=== PATIENT | male | born 1930 | race Caucasian/White ===

== ENCOUNTER 2017-05-02 13:45 | Inpatient (IN) | payer MEDICARE, OTHER, MEDICAID ==
[2017-05-02] MEDS ORDERED: Famotidine 20 MG/2 ML SDV IVPUSH ONE (13:57)
--- NOTE | 2017-05-02 13:57 | EDM.PDOC ---
ED HPI GENERAL MEDICAL PROBLEM - General Chief Complaint: Respiratory Problem Stated Complaint: SOB, hypoxia Time Seen by Provider: 05/02/17 13:55 Source of Information: Reports: Patient, Family, Old Records - History of Present Illness Onset: Today, Sudden - Related Data Allergies Allergy/AdvReac Type Severity Reaction Status Date / Time morphine Allergy Hives Verified 05/02/17 13:52 contrast dye Allergy Hives Uncoded 05/02/17 13:52 Home Meds: Home Meds Aspirin [Lo-Dose Aspirin EC] 81 mg PO DAILY 05/02/17 [History] Calcitriol [Calcitriol] 1 cap PO Q48H 05/02/17 [History] Calcium Acetate [PhosLo] 1 cap PO TIDMEALS 05/02/17 [History] Clopidogrel Bisulfate [Clopidogrel] 75 mg PO DAILY 05/02/17 [History] Furosemide [Furosemide] 40 mg PO DAILY 05/02/17 [History] Insulin Aspart [NovoLOG] 18 units SUBCUT TIDMEALS 05/02/17 [History] Insulin Glargine,Hum.Rec.Anlog [Lantus Solostar] 40 units SUBCUT BEDTIME [History] Ipratropium [Atrovent] 1 vial INH Q4H 05/02/17 [History] Ipratropium [Atrovent] 1 vial INH QID PRN 05/02/17 [History] Levothyroxine 150 mcg PO DAILY 05/02/17 [History] Lisinopril 10 mg PO DAILY 05/02/17 [History] Metoprolol Succinate 50 mg PO DAILY 05/02/17 [History] atorvaSTATin [Lipitor] 40 mg PO DAILY 05/02/17 [History] Past Medical History HEENT History: Reports: Cataract, Hard of Hearing, Impaired Vision, Macular Degeneration, Other (See Below). 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 Denies: Asthma, Intubation, Difficult, PE, Pneumothorax, TB Gastrointestinal History: Reports: Cholelithiasis, Colon Polyp, Diverticulosis, Fecal Incontinence, Hemorrhoids, Other (See Below). Denies: Bowel Obstruction, Celiac Disease, Chronic Constipation, Chronic Diarrhea, Gastritis, GERD, GI Bleed, Hepatitis, Hiatal Hernia, Inflammatory Bowel Disease, Irritable Bowel Syndrome, Jaundice, Pancreatitis, PUD Other Gastrointestinal History: History of colon cancer on 08/21/07 as below with additional multiple tubular adenomas and an additional villous adenoma at 30 cm. Additional recurrent tubular adenomas 2 in the transverse colon and an additional 2 in the cecal region at time of subsequent colonoscopy on 11/19/08 with last colonoscopy in about 2010, moderate nonsymptomatic cholelithiasis by CT scan with no surgery required Genitourinary History: Reports: BPH, Chronic Renal Insuffiency, Diabetic Nephropathy, Renal Calculus, Retention, Urinary, Urinary Incontinence, UTI, Recurrent, Other (See Below). Denies: Acute Renal Failure, Dialysis Other Genitourinary History: Severe bilateral nephrolithiasis in the renal pelvis with multiple recurrent episodes of urolithiasis with last episode of right-sided urolithiasis and mild hydronephrosis on 01/22/13 with spontaneous passage, bilateral renal cysts Musculoskeletal History: Reports: Arthritis, Back Pain, Chronic, Fracture, Neck Pain, Chronic, Osteoarthritis, Osteoporosis, Other (See Below). Denies: Amputation, Gout, RA, SLE Other Musculoskeletal History: Right ankle fracture in the Neurological History: Reports: CVA, Headaches, Chronic, Neuropathy, Diabetic, Neuropathy, Peripheral, TIA, Other (See Below) (Recurrent CVAs initially postoperatively). 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 Denies: Abuse, Victim of, ADD, ADHD, Addiction, Alzheimers Disease, Dementia, Psych Hospitalization(s), PTSD, Suicide Attempt, Suicidal Ideation Endocrine/Metabolic History: Reports: Diabetes, Type II, Hypothyroidism, IDDM, Osteoporosis. Denies: Diabetes, Type I Hematologic History: Reports: Anemia, Blood Transfusion(s), Other (See Below) Other Hematologic History: History of postoperative anemia from CABG with transfusions required Immunologic History: Reports: None. Denies: AIDS, HIV, SLE Oncologic (Cancer) History: Reports: Basal Cell Carcinoma, Colon, Other (See Below). Denies: Hodgkin's Lymphoma, Leukemia, Malignant Melanoma, Non-Hodgkin' s Lymphoma, Prostate, Squamous Cell Carcinoma Other Oncologic History: History of superficially invasive adenocarcinoma of the colon at 32 cm with colon resection as below, probable basal cell carcinoma of the right cheek Dermatologic History: Reports: None. Denies: Eczema, Psoriasis - Infectious Disease History Infectious Disease History: Reports: Chicken Pox, Measles, Mumps. Denies: C- Difficile, Meningitis, Mononucleosis, MRSA, Pertussis (Whooping Cough), Rheumatic Fever, Rubella, Scarlet Fever, Shingles, TB, VRE - Past Surgical History Head Surgeries/Procedures: Reports: None HEENT Surgical History: Reports: Cataract Surgery, Eye Surgery, Laser Surgery, Oral Surgery, Other (See Below). Denies: Adenoidectomy, Myringotomy w Tube(s), Naso-Sinus Surgery, Tonsillectomy Other HEENT Surgeries/Procedures: Left Cataract surgery on 03/27/03 with previous right cataract surgery, history of YAG treatment for posterior capsule clouding , complete teeth extraction Cardiovascular Surgical History: Reports: AICD, Coronary Artery Bypass, Coronary Artery Stent, Pacer, Percutaneous Transluminal Angioplasty, Vascular Surgery, Other (See Below). Denies: AAA Repair, Aneurysm, Cardiac Ablation, Carotid Endarterectomy, Carotid Stents, Valve Replacement, Varicose Other Cardiovascular Surgeries/Procedures: Initial pacemaker/ICD placement in about 1991 with subsequent repeat pacemaker/AICD placement in about 2009, three- vessel CABG in 1991 with history of PTCA/stent 2 in July 2012, additional right inguinal stent placement secondary to peripheral vascular disease Respiratory Surgical History: Reports: None. Denies: Lung Biopsies, Thoracentesis GI Surgical History: Reports: Colon, Colonoscopy, Polypectomy, Other (See Below) . Denies: Appendectomy, Cholecystectomy, Colostomy, EGD, Hernia, Abdominal, Hernia, Inguinal, Hernia Repair/Other Other GI Surgeries/Procedures: Sigmoid colon resection secondary to colon cancer in November 2008, multiple colonic polyp excisions in 2007, 2008, and 2010 Male Surgical History: Reports: Lithotripsy (ESWL), Renal Calculus, Ureteral Stent, Other (See Below). Denies: Circumcision, TURP-Transurethral Resection of Prostate, Vasectomy Other Male Surgeries/Procedures: History of multiple bilateral nephrolithiasis including previous spontaneous passage, stone removal, and lithotripsy Endocrine Surgical History: Reports: None. Denies: Thyroid Biopsy Neurological Surgical History: Reports: None. Denies: C-Spine, Discectomy, Laminectomy, Lumbar Spine, Spinal Fusion, Vertebroplasty Musculoskeletal Surgical History: Reports: ORIF, Other (See Below). Denies: Amputation, Arthroscopic Procedure, Carpal Tunnel, Ganglion Cyst, Joint Replacement, Shoulder Surgery Other Musculoskeletal Surgeries/Procedures:: ORIF of right ankle fracture in about the Oncologic Surgical History: Reports: None Dermatological Surgical History: Reports: Skin Biopsy, Other (See Below) Other Dermatological Surgeries/Procedures: Excision of probable basal cell carcinoma from the right cheek - Past Imaging History Past Imaging History: Reports: JEFFERSON Screen (Positive JEFFERSON screens on 05/30/11, 07/29, and 03/13/07), Bone Scan (Bone scan on 11/14/06), Cardiac Echo ( Echocardiogram on 02/21/13 with ejection fraction of 46%), Carotid US (12/09/06), CAT Scan (CT of the abdomen and pelvis on 01/22/13 and 07/20/11), PFT (PFTs on 15/03), Stress Testing (Low level cardiac stress test on 09/29/12 with previous Cardiolite stress test on 08/07/07 with ejection fraction of 40% and Persantine Cardiolite stress test on 07/26/06 with ejection fraction of 39%), Ultrasound ( Renal ultrasound on 08/20/07), Venous Doppler (Venous Doppler studies of the lower extremities on 05/29/11 with right-sided evaluation on 01/07/07) Social & Family History - Family History HEENT: Reports: None. Denies: Glaucoma, Macular Degeneration, Retinal Detachment Cardiac: Reports: CAD, Hypertension, NE, Other (See Below). Denies: Afib, Aneurysm, Arrhythmia, Blood Clots/VTE/DVT, Bypass, Heart Failure, High Cholesterol, Pacemaker, PVD/COD, Stent, Syncope Other Cardiac Family History: Father with NE in his 60s, father with hypertension Respiratory: Reports: COPD, Sleep Apnea, Other (See Below). Denies: Asthma, PE , Pneumothorax Other Respiratory Family Hisory: Brother with COPD with history of tobacco use, another brother with COPD and sleep apnea GI: Reports: Colon Polyps, Other (See Below). Denies: Celiac Disease, Cholelithiasis, GERD, GI bleed, Inflammatory Bowel Disease, Irritable Bowel Syndrome, PUD Other GI Family History: Brother with probable colonic polyps with history of colon cancer as below : Reports: Renal Calculus. Denies: Dialysis, Renal Disease/Insufficiency Other Family History: Multiple family members with urolithiasis OBGYN: Reports: None. Denies: Endometriosis, Recurrent Spontaneous Musculoskeletal: Reports: Arthritis, Osteoarthritis, Other (See Below). Denies : Gout, RA, SLE Other Musculoskeletal Family History: Multiple Family members with osteoarthritis Neurological: Reports: CVA, Other (See Below). Denies: Alzheimers Disease, Cerebral Aneurysms, Dementia, Migraines, MS, Parkinson's, Seizure, TIA Other Neurological Family History: Mother with history of CVA in his 60s Psychiatric: Denies: Abuse, Victim of, ADD, ADHD, Anxiety, Depression, Psych Hospitalization(s), PTSD, Suicide Attempt Endocrine/Metabolic: Reports: Diabetes, type II, IDDM, Other (See Below). Denies: Hypothyroidism Other Endocrine/Metabolic Family History: Brother IDDM Hematologic: Reports: None. Denies: Anemia Immunologic: Reports: None. Denies: AIDS, HIV, SLE Dermatologic: Reports: None. Denies: Eczema, Psoriasis Oncologic: Reports: Colon, Other (See Below) Other Oncologic Family History: Mother with unknown type of fatal cancer in her early 60s, brother with colon cancer in his 60s - Tobacco Use Smoking Status *Q: Former Smoker Tobacco Use Within Last Twelve Months: No Years of Tobacco use: 53 Packs/Tins Daily: 1 (Note between ages 12 and 65) Used Tobacco, but Quit: Yes Smoking Cessation Information Provided To Patient: No Second Hand Smoke Exposure: No Second Hand Smoke Education Provided: No - Caffeine Use Caffeine Use: Reports: Coffee (7 cups per week), Soda (Very occasional). 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 Denies: Fever, Chills, Malaise, Night Sweats, Diaphoresis, Decreased Appetite, Weight Loss, Weight Gain HEENT: Reports: Glasses (Noncompliant), Hearing Loss (Stable chronic). Denies: Dental Pain, Ear Discharge, Ear Pain, Eye Discharge, Eye Pain, Rhinitis, Sinus Problem, Throat Pain, Throat Swelling, Vertigo, Vision Change Respiratory: Reports: Shortness of Breath. Denies: Wheezing, Pleuritic Chest Pain, Cough Cardiovascular: Reports: Claudication (Stable), Dyspnea on Exertion, Edema ( Stable dependent), Orthopnea. Denies: Chest Pain, Blood Pressure Problem, Lightheadedness, Palpitations, PND, Syncope Endocrine: Reports: Fatigue (As above) GI/Abdominal: Reports: No Symptoms, Stool Incontinence (Stable). Denies: Abdominal Pain, Anorexia, Black Stool, Bloody Stool, Constipation, Diarrhea, Decreased Appetite, Difficulty Swallowing, Distension, Flatus, Hematochezia, Melena, Nausea, Vomiting : Reports: Incontinence. Denies: Discharge, Dysuria, Flank Pain, Frequency, Hematuria, Pain, Urgency, Urinary Retention Musculoskeletal: Reports: Back Pain (Chronic low back), Joint Pain (Generalized) , Muscle Stiffness (Generalized). Denies: Neck Pain, Shoulder Pain, Leg Pain, Joint Swelling Skin: Reports: No Symptoms. Denies: Diaphoresis, Bruising, Wound Neurological: Reports: Numbness (Stable chronic), Paresthesia, Pre-Existing Deficit (Stable borderline left hemiparesis), Tingling, Difficulty Walking ( Secondary to arthritis and chronic low back pain with cane use). Denies: Confusion, Dizziness, Headache, Seizure, Weakness, Change in Speech, Gait Disturbance Psychiatric: Reports: Anxiety (Stable), Depression (Stable). Denies: Agitation , Hallucinations Hematologic/Lymphatic: Reports: No Symptoms Immunologic: Reports: No Symptoms ED EXAM, GENERAL - Physical Exam Exam: See Below Exam Limited By: No Limitations General Appearance: Alert, WD/WN, No Apparent Distress, Anxious (Mild) Eye Exam: Bilateral Eye: EOMI (Moderate bilateral miosis), Normal Inspection ( No nystagmus), PERRL Ears: Normal External Exam, Normal Canal, Normal TMs, Hearing Loss (Moderate bilateral presbycusis with no hearing aids) Nose: Normal Inspection, Normal Mucosa, No Blood Throat/Mouth: Normal Inspection, Normal Lips, Normal Gums, Normal Oropharynx, Normal Voice, No Airway Compromise. No: Normal Teeth (Complete dentures uppers and lowers), Dysphagia, Perioral Cyanosis Head: Atraumatic, Normocephalic. No: Facial Swelling, Facial Tenderness, Sinus Tenderness Neck: Supple, Non-Tender, Full Range of Motion, Carotid Bruit (Mild bilateral carotid bruits). No: Lymphadenopathy (L), Lymphadenopathy (R), Thyromegaly Respiratory/Chest: No Respiratory Distress, No Accessory Muscle Use, Chest Non- Tender, Rales (Mild bilateral basilar rales). No: Pleural Rub, Retractions Cardiovascular: Normal Peripheral Pulses, Regular Rate, Rhythm, No Edema, No Gallop, No JVD, No Murmur, No Rub. No: Gallop/S3, Gallop/S4, Extra Beats, Friction Rub Peripheral Pulses: 2+: Radial (L), Radial (R), Dorsalis Pedis (L), Dorsalis Pedis (R) GI/Abdominal: Normal Bowel Sounds, Soft, Non-Tender, No Organomegaly, No Distention, No Abnormal Bruit, No Mass, Other (Obese). No: Guarding (Male) Exam: Deferred Rectal (Males) Exam: Deferred Back Exam: Decreased Range of Motion (Secondary to chronic low back pain), Paraspinal Tenderness (Mild bilateral lower lumbar). No: CVA Tenderness (L), CVA Tenderness (R), Muscle Spasm, Vertebral Tenderness Extremities: Normal Range of Motion, Non-Tender, Normal Capillary Refill, Pedal Edema (Stable by history mild lymphedema of the lower extremities). No: Kristian' s Sign Neurological: Alert, Oriented, CN II-XII Intact, Normal Cognition, Normal Gait ( With walker use), Normal Reflexes (Negative Babinski's), Sensory/Motor Deficit ( Borderline mild left-sided hemiparesis stable by history) Psychiatric: Anxious (Mild), Depressed Mood (Mild with adequate eye contact) Skin Exam: Warm, Dry, Intact, Normal Color, No Rash. No: Diaphoretic, Wound/ Incision Lymphatic: No Adenopathy EKG INTERPRETATION EKG Date: 05/02/17 Time: 14:06 Rhythm: Other (100% paced) Rate (Beats/Min): 70 Comparison: No Change (Last EKG at time of the level cardiac stress test on 09/29) Course - Vital Signs Last Recorded V/S: Last Vital Signs Temp 37.0 C 05/02/17 13:46 Pulse 74 05/02/17 15:11 Resp 19 05/02/17 15:11 BP 151/80 H 05/02/17 15:11 Pulse Ox 100 05/02/17 15:11 Vital Signs - 24 hr 05/02/17 05/02/17 05/02/17 13:46 13:57 14:11 Temperature [ 37.0 C Temporal] Pulse, 70 70 70 Peripheral [ Right Pulse Oximetry] Respiratory 17 20 20 Rate Blood Pressure 152/59 H 152/59 H 148/71 H [Left Upper Arm ] O2 Sat by Pulse 98 98 96 Oximetry 05/02/17 05/02/17 05/02/17 14:26 14:41 14:56 Temperature [ Temporal] Pulse, 70 70 70 Peripheral [ Right Pulse Oximetry] Respiratory 20 18 19 Rate Blood Pressure 141/65 H 153/63 H 150/72 H [Left Upper Arm ] O2 Sat by Pulse 96 98 97 Oximetry 05/02/17 05/02/17 05/02/17 15:11 15:30 15:45 Temperature [ Temporal] Pulse, 74 68 Peripheral [ Right Pulse Oximetry] Respiratory 19 Rate Blood Pressure 151/80 H 143/85 H 134/61 [Left Upper Arm ] O2 Sat by Pulse 100 100 Oximetry - Orders/Labs/Meds Orders: Active Orders 24 hr Category Date Time Status Cardiac Monitoring [RC] . DIRECTED Care 05/02/17 13:57 Active EKG Documentation Completion [RC] ASDIRECTED Care 05/02/17 13:57 Active Peripheral IV Care [RC] . DIRECTED Care 05/02/17 13:57 Active Pulse Oximetry [RC] CONTINUOUS Care 05/02/17 13:57 Active Up With Assistance [RC] PFP Care 05/02/17 13:57 Active Vital Signs [RC] PFP Care 05/02/17 13:57 Active Nothing per Oral Now Diet [DIET] Diet 05/02/17 Breakfast Active Chest 1V Frontal [CR] Stat Exams 05/02/17 13:57 Taken INR,PT,PROTHROMBIN TIME [COAG] Stat Lab 05/02/17 13:57 Ordered PTT,PARTIAL THROMBOPLSTIN TIME [COAG] Stat Lab 05/02/17 13:57 Ordered Sodium Chloride 0.9% [Saline Flush] Med 05/02/17 13:57 Active 10 ml FLUSH ASDIRECTED PRN Obtain Past Medical Record [OM.PC] Urgent Oth 05/02/17 13:57 Active Peripheral IV Insertion Adult [OM.PC] Stat Oth 05/02/17 13:57 Ordered Resuscitation Status Stat Resus Stat 05/02/17 13:57 Ordered Medication Orders Sodium Chloride (Saline Flush) 10 ml FLUSH ASDIRECTED PRN PRN Reason: Keep Vein Open Labs: Laboratory Tests 05/02/17 05/02/17 05/02/17 Range/Units 14:30 14:30 14:30 WBC 9.3 (4.0-10.2) K/uL RBC 4.56 (4.33-5.41) M/uL Hgb 14.9 (13.1-16.8) g/dL Hct 44.4 (39.0-49.0) % MCV 97.4 (84.0-98.0) fL MCH 32.7 (28.2-33.3) pg MCHC 33.6 (31.7-36.0) g/dL RDW 13.3 (11.2-14.1) % Plt Count 141 L (150-350) K/uL Neut % (Auto) 78.5 (45.0-80.0) % Lymph % (Auto) 12.4 (10.0-50.0) % [place] % (Auto) 6.5 (2.0-14.0) % Eos % (Auto) 2.3 (0.0-5.0) % Baso % (Auto) 0.3 (0.0-2.0) % Neut # (Auto) 7.31 H (1.40-7.00) K/uL Lymph # (Auto) 1.16 (0.50-3.50) K/uL [place] # (Auto) 0.61 (0.00-1.00) K/uL Eos # (Auto) 0.21 (0.00-0.50) K/uL Baso # (Auto) 0.03 (0.00-0.20) K/uL D-Dimer, Quantitative 933 H (0-400) ng/mL Sodium 144 (136-145) mmol/L Potassium 4.2 (3.5-5.1) mmol/L Chloride 105 (98-107) mmol/L Carbon Dioxide 30.1 (21.0-32.0) mmol/L BUN 27 H (7-18) mg/dL Creatinine 1.52 H (0.51-1.17) mg/dL Est Cr Clr Drug Dosing 33.05 mL/min Estimated GFR (MDRD) 43 mL/min Glucose 162 H (74-106) mg/dL Lactic Acid (0.4-2.0) mmol/L Uric Acid 6.3 (2.6-7.2) mg/dL Calcium 9.0 (8.5-10.1) mg/dL Magnesium 2.2 (1.8-2.4) mg/dL Total Bilirubin 0.6 (0.2-1.0) mg/dL AST 19 (15-37) U/L ALT 23 (12-78) U/L Alkaline Phosphatase 110 (46-116) IU/L Creatine Kinase 133 (26-308) U/L Creatine Kinase Index 1.4 (0.0-2.5) % CK-MB (CK-2) 1.90 (0.00-3.60) ng/mL Troponin I 0.024 (0.000-0.056) ng/mL NT-Pro-B Natriuret Pep 1254 H (0-125) pg/mL Total Protein 7.4 (6.4-8.2) g/dL Albumin 3.5 (3.4-5.0) g/dL TSH, Ultra Sensitive 14.885 H (0.358-3.740) mIU/mL 05/02/17 Range/Units 14:30 WBC (4.0-10.2) K/uL RBC (4.33-5.41) M/uL Hgb (13.1-16.8) g/dL Hct (39.0-49.0) % MCV (84.0-98.0) fL MCH (28.2-33.3) pg MCHC (31.7-36.0) g/dL RDW (11.2-14.1) % Plt Count (150-350) K/uL Neut % (Auto) (45.0-80.0) % Lymph % (Auto) (10.0-50.0) % [place] % (Auto) (2.0-14.0) % Eos % (Auto) (0.0-5.0) % Baso % (Auto) (0.0-2.0) % Neut # (Auto) (1.40-7.00) K/uL Lymph # (Auto) (0.50-3.50) K/uL [place] # (Auto) (0.00-1.00) K/uL Eos # (Auto) (0.00-0.50) K/uL Baso # (Auto) (0.00-0.20) K/uL D-Dimer, Quantitative (0-400) ng/mL Sodium (136-145) mmol/L Potassium (3.5-5.1) mmol/L Chloride (98-107) mmol/L Carbon Dioxide (21.0-32.0) mmol/L BUN (7-18) mg/dL Creatinine (0.51-1.17) mg/dL Est Cr Clr Drug Dosing mL/min Estimated GFR (MDRD) mL/min Glucose (74-106) mg/dL Lactic Acid 1.5 (0.4-2.0) mmol/L Uric Acid (2.6-7.2) mg/dL Calcium (8.5-10.1) mg/dL Magnesium (1.8-2.4) mg/dL Total Bilirubin (0.2-1.0) mg/dL AST (15-37) U/L ALT (12-78) U/L Alkaline Phosphatase (46-116) IU/L Creatine Kinase (26-308) U/L Creatine Kinase Index (0.0-2.5) % CK-MB (CK-2) (0.00-3.60) ng/mL Troponin I (0.000-0.056) ng/mL NT-Pro-B Natriuret Pep (0-125) pg/mL Total Protein (6.4-8.2) g/dL Albumin (3.4-5.0) g/dL TSH, Ultra Sensitive (0.358-3.740) mIU/mL Meds: Medications Generic Name Dose Route Start Last Admin Trade Name Freq PRN Reason Stop Dose Admin Sodium Chloride 10 ml 05/02/17 13:57 Saline Flush FLUSH ASDIRECTED PRN Keep Vein Open Discontinued Medications Generic Name Dose Route Start Last Admin Trade Name Freq PRN Reason Stop Dose Admin Famotidine 40 mg 05/02/17 13:57 05/02/17 14:27 Pepcid IVPUSH 05/02/17 13:58 40 mg ONETIME ONE Administration - Radiology Interpretation Free Text/Narrative:: Heart monitor shows a nearly 100% paced rhythm with very occasional independent PVC Chest x-ray, portable, showed severe cardiomegaly with mild centralized CHF and pulmonary hypertension. Note pacemaker/ICD with leads in appropriate position. Moderate to severe COPD and pulmonary fibrotic changes with no pneumothorax, pulmonary infiltrates, etc. Departure - Departure Time of Disposition: 15:50 Disposition: Admitted As Inpatient 64 Condition: Fair Clinical Impression: Congestive heart failure, Coronary artery disease, Need for comfort care, IDDM (insulin dependent diabetes mellitus), Dyslipidemia, D-dimer, elevated, Thrombocytopenia, Osteoarthritis, Hypothyroidism (acquired), Hypertension, Renal insufficiency - Discharge Information - Problem List & Annotations (1) Congestive heart failure SNOMED Code(s): 16951081 Code(s): I50.9 - HEART FAILURE, UNSPECIFIED Status: Acute Priority: High Current Visit: Yes Annotation/Comment:: Note significant hypoxemia with any activity with mild to moderate CHF by clinical exam and blood work as above. No true chest pain or anginal type symptoms. Initiate aggressive IV Lasix therapy on admission. Patient will be admitted to inpatient/acute care with additional initiation of standard rule out NE orders. Note that patient is comfort care with no further workup including echocardiogram, etc., although the patient does agree to possible transfer to [place] if warranted. Qualifiers: Congestive heart failure type: systolic Congestive heart failure chronicity : acute on chronic Qualified Code(s): I50.23 - Acute on chronic systolic ( congestive) heart failure (2) Coronary artery disease SNOMED Code(s): 52114167 Code(s): I25.10 - ATHSCL HEART DISEASE OF [place] CORONARY ARTERY W/O ANG PCTRS Status: Chronic Priority: Medium Current Visit: Yes Annotation/ Comment:: No chest pain or anginal type symptoms, however note significant cardiac history as above including PVCs, previous atrial fibrillation, etc. Comfort care as above Qualifiers: Coronary Disease-Associated Artery/Lesion type: bypass graft, autologous artery Associated angina: without angina Qualified Code(s): I25.810 - Atherosclerosis of coronary artery bypass graft(s) without angina pectoris (3) Need for comfort care SNOMED Code(s): 897035778 Code(s): PTY5129 - Status: Chronic Priority: High Current Visit: Yes Annotation/Comment:: Comfort Care verified both with the patient and his son today (4) D-dimer, elevated SNOMED Code(s): 342158032 Code(s): R79.89 - OTHER SPECIFIED ABNORMAL FINDINGS OF BLOOD CHEMISTRY Status: Acute Priority: High Current Visit: Yes Onset Date: 05/02/17 Annotation/Comment:: D-dimer elevation with no clinical evidence of PE or DVT. Patient is allergic to iodine and and also has some renal insufficiency and is not a candidate for a CTA of the chest. Venous Doppler studies of the lower extremities to be conducted in the a.m., although these have been negative in the past (5) Dyslipidemia SNOMED Code(s): 965621996 Code(s): E78.5 - HYPERLIPIDEMIA, UNSPECIFIED Status: Chronic Priority: Medium Current Visit: Yes Annotation/Comment:: Lipid panel in the a.m. (6) Hypertension SNOMED Code(s): 82311747 Code(s): I10 - ESSENTIAL (PRIMARY) HYPERTENSION Status: Chronic Priority : Medium Current Visit: Yes Annotation/Comment:: Blood pressure is under good control in the emergency room Qualifiers: Hypertension type: essential hypertension Qualified Code(s): I10 - Essential (primary) hypertension (7) Hypothyroidism (acquired) SNOMED Code(s): 697840491 Code(s): E03.9 - HYPOTHYROIDISM, UNSPECIFIED Status: Chronic Priority: Medium Current Visit: Yes Annotation/Comment:: Significantly elevated TSH today with the patient not taking this medication on an empty stomach in the past. Increase thyroid supplement for now with close follow-up in 4 weeks with his regular provider (8) IDDM (insulin dependent diabetes mellitus) SNOMED Code(s): 55420528 Code(s): E11.9 - TYPE 2 DIABETES MELLITUS WITHOUT COMPLICATIONS; Z79.4 - SENIOR CARE (CURRENT) USE OF INSULIN Status: Chronic Priority: Medium Current Visit: Yes Annotation/Comment:: Note history of diabetic nephropathy and neuropathy. Initiate sliding scale. Glycosylated hemoglobin in the a.m. (9) Osteoarthritis SNOMED Code(s): 622297090 Code(s): M19.90 - UNSPECIFIED OSTEOARTHRITIS, UNSPECIFIED SITE Status: Chronic Priority: Medium Current Visit: Yes Annotation/Comment:: Osteoarthritis someone under poor control including with current physical therapy. Note significant persistent low back pain Qualifiers: Osteoarthritis location: multiple joints Osteoarthritis type: primary Qualified Code(s): M15.0 - Primary generalized (osteo)arthritis (10) Renal insufficiency SNOMED Code(s): 343620918 Code(s): N28.9 - DISORDER OF KIDNEY AND URETER, UNSPECIFIED Status: Chronic Priority: Medium Current Visit: Yes Annotation/Comment:: Continue to observe closely especially in light of IV Lasix therapy (11) Thrombocytopenia SNOMED Code(s): 000721939 Code(s): D69.6 - THROMBOCYTOPENIA, UNSPECIFIED Status: Acute Priority: Medium Current Visit: Yes Onset Date: 05/02/17 Annotation/Comment:: Mild thrombocytopenia likely not relevant at this time. Repeat blood work in the a.m. - Problem List Review Problem List Initiated/Reviewed/Updated: Yes - My Orders Last 24 Hours: My Active Orders 05/02/17 13:57 Cardiac Monitoring [RC] . DIRECTED EKG Documentation Completion [RC] ASDIRECTED Peripheral IV Care [RC] . DIRECTED Pulse Oximetry [RC] CONTINUOUS Up With Assistance [RC] PFP Vital Signs [RC] PFP Chest 1V Frontal [CR] Stat INR,PT,PROTHROMBIN TIME [COAG] Stat PTT,PARTIAL THROMBOPLSTIN TIME [COAG] Stat Sodium Chloride 0.9% [Saline Flush] 10 ml FLUSH ASDIRECTED PRN Obtain Past Medical Record [OM.PC] Urgent Peripheral IV Insertion Adult [OM.PC] Stat Resuscitation Status Stat 05/02/17 Breakfast Nothing per Oral Now Diet [DIET] - Assessment/Plan Admission H&P: Please use this note as an admission H&P Last 24 Hours: My Active Orders 05/02/17 13:57 Cardiac Monitoring [RC] . DIRECTED EKG Documentation Completion [RC] ASDIRECTED Peripheral IV Care [RC] . DIRECTED Pulse Oximetry [RC] CONTINUOUS Up With Assistance [RC] PFP Vital Signs [RC] PFP Chest 1V Frontal [CR] Stat INR,PT,PROTHROMBIN TIME [COAG] Stat PTT,PARTIAL THROMBOPLSTIN TIME [COAG] Stat Sodium Chloride 0.9% [Saline Flush] 10 ml FLUSH ASDIRECTED PRN Obtain Past Medical Record [OM.PC] Urgent Peripheral IV Insertion Adult [OM.PC] Stat Resuscitation Status Stat 05/02/17 Breakfast Nothing per Oral Now Diet [DIET] Assessment:: As above Plan: As above. Extensive precautions were given to the patient and his son, who are in agreement with the treatment plan. The patient will require about 3-4 days of inpatient/acute care secondary to multiple health problems as above. Marc Aguirre M.D., at the [facility], assumes care in the a.m. with subsequent follow-up after discharge with his regular provider, VICKIE Iverson, from [facility] in [place].
[2017-05-02] MEDS ORDERED: Temazepam 15 MG Cap PO PRN (16:04)
[2017-05-02] MEDS ORDERED: Sodium Chloride 0.9% 10 ML Syringe FLUSH PRN (16:04)
[2017-05-02] MEDS ORDERED: Albuterol/Ipratropium 3.0-0.5 MG/3 ML Neb Soln NEB PRN (16:10)
[2017-05-02] MEDS ORDERED: Albuterol 0.083% 2.5 MG/3 ML Neb Soln INH PRN (16:10)
[2017-05-02] MEDS: Insulin Aspart 100 Units/ML 3 ML Pen SUBCUT SCH ×2 (17:04→20:34)
[2017-05-02] MEDS: Enoxaparin 100 MG/1 ML Syringe SUBCUT SCH (17:04)
[2017-05-02] MEDS: Furosemide 40 MG/4 ML VIAL IVPUSH SCH ×2 (17:04→23:53)
[2017-05-02] MEDS: Sodium Chloride 0.9% 10 ML Syringe FLUSH PRN (17:05)
[2017-05-02] MEDS: Potassium Chloride 20 MEQ Tab.ER PO SCH (17:40)
[2017-05-02] MEDS: Calcium Acetate 667 MG Cap PO SCH (17:40)
[2017-05-02] MEDS: Acetaminophen 325 MG Tab PO PRN (20:31)
[2017-05-02] MEDS: Albuterol/Ipratropium 3.0-0.5 MG/3 ML Neb Soln NEB SCH (20:31)
[2017-05-02] MEDS: Levothyroxine 100 MCG Tab PO SCH (20:32)
[2017-05-02] MEDS: Insulin Detemir 100 Units/ML 3 ML Pen SUBCUT SCH (20:35)
[2017-05-03] MEDS: Albuterol/Ipratropium 3.0-0.5 MG/3 ML Neb Soln NEB SCH ×4 (01:54→19:39)
[2017-05-03] MEDS: Potassium Chloride 20 MEQ Tab.ER PO SCH ×3 (07:28→17:40)
[2017-05-03] MEDS: Insulin Aspart 100 Units/ML 3 ML Pen SUBCUT SCH ×4 (07:28→17:41)
[2017-05-03] MEDS: Aspirin 81 MG Tab.EC PO SCH (07:28)
[2017-05-03] MEDS: atorvaSTATin 40 MG Tab PO SCH (07:29)
[2017-05-03] MEDS: Clopidogrel 75 MG Tab PO SCH (07:29)
[2017-05-03] MEDS: Calcium Acetate 667 MG Cap PO SCH ×3 (07:29→17:41)
[2017-05-03] MEDS: Lisinopril 10 MG Tab PO SCH (07:29)
[2017-05-03] MEDS: Furosemide 40 MG/4 ML VIAL IVPUSH SCH ×2 (07:29→16:35)
[2017-05-03] MEDS: Metoprolol Succinate 50 MG Tab.ER PO SCH (07:30)
[2017-05-03] MEDS: Acetaminophen 325 MG Tab PO PRN ×2 (07:30→13:27)
[2017-05-03] MEDS: Sodium Chloride 0.9% 10 ML Syringe FLUSH PRN (07:34)
[2017-05-03 08:12] LABS: CHLORIDE,CL 101 mmol/L (98-107); SODIUM,NA 141 mmol/L (136-145)
--- NOTE | 2017-05-03 12:21 | PCM.PN ---
- General Info Date of Service: 05/03/17 Admission Dx/Problem (Free Text): Congestive heart failure - Review of Systems General: Reports: Weakness, Fatigue HEENT: Reports: No Symptoms Pulmonary: Reports: No Symptoms Cardiovascular: Reports: No Symptoms Gastrointestinal: Reports: No Symptoms Musculoskeletal: Reports: No Symptoms Skin: Reports: No Symptoms Neurological: Reports: No Symptoms Psychiatric: Reports: No Symptoms Systems Review Comment:: Patient is seen states feeling weaker and not as active as before concerned about his blood sugar going up to 252 has lost 11 pounds since yesterday at this time I explained that we diuresed him and that was 11 pounds of water weight also we would put his NovoLog back to 18 units with meals his blood glucose has been well controlled with 18 of NovoLog as seen by his hemoglobin A1c of 6.6 his pitting edema is down we'll continue decreasing and monitoring - Patient Data Vitals - Most Recent: Last Vital Signs Temp 98.3 F 05/03/17 10:00 Pulse 70 05/03/17 10:00 Resp 16 05/03/17 10:00 BP 122/49 L 05/03/17 10:00 Pulse Ox 97 05/03/17 10:00 Weight - Most Recent: 238 lb 6.385 oz I&O - Last 24 Hours: Intake & Output 05/02/17 05/03/17 05/03/17 22:59 06:59 14:59 Intake Total 360 540 Output Total 1750 1450 700 Balance -1390 -1450 -160 Lab Results Last 24 Hours: Laboratory Results - last 24 hr 05/02/17 05/02/17 05/02/17 Range/Units 17:03 20:31 21:50 WBC (4.0-10.2) K/uL RBC (4.33-5.41) M/uL Hgb (13.1-16.8) g/dL Hct (39.0-49.0) % MCV (84.0-98.0) fL MCH (28.2-33.3) pg MCHC (31.7-36.0) g/dL RDW (11.2-14.1) % Plt Count (150-350) K/uL Neut % (Auto) (45.0-80.0) % Lymph % (Auto) (10.0-50.0) % [place] % (Auto) (2.0-14.0) % Eos % (Auto) (0.0-5.0) % Baso % (Auto) (0.0-2.0) % Neut # (Auto) (1.40-7.00) K/uL Lymph # (Auto) (0.50-3.50) K/uL [place] # (Auto) (0.00-1.00) K/uL Eos # (Auto) (0.00-0.50) K/uL Baso # (Auto) (0.00-0.20) K/uL D-Dimer, Quantitative (0-400) ng/mL Sodium (136-145) mmol/L Potassium (3.5-5.1) mmol/L Chloride (98-107) mmol/L Carbon Dioxide (21.0-32.0) mmol/L BUN (7-18) mg/dL Creatinine (0.51-1.17) mg/dL Est Cr Clr Drug Dosing mL/min Estimated GFR (MDRD) mL/min Glucose (74-106) mg/dL POC Glucose 100 141 H (65-110) mg/dl Hemoglobin A1c (4.3-5.7) % Calcium (8.5-10.1) mg/dL Phosphorus (2.6-4.7) mg/dL Total Bilirubin (0.2-1.0) mg/dL AST (15-37) U/L ALT (12-78) U/L Alkaline Phosphatase (46-116) IU/L Creatine Kinase 131 (26-308) U/L Creatine Kinase Index 1.2 (0.0-2.5) % CK-MB (CK-2) 1.60 (0.00-3.60) ng/mL Troponin I 0.030 (0.000-0.056) ng/mL NT-Pro-B Natriuret Pep (0-125) pg/mL Total Protein (6.4-8.2) g/dL Albumin (3.4-5.0) g/dL Triglycerides (30-150) mg/dL Cholesterol (100-200) mg/dL LDL Cholesterol, Calc HDL Cholesterol (40-60) mg/dL 05/03/17 05/03/17 05/03/17 Range/Units 02:51 07:00 07:00 WBC 8.5 (4.0-10.2) K/uL RBC 4.40 (4.33-5.41) M/uL Hgb 14.3 (13.1-16.8) g/dL Hct 43.1 (39.0-49.0) % MCV 98.0 (84.0-98.0) fL MCH 32.5 (28.2-33.3) pg MCHC 33.2 (31.7-36.0) g/dL RDW 13.2 (11.2-14.1) % Plt Count 118 L (150-350) K/uL Neut % (Auto) 75.7 (45.0-80.0) % Lymph % (Auto) 13.6 (10.0-50.0) % [place] % (Auto) 7.7 (2.0-14.0) % Eos % (Auto) 2.5 (0.0-5.0) % Baso % (Auto) 0.5 (0.0-2.0) % Neut # (Auto) 6.47 (1.40-7.00) K/uL Lymph # (Auto) 1.16 (0.50-3.50) K/uL [place] # (Auto) 0.66 (0.00-1.00) K/uL Eos # (Auto) 0.21 (0.00-0.50) K/uL Baso # (Auto) 0.04 (0.00-0.20) K/uL D-Dimer, Quantitative 824 H (0-400) ng/mL Sodium (136-145) mmol/L Potassium (3.5-5.1) mmol/L Chloride (98-107) mmol/L Carbon Dioxide (21.0-32.0) mmol/L BUN (7-18) mg/dL Creatinine (0.51-1.17) mg/dL Est Cr Clr Drug Dosing mL/min Estimated GFR (MDRD) mL/min Glucose (74-106) mg/dL POC Glucose 148 H (65-110) mg/dl Hemoglobin A1c (4.3-5.7) % Calcium (8.5-10.1) mg/dL Phosphorus (2.6-4.7) mg/dL Total Bilirubin (0.2-1.0) mg/dL AST (15-37) U/L ALT (12-78) U/L Alkaline Phosphatase (46-116) IU/L Creatine Kinase (26-308) U/L Creatine Kinase Index (0.0-2.5) % CK-MB (CK-2) (0.00-3.60) ng/mL Troponin I (0.000-0.056) ng/mL NT-Pro-B Natriuret Pep (0-125) pg/mL Total Protein (6.4-8.2) g/dL Albumin (3.4-5.0) g/dL Triglycerides (30-150) mg/dL Cholesterol (100-200) mg/dL LDL Cholesterol, Calc HDL Cholesterol (40-60) mg/dL 05/03/17 05/03/17 05/03/17 Range/Units 07:00 07:00 07:17 WBC (4.0-10.2) K/uL RBC (4.33-5.41) M/uL Hgb (13.1-16.8) g/dL Hct (39.0-49.0) % MCV (84.0-98.0) fL MCH (28.2-33.3) pg MCHC (31.7-36.0) g/dL RDW (11.2-14.1) % Plt Count (150-350) K/uL Neut % (Auto) (45.0-80.0) % Lymph % (Auto) (10.0-50.0) % [place] % (Auto) (2.0-14.0) % Eos % (Auto) (0.0-5.0) % Baso % (Auto) (0.0-2.0) % Neut # (Auto) (1.40-7.00) K/uL Lymph # (Auto) (0.50-3.50) K/uL [place] # (Auto) (0.00-1.00) K/uL Eos # (Auto) (0.00-0.50) K/uL Baso # (Auto) (0.00-0.20) K/uL D-Dimer, Quantitative (0-400) ng/mL Sodium 141 (136-145) mmol/L Potassium 3.9 (3.5-5.1) mmol/L Chloride 101 (98-107) mmol/L Carbon Dioxide 30.8 (21.0-32.0) mmol/L BUN 28 H (7-18) mg/dL Creatinine 1.78 H (0.51-1.17) mg/dL Est Cr Clr Drug Dosing 28.22 mL/min Estimated GFR (MDRD) 36 mL/min Glucose 141 H (74-106) mg/dL POC Glucose 125 H (65-110) mg/dl Hemoglobin A1c 6.6 H (4.3-5.7) % Calcium 9.1 (8.5-10.1) mg/dL Phosphorus 4.0 (2.6-4.7) mg/dL Total Bilirubin 0.7 (0.2-1.0) mg/dL AST 18 (15-37) U/L ALT 20 (12-78) U/L Alkaline Phosphatase 97 (46-116) IU/L Creatine Kinase 121 (26-308) U/L Creatine Kinase Index 1.6 (0.0-2.5) % CK-MB (CK-2) 1.90 (0.00-3.60) ng/mL Troponin I 0.035 (0.000-0.056) ng/mL NT-Pro-B Natriuret Pep 1910 H (0-125) pg/mL Total Protein 7.3 (6.4-8.2) g/dL Albumin 3.5 (3.4-5.0) g/dL Triglycerides 520 H (30-150) mg/dL Cholesterol 122 (100-200) mg/dL LDL Cholesterol, Calc [employer]yers HDL Cholesterol 30 L (40-60) mg/dL 05/03/17 Range/Units 11:05 WBC (4.0-10.2) K/uL RBC (4.33-5.41) M/uL Hgb (13.1-16.8) g/dL Hct (39.0-49.0) % MCV (84.0-98.0) fL MCH (28.2-33.3) pg MCHC (31.7-36.0) g/dL RDW (11.2-14.1) % Plt Count (150-350) K/uL Neut % (Auto) (45.0-80.0) % Lymph % (Auto) (10.0-50.0) % [place] % (Auto) (2.0-14.0) % Eos % (Auto) (0.0-5.0) % Baso % (Auto) (0.0-2.0) % Neut # (Auto) (1.40-7.00) K/uL Lymph # (Auto) (0.50-3.50) K/uL [place] # (Auto) (0.00-1.00) K/uL Eos # (Auto) (0.00-0.50) K/uL Baso # (Auto) (0.00-0.20) K/uL D-Dimer, Quantitative (0-400) ng/mL Sodium (136-145) mmol/L Potassium (3.5-5.1) mmol/L Chloride (98-107) mmol/L Carbon Dioxide (21.0-32.0) mmol/L BUN (7-18) mg/dL Creatinine (0.51-1.17) mg/dL Est Cr Clr Drug Dosing mL/min Estimated GFR (MDRD) mL/min Glucose (74-106) mg/dL POC Glucose 252 H* (65-110) mg/dl Hemoglobin A1c (4.3-5.7) % Calcium (8.5-10.1) mg/dL Phosphorus (2.6-4.7) mg/dL Total Bilirubin (0.2-1.0) mg/dL AST (15-37) U/L ALT (12-78) U/L Alkaline Phosphatase (46-116) IU/L Creatine Kinase (26-308) U/L Creatine Kinase Index (0.0-2.5) % CK-MB (CK-2) (0.00-3.60) ng/mL Troponin I (0.000-0.056) ng/mL NT-Pro-B Natriuret Pep (0-125) pg/mL Total Protein (6.4-8.2) g/dL Albumin (3.4-5.0) g/dL Triglycerides (30-150) mg/dL Cholesterol (100-200) mg/dL LDL Cholesterol, Calc HDL Cholesterol (40-60) mg/dL Chaz Results Last 24 Hours: Microbiology 05/02/17 21:15 Stool Occult Blood ([facility]) - Final Stool / Feces NEGATIVE OCCULT BLOOD Med Orders - Current: Current Medications Acetaminophen (Tylenol) 650 mg PO Q4H PRN PRN Reason: Pain Last Admin: 05/03/17 07:30 Dose: 650 mg Albuterol (Proventil Neb Soln) 2.5 mg INH Q2H PRN PRN Reason: SHORTNESS OF BREATH Albuterol/Ipratropium (Duoneb 3.0-0.5 Mg/3 Ml) 3 ml NEB Q4HRRT PRN PRN Reason: Dyspnea Albuterol/Ipratropium (Duoneb 3.0-0.5 Mg/3 Ml) 3 ml NEB Q6HRRT [facility] Last Admin: 05/03/17 07:28 Dose: 3 ml Aspirin (Halfprin) 81 mg PO DAILY [facility] Last Admin: 05/03/17 07:28 Dose: 81 mg Atorvastatin Calcium (Lipitor) 40 mg PO DAILY [facility] Last Admin: 05/03/17 07:29 Dose: 40 mg Calcitriol (Rocaltrol) 0.5 mcg PO Q2D@0800 [facility] Calcium Acetate (Phoslo) 667 mg PO TIDMEALS [facility] Last Admin: 05/03/17 11:42 Dose: 667 mg Clopidogrel Bisulfate (Plavix) 75 mg PO DAILY [facility] Last Admin: 05/03/17 07:29 Dose: 75 mg Enoxaparin Sodium (Lovenox) 100 mg SUBCUT Q24H [facility] Last Admin: 05/02/17 17:04 Dose: 100 mg Famotidine (Pepcid) 20 mg IVPUSH QPM [facility] Furosemide (Lasix) 40 mg IVPUSH Q8H [facility] Last Admin: 05/03/17 07:29 Dose: 40 mg Insulin Aspart (Novolog) 18 unit SUBCUT TIDMEALS [facility] Insulin Detemir (Levemir) 40 unit SUBCUT BEDTIME [facility] Last Admin: 05/02/17 20:35 Dose: 40 unit Levothyroxine Sodium (Synthroid) 200 mcg PO BEDTIME [facility] Last Admin: 05/02/17 20:32 Dose: 200 mcg Lisinopril (Prinivil) 10 mg PO DAILY [facility] Last Admin: 05/03/17 07:29 Dose: 10 mg Metoprolol Succinate (Toprol Xl) 50 mg PO DAILY [facility] Last Admin: 05/03/17 07:30 Dose: 50 mg Potassium Chloride (Klor-Con M20) 20 meq PO TID [facility] Last Admin: 05/03/17 11:42 Dose: 20 meq Sodium Chloride (Saline Flush) 10 ml FLUSH ASDIRECTED PRN PRN Reason: Keep Vein Open Last Admin: 05/03/17 07:34 Dose: 10 ml Sodium Chloride (Saline Flush) 10 ml FLUSH Q12HR PRN PRN Reason: Keep Vein Open Temazepam (Restoril) 15 mg PO BEDTIME PRN PRN Reason: Insomnia Discontinued Medications Famotidine (Pepcid) 40 mg IVPUSH ONETIME ONE Stop: 05/02/17 13:58 Last Admin: 05/02/17 14:27 Dose: 40 mg Insulin Aspart (Novolog) 0 unit SUBCUT ACBED RADHA PRN Reason: Protocol Last Admin: 05/03/17 11:41 Dose: 8 units - Exam Quality Assessment: Supplemental Oxygen, DVT Prophylaxis General: Alert, Oriented, Cooperative, No Acute Distress HEENT: Pupils Equal, Pupils Reactive, EOMI, Mucous Membr. Moist/[place] Neck: Supple Lungs: Clear to Auscultation, Normal Respiratory Effort Cardiovascular: Regular Rate, Regular Rhythm GI/Abdominal Exam: Normal Bowel Sounds, Soft, Non-Tender, No Organomegaly, No Distention, No Abnormal Bruit, No Mass, Pelvis Stable Back Exam: Normal Inspection, Full Range of Motion Extremities: Normal Inspection, Normal Range of Motion, Non-Tender, No Pedal Edema, Normal Capillary Refill, Pedal Edema Skin: Warm, Dry, Intact Neurological: No New Focal Deficit Physical Findings Comments:: Edema is down from yesterday feeling better we'll continue duration - Problem List & Annotations (1) Congestive heart failure SNOMED Code(s): 78512347 Code(s): I50.9 - HEART FAILURE, UNSPECIFIED Status: Acute Priority: High Current Visit: Yes Qualifiers: Congestive heart failure type: systolic Congestive heart failure chronicity : acute on chronic Qualified Code(s): I50.23 - Acute on chronic systolic ( congestive) heart failure Annotation/Comment:: Note significant hypoxemia with any activity with mild to moderate CHF by clinical exam and blood work as above. No true chest pain or anginal type symptoms. Initiate aggressive IV Lasix therapy on admission. Patient will be admitted to inpatient/acute care with additional initiation of standard rule out MD orders. Note that patient is comfort care with no further workup including echocardiogram, etc., although the patient does agree to possible transfer to [place] if warranted. (2) D-dimer, elevated SNOMED Code(s): 543883897 Code(s): R79.89 - OTHER SPECIFIED ABNORMAL FINDINGS OF BLOOD CHEMISTRY Status: Acute Priority: High Current Visit: Yes Onset Date: 05/02/17 Annotation/Comment:: D-dimer elevation with no clinical evidence of PE or DVT. Patient is allergic to iodine and and also has some renal insufficiency and is not a candidate for a CTA of the chest. Venous Doppler studies of the lower extremities to be conducted in the a.m., although these have been negative in the past (3) IDDM (insulin dependent diabetes mellitus) SNOMED Code(s): 98293239 Code(s): E11.9 - TYPE 2 DIABETES MELLITUS WITHOUT COMPLICATIONS; Z79.4 - CUSTOMER ENGAGEMENT SPECIALIST (CURRENT) USE OF INSULIN Status: Chronic Priority: Medium Current Visit: Yes Annotation/Comment:: Note history of diabetic nephropathy and neuropathy. Initiate sliding scale. Glycosylated hemoglobin in the a.m. - Problem List Review Problem List Initiated/Reviewed/Updated: Yes - My Orders Last 24 Hours: My Active Orders 05/03/17 11:34 Vital Signs [RC] Q4HWA 05/03/17 12:15 Chest 2V [CR] AM CBC WITH AUTO DIFF [HEME] AM Insulin Aspart [NovoLOG] 18 unit SUBCUT TIDMEALS 05/04/17 05:15 BASIC METABOLIC PANEL,BMP [CHEM] AM
[2017-05-03] MEDS ORDERED: Insulin Aspart 100 Units/ML 3 ML Pen SUBCUT ONE (12:23)
[2017-05-03] MEDS: Enoxaparin 100 MG/1 ML Syringe SUBCUT SCH (16:36)
[2017-05-03] MEDS: Famotidine 20 MG/2 ML SDV IVPUSH SCH (17:41)
[2017-05-03] MEDS ORDERED: Lidocaine 5% 700 MG Patch TOP SCH (19:00)
[2017-05-03] MEDS: Insulin Detemir 100 Units/ML 3 ML Pen SUBCUT SCH (19:37)
[2017-05-03] MEDS: Levothyroxine 100 MCG Tab PO SCH (19:38)
[2017-05-03] MEDS: Lidocaine 5% 700 MG Patch TOP SCH (19:39)
[2017-05-04] MEDS: Furosemide 40 MG/4 ML VIAL IVPUSH SCH ×3 (00:45→16:11)
[2017-05-04] MEDS: Sodium Chloride 0.9% 10 ML Syringe FLUSH PRN ×2 (00:45→07:51)
[2017-05-04] MEDS: REMOVE LIDOCAINE TRDERM SCH (07:49)
[2017-05-04] MEDS: Potassium Chloride 20 MEQ Tab.ER PO SCH ×3 (07:50→17:15)
[2017-05-04] MEDS: Albuterol/Ipratropium 3.0-0.5 MG/3 ML Neb Soln NEB SCH ×3 (07:50→19:23)
[2017-05-04] MEDS: atorvaSTATin 40 MG Tab PO SCH (07:50)
[2017-05-04] MEDS: Aspirin 81 MG Tab.EC PO SCH (07:50)
[2017-05-04] MEDS: Clopidogrel 75 MG Tab PO SCH (07:51)
[2017-05-04] MEDS: Lisinopril 10 MG Tab PO SCH (07:51)
[2017-05-04] MEDS: Calcium Acetate 667 MG Cap PO SCH ×3 (07:51→17:15)
[2017-05-04] MEDS: Metoprolol Succinate 50 MG Tab.ER PO SCH (07:51)
[2017-05-04] MEDS: Calcitriol 0.25 MCG Cap PO SCH (07:51)
[2017-05-04] MEDS: Insulin Aspart 100 Units/ML 3 ML Pen SUBCUT SCH ×3 (07:58→17:14)
--- NOTE | 2017-05-04 13:28 | PCM.PN ---
- General Info Date of Service: 05/04/17 Admission Dx/Problem (Free Text): Congestive heart failure - Review of Systems General: Reports: Weakness HEENT: Reports: No Symptoms Pulmonary: Reports: Shortness of Breath Cardiovascular: Reports: No Symptoms Gastrointestinal: Reports: No Symptoms Genitourinary: Reports: No Symptoms Musculoskeletal: Reports: Back Pain Skin: Reports: No Symptoms Neurological: Reports: No Symptoms Psychiatric: Reports: No Symptoms - Patient Data Vitals - Most Recent: Last Vital Signs Temp 97.8 F 05/04/17 12:00 Pulse 66 05/04/17 12:00 Resp 18 05/04/17 12:00 BP 91/56 L 05/04/17 12:00 Pulse Ox 97 05/04/17 12:00 Weight - Most Recent: 237 lb 14.4 oz I&O - Last 24 Hours: Intake & Output 05/03/17 05/04/17 05/04/17 22:59 06:59 14:59 Intake Total 360 660 Output Total 450 Balance 360 210 Lab Results Last 24 Hours: Laboratory Results - last 24 hr 05/03/17 05/03/17 05/03/17 Range/Units 14:56 17:26 19:31 WBC (4.0-10.2) K/uL RBC (4.33-5.41) M/uL Hgb (13.1-16.8) g/dL Hct (39.0-49.0) % MCV (84.0-98.0) fL MCH (28.2-33.3) pg MCHC (31.7-36.0) g/dL RDW (11.2-14.1) % Plt Count (150-350) K/uL Neut % (Auto) (45.0-80.0) % Lymph % (Auto) (10.0-50.0) % [place] % (Auto) (2.0-14.0) % Eos % (Auto) (0.0-5.0) % Baso % (Auto) (0.0-2.0) % Neut # (Auto) (1.40-7.00) K/uL Lymph # (Auto) (0.50-3.50) K/uL [place] # (Auto) (0.00-1.00) K/uL Eos # (Auto) (0.00-0.50) K/uL Baso # (Auto) (0.00-0.20) K/uL Sodium (136-145) mmol/L Potassium (3.5-5.1) mmol/L Chloride (98-107) mmol/L Carbon Dioxide (21.0-32.0) mmol/L BUN (7-18) mg/dL Creatinine (0.51-1.17) mg/dL Est Cr Clr Drug Dosing mL/min Estimated GFR (MDRD) mL/min Glucose (74-106) mg/dL POC Glucose 170 H 177 H 180 H (65-110) mg/dl Calcium (8.5-10.1) mg/dL 05/04/17 05/04/17 05/04/17 Range/Units 07:27 07:30 07:30 WBC 9.8 (4.0-10.2) K/uL RBC 4.67 (4.33-5.41) M/uL Hgb 15.1 (13.1-16.8) g/dL Hct 45.1 (39.0-49.0) % MCV 96.6 (84.0-98.0) fL MCH 32.3 (28.2-33.3) pg MCHC 33.5 (31.7-36.0) g/dL RDW 13.5 (11.2-14.1) % Plt Count 151 (150-350) K/uL Neut % (Auto) 78.7 (45.0-80.0) % Lymph % (Auto) 11.3 (10.0-50.0) % [place] % (Auto) 7.2 (2.0-14.0) % Eos % (Auto) 2.4 (0.0-5.0) % Baso % (Auto) 0.4 (0.0-2.0) % Neut # (Auto) 7.70 H (1.40-7.00) K/uL Lymph # (Auto) 1.11 (0.50-3.50) K/uL [place] # (Auto) 0.70 (0.00-1.00) K/uL Eos # (Auto) 0.23 (0.00-0.50) K/uL Baso # (Auto) 0.04 (0.00-0.20) K/uL Sodium 139 (136-145) mmol/L Potassium 4.7 (3.5-5.1) mmol/L Chloride 100 (98-107) mmol/L Carbon Dioxide 32.9 H (21.0-32.0) mmol/L BUN 32 H (7-18) mg/dL Creatinine 1.96 H (0.51-1.17) mg/dL Est Cr Clr Drug Dosing 25.63 mL/min Estimated GFR (MDRD) 32 mL/min Glucose 104 (74-106) mg/dL POC Glucose 103 (65-110) mg/dl Calcium 9.3 (8.5-10.1) mg/dL Med Orders - Current: Current Medications Acetaminophen (Tylenol) 650 mg PO Q4H PRN PRN Reason: Pain Last Admin: 05/03/17 13:27 Dose: 650 mg Albuterol (Proventil Neb Soln) 2.5 mg INH Q2H PRN PRN Reason: SHORTNESS OF BREATH Albuterol/Ipratropium (Duoneb 3.0-0.5 Mg/3 Ml) 3 ml NEB Q4HRRT PRN PRN Reason: Dyspnea Albuterol/Ipratropium (Duoneb 3.0-0.5 Mg/3 Ml) 3 ml NEB TIDRT@08,14,20 [facility] Last Admin: 05/04/17 07:50 Dose: 3 ml Aspirin (Halfprin) 81 mg PO DAILY [facility] Last Admin: 05/04/17 07:50 Dose: 81 mg Atorvastatin Calcium (Lipitor) 40 mg PO DAILY [facility] Last Admin: 05/04/17 07:50 Dose: 40 mg Calcitriol (Rocaltrol) 0.5 mcg PO Q2D@0800 [facility] Last Admin: 05/04/17 07:51 Dose: 0.5 mcg Calcium Acetate (Phoslo) 667 mg PO TIDMEALS [facility] Last Admin: 05/04/17 11:37 Dose: 667 mg Clopidogrel Bisulfate (Plavix) 75 mg PO DAILY [facility] Last Admin: 05/04/17 07:51 Dose: 75 mg Enoxaparin Sodium (Lovenox) 100 mg SUBCUT Q24H [facility] Last Admin: 05/03/17 16:36 Dose: 100 mg Famotidine (Pepcid) 20 mg IVPUSH QPM [facility] Last Admin: 05/03/17 17:41 Dose: 20 mg Furosemide (Lasix) 40 mg IVPUSH Q8H [facility] Last Admin: 05/04/17 07:50 Dose: 40 mg Insulin Aspart (Novolog) 18 unit SUBCUT TIDMEALS [facility] Last Admin: 05/04/17 11:38 Dose: 18 units Insulin Detemir (Levemir) 40 unit SUBCUT BEDTIME [facility] Last Admin: 05/03/17 19:37 Dose: 40 unit Levothyroxine Sodium (Synthroid) 200 mcg PO BEDTIME [facility] Last Admin: 05/03/17 19:38 Dose: 200 mcg Lidocaine (Lidoderm 5%) 700 mg TOP DAILY@1900 [facility] Last Admin: 05/03/17 19:39 Dose: 700 mg Lisinopril (Prinivil) 10 mg PO DAILY [facility] Last Admin: 05/04/17 07:51 Dose: 10 mg Metoprolol Succinate (Toprol Xl) 50 mg PO DAILY [facility] Last Admin: 05/04/17 07:51 Dose: 50 mg Miscellaneous Information (Remove Patch) 1 ea TRDERM DAILY@0700 [facility] Last Admin: 05/04/17 07:49 Dose: 1 ea Potassium Chloride (Klor-Con M20) 20 meq PO TID [facility] Last Admin: 05/04/17 11:37 Dose: 20 meq Sodium Chloride (Saline Flush) 10 ml FLUSH ASDIRECTED PRN PRN Reason: Keep Vein Open Last Admin: 05/04/17 07:51 Dose: 10 ml Sodium Chloride (Saline Flush) 10 ml FLUSH Q12HR PRN PRN Reason: Keep Vein Open Temazepam (Restoril) 15 mg PO BEDTIME PRN PRN Reason: Insomnia Discontinued Medications Albuterol/Ipratropium (Duoneb 3.0-0.5 Mg/3 Ml) 3 ml NEB Q6HRRT [facility] Last Admin: 05/03/17 13:27 Dose: 3 ml Famotidine (Pepcid) 40 mg IVPUSH ONETIME ONE Stop: 05/02/17 13:58 Last Admin: 05/02/17 14:27 Dose: 40 mg Insulin Aspart (Novolog) 0 unit SUBCUT ACBED [facility] PRN Reason: Protocol Last Admin: 05/03/17 11:41 Dose: 8 units Insulin Aspart (Novolog) 10 unit SUBCUT ONETIME ONE Stop: 05/03/17 12:24 Last Admin: 05/03/17 12:38 Dose: 10 units Lidocaine (Lidoderm 5%) 700 mg TOP DAILY@1900 [facility] Miscellaneous Information (Remove Patch) 1 ea TRDERM DAILY@0700 [facility] Miscellaneous Information (Remove Patch) 1 ea TRDERM DAILY [facility] - Exam General: Alert, Oriented, Cooperative HEENT: Pupils Equal, Pupils Reactive, EOMI, Mucous Membr. Moist/[place] Neck: Supple Lungs: Decreased Breath Sounds Cardiovascular: Regular Rate, Regular Rhythm GI/Abdominal Exam: Normal Bowel Sounds, Soft, Non-Tender, No Organomegaly, No Distention, No Abnormal Bruit, No Mass, Pelvis Stable Back Exam: Other (Lower back pain) Skin: Warm, Dry, Intact Neurological: No New Focal Deficit Psy/Mental Status: Alert, Normal Affect, Normal Mood - Problem List & Annotations (1) Congestive heart failure SNOMED Code(s): 60465193 Code(s): I50.9 - HEART FAILURE, UNSPECIFIED Status: Acute Priority: High Current Visit: Yes Qualifiers: Congestive heart failure type: systolic Congestive heart failure chronicity : acute on chronic Qualified Code(s): I50.23 - Acute on chronic systolic ( congestive) heart failure Annotation/Comment:: Note significant hypoxemia with any activity with mild to moderate CHF by clinical exam and blood work as above. No true chest pain or anginal type symptoms. Initiate aggressive IV Lasix therapy on admission. Patient will be admitted to inpatient/acute care with additional initiation of standard rule out [place] orders. Note that patient is comfort care with no further workup including echocardiogram, etc., although the patient does agree to possible transfer to [place] if warranted. (2) D-dimer, elevated SNOMED Code(s): 190595490 Code(s): R79.89 - OTHER SPECIFIED ABNORMAL FINDINGS OF BLOOD CHEMISTRY Status: Acute Priority: High Current Visit: Yes Onset Date: 05/02/17 Annotation/Comment:: D-dimer elevation with no clinical evidence of PE or DVT. Patient is allergic to iodine and and also has some renal insufficiency and is not a candidate for a CTA of the chest. 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 Initiate sliding scale. Glycosylated hemoglobin in the a.m. (4) Back pain SNOMED Code(s): 419958814 Code(s): M54.9 - DORSALGIA, UNSPECIFIED Status: Acute Current Visit: Yes - Problem List Review Problem List Initiated/Reviewed/Updated: Yes - My Orders Last 24 Hours: My Active Orders 05/03/17 18:28 RT Aerosol Therapy [RC] ,,05/03/17 19:00 Lidocaine 5% [Lidoderm 5%] 700 mg TOP DAILY@189905/03/17 20:00 Albuterol/Ipratropium [DuoNeb 3.0-0.5 MG/3 ML] 3 ml NEB TIDRT@,05/04/17 05:15 Chest 2V [CR] Routine 05/04/17 07:00 Remove Patch 1 ea TRDERM DAILY@69905/05/17 05:11 PRO B-TYPE NATRIUR PEPT,BNPPRO [CHEM] Stat - Plan Plan:: Patient started on lidocaine patches and he was has helped
[2017-05-04] MEDS: Enoxaparin 100 MG/1 ML Syringe SUBCUT SCH (17:14)
[2017-05-04] MEDS: Famotidine 20 MG/2 ML SDV IVPUSH SCH (17:15)
[2017-05-04] MEDS: Insulin Detemir 100 Units/ML 3 ML Pen SUBCUT SCH (19:23)
[2017-05-04] MEDS: Levothyroxine 100 MCG Tab PO SCH (19:23)
[2017-05-04] MEDS: Lidocaine 5% 700 MG Patch TOP SCH (19:23)
[2017-05-05] MEDS: REMOVE LIDOCAINE TRDERM SCH (07:36)
[2017-05-05] MEDS: Potassium Chloride 20 MEQ Tab.ER PO SCH ×3 (07:37→17:55)
[2017-05-05] MEDS: Albuterol/Ipratropium 3.0-0.5 MG/3 ML Neb Soln NEB SCH ×3 (07:37→20:03)
[2017-05-05] MEDS: atorvaSTATin 40 MG Tab PO SCH (07:37)
[2017-05-05] MEDS: Clopidogrel 75 MG Tab PO SCH (07:37)
[2017-05-05] MEDS: Metoprolol Succinate 50 MG Tab.ER PO SCH (07:37)
[2017-05-05] MEDS: Lisinopril 10 MG Tab PO SCH (07:37)
[2017-05-05] MEDS: Insulin Aspart 100 Units/ML 3 ML Pen SUBCUT SCH ×3 (07:38→18:00)
[2017-05-05] MEDS: Calcium Acetate 667 MG Cap PO SCH ×3 (07:38→17:55)
[2017-05-05] MEDS: Aspirin 81 MG Tab.EC PO SCH (07:38)
[2017-05-05] MEDS: Enoxaparin 100 MG/1 ML Syringe SUBCUT SCH (15:44)
[2017-05-05] MEDS: Acetaminophen 325 MG Tab PO PRN (15:47)
[2017-05-05] MEDS: Famotidine 20 MG/2 ML SDV IVPUSH SCH (17:55)
[2017-05-05] MEDS: Sodium Chloride 0.9% 10 ML Syringe FLUSH PRN (17:55)
[2017-05-05] MEDS: Lidocaine 5% 700 MG Patch TOP SCH (20:03)
[2017-05-05] MEDS: Levothyroxine 100 MCG Tab PO SCH (20:06)
[2017-05-05] MEDS: Insulin Detemir 100 Units/ML 3 ML Pen SUBCUT SCH (20:06)
--- NOTE | 2017-05-05 23:11 | PCM.PN ---
- General Info Date of Service: 05/05/17 Subjective Update: Patient doing better sleeping easier breathing his Functional Status: Reports: Tolerating Diet - Review of Systems General: Reports: Fatigue HEENT: Reports: No Symptoms Pulmonary: Reports: Shortness of Breath Cardiovascular: Reports: Dyspnea on Exertion Gastrointestinal: Reports: No Symptoms Genitourinary: Reports: No Symptoms Musculoskeletal: Reports: No Symptoms Skin: Reports: No Symptoms Neurological: Reports: No Symptoms Psychiatric: Reports: No Symptoms - Patient Data Vitals - Most Recent: Last Vital Signs Temp 97.2 F 05/05/17 20:00 Pulse 70 05/05/17 20:00 Resp 16 05/05/17 20:00 BP 115/52 L 05/05/17 20:00 Pulse Ox 96 05/05/17 20:00 Weight - Most Recent: 238 lb 6.4 oz I&O - Last 24 Hours: Intake & Output 05/05/17 05/05/17 05/06/17 14:59 22:59 06:59 Intake Total 1020 480 Output Total 200 225 Balance 820 255 Lab Results Last 24 Hours: Laboratory Results - last 24 hr 05/05/17 05/05/17 05/05/17 Range/Units 07:22 07:45 11:26 POC Glucose 123 H 152 H (65-110) mg/dl NT-Pro-B Natriuret Pep 588 H (0-125) pg/mL 05/05/17 05/05/17 05/05/17 Range/Units 17:09 17:58 20:04 POC Glucose 106 148 H 173 H (65-110) mg/dl NT-Pro-B Natriuret Pep (0-125) pg/mL Med Orders - Current: Current Medications Acetaminophen (Tylenol) 650 mg PO Q4H PRN PRN Reason: Pain Last Admin: 05/05/17 15:47 Dose: 650 mg Albuterol (Proventil Neb Soln) 2.5 mg INH Q2H PRN PRN Reason: SHORTNESS OF BREATH Albuterol/Ipratropium (Duoneb 3.0-0.5 Mg/3 Ml) 3 ml NEB Q4HRRT PRN PRN Reason: Dyspnea Albuterol/Ipratropium (Duoneb 3.0-0.5 Mg/3 Ml) 3 ml NEB TIDRT@08,14,20 [facility] Last Admin: 05/05/17 20:03 Dose: 3 ml Aspirin (Halfprin) 81 mg PO DAILY [facility] Last Admin: 05/05/17 07:38 Dose: 81 mg Atorvastatin Calcium (Lipitor) 40 mg PO DAILY [facility] Last Admin: 05/05/17 07:37 Dose: 40 mg Calcitriol (Rocaltrol) 0.5 mcg PO Q2D@0800 [facility] Last Admin: 05/04/17 07:51 Dose: 0.5 mcg Calcium Acetate (Phoslo) 667 mg PO TIDMEALS [facility] Last Admin: 05/05/17 17:55 Dose: 667 mg Clopidogrel Bisulfate (Plavix) 75 mg PO DAILY [facility] Last Admin: 05/05/17 07:37 Dose: 75 mg Enoxaparin Sodium (Lovenox) 100 mg SUBCUT Q24H [facility] Last Admin: 05/05/17 15:44 Dose: 100 mg Famotidine (Pepcid) 20 mg IVPUSH QPM [facility] Last Admin: 05/05/17 17:55 Dose: 20 mg Insulin Aspart (Novolog) 18 unit SUBCUT TIDMEALS [facility] Last Admin: 05/05/17 18:00 Dose: 18 units Insulin Detemir (Levemir) 40 unit SUBCUT BEDTIME [facility] Last Admin: 05/05/17 20:06 Dose: 40 unit Levothyroxine Sodium (Synthroid) 200 mcg PO BEDTIME [facility] Last Admin: 05/05/17 20:06 Dose: 200 mcg Lidocaine (Lidoderm 5%) 700 mg TOP DAILY@1900 [facility] Last Admin: 05/05/17 20:03 Dose: 700 mg Lisinopril (Prinivil) 10 mg PO DAILY [facility] Last Admin: 05/05/17 07:37 Dose: 10 mg Metoprolol Succinate (Toprol Xl) 50 mg PO DAILY [facility] Last Admin: 05/05/17 07:37 Dose: 50 mg Miscellaneous Information (Remove Patch) 1 ea TRDERM DAILY@0700 [facility] Last Admin: 05/05/17 07:36 Dose: 1 ea Potassium Chloride (Klor-Con M20) 20 meq PO TID [facility] Last Admin: 05/05/17 17:55 Dose: 20 meq Sodium Chloride (Saline Flush) 10 ml FLUSH ASDIRECTED PRN PRN Reason: Keep Vein Open Last Admin: 05/05/17 17:55 Dose: 10 ml Sodium Chloride (Saline Flush) 10 ml FLUSH Q12HR PRN PRN Reason: Keep Vein Open Temazepam (Restoril) 15 mg PO BEDTIME PRN PRN Reason: Insomnia Discontinued Medications Albuterol/Ipratropium (Duoneb 3.0-0.5 Mg/3 Ml) 3 ml NEB Q6HRRT [facility] Last Admin: 05/03/17 13:27 Dose: 3 ml Famotidine (Pepcid) 40 mg IVPUSH ONETIME ONE Stop: 05/02/17 13:58 Last Admin: 05/02/17 14:27 Dose: 40 mg Furosemide (Lasix) 40 mg IVPUSH Q8H [facility] Last Admin: 05/04/17 16:11 Dose: Not Given Insulin Aspart (Novolog) 0 unit SUBCUT ACBED [facility] PRN Reason: Protocol Last Admin: 05/03/17 11:41 Dose: 8 units Insulin Aspart (Novolog) 10 unit SUBCUT ONETIME ONE Stop: 05/03/17 12:24 Last Admin: 05/03/17 12:38 Dose: 10 units Lidocaine (Lidoderm 5%) 700 mg TOP DAILY@1900 [facility] Miscellaneous Information (Remove Patch) 1 ea TRDERM DAILY@0700 [facility] Miscellaneous Information (Remove Patch) 1 ea TRDERM DAILY [facility] - Exam Quality Assessment: Supplemental Oxygen General: Alert, Oriented HEENT: Pupils Equal, Pupils Reactive, EOMI, Mucous Membr. Moist/[place] Neck: Supple Lungs: Clear to Auscultation, Decreased Breath Sounds Cardiovascular: Regular Rate, Regular Rhythm GI/Abdominal Exam: Normal Bowel Sounds, Soft, Non-Tender, No Organomegaly, No Distention, No Abnormal Bruit, No Mass, Pelvis Stable (Male) Exam: No Hernia, Normal Inspection, Normal Prostate, Circumcised Back Exam: Normal Inspection, Full Range of Motion Extremities: Normal Inspection, Normal Range of Motion, Non-Tender, No Pedal Edema, Normal Capillary Refill Skin: Warm, Dry, Intact Neurological: No New Focal Deficit Psy/Mental Status: Alert, Normal Affect, Normal Mood - Problem List & Annotations (1) Congestive heart failure SNOMED Code(s): 65777577 Code(s): I50.9 - HEART FAILURE, UNSPECIFIED Status: Acute Priority: High Current Visit: Yes Qualifiers: Congestive heart failure type: systolic Congestive heart failure chronicity : acute on chronic Qualified Code(s): I50.23 - Acute on chronic systolic ( congestive) heart failure Annotation/Comment:: Note significant hypoxemia with any activity with mild to moderate CHF by clinical exam and blood work as above. No true chest pain or anginal type symptoms. Initiate aggressive IV Lasix therapy on admission. Patient will be admitted to inpatient/acute care with additional initiation of standard rule out [place] orders. Note that patient is comfort care with no further workup including echocardiogram, etc., although the patient does agree to possible transfer to [place] if warranted. Doing much better today BMP improving will transfer tomorrow to swing bed for strengthening (2) D-dimer, elevated SNOMED Code(s): 887543655 Code(s): R79.89 - OTHER SPECIFIED ABNORMAL FINDINGS OF BLOOD CHEMISTRY Status: Acute Priority: High Current Visit: Yes Onset Date: 05/02/17 Annotation/Comment:: D-dimer elevation with no clinical evidence of PE or DVT. Patient is allergic to iodine and and also has some renal insufficiency and is not a candidate for a CTA of the chest. 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 Initiate sliding scale. Glycosylated hemoglobin in the a.m. (4) Back pain SNOMED Code(s): 721957403 Code(s): M54.9 - DORSALGIA, UNSPECIFIED Status: Acute Current Visit: Yes - Problem List Review Problem List Initiated/Reviewed/Updated: Yes - Plan Plan:: Patient started on lidocaine patches and he was has helped
[2017-05-06] MEDS: Acetaminophen 325 MG Tab PO PRN ×3 (06:33→20:25)
[2017-05-06] MEDS: REMOVE LIDOCAINE TRDERM SCH (07:32)
[2017-05-06] MEDS: Aspirin 81 MG Tab.EC PO SCH (07:33)
[2017-05-06] MEDS: Albuterol/Ipratropium 3.0-0.5 MG/3 ML Neb Soln NEB SCH ×3 (07:33→20:21)
[2017-05-06] MEDS: Potassium Chloride 20 MEQ Tab.ER PO SCH ×2 (07:34→11:51)
[2017-05-06] MEDS: atorvaSTATin 40 MG Tab PO SCH (07:35)
[2017-05-06] MEDS: Clopidogrel 75 MG Tab PO SCH (07:39)
[2017-05-06] MEDS: Calcium Acetate 667 MG Cap PO SCH ×3 (07:39→17:04)
[2017-05-06] MEDS: Calcitriol 0.25 MCG Cap PO SCH (07:40)
[2017-05-06] MEDS: Insulin Aspart 100 Units/ML 3 ML Pen SUBCUT SCH ×3 (07:41→17:00)
[2017-05-06] MEDS: Metoprolol Succinate 50 MG Tab.ER PO SCH (07:45)
[2017-05-06] MEDS: Lisinopril 10 MG Tab PO SCH (07:46)
--- NOTE | 2017-05-06 14:04 | PCM.PN ---
- General Info Date of Service: 05/06/17 Admission Dx/Problem (Free Text): Congestive heart failure Subjective Update: Patient feels better overall. Complains of continued weakness. Shortness of breath is at baseline. Has some right abdominal discomfort that is worse when he coughs. Has some generalized back discomfort also. Did have bowel movement earlier today. Does not feel like he is constipated. No other GI changes. Still has gallbladder. Functional Status: Reports: Pain Controlled, Tolerating Diet, Ambulating, Urinating Pain Score: 1 - Review of Systems General: Reports: Weakness, Fatigue. Denies: Fever, Malaise, Chills, Night Sweats, Appetite HEENT: Reports: No Symptoms Pulmonary: Reports: Shortness of Breath (chronic, at baseline). Denies: Pleuritic Chest Pain, Sputum, Hemoptysis, Wheezing Cardiovascular: Reports: Dyspnea on Exertion (chronic). Denies: Chest Pain, Lightheadedness Gastrointestinal: Reports: Abdominal Pain (right sided, low grade, intermittent) . Denies: Constipation, Decreased Appetite, Diarrhea, Difficulty Swallowing, Hematochezia, Melena, Nausea, Vomiting Genitourinary: Reports: No Symptoms Musculoskeletal: Reports: Back Pain (non-focal) Skin: Reports: No Symptoms Neurological: Reports: No Symptoms Psychiatric: Reports: No Symptoms - Patient Data Vitals - Most Recent: Last Vital Signs Temp 36.6 C 05/06/17 11:13 Pulse 70 05/06/17 11:13 Resp 18 05/06/17 08:00 BP 142/57 H 05/06/17 11:13 Pulse Ox 98 05/06/17 11:13 Weight - Most Recent: 108.726 kg I&O - Last 24 Hours: Intake & Output 05/05/17 05/06/17 05/06/17 22:59 06:59 14:59 Intake Total 480 60 720 Output Total 225 500 Balance 255 -440 720 Lab Results Last 24 Hours: Laboratory Results - last 24 hr 05/05/17 05/05/17 05/05/17 Range/Units 06:50 06:50 17:09 WBC 7.5 (4.0-10.2) K/uL RBC 4.17 L (4.33-5.41) M/uL Hgb 13.9 (13.1-16.8) g/dL Hct 40.1 (39.0-49.0) % MCV 96.2 (84.0-98.0) fL MCH 33.3 (28.2-33.3) pg MCHC 34.7 (31.7-36.0) g/dL RDW 13.4 (11.2-14.1) % Plt Count 134 L (150-350) K/uL Neut % (Auto) 73.0 (45.0-80.0) % Lymph % (Auto) 14.6 (10.0-50.0) % Leslie % (Auto) 8.9 (2.0-14.0) % Eos % (Auto) 3.1 (0.0-5.0) % Baso % (Auto) 0.4 (0.0-2.0) % Neut # (Auto) 5.49 (1.40-7.00) K/uL Lymph # (Auto) 1.10 (0.50-3.50) K/uL Leslie # (Auto) 0.67 (0.00-1.00) K/uL Eos # (Auto) 0.23 (0.00-0.50) K/uL Baso # (Auto) 0.03 (0.00-0.20) K/uL Sodium (136-145) mmol/L Potassium (3.5-5.1) mmol/L Chloride (98-107) mmol/L Carbon Dioxide (21.0-32.0) mmol/L BUN (7-18) mg/dL Creatinine (0.51-1.17) mg/dL Est Cr Clr Drug Dosing mL/min Estimated GFR (MDRD) mL/min Glucose (74-106) mg/dL POC Glucose 106 (65-110) mg/dl Calcium (8.5-10.1) mg/dL NT-Pro-B Natriuret Pep 387 H (0-125) pg/mL 05/05/17 05/05/17 05/06/17 Range/Units 17:58 20:04 06:50 WBC (4.0-10.2) K/uL RBC (4.33-5.41) M/uL Hgb (13.1-16.8) g/dL Hct (39.0-49.0) % MCV (84.0-98.0) fL MCH (28.2-33.3) pg MCHC (31.7-36.0) g/dL RDW (11.2-14.1) % Plt Count (150-350) K/uL Neut % (Auto) (45.0-80.0) % Lymph % (Auto) (10.0-50.0) % Leslie % (Auto) (2.0-14.0) % Eos % (Auto) (0.0-5.0) % Baso % (Auto) (0.0-2.0) % Neut # (Auto) (1.40-7.00) K/uL Lymph # (Auto) (0.50-3.50) K/uL Leslie # (Auto) (0.00-1.00) K/uL Eos # (Auto) (0.00-0.50) K/uL Baso # (Auto) (0.00-0.20) K/uL Sodium 138 (136-145) mmol/L Potassium 5.2 H (3.5-5.1) mmol/L Chloride 102 (98-107) mmol/L Carbon Dioxide 27.2 (21.0-32.0) mmol/L BUN 46 H (7-18) mg/dL Creatinine 2.27 H (0.51-1.17) mg/dL Est Cr Clr Drug Dosing 22.13 mL/min Estimated GFR (MDRD) 27 mL/min Glucose 112 H (74-106) mg/dL POC Glucose 148 H 173 H (65-110) mg/dl Calcium 9.3 (8.5-10.1) mg/dL NT-Pro-B Natriuret Pep (0-125) pg/mL 05/06/17 05/06/17 Range/Units 07:31 10:57 WBC (4.0-10.2) K/uL RBC (4.33-5.41) M/uL Hgb (13.1-16.8) g/dL Hct (39.0-49.0) % MCV (84.0-98.0) fL MCH (28.2-33.3) pg MCHC (31.7-36.0) g/dL RDW (11.2-14.1) % Plt Count (150-350) K/uL Neut % (Auto) (45.0-80.0) % Lymph % (Auto) (10.0-50.0) % Leslie % (Auto) (2.0-14.0) % Eos % (Auto) (0.0-5.0) % Baso % (Auto) (0.0-2.0) % Neut # (Auto) (1.40-7.00) K/uL Lymph # (Auto) (0.50-3.50) K/uL Leslie # (Auto) (0.00-1.00) K/uL Eos # (Auto) (0.00-0.50) K/uL Baso # (Auto) (0.00-0.20) K/uL Sodium (136-145) mmol/L Potassium (3.5-5.1) mmol/L Chloride (98-107) mmol/L Carbon Dioxide (21.0-32.0) mmol/L BUN (7-18) mg/dL Creatinine (0.51-1.17) mg/dL Est Cr Clr Drug Dosing mL/min Estimated GFR (MDRD) mL/min Glucose (74-106) mg/dL POC Glucose 117 H 188 H (65-110) mg/dl Calcium (8.5-10.1) mg/dL NT-Pro-B Natriuret Pep (0-125) pg/mL Chaz Results Last 24 Hours: Microbiology 05/02/17 21:15 Helicobacter pylori Antigen - Final Stool / Feces Med Orders - Current: Current Medications Acetaminophen (Tylenol) 650 mg PO Q4H PRN PRN Reason: Pain Last Admin: 05/06/17 06:33 Dose: 650 mg Albuterol (Proventil Neb Soln) 2.5 mg INH Q2H PRN PRN Reason: SHORTNESS OF BREATH Albuterol/Ipratropium (Duoneb 3.0-0.5 Mg/3 Ml) 3 ml NEB Q4HRRT PRN PRN Reason: Dyspnea Albuterol/Ipratropium (Duoneb 3.0-0.5 Mg/3 Ml) 3 ml NEB TIDRT@08,14,20 [facility] Last Admin: 05/06/17 07:33 Dose: 3 ml Aspirin (Halfprin) 81 mg PO DAILY [facility] Last Admin: 05/06/17 07:33 Dose: 81 mg Atorvastatin Calcium (Lipitor) 40 mg PO DAILY [facility] Last Admin: 05/06/17 07:35 Dose: 40 mg Bumetanide (Bumex) 1 mg PO DAILY [facility] Calcitriol (Rocaltrol) 0.5 mcg PO Q2D@0800 [facility] Last Admin: 05/06/17 07:40 Dose: 0.5 mcg Calcium Acetate (Phoslo) 667 mg PO TIDMEALS [facility] Last Admin: 05/06/17 11:52 Dose: 667 mg Clopidogrel Bisulfate (Plavix) 75 mg PO DAILY [facility] Last Admin: 05/06/17 07:39 Dose: 75 mg Enoxaparin Sodium (Lovenox) 100 mg SUBCUT Q24H [facility] Last Admin: 05/05/17 15:44 Dose: 100 mg Famotidine (Pepcid) 20 mg IVPUSH QPM [facility] Last Admin: 05/05/17 17:55 Dose: 20 mg Insulin Aspart (Novolog) 18 unit SUBCUT TIDMEALS [facility] Last Admin: 05/06/17 11:51 Dose: 18 units Insulin Detemir (Levemir) 40 unit SUBCUT BEDTIME [facility] Last Admin: 05/05/17 20:06 Dose: 40 unit Levothyroxine Sodium (Synthroid) 200 mcg PO BEDTIME [facility] Last Admin: 05/05/17 20:06 Dose: 200 mcg Lidocaine (Lidoderm 5%) 700 mg TOP DAILY@1900 [facility] Last Admin: 05/05/17 20:03 Dose: 700 mg Lisinopril (Prinivil) 10 mg PO DAILY [facility] Last Admin: 05/06/17 07:46 Dose: 10 mg Metoprolol Succinate (Toprol Xl) 50 mg PO DAILY [facility] Last Admin: 05/06/17 07:45 Dose: 50 mg Miscellaneous Information (Remove Patch) 1 ea TRDERM DAILY@0700 [facility] Last Admin: 05/06/17 07:32 Dose: 1 ea Sodium Chloride (Saline Flush) 10 ml FLUSH ASDIRECTED PRN PRN Reason: Keep Vein Open Last Admin: 05/05/17 17:55 Dose: 10 ml Sodium Chloride (Saline Flush) 10 ml FLUSH Q12HR PRN PRN Reason: Keep Vein Open Temazepam (Restoril) 15 mg PO BEDTIME PRN PRN Reason: Insomnia Discontinued Medications Albuterol/Ipratropium (Duoneb 3.0-0.5 Mg/3 Ml) 3 ml NEB Q6HRRT [facility] Last Admin: 05/03/17 13:27 Dose: 3 ml Famotidine (Pepcid) 40 mg IVPUSH ONETIME ONE Stop: 05/02/17 13:58 Last Admin: 05/02/17 14:27 Dose: 40 mg Furosemide (Lasix) 40 mg IVPUSH Q8H [facility] Last Admin: 05/04/17 16:11 Dose: Not Given Insulin Aspart (Novolog) 0 unit SUBCUT ACBED [facility] PRN Reason: Protocol Last Admin: 05/03/17 11:41 Dose: 8 units Insulin Aspart (Novolog) 10 unit SUBCUT ONETIME ONE Stop: 05/03/17 12:24 Last Admin: 05/03/17 12:38 Dose: 10 units Lidocaine (Lidoderm 5%) 700 mg TOP DAILY@1900 [facility] Miscellaneous Information (Remove Patch) 1 ea TRDERM DAILY@0700 [facility] Miscellaneous Information (Remove Patch) 1 ea TRDERM DAILY [facility] Potassium Chloride (Klor-Con M20) 20 meq PO TID [facility] Last Admin: 05/06/17 11:51 Dose: 20 meq Comments:: trying to take nap when visiting, had CPAP mask on. - Exam General: Alert, Oriented, Cooperative, No Acute Distress HEENT: Pupils Equal, Pupils Reactive, Mucous Membr. Moist/[place] Neck: Supple Lungs: Decreased Breath Sounds (lower lung collado), Rales (mild, at bases), Rhonchi (mild, at bases). No: Rub, Stridor, Wheezing Cardiovascular: Regular Rate, Regular Rhythm, No Murmurs GI/Abdominal Exam: Normal Bowel Sounds, Soft, No Distention, Other (abdomen obese, some tenderness RUQ and right mid abdomen. No guard/rebound) (Male) Exam: Deferred Back Exam: Other (no focal tenderness elicited with palpation). No: CVA Tenderness (L), CVA Tenderness (R), Muscle Spasm Extremities: Non-Tender. No: Joint Swelling, Increased Warmth Peripheral Pulses: 2+: Radial (L), Radial (R) Skin: Warm, Dry Neurological: No New Focal Deficit Psy/Mental Status: Alert, Normal Affect, Normal Mood - Problem List & Annotations (1) Back pain SNOMED Code(s): 523638500 Code(s): M54.9 - DORSALGIA, UNSPECIFIED Status: Chronic Priority: Low Current Visit: Yes Qualifiers: Back pain location: low back pain (2) Congestive heart failure SNOMED Code(s): 74386419 Code(s): I50.9 - HEART FAILURE, UNSPECIFIED Status: Acute Priority: High Current Visit: Yes Qualifiers: Congestive heart failure type: systolic Congestive heart failure chronicity : acute on chronic Qualified Code(s): I50.23 - Acute on chronic systolic ( congestive) heart failure Annotation/Comment:: Note significant hypoxemia with any activity with mild to moderate CHF by clinical exam and blood work as above. No true chest pain or anginal type symptoms. Initiate aggressive IV Lasix therapy on admission. Patient will be admitted to inpatient/acute care with additional initiation of standard rule out [place] orders. Note that patient is comfort care with no further workup including echocardiogram, etc., although the patient does agree to possible transfer to [place] if warranted. Doing much better today BMP improving will [facility] for strengthening (3) D-dimer, elevated SNOMED Code(s): 662747464 Code(s): R79.89 - OTHER SPECIFIED ABNORMAL FINDINGS OF BLOOD CHEMISTRY Status: Acute Priority: High Current Visit: Yes Onset Date: 05/02/17 Annotation/Comment:: D-dimer elevation with no clinical evidence of PE or DVT. Patient is allergic to iodine and and also has some renal insufficiency and is not a candidate for a CTA of the chest. Venous Doppler studies of the lower extremities to be conducted in the a.m., although these have been negative in the past (4) Thrombocytopenia SNOMED Code(s): 777375748 Code(s): D69.6 - THROMBOCYTOPENIA, UNSPECIFIED Status: Acute Priority: Medium Current Visit: Yes Onset Date: 05/02/17 Annotation/Comment:: Mild thrombocytopenia likely not relevant at this time. Repeat blood work in the a.m. (5) Coronary artery disease SNOMED Code(s): 55866579 Code(s): I25.10 - ATHSCL HEART DISEASE OF [place] CORONARY ARTERY W/O ANG PCTRS Status: Chronic Priority: Medium Current Visit: Yes Qualifiers: Coronary Disease-Associated Artery/Lesion type: bypass graft, autologous artery Associated angina: without angina Qualified Code(s): I25.810 - Atherosclerosis of coronary artery bypass graft(s) without angina pectoris Annotation/Comment:: No chest pain or anginal type symptoms, however note significant cardiac history as above including PVCs, previous atrial fibrillation, etc. Comfort care as above (6) Dyslipidemia SNOMED Code(s): 980472678 Code(s): E78.5 - HYPERLIPIDEMIA, UNSPECIFIED Status: Chronic Priority: Medium Current Visit: Yes Annotation/Comment:: Lipid panel in the a.m. (7) Hypertension SNOMED Code(s): 88026494 Code(s): I10 - ESSENTIAL (PRIMARY) HYPERTENSION Status: Chronic Priority : Medium Current Visit: Yes Qualifiers: Hypertension type: essential hypertension Qualified Code(s): I10 - Essential (primary) hypertension Annotation/Comment:: Blood pressure is under good control in the emergency room (8) Hypothyroidism (acquired) SNOMED Code(s): 108594585 Code(s): E03.9 - HYPOTHYROIDISM, UNSPECIFIED Status: Chronic Priority: Medium Current Visit: Yes Annotation/Comment:: Significantly elevated TSH today with the patient not taking this medication on an empty stomach in the past. Increase thyroid supplement for now with close follow-up in 4 weeks with his regular provider (9) IDDM (insulin dependent diabetes mellitus) SNOMED Code(s): 01165973 Code(s): E11.9 - TYPE 2 DIABETES MELLITUS WITHOUT COMPLICATIONS; Z79.4 - FORGE HAND (CURRENT) USE OF INSULIN Status: Chronic Priority: Medium Current Visit: Yes Annotation/Comment:: Note history of diabetic nephropathy and neuropathy. Initiate sliding scale. Glycosylated hemoglobin in the a.m. (10) Need for comfort care SNOMED Code(s): 520386117 Code(s): IPL0653 - Status: Chronic Priority: High Current Visit: Yes Annotation/Comment:: Comfort Care verified both with the patient and his son today (11) Osteoarthritis SNOMED Code(s): 374713608 Code(s): M19.90 - UNSPECIFIED OSTEOARTHRITIS, UNSPECIFIED SITE Status: Chronic Priority: Medium Current Visit: Yes Qualifiers: Osteoarthritis location: multiple joints Osteoarthritis type: primary Qualified Code(s): M15.0 - Primary generalized (osteo)arthritis Annotation/Comment:: Osteoarthritis someone under poor control including with current physical therapy. Note significant persistent low back pain (12) Renal insufficiency SNOMED Code(s): 983044106 Code(s): N28.9 - DISORDER OF KIDNEY AND URETER, UNSPECIFIED Status: Chronic Priority: Medium Current Visit: Yes Annotation/Comment:: BUN/Cr elevated to 46 and 2.27 respectively today. Lasix has been discontinued and currently no additional diuretic added. K also increased to 5.2, however he has been continued on oral K supplementation. This was discontinued today. Recheck tomorrow. (13) Acute hyperkalemia SNOMED Code(s): 0843157 Code(s): E87.5 - HYPERKALEMIA Status: Acute Priority: Medium Current Visit: Yes Onset Date: 05/06/17 Annotation/Comment:: Patient has increased BUN/Cr today which may have contributed to the elevated K levels. Oral supplementation of K discontinued today. Will recheck BMP in AM. (14) Physical deconditioning SNOMED Code(s): 84611218603844 Code(s): R53.81 - OTHER MALAISE Status: Chronic Priority: Medium Current Visit: Yes - Problem List Review Problem List Initiated/Reviewed/Updated: Yes - My Orders Last 24 Hours: My Active Orders 05/06/17 14:00 Bumetanide [Bumex] 1 mg PO DAILY 05/07/17 05:15 BASIC METABOLIC PANEL,BMP [CHEM] AM CBC WITH AUTO DIFF [HEME] AM - Assessment Assessment:: Weakness/deconditioning in patient with chronic symptomatic CHF and pulmonary disease. Worsening renal status today. Patient has gained 3 pounds since lasix discontinued. - Plan Plan:: Will keep patient as inpatient today due to observed worsening renal function and hyperkalemia. Oral K supplementation discontinued. Will give cautious Bumex to help with mild diuresis given patient's CHF issues and recent weight gain. This will be an additional day of inpatient stay. Will re-evaluate tomorrow for transfer to swing bed status for PT and OT.
[2017-05-06] MEDS: Bumetanide 1 MG Tab PO SCH (14:33)
[2017-05-06] MEDS: Enoxaparin 100 MG/1 ML Syringe SUBCUT SCH (16:58)
[2017-05-06] MEDS: Famotidine 20 MG/2 ML SDV IVPUSH SCH (17:04)
[2017-05-06] MEDS: Sodium Chloride 0.9% 10 ML Syringe FLUSH PRN (17:10)
--- NOTE | 2017-05-06 18:57 | PCM.SN ---
- Free Text/Narrative Note: Xray shows what appears to be cholelithiasis. Given patient's complaint of intermittent RUQ tenderness and tenderness on exam, will obtain US study tomorrow to look more closely at gallbladder.
[2017-05-06] MEDS: Lidocaine 5% 700 MG Patch TOP SCH (20:20)
[2017-05-06] MEDS: Insulin Detemir 100 Units/ML 3 ML Pen SUBCUT SCH (20:22)
[2017-05-06] MEDS: Levothyroxine 100 MCG Tab PO SCH (20:25)
[2017-05-06] MEDS: traMADol 50 MG Tab PO PRN (20:26)
[2017-05-07] MEDS: REMOVE LIDOCAINE TRDERM SCH (08:44)
[2017-05-07] MEDS: Bumetanide 1 MG Tab PO SCH (08:45)
[2017-05-07] MEDS: Calcium Acetate 667 MG Cap PO SCH ×2 (08:45→11:27)
[2017-05-07] MEDS: Lisinopril 10 MG Tab PO SCH (08:45)
[2017-05-07] MEDS: Metoprolol Succinate 50 MG Tab.ER PO SCH (08:45)
[2017-05-07] MEDS: Clopidogrel 75 MG Tab PO SCH (08:46)
[2017-05-07] MEDS: Aspirin 81 MG Tab.EC PO SCH (08:46)
[2017-05-07] MEDS: atorvaSTATin 40 MG Tab PO SCH (08:46)
[2017-05-07] MEDS: Insulin Aspart 100 Units/ML 3 ML Pen SUBCUT SCH ×2 (08:47→11:21)
[2017-05-07] MEDS: Albuterol/Ipratropium 3.0-0.5 MG/3 ML Neb Soln NEB SCH (08:49)
[2017-05-07] MEDS: traMADol 50 MG Tab PO PRN (08:52)
[2017-05-07 12:47] VITALS: BP 117/57
--- NOTE | 2017-05-07 12:54 | PCM.DCSUM1 ---
Discharge Summary - Hospital Course Free Text/Narrative:: Hans mckeon is a 86-year-old gentleman well-known to me with history of diabetes also history of congestive heart failure presented with generalized weakness admitted with congestive heart failure and treated aggressively during hospitalization his renal function deteriorated and medication was adjusted now doing better we'll sway him for strengthening echo pending physical exam reveal normocephalic atraumatic lungs bilateral breath sounds clear heart regular rate and rhythm no murmur abdomen was soft good bowel sounds he does have some right upper quadrant pain to palpation with referred pain to the right shoulder extremities reveal +1 edema - Discharge Data Discharge Date: 05/07/17 Discharge Disposition: DC/Tfer W/I Hosp To Swing 61 Condition: Good - Discharge Diagnosis/Problem(s) (1) Congestive heart failure SNOMED Code(s): 99342803 ICD Code: I50.9 - HEART FAILURE, UNSPECIFIED Status: Acute Priority: High Current Visit: Yes Problem Details: Echo ordered today for follow up. Patient is swinging for PT/OT strengthening. Qualifiers: Congestive heart failure type: systolic Congestive heart failure chronicity : acute on chronic Qualified Code(s): I50.23 - Acute on chronic systolic ( congestive) heart failure (2) D-dimer, elevated SNOMED Code(s): 208708289 ICD Code: R79.89 - OTHER SPECIFIED ABNORMAL FINDINGS OF BLOOD CHEMISTRY Status: Acute Priority: High Current Visit: Yes Onset Date: 05/02/17 Problem Details: No further work up needed at this time. (3) IDDM (insulin dependent diabetes mellitus) SNOMED Code(s): 18902466 ICD Code: E11.9 - TYPE 2 DIABETES MELLITUS WITHOUT COMPLICATIONS; Z79.4 - SVP OPERATIONS (CURRENT) USE OF INSULIN Status: Chronic Priority: Medium Current Visit: Yes Problem Details: Note history of diabetic nephropathy and neuropathy. sliding scale regimen at this time. (4) Back pain SNOMED Code(s): 695126453 ICD Code: M54.9 - DORSALGIA, UNSPECIFIED Status: Chronic Priority: Low Current Visit: Yes Qualifiers: Back pain location: low back pain Chronicity: chronic Back pain laterality: right Sciatica presence: without sciatica Qualified Code(s): M54.5 - Low back pain; G89.29 - Other chronic pain - Patient Summary/Data Consults: Consultations 05/04/17 13:34 Consult to Occupational Therapy [OT Evaluation and Treatment] [CONS] Routine PT Evaluation and Treatment [CONS] Routine - Patient Instructions Diet: Usual Diet as Tolerated Activity: As Tolerated - Discharge Plan Home Medications: Home Meds Aspirin [Lo-Dose Aspirin EC] 81 mg PO DAILY 05/02/17 [History] Calcitriol [Calcitriol] 1 cap PO Q48H 05/02/17 [History] Calcium Acetate [PhosLo] 1 cap PO TIDMEALS 05/02/17 [History] Clopidogrel Bisulfate [Clopidogrel] 75 mg PO DAILY 05/02/17 [History] Furosemide [Furosemide] 40 mg PO DAILY 05/02/17 [History] Insulin Aspart [NovoLOG] 18 units SUBCUT TIDMEALS 05/02/17 [History] Insulin Glargine,Hum.Rec.Anlog [Lantus Solostar] 40 units SUBCUT BEDTIME [History] Ipratropium [Atrovent] 1 vial INH Q4H 05/02/17 [History] Ipratropium [Atrovent] 1 vial INH QID PRN 05/02/17 [History] Levothyroxine 150 mcg PO DAILY 05/02/17 [History] Lisinopril 10 mg PO DAILY 05/02/17 [History] Metoprolol Succinate 50 mg PO DAILY 05/02/17 [History] atorvaSTATin [Lipitor] 40 mg PO DAILY 05/02/17 [History] Forms: ED Department Discharge Referrals: Nicol Banks NP [Primary Care Provider] - - General Info Date of Service: 05/07/17 - Review of Systems General: Reports: Weakness, Fatigue HEENT: Reports: No Symptoms Pulmonary: Reports: Shortness of Breath (on exertion) Cardiovascular: Reports: Edema. Denies: Chest Pain Gastrointestinal: Reports: Abdominal Pain (radiating to right shoulder ) Genitourinary: Reports: No Symptoms Musculoskeletal: Reports: Shoulder Pain (right; from abdominal pain radiation) Skin: Reports: No Symptoms Neurological: Reports: No Symptoms Psychiatric: Reports: No Symptoms - Patient Data Vitals - Most Recent: Last Vital Signs Temp 98.3 F 05/07/17 12:00 Pulse 70 05/07/17 12:00 Resp 15 05/07/17 12:00 BP 117/57 L 05/07/17 12:00 Pulse Ox 97 05/07/17 12:00 Weight - Most Recent: 239 lb 4.8 oz I&O - Last 24 hours: Intake & Output 05/06/17 05/07/17 05/07/17 22:59 06:59 14:59 Intake Total 360 1920 Output Total 1000 1625 Balance -640 295 Lab Results - Last 24 hrs: Laboratory Results - last 24 hr 05/06/17 05/06/17 05/06/17 Range/Units 15:53 17:02 20:14 WBC (4.0-10.2) K/uL RBC (4.33-5.41) M/uL Hgb (13.1-16.8) g/dL Hct (39.0-49.0) % MCV (84.0-98.0) fL MCH (28.2-33.3) pg MCHC (31.7-36.0) g/dL RDW (11.2-14.1) % Plt Count (150-350) K/uL Neut % (Auto) (45.0-80.0) % Lymph % (Auto) (10.0-50.0) % [place] % (Auto) (2.0-14.0) % Eos % (Auto) (0.0-5.0) % Baso % (Auto) (0.0-2.0) % Neut # (Auto) (1.40-7.00) K/uL Lymph # (Auto) (0.50-3.50) K/uL [place] # (Auto) (0.00-1.00) K/uL Eos # (Auto) (0.00-0.50) K/uL Baso # (Auto) (0.00-0.20) K/uL Sodium (136-145) mmol/L Potassium (3.5-5.1) mmol/L Chloride (98-107) mmol/L Carbon Dioxide (21.0-32.0) mmol/L BUN (7-18) mg/dL Creatinine (0.51-1.17) mg/dL Est Cr Clr Drug Dosing mL/min Estimated GFR (MDRD) mL/min Glucose (74-106) mg/dL POC Glucose 99 119 H 143 H (65-110) mg/dl Calcium (8.5-10.1) mg/dL 05/07/17 05/07/17 05/07/17 Range/Units 06:45 06:45 07:16 WBC 6.8 (4.0-10.2) K/uL RBC 3.96 L (4.33-5.41) M/uL Hgb 13.0 L (13.1-16.8) g/dL Hct 39.2 (39.0-49.0) % MCV 99.0 H (84.0-98.0) fL MCH 32.8 (28.2-33.3) pg MCHC 33.2 (31.7-36.0) g/dL RDW 13.2 (11.2-14.1) % Plt Count 114 L (150-350) K/uL Neut % (Auto) 70.8 (45.0-80.0) % Lymph % (Auto) 16.3 (10.0-50.0) % [place] % (Auto) 9.4 (2.0-14.0) % Eos % (Auto) 3.1 (0.0-5.0) % Baso % (Auto) 0.4 (0.0-2.0) % Neut # (Auto) 4.82 (1.40-7.00) K/uL Lymph # (Auto) 1.11 (0.50-3.50) K/uL [place] # (Auto) 0.64 (0.00-1.00) K/uL Eos # (Auto) 0.21 (0.00-0.50) K/uL Baso # (Auto) 0.03 (0.00-0.20) K/uL Sodium 138 (136-145) mmol/L Potassium 5.0 (3.5-5.1) mmol/L Chloride 102 (98-107) mmol/L Carbon Dioxide 27.6 (21.0-32.0) mmol/L BUN 50 H (7-18) mg/dL Creatinine 2.24 H (0.51-1.17) mg/dL Est Cr Clr Drug Dosing 22.43 mL/min Estimated GFR (MDRD) 28 mL/min Glucose 122 H (74-106) mg/dL POC Glucose 118 H (65-110) mg/dl Calcium 9.2 (8.5-10.1) mg/dL 05/07/17 Range/Units 11:19 WBC (4.0-10.2) K/uL RBC (4.33-5.41) M/uL Hgb (13.1-16.8) g/dL Hct (39.0-49.0) % MCV (84.0-98.0) fL MCH (28.2-33.3) pg MCHC (31.7-36.0) g/dL RDW (11.2-14.1) % Plt Count (150-350) K/uL Neut % (Auto) (45.0-80.0) % Lymph % (Auto) (10.0-50.0) % [place] % (Auto) (2.0-14.0) % Eos % (Auto) (0.0-5.0) % Baso % (Auto) (0.0-2.0) % Neut # (Auto) (1.40-7.00) K/uL Lymph # (Auto) (0.50-3.50) K/uL [place] # (Auto) (0.00-1.00) K/uL Eos # (Auto) (0.00-0.50) K/uL Baso # (Auto) (0.00-0.20) K/uL Sodium (136-145) mmol/L Potassium (3.5-5.1) mmol/L Chloride (98-107) mmol/L Carbon Dioxide (21.0-32.0) mmol/L BUN (7-18) mg/dL Creatinine (0.51-1.17) mg/dL Est Cr Clr Drug Dosing mL/min Estimated GFR (MDRD) mL/min Glucose (74-106) mg/dL POC Glucose 225 H (65-110) mg/dl Calcium (8.5-10.1) mg/dL [facility] Results - Last 24 hrs: Microbiology 05/02/17 21:15 Helicobacter pylori Antigen - Final Stool / Feces Med Orders - Current: Current Medications Acetaminophen (Tylenol) 650 mg PO Q4H PRN PRN Reason: Pain Last Admin: 05/06/17 20:25 Dose: 650 mg Albuterol (Proventil Neb Soln) 2.5 mg INH Q2H PRN PRN Reason: SHORTNESS OF BREATH Albuterol/Ipratropium (Duoneb 3.0-0.5 Mg/3 Ml) 3 ml NEB Q4HRRT PRN PRN Reason: Dyspnea Albuterol/Ipratropium (Duoneb 3.0-0.5 Mg/3 Ml) 3 ml NEB TIDRT@08,14,20 [facility] Last Admin: 05/07/17 08:49 Dose: 3 ml Aspirin (Halfprin) 81 mg PO DAILY [facility] Last Admin: 05/07/17 08:46 Dose: 81 mg Atorvastatin Calcium (Lipitor) 40 mg PO DAILY [facility] Last Admin: 05/07/17 08:46 Dose: 40 mg Bumetanide (Bumex) 1 mg PO DAILY [facility] Last Admin: 05/07/17 08:45 Dose: 1 mg Calcitriol (Rocaltrol) 0.5 mcg PO Q2D@0800 [facility] Last Admin: 05/06/17 07:40 Dose: 0.5 mcg Calcium Acetate (Phoslo) 667 mg PO TIDMEALS [facility] Last Admin: 05/07/17 11:27 Dose: 667 mg Clopidogrel Bisulfate (Plavix) 75 mg PO DAILY [facility] Last Admin: 05/07/17 08:46 Dose: 75 mg Enoxaparin Sodium (Lovenox) 100 mg SUBCUT Q24H [facility] Last Admin: 05/06/17 16:58 Dose: 100 mg Famotidine (Pepcid) 20 mg IVPUSH QPM [facility] Last Admin: 05/06/17 17:04 Dose: 20 mg Insulin Aspart (Novolog) 18 unit SUBCUT TIDMEALS [facility] Last Admin: 05/07/17 11:21 Dose: 18 units Insulin Detemir (Levemir) 40 unit SUBCUT BEDTIME [facility] Last Admin: 05/06/17 20:22 Dose: 40 unit Levothyroxine Sodium (Synthroid) 200 mcg PO BEDTIME [facility] Last Admin: 05/06/17 20:25 Dose: 200 mcg Lidocaine (Lidoderm 5%) 700 mg TOP DAILY@1900 [facility] Last Admin: 05/06/17 20:20 Dose: 700 mg Lisinopril (Prinivil) 10 mg PO DAILY [facility] Last Admin: 05/07/17 08:45 Dose: 10 mg Metoprolol Succinate (Toprol Xl) 50 mg PO DAILY [facility] Last Admin: 05/07/17 08:45 Dose: 50 mg Miscellaneous Information (Remove Patch) 1 ea TRDERM DAILY@0700 [facility] Last Admin: 05/07/17 08:44 Dose: 1 ea Sodium Chloride (Saline Flush) 10 ml FLUSH ASDIRECTED PRN PRN Reason: Keep Vein Open Last Admin: 05/06/17 17:10 Dose: 10 ml Sodium Chloride (Saline Flush) 10 ml FLUSH Q12HR PRN PRN Reason: Keep Vein Open Temazepam (Restoril) 15 mg PO BEDTIME PRN PRN Reason: Insomnia Tramadol HCl (Ultram) 50 mg PO Q6H PRN PRN Reason: Pain Last Admin: 05/07/17 08:52 Dose: 50 mg Discontinued Medications Albuterol/Ipratropium (Duoneb 3.0-0.5 Mg/3 Ml) 3 ml NEB Q6HRRT [facility] Last Admin: 05/03/17 13:27 Dose: 3 ml Famotidine (Pepcid) 40 mg IVPUSH ONETIME ONE Stop: 05/02/17 13:58 Last Admin: 05/02/17 14:27 Dose: 40 mg Furosemide (Lasix) 40 mg IVPUSH Q8H [facility] Last Admin: 05/04/17 16:11 Dose: Not Given Insulin Aspart (Novolog) 0 unit SUBCUT ACBED [facility] PRN Reason: Protocol Last Admin: 05/03/17 11:41 Dose: 8 units Insulin Aspart (Novolog) 10 unit SUBCUT ONETIME ONE Stop: 05/03/17 12:24 Last Admin: 05/03/17 12:38 Dose: 10 units Lidocaine (Lidoderm 5%) 700 mg TOP DAILY@1900 [facility] Miscellaneous Information (Remove Patch) 1 ea TRDERM DAILY@0700 [facility] Miscellaneous Information (Remove Patch) 1 ea TRDERM DAILY [facility] Potassium Chloride (Klor-Con M20) 20 meq PO TID [facility] Last Admin: 05/06/17 11:51 Dose: 20 meq - Exam General: Reports: Alert, Oriented HEENT: Reports: Pupils Equal, Pupils Reactive, EOMI, Mucous Membr. Moist/[place] Neck: Reports: Supple Lungs: Reports: Clear to Auscultation, Normal Respiratory Effort Cardiovascular: Reports: Regular Rate, Regular Rhythm GI/Abdominal Exam: Normal Bowel Sounds, Soft, Non-Tender, No Organomegaly, No Distention, No Abnormal Bruit, No Mass, Pelvis Stable (Male) Exam: Deferred Rectal (Males) Exam: Deferred Back Exam: Reports: Normal Inspection, Full Range of Motion Extremities: Pedal Edema (+1) Neurological: Reports: No New Focal Deficit Psy/Mental Status: Reports: Alert, Normal Affect, Normal Mood *Q Meaningful Use (DIS) - VTE *Q VTE Criteria *Q: - Stroke *Q Stroke Criteria *Q: - AMI *Q AMI Criteria *Q:
== END 2017-05-07 13:14 | disposition swing bed (61) | DRG 292 ==
LOC: LL.ED 13:45 → LL.MS 15:20 → UNDOADMIN 15:20 → LL.MS 15:50
PROVIDERS: ADMIT Family Medicine; ATTEND Family Medicine
DX: I13.0 Hypertensive heart and chronic kidney disease with heart failure and stage 1 through stage 4 chronic kidney disease, or unspecified chronic kidney disease (principal); I50.23 Acute on chronic systolic (congestive) heart failure; I50.20 Unspecified systolic (congestive) heart failure; N18.9 Chronic kidney disease, unspecified; R79.89 Other specified abnormal findings of blood chemistry; I48.91 Unspecified atrial fibrillation; E11.9 Type 2 diabetes mellitus without complications; J44.9 Chronic obstructive pulmonary disease, unspecified; M54.5 Low back pain; I25.10 Atherosclerotic heart disease of native coronary artery without angina pectoris; E78.5 Hyperlipidemia, unspecified; E03.9 Hypothyroidism, unspecified; I25.2 Old myocardial infarction; M19.90 Unspecified osteoarthritis, unspecified site; Z88.5 Allergy status to narcotic agent; D69.6 Thrombocytopenia, unspecified; K80.20 Calculus of gallbladder without cholecystitis without obstruction; E87.5 Hyperkalemia; Z95.810 Presence of automatic (implantable) cardiac defibrillator; Z91.041 Radiographic dye allergy status; R53.81 Other malaise; Z79.4 Long term (current) use of insulin; Z79.899 Other long term (current) drug therapy; Z95.1 Presence of aortocoronary bypass graft; Z95.5 Presence of coronary angioplasty implant and graft; Z51.5 Encounter for palliative care
CPT/HCPCS: 36415; 71010; 71020; 74020; 76705; 80048; 80053; 80061; 81001; 82272; 82550; 82553; 82962; 83036; 83605; 83735; 83880; 84100; 84443; 84484; 84550; 85025; 85379; 85610; 85730; 87086; 87338; 93005; 93306; 93970; 94640; 94664; 96374; 97116-GP; 97161-GP; 99285; A9270-GY; J1650; J1815-GY; J1940; J7050; S0028

== ENCOUNTER 2017-05-06 09:33 | Inpatient (IN) | payer MEDICARE, OTHER, MEDICAID ==
[2017-05-07] MEDS ORDERED: Albuterol/Ipratropium 3.0-0.5 MG/3 ML Neb Soln NEB PRN (12:59)
[2017-05-07] MEDS ORDERED: Temazepam 15 MG Cap PO PRN (12:59)
[2017-05-07] MEDS ORDERED: Sodium Chloride 0.9% 10 ML Syringe FLUSH PRN ×3 (12:59)
[2017-05-07] MEDS ORDERED: Albuterol 0.083% 2.5 MG/3 ML Neb Soln INH PRN (13:00)
--- NOTE | 2017-05-07 13:06 | PCM.SN ---
- Free Text/Narrative Note: Please use acute hospitalization visit DC summary as SWB H&P
[2017-05-07] MEDS: Albuterol/Ipratropium 3.0-0.5 MG/3 ML Neb Soln NEB SCH ×2 (15:41→19:27)
[2017-05-07] MEDS: Enoxaparin 100 MG/1 ML Syringe SUBCUT SCH (15:41)
[2017-05-07] MEDS ORDERED: Famotidine 20 MG/2 ML SDV IVPUSH SCH (18:00)
[2017-05-07] MEDS: Insulin Aspart 100 Units/ML 3 ML Pen SUBCUT SCH (18:13)
[2017-05-07] MEDS: Famotidine 20 MG Tab PO SCH (18:14)
[2017-05-07] MEDS: Calcium Acetate 667 MG Cap PO SCH (18:15)
[2017-05-07] MEDS: Lidocaine 5% 700 MG Patch TOP SCH (19:24)
[2017-05-07] MEDS: Levothyroxine 100 MCG Tab PO SCH (19:25)
[2017-05-07] MEDS: Insulin Detemir 100 Units/ML 3 ML Pen SUBCUT SCH (20:27)
[2017-05-08] MEDS: Remove Patch LIDOCAINE PATCH TRDERM SCH (08:00)
[2017-05-08] MEDS: Albuterol/Ipratropium 3.0-0.5 MG/3 ML Neb Soln NEB SCH ×3 (08:01→19:44)
[2017-05-08] MEDS: Bumetanide 1 MG Tab PO SCH (08:01)
[2017-05-08] MEDS: atorvaSTATin 40 MG Tab PO SCH (08:02)
[2017-05-08] MEDS: Aspirin 81 MG Tab.EC PO SCH (08:02)
[2017-05-08] MEDS: Calcium Acetate 667 MG Cap PO SCH ×3 (08:03→18:03)
[2017-05-08] MEDS: Clopidogrel 75 MG Tab PO SCH (08:04)
[2017-05-08] MEDS: Calcitriol 0.25 MCG Cap PO SCH (08:05)
[2017-05-08] MEDS: Lisinopril 10 MG Tab PO SCH (08:05)
[2017-05-08] MEDS: Metoprolol Succinate 50 MG Tab.ER PO SCH (08:06)
[2017-05-08] MEDS: Insulin Aspart 100 Units/ML 3 ML Pen SUBCUT SCH ×3 (08:07→18:04)
[2017-05-08] MEDS: Enoxaparin 100 MG/1 ML Syringe SUBCUT SCH (17:01)
[2017-05-08] MEDS: Famotidine 20 MG Tab PO SCH (18:03)
[2017-05-08] MEDS: Lidocaine 5% 700 MG Patch TOP SCH (19:43)
[2017-05-08] MEDS: Insulin Detemir 100 Units/ML 3 ML Pen SUBCUT SCH (19:48)
[2017-05-08] MEDS: Levothyroxine 100 MCG Tab PO SCH (19:52)
[2017-05-09] MEDS: Insulin Aspart 100 Units/ML 3 ML Pen SUBCUT SCH ×3 (07:55→18:04)
[2017-05-09] MEDS: Remove Patch LIDOCAINE PATCH TRDERM SCH (07:56)
[2017-05-09] MEDS: Bumetanide 1 MG Tab PO SCH (07:56)
[2017-05-09] MEDS: Aspirin 81 MG Tab.EC PO SCH (07:56)
[2017-05-09] MEDS: Clopidogrel 75 MG Tab PO SCH (07:57)
[2017-05-09] MEDS: atorvaSTATin 40 MG Tab PO SCH (07:57)
[2017-05-09] MEDS: Metoprolol Succinate 50 MG Tab.ER PO SCH (07:57)
[2017-05-09] MEDS: Lisinopril 10 MG Tab PO SCH (07:57)
[2017-05-09] MEDS: Calcium Acetate 667 MG Cap PO SCH ×3 (07:58→18:05)
[2017-05-09] MEDS: Albuterol/Ipratropium 3.0-0.5 MG/3 ML Neb Soln NEB SCH ×3 (07:59→19:37)
[2017-05-09] MEDS: traMADol 50 MG Tab PO PRN ×2 (10:43→18:11)
[2017-05-09] MEDS: Acetaminophen 325 MG Tab PO PRN (10:44)
[2017-05-09] MEDS: Docusate Sodium 100 MG Cap PO SCH ×2 (11:39→18:06)
[2017-05-09] MEDS: Enoxaparin 100 MG/1 ML Syringe SUBCUT SCH (15:02)
[2017-05-09] MEDS: Famotidine 20 MG Tab PO SCH (18:05)
[2017-05-09] MEDS: Insulin Detemir 100 Units/ML 3 ML Pen SUBCUT SCH (19:37)
[2017-05-09] MEDS: Levothyroxine 100 MCG Tab PO SCH (19:41)
[2017-05-09] MEDS: Lidocaine 5% 700 MG Patch TOP SCH (19:41)
[2017-05-10] MEDS: Remove Patch LIDOCAINE PATCH TRDERM SCH (08:06)
[2017-05-10] MEDS: Docusate Sodium 100 MG Cap PO SCH ×2 (08:07→17:02)
[2017-05-10] MEDS: Albuterol/Ipratropium 3.0-0.5 MG/3 ML Neb Soln NEB SCH ×3 (08:07→19:26)
[2017-05-10] MEDS: Bumetanide 1 MG Tab PO SCH (08:07)
[2017-05-10] MEDS: atorvaSTATin 40 MG Tab PO SCH (08:08)
[2017-05-10] MEDS: Aspirin 81 MG Tab.EC PO SCH (08:08)
[2017-05-10] MEDS: Calcium Acetate 667 MG Cap PO SCH ×3 (08:10→17:02)
[2017-05-10] MEDS: Clopidogrel 75 MG Tab PO SCH (08:12)
[2017-05-10] MEDS: Lisinopril 10 MG Tab PO SCH (08:12)
[2017-05-10] MEDS: Calcitriol 0.25 MCG Cap PO SCH (08:13)
[2017-05-10] MEDS: Metoprolol Succinate 50 MG Tab.ER PO SCH (08:14)
[2017-05-10] MEDS: Insulin Aspart 100 Units/ML 3 ML Pen SUBCUT SCH ×3 (08:15→17:58)
[2017-05-10] MEDS: traMADol 50 MG Tab PO PRN (14:36)
[2017-05-10] MEDS: Enoxaparin 100 MG/1 ML Syringe SUBCUT SCH (17:01)
[2017-05-10] MEDS: Famotidine 20 MG Tab PO SCH (17:02)
[2017-05-10] MEDS: Lidocaine 5% 700 MG Patch TOP SCH (19:25)
[2017-05-10] MEDS: Insulin Detemir 100 Units/ML 3 ML Pen SUBCUT SCH (19:30)
[2017-05-10] MEDS: Levothyroxine 100 MCG Tab PO SCH (19:33)
[2017-05-11] MEDS: Insulin Aspart 100 Units/ML 3 ML Pen SUBCUT SCH ×3 (08:01→17:59)
[2017-05-11] MEDS: Remove Patch LIDOCAINE PATCH TRDERM SCH (08:06)
[2017-05-11] MEDS: Bumetanide 1 MG Tab PO SCH (08:08)
[2017-05-11] MEDS: Albuterol/Ipratropium 3.0-0.5 MG/3 ML Neb Soln NEB SCH ×3 (08:09→19:43)
[2017-05-11] MEDS: atorvaSTATin 40 MG Tab PO SCH (08:09)
[2017-05-11] MEDS: Aspirin 81 MG Tab.EC PO SCH (08:09)
[2017-05-11] MEDS: Docusate Sodium 100 MG Cap PO SCH ×2 (08:09→17:04)
[2017-05-11] MEDS: Clopidogrel 75 MG Tab PO SCH (08:10)
[2017-05-11] MEDS: Calcium Acetate 667 MG Cap PO SCH ×3 (08:10→17:03)
[2017-05-11] MEDS: Metoprolol Succinate 50 MG Tab.ER PO SCH (08:11)
[2017-05-11] MEDS: Lisinopril 10 MG Tab PO SCH (08:11)
[2017-05-11] MEDS: Acetaminophen 325 MG Tab PO PRN (12:13)
[2017-05-11] MEDS: Enoxaparin 100 MG/1 ML Syringe SUBCUT SCH (16:57)
[2017-05-11] MEDS: Famotidine 20 MG Tab PO SCH (17:03)
[2017-05-11] MEDS: Lidocaine 5% 700 MG Patch TOP SCH (18:02)
[2017-05-11] MEDS: Insulin Detemir 100 Units/ML 3 ML Pen SUBCUT SCH (19:43)
[2017-05-11] MEDS: Levothyroxine 100 MCG Tab PO SCH (19:45)
[2017-05-12] MEDS: Insulin Aspart 100 Units/ML 3 ML Pen SUBCUT SCH ×3 (07:54→17:55)
[2017-05-12] MEDS: Albuterol/Ipratropium 3.0-0.5 MG/3 ML Neb Soln NEB SCH ×3 (08:01→19:42)
[2017-05-12] MEDS: Metoprolol Succinate 50 MG Tab.ER PO SCH (08:02)
[2017-05-12] MEDS: Calcitriol 0.25 MCG Cap PO SCH (08:02)
[2017-05-12] MEDS: Calcium Acetate 667 MG Cap PO SCH ×3 (08:02→17:57)
[2017-05-12] MEDS: atorvaSTATin 40 MG Tab PO SCH (08:03)
[2017-05-12] MEDS: Clopidogrel 75 MG Tab PO SCH (08:03)
[2017-05-12] MEDS: Remove Patch LIDOCAINE PATCH TRDERM SCH (08:03)
[2017-05-12] MEDS: Bumetanide 1 MG Tab PO SCH (08:03)
[2017-05-12] MEDS: Lisinopril 10 MG Tab PO SCH (08:03)
[2017-05-12] MEDS: Aspirin 81 MG Tab.EC PO SCH (08:04)
[2017-05-12] MEDS: Docusate Sodium 100 MG Cap PO SCH ×2 (08:05→17:56)
[2017-05-12] MEDS: Enoxaparin 100 MG/1 ML Syringe SUBCUT SCH (15:42)
[2017-05-12] MEDS: Famotidine 20 MG Tab PO SCH (17:56)
[2017-05-12] MEDS: Lidocaine 5% 700 MG Patch TOP SCH (19:41)
[2017-05-12] MEDS: Levothyroxine 100 MCG Tab PO SCH (19:45)
[2017-05-12] MEDS: Insulin Detemir 100 Units/ML 3 ML Pen SUBCUT SCH (20:17)
[2017-05-12] MEDS: Bacitracin/Neomycin/Polymyxin B Oint 0.9 GM U/D Packet TOP SCH (21:20)
[2017-05-13] MEDS: Bumetanide 1 MG Tab PO SCH (07:57)
[2017-05-13] MEDS: Remove Patch LIDOCAINE PATCH TRDERM SCH (07:57)
[2017-05-13] MEDS: Docusate Sodium 100 MG Cap PO SCH ×2 (07:58→17:56)
[2017-05-13] MEDS: Aspirin 81 MG Tab.EC PO SCH (07:58)
[2017-05-13] MEDS: Albuterol/Ipratropium 3.0-0.5 MG/3 ML Neb Soln NEB SCH ×3 (07:58→19:37)
[2017-05-13] MEDS: Calcium Acetate 667 MG Cap PO SCH ×3 (07:59→17:59)
[2017-05-13] MEDS: atorvaSTATin 40 MG Tab PO SCH (07:59)
[2017-05-13] MEDS: Lisinopril 10 MG Tab PO SCH (08:00)
[2017-05-13] MEDS: Clopidogrel 75 MG Tab PO SCH (08:00)
[2017-05-13] MEDS: Metoprolol Succinate 50 MG Tab.ER PO SCH (08:01)
[2017-05-13] MEDS: Bacitracin/Neomycin/Polymyxin B Oint 0.9 GM U/D Packet TOP SCH ×2 (08:01→18:08)
[2017-05-13] MEDS: Insulin Aspart 100 Units/ML 3 ML Pen SUBCUT SCH ×3 (08:04→18:05)
[2017-05-13] MEDS: Famotidine 20 MG Tab PO SCH (17:59)
[2017-05-13] MEDS: Insulin Detemir 100 Units/ML 3 ML Pen SUBCUT SCH (19:41)
[2017-05-13] MEDS: Lidocaine 5% 700 MG Patch TOP SCH (19:43)
[2017-05-13] MEDS: Levothyroxine 100 MCG Tab PO SCH (19:44)
[2017-05-14] MEDS: Albuterol/Ipratropium 3.0-0.5 MG/3 ML Neb Soln NEB SCH ×3 (07:47→20:12)
[2017-05-14] MEDS: Remove Patch LIDOCAINE PATCH TRDERM SCH (07:47)
[2017-05-14] MEDS: Bumetanide 1 MG Tab PO SCH (07:48)
[2017-05-14] MEDS: Docusate Sodium 100 MG Cap PO SCH ×2 (07:48→17:58)
[2017-05-14] MEDS: atorvaSTATin 40 MG Tab PO SCH (07:49)
[2017-05-14] MEDS: Aspirin 81 MG Tab.EC PO SCH (07:49)
[2017-05-14] MEDS: Clopidogrel 75 MG Tab PO SCH (07:50)
[2017-05-14] MEDS: Calcium Acetate 667 MG Cap PO SCH ×3 (07:50→17:59)
[2017-05-14] MEDS: Calcitriol 0.25 MCG Cap PO SCH (07:51)
[2017-05-14] MEDS: Lisinopril 10 MG Tab PO SCH (07:51)
[2017-05-14] MEDS: Metoprolol Succinate 50 MG Tab.ER PO SCH (07:55)
[2017-05-14] MEDS: Bacitracin/Neomycin/Polymyxin B Oint 0.9 GM U/D Packet TOP SCH ×2 (07:56→18:00)
[2017-05-14] MEDS: Insulin Aspart 100 Units/ML 3 ML Pen SUBCUT SCH ×3 (08:00→18:11)
[2017-05-14] MEDS: Famotidine 20 MG Tab PO SCH (17:59)
[2017-05-14] MEDS ORDERED: Insulin Detemir 100 Units/ML 3 ML Pen SUBCUT SCH (20:00)
[2017-05-14] MEDS: Levothyroxine 100 MCG Tab PO SCH (20:13)
[2017-05-14] MEDS: Lidocaine 5% 700 MG Patch TOP SCH (20:13)
[2017-05-15] MEDS: Remove Patch LIDOCAINE PATCH TRDERM SCH (08:07)
[2017-05-15] MEDS: Bumetanide 1 MG Tab PO SCH (08:08)
[2017-05-15] MEDS: Albuterol/Ipratropium 3.0-0.5 MG/3 ML Neb Soln NEB SCH ×3 (08:08→19:53)
[2017-05-15] MEDS: Docusate Sodium 100 MG Cap PO SCH ×2 (08:08→17:09)
[2017-05-15] MEDS: atorvaSTATin 40 MG Tab PO SCH (08:09)
[2017-05-15] MEDS: Aspirin 81 MG Tab.EC PO SCH (08:09)
[2017-05-15] MEDS: Calcium Acetate 667 MG Cap PO SCH ×3 (08:10→17:15)
[2017-05-15] MEDS: Clopidogrel 75 MG Tab PO SCH (08:11)
[2017-05-15] MEDS: Lisinopril 10 MG Tab PO SCH (08:12)
[2017-05-15] MEDS: Metoprolol Succinate 50 MG Tab.ER PO SCH (08:13)
[2017-05-15] MEDS: Bacitracin/Neomycin/Polymyxin B Oint 0.9 GM U/D Packet TOP SCH ×2 (08:13→17:18)
[2017-05-15] MEDS: Insulin Aspart 100 Units/ML 3 ML Pen SUBCUT SCH ×4 (08:14→21:22)
[2017-05-15] MEDS: Famotidine 20 MG Tab PO SCH (17:15)
--- NOTE | 2017-05-15 19:08 | PCM.SN ---
- Free Text/Narrative Note: Patient having problems with variable Accu-Cheks with some episodes of borderline hypoglycemia. Multiple medication and insulin changes were made both yesterday and today with patient placed on a 4 times a day sliding scale. His regular providers at the [facility] will be updated on 05/20 with further medication adjustment at that time depending on his clinical course.
[2017-05-15] MEDS: Levothyroxine 100 MCG Tab PO SCH (19:50)
[2017-05-15] MEDS: Lidocaine 5% 700 MG Patch TOP SCH (19:51)
[2017-05-15] MEDS: Insulin Detemir 100 Units/ML 3 ML Pen SUBCUT SCH (19:52)
[2017-05-16] MEDS: Remove Patch LIDOCAINE PATCH TRDERM SCH (07:38)
[2017-05-16] MEDS: Bumetanide 1 MG Tab PO SCH (07:39)
[2017-05-16] MEDS: Albuterol/Ipratropium 3.0-0.5 MG/3 ML Neb Soln NEB SCH ×3 (07:39→19:57)
[2017-05-16] MEDS: Aspirin 81 MG Tab.EC PO SCH (07:39)
[2017-05-16] MEDS: Docusate Sodium 100 MG Cap PO SCH ×2 (07:39→17:22)
[2017-05-16] MEDS: Calcium Acetate 667 MG Cap PO SCH ×3 (07:40→17:23)
[2017-05-16] MEDS: atorvaSTATin 40 MG Tab PO SCH (07:40)
[2017-05-16] MEDS: Clopidogrel 75 MG Tab PO SCH (07:41)
[2017-05-16] MEDS: Lisinopril 10 MG Tab PO SCH (07:41)
[2017-05-16] MEDS: Metoprolol Succinate 50 MG Tab.ER PO SCH (07:42)
[2017-05-16] MEDS: Calcitriol 0.25 MCG Cap PO SCH (07:42)
[2017-05-16] MEDS: Bacitracin/Neomycin/Polymyxin B Oint 0.9 GM U/D Packet TOP SCH ×2 (07:44→17:24)
[2017-05-16] MEDS: Insulin Aspart 100 Units/ML 3 ML Pen SUBCUT SCH ×4 (07:47→20:04)
[2017-05-16] MEDS: Famotidine 20 MG Tab PO SCH (17:22)
[2017-05-16] MEDS: Lidocaine 5% 700 MG Patch TOP SCH (19:57)
[2017-05-16] MEDS: Insulin Detemir 100 Units/ML 3 ML Pen SUBCUT SCH (20:00)
[2017-05-16] MEDS: Levothyroxine 100 MCG Tab PO SCH (20:03)
[2017-05-17] MEDS: Insulin Aspart 100 Units/ML 3 ML Pen SUBCUT SCH ×3 (07:51→17:24)
[2017-05-17] MEDS: Remove Patch LIDOCAINE PATCH TRDERM SCH (07:52)
[2017-05-17] MEDS: Bumetanide 1 MG Tab PO SCH (07:56)
[2017-05-17] MEDS: Aspirin 81 MG Tab.EC PO SCH (07:57)
[2017-05-17] MEDS: Albuterol/Ipratropium 3.0-0.5 MG/3 ML Neb Soln NEB SCH ×3 (07:57→19:21)
[2017-05-17] MEDS: Docusate Sodium 100 MG Cap PO SCH ×2 (07:57→17:26)
[2017-05-17] MEDS: atorvaSTATin 40 MG Tab PO SCH (07:58)
[2017-05-17] MEDS: Clopidogrel 75 MG Tab PO SCH (07:58)
[2017-05-17] MEDS: Calcium Acetate 667 MG Cap PO SCH ×3 (07:58→17:26)
[2017-05-17] MEDS: Lisinopril 10 MG Tab PO SCH (07:59)
[2017-05-17] MEDS: Metoprolol Succinate 50 MG Tab.ER PO SCH (07:59)
[2017-05-17] MEDS: Bacitracin/Neomycin/Polymyxin B Oint 0.9 GM U/D Packet TOP SCH ×2 (08:00→17:27)
[2017-05-17] MEDS: Famotidine 20 MG Tab PO SCH (17:26)
[2017-05-17] MEDS: Lidocaine 5% 700 MG Patch TOP SCH (19:20)
[2017-05-17] MEDS: Levothyroxine 100 MCG Tab PO SCH (19:21)
[2017-05-17] MEDS: Insulin Detemir 100 Units/ML 3 ML Pen SUBCUT SCH (19:22)
[2017-05-18] MEDS: Albuterol/Ipratropium 3.0-0.5 MG/3 ML Neb Soln NEB SCH ×3 (07:37→19:50)
[2017-05-18] MEDS: Remove Patch LIDOCAINE PATCH TRDERM SCH (07:38)
[2017-05-18] MEDS: Insulin Aspart 100 Units/ML 3 ML Pen SUBCUT SCH ×3 (07:39→17:28)
[2017-05-18] MEDS: Aspirin 81 MG Tab.EC PO SCH (07:41)
[2017-05-18] MEDS: Bumetanide 1 MG Tab PO SCH (07:41)
[2017-05-18] MEDS: atorvaSTATin 40 MG Tab PO SCH (07:42)
[2017-05-18] MEDS: Calcium Acetate 667 MG Cap PO SCH ×3 (07:42→17:34)
[2017-05-18] MEDS: Clopidogrel 75 MG Tab PO SCH (07:42)
[2017-05-18] MEDS: Calcitriol 0.25 MCG Cap PO SCH (07:43)
[2017-05-18] MEDS: Lisinopril 10 MG Tab PO SCH (07:44)
[2017-05-18] MEDS: Bacitracin/Neomycin/Polymyxin B Oint 0.9 GM U/D Packet TOP SCH ×2 (07:44→17:34)
[2017-05-18] MEDS: Metoprolol Succinate 50 MG Tab.ER PO SCH (07:48)
[2017-05-18] MEDS: Docusate Sodium 100 MG Cap PO SCH ×2 (09:13→17:33)
[2017-05-18] MEDS: Famotidine 20 MG Tab PO SCH (17:33)
[2017-05-18] MEDS: Lidocaine 5% 700 MG Patch TOP SCH (19:49)
[2017-05-18] MEDS: Insulin Detemir 100 Units/ML 3 ML Pen SUBCUT SCH (19:50)
[2017-05-18] MEDS: Levothyroxine 100 MCG Tab PO SCH (19:51)
[2017-05-19] MEDS: Remove Patch LIDOCAINE PATCH TRDERM SCH (07:25)
[2017-05-19] MEDS: Insulin Aspart 100 Units/ML 3 ML Pen SUBCUT SCH ×3 (07:25→17:30)
[2017-05-19] MEDS: Bumetanide 1 MG Tab PO SCH (07:26)
[2017-05-19] MEDS: Docusate Sodium 100 MG Cap PO SCH ×2 (07:27→17:31)
[2017-05-19] MEDS: Calcium Acetate 667 MG Cap PO SCH ×3 (07:27→17:32)
[2017-05-19] MEDS: Aspirin 81 MG Tab.EC PO SCH (07:27)
[2017-05-19] MEDS: Albuterol/Ipratropium 3.0-0.5 MG/3 ML Neb Soln NEB SCH ×3 (07:27→19:42)
[2017-05-19] MEDS: atorvaSTATin 40 MG Tab PO SCH (07:27)
[2017-05-19] MEDS: Lisinopril 10 MG Tab PO SCH (07:28)
[2017-05-19] MEDS: Clopidogrel 75 MG Tab PO SCH (07:28)
[2017-05-19] MEDS: Metoprolol Succinate 50 MG Tab.ER PO SCH (07:32)
[2017-05-19] MEDS: Bacitracin/Neomycin/Polymyxin B Oint 0.9 GM U/D Packet TOP SCH ×2 (07:33→17:32)
[2017-05-19] MEDS: Famotidine 20 MG Tab PO SCH (17:32)
[2017-05-19] MEDS: Lidocaine 5% 700 MG Patch TOP SCH (19:39)
[2017-05-19] MEDS: Insulin Detemir 100 Units/ML 3 ML Pen SUBCUT SCH (19:43)
[2017-05-19] MEDS: Levothyroxine 100 MCG Tab PO SCH (19:49)
[2017-05-20] MEDS: Insulin Aspart 100 Units/ML 3 ML Pen SUBCUT SCH ×3 (07:58→17:52)
[2017-05-20] MEDS: Remove Patch LIDOCAINE PATCH TRDERM SCH (07:58)
[2017-05-20] MEDS: Acetaminophen 325 MG Tab PO PRN (08:00)
[2017-05-20] MEDS: Calcitriol 0.25 MCG Cap PO SCH (08:01)
[2017-05-20] MEDS: Bumetanide 1 MG Tab PO SCH (08:01)
[2017-05-20] MEDS: Albuterol/Ipratropium 3.0-0.5 MG/3 ML Neb Soln NEB SCH ×3 (08:01→20:01)
[2017-05-20] MEDS: Calcium Acetate 667 MG Cap PO SCH ×3 (08:01→17:53)
[2017-05-20] MEDS: atorvaSTATin 40 MG Tab PO SCH (08:02)
[2017-05-20] MEDS: Clopidogrel 75 MG Tab PO SCH (08:02)
[2017-05-20] MEDS: Lisinopril 10 MG Tab PO SCH (08:02)
[2017-05-20] MEDS: Metoprolol Succinate 50 MG Tab.ER PO SCH (08:02)
[2017-05-20] MEDS: Aspirin 81 MG Tab.EC PO SCH (08:03)
[2017-05-20] MEDS: Bacitracin/Neomycin/Polymyxin B Oint 0.9 GM U/D Packet TOP SCH ×2 (08:03→17:54)
[2017-05-20] MEDS: Docusate Sodium 100 MG Cap PO SCH ×2 (08:03→17:53)
[2017-05-20] MEDS: Famotidine 20 MG Tab PO SCH (17:53)
[2017-05-20] MEDS: Insulin Detemir 100 Units/ML 3 ML Pen SUBCUT SCH (19:57)
[2017-05-20] MEDS: Lidocaine 5% 700 MG Patch TOP SCH (19:58)
[2017-05-20] MEDS: Levothyroxine 100 MCG Tab PO SCH (20:01)
[2017-05-21] MEDS: Insulin Aspart 100 Units/ML 3 ML Pen SUBCUT SCH ×4 (09:05→17:44)
[2017-05-21] MEDS: Bumetanide 1 MG Tab PO SCH (09:29)
[2017-05-21] MEDS: Docusate Sodium 100 MG Cap PO SCH ×3 (09:30→17:53)
[2017-05-21] MEDS: Albuterol/Ipratropium 3.0-0.5 MG/3 ML Neb Soln NEB SCH ×3 (09:31→20:01)
[2017-05-21] MEDS: Aspirin 81 MG Tab.EC PO SCH (09:31)
[2017-05-21] MEDS: atorvaSTATin 40 MG Tab PO SCH (09:32)
[2017-05-21] MEDS: Calcium Acetate 667 MG Cap PO SCH ×3 (09:33→17:47)
[2017-05-21] MEDS: Clopidogrel 75 MG Tab PO SCH (09:34)
[2017-05-21] MEDS: Lisinopril 10 MG Tab PO SCH (09:34)
[2017-05-21] MEDS: Metoprolol Succinate 50 MG Tab.ER PO SCH (09:36)
[2017-05-21] MEDS: Bacitracin/Neomycin/Polymyxin B Oint 0.9 GM U/D Packet TOP SCH ×2 (09:37→17:48)
[2017-05-21] MEDS: Remove Patch LIDOCAINE PATCH TRDERM SCH (09:47)
[2017-05-21] MEDS: Famotidine 20 MG Tab PO SCH (17:47)
[2017-05-21] MEDS: Lidocaine 5% 700 MG Patch TOP SCH (20:00)
[2017-05-21] MEDS: Levothyroxine 100 MCG Tab PO SCH (20:04)
[2017-05-21] MEDS: Insulin Detemir 100 Units/ML 3 ML Pen SUBCUT SCH (20:08)
[2017-05-22] MEDS: Remove Patch LIDOCAINE PATCH TRDERM SCH (07:53)
[2017-05-22] MEDS: Albuterol/Ipratropium 3.0-0.5 MG/3 ML Neb Soln NEB SCH ×3 (07:57→20:05)
[2017-05-22] MEDS: Bumetanide 1 MG Tab PO SCH (07:57)
[2017-05-22] MEDS: Aspirin 81 MG Tab.EC PO SCH (07:57)
[2017-05-22] MEDS: Docusate Sodium 100 MG Cap PO SCH ×2 (07:57→17:39)
[2017-05-22] MEDS: atorvaSTATin 40 MG Tab PO SCH (07:58)
[2017-05-22] MEDS: Calcium Acetate 667 MG Cap PO SCH ×3 (07:58→17:40)
[2017-05-22] MEDS: Lisinopril 10 MG Tab PO SCH (07:59)
[2017-05-22] MEDS: Clopidogrel 75 MG Tab PO SCH (07:59)
[2017-05-22] MEDS: Calcitriol 0.25 MCG Cap PO SCH (08:00)
[2017-05-22] MEDS: Metoprolol Succinate 50 MG Tab.ER PO SCH (08:01)
[2017-05-22] MEDS: Bacitracin/Neomycin/Polymyxin B Oint 0.9 GM U/D Packet TOP SCH (08:02)
[2017-05-22] MEDS: Insulin Aspart 100 Units/ML 3 ML Pen SUBCUT SCH ×3 (08:02→17:43)
[2017-05-22] MEDS: Famotidine 20 MG Tab PO SCH (17:40)
[2017-05-22] MEDS: Lidocaine 5% 700 MG Patch TOP SCH (20:04)
[2017-05-22] MEDS: Levothyroxine 100 MCG Tab PO SCH (20:06)
[2017-05-22] MEDS: Insulin Detemir 100 Units/ML 3 ML Pen SUBCUT SCH (20:10)
[2017-05-23] MEDS: Remove Patch LIDOCAINE PATCH TRDERM SCH (08:09)
[2017-05-23] MEDS: Insulin Aspart 100 Units/ML 3 ML Pen SUBCUT SCH ×3 (08:10→17:56)
[2017-05-23] MEDS: Docusate Sodium 100 MG Cap PO SCH ×2 (08:12→17:56)
[2017-05-23] MEDS: Bumetanide 1 MG Tab PO SCH (08:12)
[2017-05-23] MEDS: Aspirin 81 MG Tab.EC PO SCH (08:14)
[2017-05-23] MEDS: Albuterol/Ipratropium 3.0-0.5 MG/3 ML Neb Soln NEB SCH ×3 (08:14→19:47)
[2017-05-23] MEDS: atorvaSTATin 40 MG Tab PO SCH (08:14)
[2017-05-23] MEDS: Calcium Acetate 667 MG Cap PO SCH ×3 (08:15→17:57)
[2017-05-23] MEDS: Lisinopril 10 MG Tab PO SCH (08:16)
[2017-05-23] MEDS: Clopidogrel 75 MG Tab PO SCH (08:16)
[2017-05-23] MEDS: Metoprolol Succinate 50 MG Tab.ER PO SCH (08:17)
[2017-05-23] MEDS: Famotidine 20 MG Tab PO SCH (17:57)
[2017-05-23] MEDS: Lidocaine 5% 700 MG Patch TOP SCH (19:46)
[2017-05-23] MEDS: Insulin Detemir 100 Units/ML 3 ML Pen SUBCUT SCH (19:48)
[2017-05-23] MEDS: Levothyroxine 100 MCG Tab PO SCH (19:49)
[2017-05-24] MEDS: Remove Patch LIDOCAINE PATCH TRDERM SCH (07:36)
[2017-05-24] MEDS: Insulin Aspart 100 Units/ML 3 ML Pen SUBCUT SCH ×2 (07:39→12:08)
[2017-05-24] MEDS: Bumetanide 1 MG Tab PO SCH (07:40)
[2017-05-24] MEDS: Aspirin 81 MG Tab.EC PO SCH (07:41)
[2017-05-24] MEDS: Docusate Sodium 100 MG Cap PO SCH (07:41)
[2017-05-24] MEDS: atorvaSTATin 40 MG Tab PO SCH (07:41)
[2017-05-24] MEDS: Albuterol/Ipratropium 3.0-0.5 MG/3 ML Neb Soln NEB SCH ×2 (07:41→13:35)
[2017-05-24] MEDS: Calcium Acetate 667 MG Cap PO SCH ×2 (07:42→12:09)
[2017-05-24] MEDS: Calcitriol 0.25 MCG Cap PO SCH (07:42)
[2017-05-24] MEDS: Clopidogrel 75 MG Tab PO SCH (07:43)
[2017-05-24] MEDS: Lisinopril 10 MG Tab PO SCH (07:44)
[2017-05-24] MEDS: Metoprolol Succinate 50 MG Tab.ER PO SCH (07:45)
[2017-05-24 10:17] VITALS: BP 105/60
--- NOTE | 2017-05-24 13:17 | PCM.DCSUM1 ---
Discharge Summary - Hospital Course Free Text/Narrative:: Patient is a 86-year-old was admitted with congestive heart failure and then transferred to swing bed for continuing care at this time he is ready to be discharged home I have some concerns with his medications and his ability to be taken as order but for the past year he's been doing it himself and he refuses home health . He will go ahead and discharge patient to home. Patient will follow up in clinic for post hospitalization visit. - Discharge Data Discharge Date: 05/24/17 Discharge Disposition: Home, Self-Care 01 Condition: Good - Discharge Diagnosis/Problem(s) (1) Congestive heart failure SNOMED Code(s): 22296922 ICD Code: I50.9 - HEART FAILURE, UNSPECIFIED Status: Acute Priority: High Current Visit: No Problem Details: Improved. Will follow up by primary as outpatient Qualifiers: Congestive heart failure type: unspecified congestive heart failure type Congestive heart failure chronicity: unspecified congestive heart failure chronicity Qualified Code(s): I50.9 - Heart failure, unspecified (2) Coronary artery disease SNOMED Code(s): 05003613 ICD Code: I25.10 - ATHSCL HEART DISEASE OF [place] CORONARY ARTERY W/O ANG PCTRS Status: Chronic Priority: Medium Current Visit: No Problem Details : No chest pain or anginal type symptoms, however note significant cardiac history as above including PVCs, previous atrial fibrillation, etc. Comfort care as above. No new symptoms during hospitalization. Qualifiers: Coronary Disease-Associated Artery/Lesion type: unspecified vessel or lesion type [place] vs. transplanted heart: [place] heart Associated angina: angina presence unspecified Qualified Code(s): I25.10 - Atherosclerotic heart disease of [place] coronary artery without angina pectoris (3) Dyslipidemia SNOMED Code(s): 752369330 ICD Code: E78.5 - HYPERLIPIDEMIA, UNSPECIFIED Status: Chronic Priority: Medium Current Visit: No Problem Details: Stable. (4) Hypertension SNOMED Code(s): 30812717 ICD Code: I10 - ESSENTIAL (PRIMARY) HYPERTENSION Status: Chronic Priority : Medium Current Visit: No Problem Details: Stable. Qualifiers: Hypertension type: essential hypertension (5) IDDM (insulin dependent diabetes mellitus) SNOMED Code(s): 18031031 ICD Code: E11.9 - TYPE 2 DIABETES MELLITUS WITHOUT COMPLICATIONS; Z79.4 - USP (CURRENT) USE OF INSULIN Status: Chronic Priority: Medium Current Visit: No Problem Details: Note history of diabetic nephropathy and neuropathy. sliding scale regimen at this time. Will continue at home. (6) Need for comfort care SNOMED Code(s): 570132189 ICD Code: ITR7437 - Status: Chronic Priority: High Current Visit: No Problem Details: Comfort Care - Patient Summary/Data Consults: Consultations 05/07/17 12:59 Consult to Occupational Therapy [OT Evaluation and Treatment] [CONS] Routine PT Evaluation and Treatment [CONS] Routine 05/14/17 19:32 Consult to Dietary [Consult to [employer]] [CONS] Routine - Patient Instructions Diet: Heart Healthy Diet Activity: As Tolerated Showering/Bathing: May Shower Other/Special Instructions: Discharge home today with insulin instructions. Recommend re-check of thyroid in 4 weeks due to synthroid dose change. Recommend post hospital follow up visit with primary care provider in 1-2 weeks. Also recommend home health if patient agrees. - Discharge Plan Prescriptions/Med Rec: Bumetanide [Bumex] 1 mg PO DAILY #30 tablet Famotidine [Pepcid] 20 mg PO QPM #30 tablet Insulin Aspart [NovoLOG] 18 unit SUBCUT 0730,1130,1730 #5 pen Insulin Detemir [Levemir] 38 unit SUBCUT DAILY@2000 #5 pen Levothyroxine [Synthroid] 200 mcg PO BEDTIME #60 tablet Lidocaine 5% [Lidoderm 5%] 700 mg TOP DAILY@1900 #30 patch Home Medications: Home Meds Aspirin [Lo-Dose Aspirin EC] 81 mg PO DAILY 05/02/17 [History] Calcitriol 1 cap PO Q48H 05/02/17 [History] Calcium Acetate [PhosLo] 1 cap PO TIDMEALS 05/02/17 [History] Clopidogrel Bisulfate [Clopidogrel] 75 mg PO DAILY 05/02/17 [History] Furosemide 40 mg PO DAILY 05/02/17 [History] Ipratropium [Atrovent] 1 vial INH Q4H 05/02/17 [History] Ipratropium [Atrovent] 1 vial INH QID PRN 05/02/17 [History] Lisinopril 10 mg PO DAILY 05/02/17 [History] Metoprolol Succinate 50 mg PO DAILY 05/02/17 [History] atorvaSTATin [Lipitor] 40 mg PO DAILY 05/02/17 [History] Bumetanide [Bumex] 1 mg PO DAILY #30 tablet 05/24/17 [Rx] Docusate Sodium [Colace] 100 mg PO BID cap 05/24/17 [Rx] Docusate Sodium/Sennosides [Senna Plus] 1 tab PO BID tablet 05/24/17 [Rx] Famotidine [Pepcid] 20 mg PO QPM #30 tablet 05/24/17 [Rx] Insulin Aspart [NovoLOG] 18 unit SUBCUT 0730,1130,1730 #5 pen 05/24/17 [Rx] Insulin Detemir [Levemir] 38 unit SUBCUT DAILY@2000 #5 pen 05/24/17 [Rx] Levothyroxine [Synthroid] 200 mcg PO BEDTIME #60 tablet 05/24/17 [Rx] Lidocaine 5% [Lidoderm 5%] 700 mg TOP DAILY@1900 #30 patch 05/24/17 [Rx] Referrals: Marc Aguirre MD [Primary Care Provider] - Ortiz Lewis PA [Physician Family Medicine Physician] - - General Info Date of Service: 05/24/17 - Review of Systems General: Reports: Weakness, Fatigue HEENT: Reports: No Symptoms Pulmonary: Reports: Shortness of Breath. Denies: Pleuritic Chest Pain, Cough Cardiovascular: Reports: Dyspnea on Exertion Gastrointestinal: Reports: No Symptoms Genitourinary: Reports: No Symptoms Musculoskeletal: Reports: No Symptoms Skin: Reports: No Symptoms Neurological: Reports: No Symptoms Psychiatric: Reports: No Symptoms - Patient Data Vitals - Most Recent: Last Vital Signs Temp 97.4 F 05/24/17 08:00 Pulse 76 05/24/17 08:00 Resp 17 05/24/17 08:00 BP 105/60 05/24/17 08:00 Pulse Ox 97 05/24/17 12:00 Weight - Most Recent: 541 lb 14.339 oz I&O - Last 24 hours: Intake & Output 05/23/17 05/24/17 05/24/17 22:59 06:59 14:59 Intake Total 720 50 Output Total 500 400 Balance 220 -350 Lab Results - Last 24 hrs: Laboratory Results - last 24 hr 05/23/17 05/23/17 05/23/17 Range/Units 13:05 13:05 17:52 WBC 8.4 (4.0-10.2) K/uL RBC 3.74 L (4.33-5.41) M/uL Hgb 12.1 L (13.1-16.8) g/dL Hct 36.9 L (39.0-49.0) % MCV 98.7 H (84.0-98.0) fL MCH 32.4 (28.2-33.3) pg MCHC 32.8 (31.7-36.0) g/dL RDW 12.8 (11.2-14.1) % Plt Count 146 L (150-350) K/uL Neut % (Auto) 78.8 (45.0-80.0) % Lymph % (Auto) 10.4 (10.0-50.0) % [place] % (Auto) 7.5 (2.0-14.0) % Eos % (Auto) 2.7 (0.0-5.0) % Baso % (Auto) 0.6 (0.0-2.0) % Neut # (Auto) 6.59 (1.40-7.00) K/uL Lymph # (Auto) 0.87 (0.50-3.50) K/uL [place] # (Auto) 0.63 (0.00-1.00) K/uL Eos # (Auto) 0.23 (0.00-0.50) K/uL Baso # (Auto) 0.05 (0.00-0.20) K/uL PT 10.4 (9.8-11.7) SEC INR 1.0 POC Glucose 161 H (65-110) mg/dl 05/23/17 Range/Units 20:53 WBC (4.0-10.2) K/uL RBC (4.33-5.41) M/uL Hgb (13.1-16.8) g/dL Hct (39.0-49.0) % MCV (84.0-98.0) fL MCH (28.2-33.3) pg MCHC (31.7-36.0) g/dL RDW (11.2-14.1) % Plt Count (150-350) K/uL Neut % (Auto) (45.0-80.0) % Lymph % (Auto) (10.0-50.0) % [place] % (Auto) (2.0-14.0) % Eos % (Auto) (0.0-5.0) % Baso % (Auto) (0.0-2.0) % Neut # (Auto) (1.40-7.00) K/uL Lymph # (Auto) (0.50-3.50) K/uL [place] # (Auto) (0.00-1.00) K/uL Eos # (Auto) (0.00-0.50) K/uL Baso # (Auto) (0.00-0.20) K/uL PT (9.8-11.7) SEC INR POC Glucose 239 H (65-110) mg/dl Med Orders - Current: Current Medications Acetaminophen (Tylenol) 650 mg PO Q4H PRN PRN Reason: Pain Last Admin: 05/20/17 08:00 Dose: 650 mg Albuterol (Proventil Neb Soln) 2.5 mg INH Q2H PRN PRN Reason: SHORTNESS OF BREATH Albuterol/Ipratropium (Duoneb 3.0-0.5 Mg/3 Ml) 3 ml NEB Q4HRRT PRN PRN Reason: Dyspnea Albuterol/Ipratropium (Duoneb 3.0-0.5 Mg/3 Ml) 3 ml NEB TIDRT@08,14,20 [facility] Last Admin: 05/24/17 07:41 Dose: 3 ml Aspirin (Halfprin) 81 mg PO DAILY [facility] Last Admin: 05/24/17 07:41 Dose: 81 mg Atorvastatin Calcium (Lipitor) 40 mg PO DAILY [facility] Last Admin: 05/24/17 07:41 Dose: 40 mg Bumetanide (Bumex) 1 mg PO DAILY [facility] Last Admin: 05/24/17 07:40 Dose: 1 mg Calcitriol (Rocaltrol) 0.5 mcg PO Q2D@0800 [facility] Last Admin: 05/24/17 07:42 Dose: 0.5 mcg Calcium Acetate (Phoslo) 667 mg PO TIDMEALS [facility] Last Admin: 05/24/17 12:09 Dose: 667 mg Clopidogrel Bisulfate (Plavix) 75 mg PO DAILY [facility] Last Admin: 05/24/17 07:43 Dose: 75 mg Docusate Sodium (Colace) 100 mg PO BID [facility] Last Admin: 05/24/17 07:41 Dose: Not Given Famotidine (Pepcid) 20 mg PO QPM [facility] Last Admin: 05/23/17 17:57 Dose: 20 mg Insulin Aspart (Novolog) 18 unit SUBCUT 0730,1130,1730 [facility] Last Admin: 05/24/17 12:08 Dose: 18 units Insulin Detemir (Levemir) 38 unit SUBCUT DAILY@2000 [facility] Last Admin: 05/23/17 19:48 Dose: 38 units Levothyroxine Sodium (Synthroid) 200 mcg PO BEDTIME [facility] Last Admin: 05/23/17 19:49 Dose: 200 mcg Lidocaine (Lidoderm 5%) 700 mg TOP DAILY@1900 [facility] Last Admin: 05/23/17 19:46 Dose: 700 mg Lisinopril (Prinivil) 10 mg PO DAILY [facility] Last Admin: 05/24/17 07:44 Dose: 10 mg Metoprolol Succinate (Toprol Xl) 50 mg PO DAILY [facility] Last Admin: 05/24/17 07:45 Dose: 50 mg Miscellaneous Information (Remove Patch) 1 ea TRDERM DAILY@0700 [facility] Last Admin: 05/24/17 07:36 Dose: 1 ea Senna/Docusate Sodium (Senna Plus) 1 tab PO BID [facility] Last Admin: 05/24/17 07:44 Dose: Not Given Temazepam (Restoril) 15 mg PO BEDTIME PRN PRN Reason: Insomnia Tramadol HCl (Ultram) 50 mg PO Q6H PRN PRN Reason: Pain Last Admin: 05/10/17 14:36 Dose: 50 mg Discontinued Medications Enoxaparin Sodium (Lovenox) 100 mg SUBCUT Q24H [facility] Last Admin: 05/12/17 15:42 Dose: 100 mg Famotidine (Pepcid) 20 mg IVPUSH QPM [facility] Insulin Aspart (Novolog) 18 unit SUBCUT TIDMEALS [facility] Last Admin: 05/15/17 19:03 Dose: Not Given Insulin Aspart (Novolog) 0 unit SUBCUT ACBED [facility] PRN Reason: Protocol Last Admin: 05/17/17 11:28 Dose: 8 units Insulin Detemir (Levemir) 40 unit SUBCUT BEDTIME [facility] Last Admin: 05/13/17 19:41 Dose: 40 units Insulin Detemir (Levemir) 34 unit SUBCUT BEDTIME [facility] Last Admin: 05/14/17 20:12 Dose: 34 units Insulin Detemir (Levemir) 40 unit SUBCUT BEDTIME [facility] Last Admin: 05/16/17 20:00 Dose: 40 units Neomycin/Polymyxin/Bacitracin (Triple Antibiotic Oint) 0 each TOP BID [facility] Last Admin: 05/22/17 08:02 Dose: Not Given Sodium Chloride (Saline Flush) 10 ml FLUSH ASDIRECTED PRN PRN Reason: Keep Vein Open Sodium Chloride (Saline Flush) 10 ml FLUSH Q12HR PRN PRN Reason: Keep Vein Open - Exam General: Reports: Alert, Oriented HEENT: Reports: Pupils Equal, Pupils Reactive, EOMI, Mucous Membr. Moist/[place] Neck: Reports: Supple Lungs: Reports: Decreased Breath Sounds (throughout) Cardiovascular: Reports: Regular Rate, Regular Rhythm GI/Abdominal Exam: Normal Bowel Sounds, Soft, Non-Tender, No Organomegaly, No Distention, No Abnormal Bruit, No Mass, Pelvis Stable (Male) Exam: Deferred Rectal (Males) Exam: Deferred Back Exam: Reports: Normal Inspection, Full Range of Motion Extremities: Normal Inspection, Normal Range of Motion, Non-Tender, No Pedal Edema, Normal Capillary Refill Skin: Reports: Warm, Dry, Intact Neurological: Reports: No New Focal Deficit Psy/Mental Status: Reports: Alert, Normal Affect, Normal Mood *Q Meaningful Use (DIS) - VTE *Q VTE Criteria *Q: - Stroke *Q Stroke Criteria *Q: - AMI *Q AMI Criteria *Q:
== END 2017-05-24 15:05 | disposition home or self-care (01) | DRG 293 ==
LOC: LL.SWG 05-07 13:15
PROVIDERS: ADMIT Family Medicine; ATTEND Family Medicine
DX: I11.0 Hypertensive heart disease with heart failure (principal); I50.9 Heart failure, unspecified; I25.10 Atherosclerotic heart disease of native coronary artery without angina pectoris; R79.89 Other specified abnormal findings of blood chemistry; E11.649 Type 2 diabetes mellitus with hypoglycemia without coma; Z79.4 Long term (current) use of insulin; M54.5 Low back pain; E78.5 Hyperlipidemia, unspecified; Z51.5 Encounter for palliative care; Z79.82 Long term (current) use of aspirin; Z79.899 Other long term (current) drug therapy
CPT/HCPCS: 36415; 80053; 82962; 83880; 85025; 85610; 85730; 94640; 94640-76; 97110-GO; 97110-GP; 97116-GP; 97140-GP; 97161-GP; 97165-GO; 97530-GO; 97530-GP; 97535-GO; A9270-GY; J1650; J1815-GY

== ENCOUNTER 2017-06-30 11:34 | Emergency (ER) | payer MEDICARE, OTHER, MEDICAID ==
[2017-06-30 12:00] VITALS: BP 153/70
--- NOTE | 2017-06-30 12:01 | EDM.PDOC ---
ED HPI GENERAL MEDICAL PROBLEM - General Chief Complaint: General Stated Complaint: hallucinations Time Seen by Provider: 06/30/17 11:55 Source of Information: Reports: Patient, Family History Limitations: Reports: Altered Mental Status - History of Present Illness INITIAL COMMENTS - FREE TEXT/NARRATIVE: Patient is a 86-year-old male well known to myself brought in by his son for evaluation Son states that dad is having visual hallucinations states that his father is seeing people in the [place] patient has been taking his medication on a regular basis and this is the first time he has visual hallucinations Onset: Today, Sudden Duration: Hour(s):, Improving Location: Reports: Head Severity: Mild Improves with: Reports: Rest Worsens with: Reports: None Context: Reports: Sick Contact Associated Symptoms: Reports: Confusion (He is alert oriented to time and place he knows he is in the ER at this time) Right Shoulder Pain Score (Numeric/FACES): 5 - Related Data Allergies Allergy/AdvReac Type Severity Reaction Status Date / Time morphine Allergy Hives Verified 06/30/17 12:01 contrast dye Allergy Hives Uncoded 06/30/17 12:01 Home Meds: Home Meds Aspirin [Lo-Dose Aspirin EC] 81 mg PO DAILY 05/02/17 [History] Calcitriol 1 cap PO Q48H 05/02/17 [History] Calcium Acetate [PhosLo] 1 cap PO TIDMEALS 05/02/17 [History] Clopidogrel Bisulfate [Clopidogrel] 75 mg PO DAILY 05/02/17 [History] Ipratropium [Atrovent] 1 vial INH Q4H 05/02/17 [History] Ipratropium [Atrovent] 1 vial INH QID PRN 05/02/17 [History] Lisinopril 10 mg PO DAILY 05/02/17 [History] Metoprolol Succinate 50 mg PO DAILY 05/02/17 [History] atorvaSTATin [Lipitor] 40 mg PO DAILY 05/02/17 [History] Insulin Aspart [NovoLOG] 18 unit SUBCUT 0730,1130,1730 #5 pen 05/24/17 [Rx] Insulin Detemir [Levemir] 38 unit SUBCUT DAILY@2000 #5 pen 05/24/17 [Rx] Lidocaine 5% [Lidoderm 5%] 700 mg TOP DAILY@1900 #30 patch 05/24/17 [Rx] Bumetanide [Bumetanide] 1 tab PO DAILY 06/30/17 [History] Docusate Sodium [Colace] 100 mg PO BID PRN 06/30/17 [History] Docusate Sodium/Sennosides [Senna Plus] 1 tab PO BID PRN 06/30/17 [History] Levothyroxine [Synthroid] 150 mcg PO BEDTIME 06/30/17 [History] Past Medical History HEENT History: Reports: Cataract, Hard of Hearing, Impaired Vision, Macular Degeneration, Other (See Below) Other HEENT History: Wears glasses, 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 with no hearing aid therapy Cardiovascular History: Reports: Afib, Aneurysm, Arrhythmia, Automatic Implantable Cardioverter Defibrillators, Bypass, CAD, Cardiomyopathy, Heart Failure, High Cholesterol, Hypertension, VA, Pacemaker, PTCA, PVD, Stents, Other (See Below) Other Cardiovascular History: Previous pacemaker and ICD placement 2 as below, coronary artery disease with history of VA in 1991 with cardiac procedures as below, atrial fibrillation, PVCs, 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 with severe cardiomegaly with recurrent CHF, dyslipidemia, bilateral common iliac artery aneurysms by CT scan, severe peripheral vascular disease including in the lower extremities with previous procedure as below and additional mild bilateral carotid occlusive disease Respiratory History: Reports: Bronchitis, Recurrent, COPD, Intubation, Previous , Pneumonia, Recurrent, Pulmonary Fibrosis, Sleep Apnea Gastrointestinal History: Reports: Cholelithiasis, Colon Polyp, Diverticulosis, Fecal Incontinence, Hemorrhoids, Other (See Below) Other Gastrointestinal History: History of colon cancer on 08/21/07 as below with additional multiple tubular adenomas and an additional villous adenoma at 30 cm. Additional recurrent tubular adenomas 2 in the transverse colon and an additional 2 in the cecal region at time of subsequent colonoscopy on 11/19/08 with last colonoscopy in about 2010, moderate nonsymptomatic cholelithiasis by CT scan with no surgery required Genitourinary History: Reports: BPH, Chronic Renal Insuffiency, Diabetic Nephropathy, Renal Calculus, Retention, Urinary, Urinary Incontinence, UTI, Recurrent, Other (See Below) Other Genitourinary History: Severe bilateral nephrolithiasis in the renal pelvis with multiple recurrent episodes of urolithiasis with last episode of right-sided urolithiasis and mild hydronephrosis on 01/22/13 with spontaneous passage, bilateral renal cysts Musculoskeletal History: Reports: Arthritis, Back Pain, Chronic, Fracture, Neck Pain, Chronic, Osteoarthritis, Osteoporosis, Other (See Below) Other Musculoskeletal History: Right ankle fracture in the 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 after colon resection in November 2008 Psychiatric History: Reports: Anxiety, Depression Endocrine/Metabolic History: Reports: Diabetes, Type II, Hypothyroidism, IDDM, Osteoporosis Hematologic History: Reports: Anemia, Blood Transfusion(s), Other (See Below) Other Hematologic History: History of postoperative anemia from CABG with transfusions required Immunologic History: Reports: None Oncologic (Cancer) History: Reports: Basal Cell Carcinoma, Colon, Other (See Below) Other Oncologic History: History of superficially invasive adenocarcinoma of the colon at 32 cm with colon resection as below, probable basal cell carcinoma of the right cheek Dermatologic History: Reports: None - Infectious Disease History Infectious Disease History: Reports: Chicken Pox, Measles, Mumps - Past Surgical History Head Surgeries/Procedures: Reports: None HEENT Surgical History: Reports: Cataract Surgery, Eye Surgery, Laser Surgery, Oral Surgery, Other (See Below) Other HEENT Surgeries/Procedures: Left Cataract surgery on 03/27/03 with previous right cataract surgery, history of YAG treatment for posterior capsule clouding , complete teeth extraction Cardiovascular Surgical History: Reports: AICD, Coronary Artery Bypass, Coronary Artery Stent, Pacer, Percutaneous Transluminal Angioplasty, Vascular Surgery, Other (See Below) Other Cardiovascular Surgeries/Procedures: Initial pacemaker/ICD placement in about 1991 with subsequent repeat pacemaker/AICD placement in about 2009, three- vessel CABG in 1991 with history of PTCA/stent 2 in July 2012, additional right inguinal stent placement secondary to peripheral vascular disease Respiratory Surgical History: Reports: None GI Surgical History: Reports: Colon, Colonoscopy, Polypectomy, Other (See Below) Other GI Surgeries/Procedures: Sigmoid colon resection secondary to colon cancer in November 2008, multiple colonic polyp excisions in 2007, 2008, and 2010 Male Surgical History: Reports: Lithotripsy (ES[facility]), Renal Calculus, Ureteral Stent, Other (See Below) Other Male Surgeries/Procedures: History of multiple bilateral nephrolithiasis including previous spontaneous passage, stone removal, and lithotripsy Endocrine Surgical History: Reports: None Neurological Surgical History: Reports: None Musculoskeletal Surgical History: Reports: ORIF, Other (See Below) Other Musculoskeletal Surgeries/Procedures:: ORIF of right ankle fracture in about the Oncologic Surgical History: Reports: None Dermatological Surgical History: Reports: Skin Biopsy, Other (See Below) - Past Imaging History Past Imaging History: Reports: JEFFERSON Screen (Positive JEFFERSON screens on 05/30/11, 07/29, and 03/13/07), Bone Scan (Bone scan on 11/14/06), Cardiac Echo ( Echocardiogram on 02/21/13 with ejection fraction of 46%), Carotid US (12/09/06), CAT Scan (CT of the abdomen and pelvis on 01/22/13 and 07/20/11), PFT (PFTs on 15/03), Stress Testing (Low level cardiac stress test on 09/29/12 with previous Cardiolite stress test on 08/07/07 with ejection fraction of 40% and Persantine Cardiolite stress test on 07/26/06 with ejection fraction of 39%), Ultrasound ( Renal ultrasound on 08/20/07), Venous Doppler (Venous Doppler studies of the lower extremities on 05/29/11 with right-sided evaluation on 01/07/07) Social & Family History - Family History HEENT: Reports: None Cardiac: Reports: CAD, Hypertension, VA, Other (See Below) Other Cardiac Family History: Father with VA in his 60s, father with hypertension Respiratory: Reports: COPD, Sleep Apnea, Other (See Below) Other Respiratory Family Hisory: Brother with COPD with history of tobacco use, another brother with COPD and sleep apnea GI: Reports: Colon Polyps, Other (See Below) Other GI Family History: Brother with probable colonic polyps with history of colon cancer as below : Reports: Renal Calculus Other Family History: Multiple family members with urolithiasis OBGYN: Reports: None Musculoskeletal: Reports: Arthritis, Osteoarthritis, Other (See Below) Other Musculoskeletal Family History: Multiple Family members with osteoarthritis Neurological: Reports: CVA, Other (See Below) Other Neurological Family History: Mother with history of CVA in his 60s Endocrine/Metabolic: Reports: Diabetes, type II, IDDM, Other (See Below) Other Endocrine/Metabolic Family History: Brother IDDM Hematologic: Reports: None Immunologic: Reports: None Dermatologic: Reports: None Oncologic: Reports: Colon, Other (See Below) Other Oncologic Family History: Mother with unknown type of fatal cancer in her early 60s, brother with colon cancer in his 60s - Tobacco Use Smoking Status *Q: Former Smoker Years of Tobacco use: 53 Packs/Tins Daily: 1 Used Tobacco, but Quit: Yes Month Tobacco Last Used: unknown Second Hand Smoke Exposure: No - Caffeine Use Caffeine Use: Reports: Coffee, Soda - Alcohol Use Days Per Week of Alcohol Use: 0 (No previous DWIs, problems with alcohol abuse, etc.) Number of Drinks Per Day: 0 Total Drinks Per Week: 0 - Recreational Drug Use Recreational Drug Use: No Drug Use in Last 12 Months: No - Living Situation & Occupation Living situation: Reports: (2016, 2 children), with Family (Son) 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, 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) ED ROS GENERAL - Review of Systems Review Of Systems: See Below Constitutional: Reports: Other (Hallucinations patient) HEENT: Reports: Rhinitis Respiratory: Reports: Shortness of Breath Cardiovascular: Reports: Chest Pain Endocrine: Reports: No Symptoms GI/Abdominal: Reports: No Symptoms : Reports: No Symptoms Musculoskeletal: Reports: Back Pain, Joint Pain (Left shoulder pain) Skin: Reports: No Symptoms ( noncardiac) Neurological: Reports: Other (Visual hallucinations) Psychiatric: Reports: Hallucinations (Visual) Hematologic/Lymphatic: Reports: No Symptoms Immunologic: Reports: No Symptoms ED EXAM, GENERAL - Physical Exam Exam: See Below Exam Limited By: No Limitations General Appearance: Alert, WD/WN, No Apparent Distress Ears: Normal External Exam (Right ear wax buildup) Nose: Nasal Drainage (Clear), Clear Rhinorrhea Throat/Mouth: Normal Inspection, Normal Lips, Normal Teeth, Normal Gums, Normal Oropharynx, Normal Voice, No Airway Compromise Head: Atraumatic, Normocephalic Neck: Normal Inspection, Supple, Non-Tender, Full Range of Motion Respiratory/Chest: No Respiratory Distress, Lungs Clear, Normal Breath Sounds, No Accessory Muscle Use, Chest Non-Tender Cardiovascular: Normal Peripheral Pulses, Regular Rate, Rhythm, No Edema, No Gallop, No JVD, No Murmur, No Rub GI/Abdominal: Normal Bowel Sounds, Soft, Non-Tender, No Organomegaly, No Distention, No Abnormal Bruit, No Mass (Male) Exam: Deferred Rectal (Males) Exam: Deferred Back Exam: Normal Inspection, Full Range of Motion, NT Extremities: Normal Inspection, Normal Range of Motion, Non-Tender, Normal Capillary Refill, No Pedal Edema Neurological: Alert, Oriented, CN II-XII Intact, Normal Cognition, Normal Gait, Normal Reflexes, No Motor/Sensory Deficits, Slow to Respond Psychiatric: Normal Affect, Normal Mood Skin Exam: Warm, Dry, Intact, Normal Color, No Rash Lymphatic: No Adenopathy Course - Vital Signs Last Recorded V/S: Last Vital Signs Temp 98.3 F 06/30/17 11:34 Pulse 76 06/30/17 11:34 Resp 18 06/30/17 11:34 BP 153/70 H 06/30/17 11:34 Pulse Ox 99 06/30/17 11:34 - Orders/Labs/Meds Orders: Active Orders 24 hr Category Date Time Status Head wo Cont [CT] Stat Exams 06/30/17 12:16 Taken Labs: Laboratory Tests 06/30/17 06/30/17 06/30/17 Range/Units 11:54 12:00 12:00 WBC 10.9 H (4.0-10.2) K/uL RBC 4.57 (4.33-5.41) M/uL Hgb 14.6 D (13.1-16.8) g/dL Hct 44.3 (39.0-49.0) % MCV 96.9 (84.0-98.0) fL MCH 31.9 (28.2-33.3) pg MCHC 33.0 (31.7-36.0) g/dL RDW 13.4 (11.2-14.1) % Plt Count 158 (150-350) K/uL Neut % (Auto) 78.3 (45.0-80.0) % Lymph % (Auto) 13.4 (10.0-50.0) % Dickinson % (Auto) 6.2 (2.0-14.0) % Eos % (Auto) 1.6 (0.0-5.0) % Baso % (Auto) 0.5 (0.0-2.0) % Neut # (Auto) 8.53 H (1.40-7.00) K/uL Lymph # (Auto) 1.46 (0.50-3.50) K/uL Dickinson # (Auto) 0.68 (0.00-1.00) K/uL Eos # (Auto) 0.17 (0.00-0.50) K/uL Baso # (Auto) 0.05 (0.00-0.20) K/uL Sodium 144 (136-145) mmol/L Potassium 4.3 (3.5-5.1) mmol/L Chloride 105 (98-107) mmol/L Carbon Dioxide 31.2 (21.0-32.0) mmol/L BUN 22 H D (7-18) mg/dL Creatinine 1.57 H (0.51-1.17) mg/dL Est Cr Clr Drug Dosing 31.46 mL/min Estimated GFR (MDRD) 42 mL/min Glucose 132 H (74-106) mg/dL Calcium 9.6 (8.5-10.1) mg/dL Total Bilirubin 0.8 (0.2-1.0) mg/dL AST 19 (15-37) U/L ALT 23 (12-78) U/L Alkaline Phosphatase 105 (46-116) IU/L Total Protein 7.6 (6.4-8.2) g/dL Albumin 3.6 (3.4-5.0) g/dL Specimen Type Urincc Urine Color Light yellow Urine Appearance Clear Urine pH 6.0 (5.0-9.0) Ur Specific Wilkinson 1.015 (1.005-1.030) Urine Protein Negative (NEGATIVE) mg/dL Urine Glucose (UA) Negative (NEGATIVE) mg/dL Urine Ketones Negative (NEGATIVE) mg/dL Urine Occult Blood Small H (NEGATIVE) Urine Nitrite Negative (NEGATIVE) Urine Bilirubin Negative (NEGATIVE) Urine Urobilinogen 0.2 (0.2-1.0) E.U./dL Ur Leukocyte Esterase Small H (NEGATIVE) Urine RBC 5-10 H /HPF Urine WBC 10-20 H /HPF Ur Epithelial Cells Few /LPF Other Crystals Not Reportable Urine Bacteria Few (NONE TO FEW) /HPF Departure - Departure Time of Disposition: 12:54 Disposition: Home, Self-Care 01 Clinical Impression: UTI, Urinary tract infectious disease, CVA, Cerebrovascular accident - Discharge Information Referrals: Nicol Banks NP [Primary Care Provider] - Forms: ED Department Discharge Care Plan Goals: Diagnosis 1 UTI 2 multiple old infarcts. no new infarcts seen on CT Plan at this time we'll send him home with his son and start him on Septra DS for 10 days he needs to be reevaluated by primary M.D. if not better or worse - My Orders Last 24 Hours: My Active Orders 06/30/17 12:16 Head wo Cont [CT] Stat - Assessment/Plan Last 24 Hours: My Active Orders 06/30/17 12:16 Head wo Cont [CT] Stat
== END 2017-06-30 13:22 | disposition home or self-care (01) ==
LOC: LL.ED 11:34
DX: I63.9 Cerebral infarction, unspecified (principal); N39.0 Urinary tract infection, site not specified; Z88.5 Allergy status to narcotic agent; Z87.891 Personal history of nicotine dependence
CPT/HCPCS: 36415; 70450; 80053; 81001; 85025; 99283; 99284

== ENCOUNTER 2017-11-21 20:02 | Inpatient (IN) | payer MEDICARE, MEDICAID ==
--- NOTE | 2017-11-21 21:50 | EDM.PDOC ---
ED HPI GENERAL MEDICAL PROBLEM - General Chief Complaint: Cardiovascular Problem Stated Complaint: SOB, edema Time Seen by Provider: 11/21/17 20:56 Source of Information: Reports: Patient, Family History Limitations: Reports: No Limitations - History of Present Illness INITIAL COMMENTS - FREE TEXT/NARRATIVE: Patient comes to ER complaining of gradually worsening edema that has been present since discharge from [facility] last fall. More noticeably SOB, especially over the last few weeks. Has had weight gain of about 25 pounds since last fall. Ankles/lower leg edema has worsened. Was switched to Bumex from Lasix in the past to be more kidney friendly. Denies chest pain or other acute changes in pain. ROS otherwise shows no acute changes. No fevers. No recent infections. Generalized Pain Score (Numeric/FACES): 4 - Related Data Allergies Allergy/AdvReac Type Severity Reaction Status Date / Time morphine Allergy Hives Verified 11/21/17 20:14 contrast dye Allergy Hives Uncoded 11/21/17 20:14 Home Meds: Home Meds Aspirin [Lo-Dose Aspirin EC] 81 mg PO DAILY 05/02/17 [History] Calcitriol 1 cap PO Q48H 05/02/17 [History] Calcium Acetate [PhosLo] 1 cap PO TIDMEALS 05/02/17 [History] Clopidogrel Bisulfate [Clopidogrel] 75 mg PO DAILY 05/02/17 [History] Ipratropium [Atrovent] 1 vial INH Q4H 05/02/17 [History] Ipratropium [Atrovent] 1 vial INH QID PRN 05/02/17 [History] Metoprolol Succinate 50 mg PO DAILY 05/02/17 [History] atorvaSTATin [Lipitor] 40 mg PO DAILY 05/02/17 [History] Insulin Aspart [NovoLOG] 18 unit SUBCUT 0730,1130,1730 #5 pen 05/24/17 [Rx] Lidocaine 5% [Lidoderm 5%] 700 mg TOP DAILY@1900 #30 patch 05/24/17 [Rx] Bumetanide 1 mg PO DAILY 06/30/17 [History] Docusate Sodium/Sennosides [Senna Plus] 1 tab PO BID PRN 06/30/17 [History] Levothyroxine [Synthroid] 150 mcg PO BEDTIME 06/30/17 [History] Insulin Glarg,Human.Rec.Analog [Lantus] 38 mg PO BEDTIME 11/21/17 [History] Tamsulosin [Flomax] 0.8 mg PO BEDTIME 11/21/17 [History] Past Medical History HEENT History: Reports: Cataract, Hard of Hearing, Impaired Vision, Macular Degeneration, Other (See Below) Other HEENT History: Wears glasses, 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 with no hearing aid therapy Cardiovascular History: Reports: Afib, Aneurysm, Arrhythmia, Automatic Implantable Cardioverter Defibrillators, Bypass, CAD, Cardiomyopathy, Heart Failure, High Cholesterol, Hypertension, TN, Pacemaker, PTCA, PVD, Stents, Other (See Below) Other Cardiovascular History: Previous pacemaker and ICD placement 2 as below, coronary artery disease with history of TN in 1991 with cardiac procedures as below, atrial fibrillation, PVCs, 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 with severe cardiomegaly with recurrent CHF, dyslipidemia, bilateral common iliac artery aneurysms by CT scan, severe peripheral vascular disease including in the lower extremities with previous procedure as below and additional mild bilateral carotid occlusive disease Respiratory History: Reports: Bronchitis, Recurrent, COPD, Intubation, Previous , Pneumonia, Recurrent, Pulmonary Fibrosis, Sleep Apnea Gastrointestinal History: Reports: Cholelithiasis, Colon Polyp, Diverticulosis, Fecal Incontinence, Hemorrhoids, Other (See Below) Other Gastrointestinal History: History of colon cancer on 08/21/07 as below with additional multiple tubular adenomas and an additional villous adenoma at 30 cm. Additional recurrent tubular adenomas 2 in the transverse colon and an additional 2 in the cecal region at time of subsequent colonoscopy on 11/19/08 with last colonoscopy in about 2010, moderate nonsymptomatic cholelithiasis by CT scan with no surgery required Genitourinary History: Reports: BPH, Chronic Renal Insuffiency, Diabetic Nephropathy, Renal Calculus, Retention, Urinary, Urinary Incontinence, UTI, Recurrent, Other (See Below) Other Genitourinary History: Severe bilateral nephrolithiasis in the renal pelvis with multiple recurrent episodes of urolithiasis with last episode of right-sided urolithiasis and mild hydronephrosis on 01/22/13 with spontaneous passage, bilateral renal cysts Musculoskeletal History: Reports: Arthritis, Back Pain, Chronic, Fracture, Neck Pain, Chronic, Osteoarthritis, Osteoporosis, Other (See Below) Other Musculoskeletal History: Right ankle fracture in the 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 after colon resection in November 2008 Psychiatric History: Reports: Anxiety, Depression Endocrine/Metabolic History: Reports: Diabetes, Type II, Hypothyroidism, IDDM, Osteoporosis Hematologic History: Reports: Anemia, Blood Transfusion(s), Other (See Below) Other Hematologic History: History of postoperative anemia from CABG with transfusions required Immunologic History: Reports: None Oncologic (Cancer) History: Reports: Basal Cell Carcinoma, Colon, Other (See Below) Other Oncologic History: History of superficially invasive adenocarcinoma of the colon at 32 cm with colon resection as below, probable basal cell carcinoma of the right cheek Dermatologic History: Reports: None - Infectious Disease History Infectious Disease History: Reports: Chicken Pox, Measles, Mumps - Past Surgical History Head Surgeries/Procedures: Reports: None HEENT Surgical History: Reports: Cataract Surgery, Eye Surgery, Laser Surgery, Oral Surgery, Other (See Below) Other HEENT Surgeries/Procedures: Left Cataract surgery on 03/27/03 with previous right cataract surgery, history of YAG treatment for posterior capsule clouding , complete teeth extraction Cardiovascular Surgical History: Reports: AICD, Coronary Artery Bypass, Coronary Artery Stent, Pacer, Percutaneous Transluminal Angioplasty, Vascular Surgery, Other (See Below) Other Cardiovascular Surgeries/Procedures: Initial pacemaker/ICD placement in about 1991 with subsequent repeat pacemaker/AICD placement in about 2009, three- vessel CABG in 1991 with history of PTCA/stent 2 in July 2012, additional right inguinal stent placement secondary to peripheral vascular disease Respiratory Surgical History: Reports: None GI Surgical History: Reports: Colon, Colonoscopy, Polypectomy, Other (See Below) Other GI Surgeries/Procedures: Sigmoid colon resection secondary to colon cancer in November 2008, multiple colonic polyp excisions in 2007, 2008, and 2010 Male Surgical History: Reports: Lithotripsy ([facility]), Renal Calculus, Ureteral Stent, Other (See Below) Other Male Surgeries/Procedures: History of multiple bilateral nephrolithiasis including previous spontaneous passage, stone removal, and lithotripsy Endocrine Surgical History: Reports: None Neurological Surgical History: Reports: None Musculoskeletal Surgical History: Reports: ORIF, Other (See Below) Other Musculoskeletal Surgeries/Procedures:: ORIF of right ankle fracture in about the Oncologic Surgical History: Reports: None Dermatological Surgical History: Reports: Skin Biopsy, Other (See Below) - Past Imaging History Past Imaging History: Reports: JEFFERSON Screen (Positive JEFFERSON screens on 05/30/11, 07/29, and 03/13/07), Bone Scan (Bone scan on 11/14/06), Cardiac Echo ( Echocardiogram on 02/21/13 with ejection fraction of 46%), Carotid US (12/09/06), CAT Scan (CT of the abdomen and pelvis on 01/22/13 and 07/20/11), PFT (PFTs on 15/03), Stress Testing (Low level cardiac stress test on 09/29/12 with previous Cardiolite stress test on 08/07/07 with ejection fraction of 40% and Persantine Cardiolite stress test on 07/26/06 with ejection fraction of 39%), Ultrasound ( Renal ultrasound on 08/20/07), Venous Doppler (Venous Doppler studies of the lower extremities on 05/29/11 with right-sided evaluation on 01/07/07) Social & Family History - Family History HEENT: Reports: None Cardiac: Reports: CAD, Hypertension, TN, Other (See Below) Other Cardiac Family History: Father with TN in his 60s, father with hypertension Respiratory: Reports: COPD, Sleep Apnea, Other (See Below) Other Respiratory Family Hisory: Brother with COPD with history of tobacco use, another brother with COPD and sleep apnea GI: Reports: Colon Polyps, Other (See Below) Other GI Family History: Brother with probable colonic polyps with history of colon cancer as below : Reports: Renal Calculus Other Family History: Multiple family members with urolithiasis OBGYN: Reports: None Musculoskeletal: Reports: Arthritis, Osteoarthritis, Other (See Below) Other Musculoskeletal Family History: Multiple Family members with osteoarthritis Neurological: Reports: CVA, Other (See Below) Other Neurological Family History: Mother with history of CVA in his 60s Endocrine/Metabolic: Reports: Diabetes, type II, IDDM, Other (See Below) Other Endocrine/Metabolic Family History: Brother IDDM Hematologic: Reports: None Immunologic: Reports: None Dermatologic: Reports: None Oncologic: Reports: Colon, Other (See Below) Other Oncologic Family History: Mother with unknown type of fatal cancer in her early 60s, brother with colon cancer in his 60s - Tobacco Use Smoking Status *Q: Former Smoker Years of Tobacco use: 53 Packs/Tins Daily: 1 Used Tobacco, but Quit: Yes Month/Year Tobacco Last Used: unknown Second Hand Smoke Exposure: No - Caffeine Use Caffeine Use: Reports: Coffee, Soda - Alcohol Use Days Per Week of Alcohol Use: 0 Number of Drinks Per Day: 0 Total Drinks Per Week: 0 - Recreational Drug Use Recreational Drug Use: No Drug Use in Last 12 Months: No - Living Situation & Occupation Living situation: Reports: (2016, 2 children), with Family (Son) 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 Denies: Fever, Chills, Night Sweats, Diaphoresis, Decreased Appetite HEENT: Reports: No Symptoms Respiratory: Reports: Shortness of Breath, Wheezing. Denies: Pleuritic Chest Pain, Cough, Sputum, Hemoptysis Cardiovascular: Reports: Dyspnea on Exertion, Edema. Denies: Chest Pain, Lightheadedness, Palpitations, Syncope GI/Abdominal: Reports: No Symptoms : Reports: No Symptoms Musculoskeletal: Reports: No Symptoms (no acute changes in baseline chronic pain ) Skin: Reports: No Symptoms Neurological: Reports: No Symptoms Psychiatric: Reports: No Symptoms Hematologic/Lymphatic: Reports: No Symptoms ED EXAM, GENERAL - Physical Exam Exam: See Below Exam Limited By: No Limitations General Appearance: Alert, No Apparent Distress, Obese Eye Exam: Bilateral Eye: EOMI, PERRL Ears: Normal External Exam Nose: No: Nasal Deformity, Nasal Swelling, Nasal Drainage Throat/Mouth: Normal Lips, Normal Voice, No Airway Compromise Head: Atraumatic, Normocephalic Neck: Supple, Non-Tender, Full Range of Motion Respiratory/Chest: No Respiratory Distress, No Accessory Muscle Use, Decreased Breath Sounds (throughout), Crackles (at bases, moreso on right). No: Rhonchi, Wheezing, Stridor, Accessory Muscle Use, Retractions Cardiovascular: Regular Rate, Rhythm Peripheral Pulses: 2+: Radial (L), Radial (R) GI/Abdominal: Normal Bowel Sounds, Non-Tender, Other (very rounded abdomen, slightly firm. ) (Male) Exam: Deferred Rectal (Males) Exam: Deferred Back Exam: No: CVA Tenderness (L), CVA Tenderness (R) Extremities: Pedal Edema (signficant edema bilateral lower legs. Generally puffy appearance. ). No: Leg Pain, Increased Warmth Neurological: Alert, Oriented, Normal Cognition, Other (slight decrease strength on left side due to previous strokes. ) Psychiatric: Normal Affect, Normal Mood Skin Exam: Warm, Dry, Intact Course - Vital Signs Last Recorded V/S: Last Vital Signs Temp 37.1 C 11/21/17 20:02 Pulse 91 11/21/17 20:02 Resp 20 11/21/17 21:38 BP 154/78 H 11/21/17 21:38 Pulse Ox 97 11/21/17 21:38 - Orders/Labs/Meds Orders: Active Orders 24 hr Category Date Time Status CXR [Chest 2V] [CR] Stat Exams 11/21/17 20:23 Taken Labs: Laboratory Tests 11/21/17 11/21/17 Range/Units 21:40 21:40 WBC 10.6 H (4.0-10.2) K/uL RBC 4.53 (4.33-5.41) M/uL Hgb 14.2 (13.1-16.8) g/dL Hct 44.3 (39.0-49.0) % MCV 97.8 (84.0-98.0) fL MCH 31.3 (28.2-33.3) pg MCHC 32.1 (31.7-36.0) g/dL RDW 13.7 (11.2-14.1) % Plt Count 133 L (150-350) K/uL Neut % (Auto) 76.4 (45.0-80.0) % Lymph % (Auto) 12.5 (10.0-50.0) % Tucker % (Auto) 8.2 (2.0-14.0) % Eos % (Auto) 2.4 (0.0-5.0) % Baso % (Auto) 0.5 (0.0-2.0) % Neut # (Auto) 8.06 H (1.40-7.00) K/uL Lymph # (Auto) 1.32 (0.50-3.50) K/uL Tucker # (Auto) 0.87 (0.00-1.00) K/uL Eos # (Auto) 0.25 (0.00-0.50) K/uL Baso # (Auto) 0.05 (0.00-0.20) K/uL Sodium 143 (136-145) mmol/L Potassium 4.5 (3.5-5.1) mmol/L Chloride 105 (98-107) mmol/L Carbon Dioxide 32.2 H (21.0-32.0) mmol/L BUN 36 H (7-18) mg/dL Creatinine 1.65 H (0.51-1.17) mg/dL Est Cr Clr Drug Dosing 29.36 mL/min Estimated GFR (MDRD) 39 mL/min Glucose 190 H (74-106) mg/dL Calcium 8.9 (8.5-10.1) mg/dL Total Bilirubin 0.5 (0.2-1.0) mg/dL AST 18 (15-37) U/L ALT 25 (12-78) U/L Alkaline Phosphatase 132 H (46-116) IU/L Troponin I 0.070 H* (0.000-0.056) ng/mL NT-Pro-B Natriuret Pep 2322 H (0-125) pg/mL Total Protein 7.7 (6.4-8.2) g/dL Albumin 3.6 (3.4-5.0) g/dL - Radiology Interpretation Free Text/Narrative:: Chest xray shows CHF/probable pleural effusion on right. Cardiomegaly. - Re-Assessments/Exams Free Text/Narrative Re-Assessment/Exam: Elevated BNP, BUN/Cr. Troponin mildly elevated. WBC 10.6 Heart rate 70 and paced on monitor. O2 sats stable on room air. Patient does not use O2 during day. Does have CPAP on at night. Suspect Troponin likley increased due to CHF. Patient is without anginal symptoms/chest pain complaints. Has been told in past he is not a candidate for further cardiac intervention and is Comfort Care status. CHF/effusion noted on chest film. Patient has been afebrile and without cough/pneumonia like complaints. Plan at this time is to admit for CHF exacerbation and diurese patient aggressively. Will continue to monitor for changes and repeat labs. Departure - Departure Time of Disposition: 22:25 Disposition: Admitted As Inpatient 64 Condition: Good Clinical Impression: Need for comfort care, Renal insufficiency Congestive heart failure Qualifiers: Qualified Code(s): I50.9 - Heart failure, unspecified Referrals: Nicol Banks NP [Primary Care Provider] - Forms: ED Department Discharge - Problem List & Annotations (1) Congestive heart failure SNOMED Code(s): 92475496 Code(s): I50.9 - HEART FAILURE, UNSPECIFIED Status: Acute Priority: High Current Visit: Yes Annotation/Comment:: Increased weight over last 6 months , worsening edema. Worsening SOB, especially over the last few weeks. More pronounced with activity. Lasix therapy planned. Troponin mildly elevated also. Patient denies angina/chest pain. Will continue to monitor Troponin per standard rule out TN orders. Qualifiers: Qualified Code(s): I50.9 - Heart failure, unspecified (2) Need for comfort care SNOMED Code(s): 242021625 Code(s): DIZ7524 - Status: Chronic Priority: High Current Visit: Yes Annotation/Comment:: Comfort Care (3) Renal insufficiency SNOMED Code(s): 309507629, 081186925 Code(s): N28.9 - DISORDER OF KIDNEY AND URETER, UNSPECIFIED Status: Chronic Priority: Medium Current Visit: Yes Annotation/Comment:: Chronic. BUN/Cr elevated. Will continue to monitor for change secondary to planned Lasix therapy. 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 sliding scale regimen at this time. - Problem List Review Problem List Initiated/Reviewed/Updated: Yes - My Orders Last 24 Hours: My Active Orders 11/21/17 20:23 CXR [Chest 2V] [CR] Stat - Assessment/Plan Admission H&P: Please use this note as an admission H&P Last 24 Hours: My Active Orders 11/21/17 20:23 CXR [Chest 2V] [CR] Stat Assessment:: CHF exacerbation/fluid overload/SOB Plan: as above
[2017-11-21] MEDS ORDERED: Bisacodyl 5 MG Tab PO PRN (23:02)
[2017-11-21] MEDS ORDERED: Sennosides 8.6 MG Tab PO PRN (23:02)
[2017-11-21] MEDS ORDERED: Furosemide 40 MG/4 ML VIAL IVPUSH ONE (23:07)
[2017-11-22] MEDS: Ipratropium 0.02% 0.5 MG/2.5 ML Neb Soln INH SCH ×7 (00:11→23:17)
[2017-11-22] MEDS: Lidocaine 5% 700 MG Patch TOP SCH ×2 (01:34→20:03)
[2017-11-22] MEDS ORDERED: Albuterol/Ipratropium 3.0-0.5 MG/3 ML Neb Soln NEB SCH (02:00)
[2017-11-22] MEDS: Sodium Chloride 0.9% 10 ML Syringe FLUSH PRN (05:23)
[2017-11-22] MEDS ORDERED: Furosemide 40 MG/4 ML VIAL IVPUSH ONE (06:00)
[2017-11-22] MEDS: Metoprolol Succinate 50 MG Tab.ER PO SCH (08:11)
[2017-11-22] MEDS: Clopidogrel 75 MG Tab PO SCH (08:12)
[2017-11-22] MEDS: atorvaSTATin 40 MG Tab PO SCH (08:12)
[2017-11-22] MEDS: Aspirin 81 MG Tab.EC PO SCH (08:12)
[2017-11-22] MEDS: Calcium Acetate 667 MG Cap PO SCH ×3 (08:12→17:02)
[2017-11-22] MEDS: Bumetanide 1 MG Tab PO SCH (08:15)
[2017-11-22] MEDS: Insulin Aspart 100 Units/ML 3 ML Pen SUBCUT SCH ×3 (08:16→17:02)
[2017-11-22] MEDS: Calcitriol 0.25 MCG Cap PO SCH (08:20)
--- NOTE | 2017-11-22 17:20 | PCM.PN ---
- General Info Date of Service: 11/22/17 Functional Status: Reports: Pain Controlled, Tolerating Diet - Review of Systems General: Reports: No Symptoms HEENT: Reports: No Symptoms Pulmonary: Reports: Shortness of Breath (improving) Cardiovascular: Reports: No Symptoms Gastrointestinal: Reports: No Symptoms Genitourinary: Reports: No Symptoms Musculoskeletal: Reports: No Symptoms Skin: Reports: No Symptoms Neurological: Reports: No Symptoms Psychiatric: Reports: No Symptoms - Patient Data Vitals - Most Recent: Last Vital Signs Temp 97 F 11/22/17 16:00 Pulse 70 11/22/17 16:00 Resp 17 11/22/17 16:00 BP 139/77 11/22/17 16:00 Pulse Ox 97 11/22/17 16:00 Weight - Most Recent: 256 lb 11.194 oz I&O - Last 24 Hours: Intake & Output 11/22/17 11/22/17 11/22/17 06:59 14:59 22:59 Intake Total 1170 Output Total 1850 1200 1400 Balance -1850 -30 -1400 Lab Results Last 24 Hours: Laboratory Results - last 24 hr 11/21/17 11/21/17 11/21/17 Range/Units 21:40 21:40 21:40 WBC 10.6 H (4.0-10.2) K/uL RBC 4.53 (4.33-5.41) M/uL Hgb 14.2 (13.1-16.8) g/dL Hct 44.3 (39.0-49.0) % MCV 97.8 (84.0-98.0) fL MCH 31.3 (28.2-33.3) pg MCHC 32.1 (31.7-36.0) g/dL RDW 13.7 (11.2-14.1) % Plt Count 133 L (150-350) K/uL Neut % (Auto) 76.4 (45.0-80.0) % Lymph % (Auto) 12.5 (10.0-50.0) % [place] % (Auto) 8.2 (2.0-14.0) % Eos % (Auto) 2.4 (0.0-5.0) % Baso % (Auto) 0.5 (0.0-2.0) % Neut # (Auto) 8.06 H (1.40-7.00) K/uL Lymph # (Auto) 1.32 (0.50-3.50) K/uL [place] # (Auto) 0.87 (0.00-1.00) K/uL Eos # (Auto) 0.25 (0.00-0.50) K/uL Baso # (Auto) 0.05 (0.00-0.20) K/uL Sodium 143 (136-145) mmol/L Potassium 4.5 (3.5-5.1) mmol/L Chloride 105 (98-107) mmol/L Carbon Dioxide 32.2 H (21.0-32.0) mmol/L BUN 36 H (7-18) mg/dL Creatinine 1.65 H (0.51-1.17) mg/dL Est Cr Clr Drug Dosing 29.36 mL/min Estimated GFR (MDRD) 39 mL/min Glucose 190 H (74-106) mg/dL POC Glucose (65-110) mg/dl Calcium 8.9 (8.5-10.1) mg/dL Total Bilirubin 0.5 (0.2-1.0) mg/dL AST 18 (15-37) U/L ALT 25 (12-78) U/L Alkaline Phosphatase 132 H (46-116) IU/L Troponin I 0.070 H* (0.000-0.056) ng/mL C-Reactive Protein 0.7 (<=0.9) mg/dL NT-Pro-B Natriuret Pep 2322 H (0-125) pg/mL Total Protein 7.7 (6.4-8.2) g/dL Albumin 3.6 (3.4-5.0) g/dL Specimen Type Urine Color Urine Appearance Urine pH (5.0-9.0) Ur Specific [place] (1.005-1.030) Urine Protein (NEGATIVE) mg/dL Urine Glucose (UA) (NEGATIVE) mg/dL Urine Ketones (NEGATIVE) mg/dL Urine Occult Blood (NEGATIVE) Urine Nitrite (NEGATIVE) Urine Bilirubin (NEGATIVE) Urine Urobilinogen (0.2-1.0) E.U./dL Ur Leukocyte Esterase (NEGATIVE) Urine RBC /HPF Urine WBC /HPF Ur Epithelial Cells /LPF Urine Bacteria (NONE TO FEW) /HPF 11/22/17 11/22/1711/22/18 Range/Units 00:36 06:20 07:20 WBC (4.0-10.2) K/uL RBC (4.33-5.41) M/uL Hgb (13.1-16.8) g/dL Hct (39.0-49.0) % MCV (84.0-98.0) fL MCH (28.2-33.3) pg MCHC (31.7-36.0) g/dL RDW (11.2-14.1) % Plt Count (150-350) K/uL Neut % (Auto) (45.0-80.0) % Lymph % (Auto) (10.0-50.0) % [place] % (Auto) (2.0-14.0) % Eos % (Auto) (0.0-5.0) % Baso % (Auto) (0.0-2.0) % Neut # (Auto) (1.40-7.00) K/uL Lymph # (Auto) (0.50-3.50) K/uL [place] # (Auto) (0.00-1.00) K/uL Eos # (Auto) (0.00-0.50) K/uL Baso # (Auto) (0.00-0.20) K/uL Sodium (136-145) mmol/L Potassium (3.5-5.1) mmol/L Chloride (98-107) mmol/L Carbon Dioxide (21.0-32.0) mmol/L BUN (7-18) mg/dL Creatinine (0.51-1.17) mg/dL Est Cr Clr Drug Dosing mL/min Estimated GFR (MDRD) mL/min Glucose (74-106) mg/dL POC Glucose 172 H (65-110) mg/dl Calcium (8.5-10.1) mg/dL Total Bilirubin (0.2-1.0) mg/dL AST (15-37) U/L ALT (12-78) U/L Alkaline Phosphatase (46-116) IU/L Troponin I 0.074 H* (0.000-0.056) ng/mL C-Reactive Protein (<=0.9) mg/dL NT-Pro-B Natriuret Pep (0-125) pg/mL Total Protein (6.4-8.2) g/dL Albumin (3.4-5.0) g/dL Specimen Type Urinfol Urine Color Yellow Urine Appearance Clear Urine pH 6.0 (5.0-9.0) Ur Specific [place] 1.015 (1.005-1.030) Urine Protein Negative (NEGATIVE) mg/dL Urine Glucose (UA) Negative (NEGATIVE) mg/dL Urine Ketones Negative (NEGATIVE) mg/dL Urine Occult Blood Trace-lysed H (NEGATIVE) Urine Nitrite Negative (NEGATIVE) Urine Bilirubin Negative (NEGATIVE) Urine Urobilinogen 0.2 (0.2-1.0) E.U./dL Ur Leukocyte Esterase Negative (NEGATIVE) Urine RBC 5-10 H /HPF Urine WBC 0-5 /HPF Ur Epithelial Cells Few /LPF Urine Bacteria Few (NONE TO FEW) /HPF 11/22/17 11/22/17 Range/Units 11:04 17:04 WBC (4.0-10.2) K/uL RBC (4.33-5.41) M/uL Hgb (13.1-16.8) g/dL Hct (39.0-49.0) % MCV (84.0-98.0) fL MCH (28.2-33.3) pg MCHC (31.7-36.0) g/dL RDW (11.2-14.1) % Plt Count (150-350) K/uL Neut % (Auto) (45.0-80.0) % Lymph % (Auto) (10.0-50.0) % [place] % (Auto) (2.0-14.0) % Eos % (Auto) (0.0-5.0) % Baso % (Auto) (0.0-2.0) % Neut # (Auto) (1.40-7.00) K/uL Lymph # (Auto) (0.50-3.50) K/uL [place] # (Auto) (0.00-1.00) K/uL Eos # (Auto) (0.00-0.50) K/uL Baso # (Auto) (0.00-0.20) K/uL Sodium (136-145) mmol/L Potassium (3.5-5.1) mmol/L Chloride (98-107) mmol/L Carbon Dioxide (21.0-32.0) mmol/L BUN (7-18) mg/dL Creatinine (0.51-1.17) mg/dL Est Cr Clr Drug Dosing mL/min Estimated GFR (MDRD) mL/min Glucose (74-106) mg/dL POC Glucose 260 H* 169 H (65-110) mg/dl Calcium (8.5-10.1) mg/dL Total Bilirubin (0.2-1.0) mg/dL AST (15-37) U/L ALT (12-78) U/L Alkaline Phosphatase (46-116) IU/L Troponin I (0.000-0.056) ng/mL C-Reactive Protein (<=0.9) mg/dL NT-Pro-B Natriuret Pep (0-125) pg/mL Total Protein (6.4-8.2) g/dL Albumin (3.4-5.0) g/dL Specimen Type Urine Color Urine Appearance Urine pH (5.0-9.0) Ur Specific [place] (1.005-1.030) Urine Protein (NEGATIVE) mg/dL Urine Glucose (UA) (NEGATIVE) mg/dL Urine Ketones (NEGATIVE) mg/dL Urine Occult Blood (NEGATIVE) Urine Nitrite (NEGATIVE) Urine Bilirubin (NEGATIVE) Urine Urobilinogen (0.2-1.0) E.U./dL Ur Leukocyte Esterase (NEGATIVE) Urine RBC /HPF Urine WBC /HPF Ur Epithelial Cells /LPF Urine Bacteria (NONE TO FEW) /HPF Med Orders - Current: Current Medications Aspirin (Halfprin) 81 mg PO DAILY [facility] Last Admin: 11/22/17 08:12 Dose: 81 mg Atorvastatin Calcium (Lipitor) 40 mg PO DAILY [facility] Last Admin: 11/22/17 08:12 Dose: 40 mg Bisacodyl (Dulcolax) 5 mg PO DAILY PRN PRN Reason: Constipation Bumetanide (Bumex) 1 mg PO DAILY [facility] Last Admin: 11/22/17 08:15 Dose: 1 mg Calcitriol (Rocaltrol) 0.5 mcg PO Q48H [facility] Last Admin: 11/22/17 08:20 Dose: 0.5 mcg Calcium Acetate (Phoslo) 667 mg PO TIDMEALS [facility] Last Admin: 11/22/17 17:02 Dose: 667 mg Clopidogrel Bisulfate (Plavix) 75 mg PO DAILY [facility] Last Admin: 11/22/17 08:12 Dose: 75 mg Duloxetine HCl (Cymbalta) 30 mg PO BEDTIME [facility] Furosemide (Lasix) 40 mg IVPUSH DAILY [facility] Insulin Aspart (Novolog) 18 unit SUBCUT 0730,1130,1730 [facility] Last Admin: 11/22/17 17:02 Dose: 18 units Insulin Detemir (Levemir) 38 unit SUBCUT BEDTIME [facility] Ipratropium [place] (Atrovent) 0.5 mg INH Q4H [facility] Last Admin: 11/22/17 17:02 Dose: 0.5 mg Levothyroxine Sodium (Levothyroxine) 150 mcg PO BEDTIME [facility] Lidocaine (Lidoderm 5%) 700 mg TOP DAILY@1900 [facility] Last Admin: 11/22/17 01:34 Dose: 700 mg Metoprolol Succinate (Toprol Xl) 50 mg PO DAILY [facility] Last Admin: 11/22/17 08:11 Dose: 50 mg Miscellaneous Information (Remove Patch) 1 ea TRDERM DAILY@0700 [facility] Last Admin: 11/22/17 08:12 Dose: 1 ea Senna (Senna) 8.6 mg PO BID PRN PRN Reason: Constipation Sodium Chloride (Saline Flush) 10 ml FLUSH ASDIRECTED PRN PRN Reason: Keep Vein Open Last Admin: 11/22/17 05:23 Dose: 10 ml Tamsulosin HCl (Flomax) 0.8 mg PO BEDTIME [facility] Discontinued Medications Albuterol/Ipratropium (Duoneb 3.0-0.5 Mg/3 Ml) 3 ml NEB Q6HRRT [facility] Furosemide (Lasix) 40 mg IVPUSH NOW ONE Stop: 11/21/17 23:08 Last Admin: 11/22/17 00:07 Dose: 40 mg Furosemide (Lasix) 40 mg IVPUSH NOW ONE Stop: 11/22/17 06:01 Last Admin: 11/22/17 05:23 Dose: 40 mg Insulin Detemir (Levemir) 0 unit SUBCUT BEDTIME [facility] - Exam General: Alert, Cooperative, No Acute Distress HEENT: Mucous Membr. Moist/[place] Neck: Trachea Midline, No JVD Lungs: Normal Respiratory Effort, Decreased Breath Sounds, [place] Cardiovascular: Regular Rate, Regular Rhythm GI/Abdominal Exam: Soft, Non-Tender, No Mass (Male) Exam: Deferred Back Exam: Normal Inspection Extremities: Non-Tender Skin: Warm, Dry, Intact Neurological: No New Focal Deficit Psy/Mental Status: Alert, Normal Affect, Normal Mood - Problem List & Annotations (1) Congestive heart failure SNOMED Code(s): 23905204 Code(s): I50.9 - HEART FAILURE, UNSPECIFIED Status: Acute Priority: High Current Visit: Yes Qualifiers: Qualified Code(s): I50.9 - Heart failure, unspecified Annotation/Comment:: Increased weight over last 6 months, worsening edema. Worsening SOB, especially over the last few weeks. More pronounced with activity. Lasix therapy planned. Troponin mildly elevated also. Patient denies angina/chest pain. Will continue to monitor Troponin per standard rule out SD orders. (2) Need for comfort care SNOMED Code(s): 235943451 Code(s): LWM7492 - Status: Chronic Priority: High Current Visit: Yes Annotation/Comment:: Comfort Care (3) Renal insufficiency SNOMED Code(s): 344373101, 745711662 Code(s): N28.9 - DISORDER OF KIDNEY AND URETER, UNSPECIFIED Status: Chronic Priority: Medium Current Visit: Yes Annotation/Comment:: Chronic. BUN/Cr elevated. Will continue to monitor for change secondary to planned Lasix therapy. (4) CVA, Cerebrovascular accident SNOMED Code(s): 478334500 Code(s): I63.9 - CEREBRAL INFARCTION, UNSPECIFIED Status: Acute Current Visit: No (5) Back pain SNOMED Code(s): 780225036 Code(s): M54.9 - DORSALGIA, UNSPECIFIED Status: Chronic Priority: Low Current Visit: No Qualifiers: Back pain location: low back pain Chronicity: chronic Back pain laterality: right Sciatica presence: without sciatica Qualified Code(s): M54.5 - Low back pain; G89.29 - Other chronic pain (6) Coronary artery disease SNOMED Code(s): 38752608 Code(s): I25.10 - ATHSCL HEART DISEASE OF [place] CORONARY ARTERY W/O ANG PCTRS Status: Chronic Priority: Medium Current Visit: No Qualifiers: Coronary Disease-Associated Artery/Lesion type: unspecified vessel or lesion type [place] vs. transplanted heart: [place] heart Associated angina: angina presence unspecified Qualified Code(s): I25.10 - Atherosclerotic heart disease of [place] coronary artery without angina pectoris Annotation/Comment:: No chest pain or anginal type symptoms, however note significant cardiac history as above including PVCs, previous atrial fibrillation, etc. Comfort care as above. No new symptoms during hospitalization. (7) Dyslipidemia SNOMED Code(s): 193167339 Code(s): E78.5 - HYPERLIPIDEMIA, UNSPECIFIED Status: Chronic Priority: Medium Current Visit: No Annotation/Comment:: Stable. (8) Hypertension SNOMED Code(s): 58002451 Code(s): I10 - ESSENTIAL (PRIMARY) HYPERTENSION Status: Chronic Priority : Medium Current Visit: No Qualifiers: Hypertension type: essential hypertension Annotation/Comment:: Stable. (9) Hypothyroidism (acquired) SNOMED Code(s): 774359322 Code(s): E03.9 - HYPOTHYROIDISM, UNSPECIFIED Status: Chronic Priority: Medium Current Visit: No Annotation/Comment:: Significantly elevated TSH today with the patient not taking this medication on an empty stomach in the past. 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 sliding scale regimen at this time. (11) Osteoarthritis SNOMED Code(s): 129772059 Code(s): M19.90 - UNSPECIFIED OSTEOARTHRITIS, UNSPECIFIED SITE Status: Chronic Priority: Medium Current Visit: No Qualifiers: Osteoarthritis location: multiple joints Osteoarthritis type: primary Qualified Code(s): M15.0 - Primary generalized (osteo)arthritis Annotation/Comment:: Osteoarthritis someone under poor control including with current physical therapy. Note significant persistent low back pain (12) Physical deconditioning SNOMED Code(s): 48840449020172 Code(s): R53.81 - OTHER [place] Status: Chronic Priority: Medium Current Visit: No - Problem List Review Problem List Initiated/Reviewed/Updated: Yes - My Orders Last 24 Hours: My Active Orders 11/22/17 10:00 EKG Documentation Completion [RC] ASDIRECTED 11/22/17 13:53 DC Blunt Catheter [Urinary Catheter Removal] [RC] Per Unit Routine 11/22/17 20:00 DULoxetine [Cymbalta] 30 mg PO BEDTIME 11/23/17 05:11 CBC WITH AUTO DIFF [HEME] DAILY CMP [COMPREHENSIVE METABOLIC PN,CMP] [CHEM] DAILY CRP [C-REACTIVE PROTEIN] [CHEM] DAILY MAGNESIUM [CHEM] Routine PRO B-TYPE NATRIUR PEPT,BNPPRO [CHEM] DAILY TROPONIN I [CHEM] Routine 11/23/17 08:00 Furosemide [Lasix] 40 mg IVPUSH DAILY 11/24/17 05:11 CBC WITH AUTO DIFF [HEME] DAILY CMP [COMPREHENSIVE METABOLIC PN,CMP] [CHEM] DAILY CRP [C-REACTIVE PROTEIN] [CHEM] DAILY PRO B-TYPE NATRIUR PEPT,BNPPRO [CHEM] DAILY 11/25/17 05:11 CBC WITH AUTO DIFF [HEME] DAILY CMP [COMPREHENSIVE METABOLIC PN,CMP] [CHEM] DAILY CRP [C-REACTIVE PROTEIN] [CHEM] DAILY PRO B-TYPE NATRIUR PEPT,BNPPRO [CHEM] DAILY - Plan Plan:: 11/22/17 Courtney Sharpe MD Feels better today. Less short of breath.
[2017-11-22] MEDS ORDERED: Insulin Detemir 100 Units/ML 3 ML Pen SUBCUT SCH (20:00)
[2017-11-22] MEDS: Tamsulosin 0.4 MG Cap.ER PO SCH (20:01)
[2017-11-22] MEDS: DULoxetine 30 MG Cap PO SCH (20:01)
[2017-11-22] MEDS: Levothyroxine 150 MCG Tab PO SCH (20:02)
[2017-11-22] MEDS: Insulin Detemir 100 Units/ML 3 ML Pen SUBCUT SCH (20:10)
[2017-11-23] MEDS: Ipratropium 0.02% 0.5 MG/2.5 ML Neb Soln INH SCH ×5 (04:04→18:33)
[2017-11-23] MEDS ORDERED: Furosemide 40 MG/4 ML VIAL IVPUSH SCH ×2 (08:00→12:00)
[2017-11-23] MEDS: Bumetanide 1 MG Tab PO SCH (09:33)
[2017-11-23] MEDS: Metoprolol Succinate 50 MG Tab.ER PO SCH (09:49)
[2017-11-23] MEDS: Calcium Acetate 667 MG Cap PO SCH ×3 (09:49→18:31)
[2017-11-23] MEDS: Clopidogrel 75 MG Tab PO SCH (09:50)
[2017-11-23] MEDS: atorvaSTATin 40 MG Tab PO SCH (09:50)
[2017-11-23] MEDS: Insulin Aspart 100 Units/ML 3 ML Pen SUBCUT SCH ×3 (09:51→18:30)
[2017-11-23] MEDS: Aspirin 81 MG Tab.EC PO SCH (09:51)
--- NOTE | 2017-11-23 12:28 | PCM.PN ---
- General Info Date of Service: 11/23/17 Admission Dx/Problem (Free Text): CHF Functional Status: Reports: Tolerating Diet, Urinating - Review of Systems General: Reports: Other (says feels much better than on admit) HEENT: Reports: Sore Throat ("maybe just dry") Pulmonary: Reports: No Symptoms Cardiovascular: Reports: No Symptoms Gastrointestinal: Reports: No Symptoms Genitourinary: Reports: No Symptoms Musculoskeletal: Reports: Shoulder Pain, Back Pain (says "I've been told I've got arthritis but I don't believe it") Skin: Reports: No Symptoms Neurological: Reports: No Symptoms Psychiatric: Reports: No Symptoms - Patient Data Vitals - Most Recent: Last Vital Signs Temp 97.8 F 11/23/17 08:00 Pulse 89 11/23/17 09:49 Resp 17 11/23/17 08:00 BP 139/75 11/23/17 09:49 Pulse Ox 94 L 11/23/17 08:00 Weight - Most Recent: 248 lb 11.2 oz I&O - Last 24 Hours: Intake & Output 11/22/17 11/23/17 11/23/17 22:59 06:59 14:59 Intake Total 720 1080 Output Total 1500 200 100 Balance -780 -200 980 Lab Results Last 24 Hours: Laboratory Results - last 24 hr 11/22/17 11/22/17 11/23/17 Range/Units 17:04 20:23 07:12 WBC (4.0-10.2) K/uL RBC (4.33-5.41) M/uL Hgb (13.1-16.8) g/dL Hct (39.0-49.0) % MCV (84.0-98.0) fL MCH (28.2-33.3) pg MCHC (31.7-36.0) g/dL RDW (11.2-14.1) % Plt Count (150-350) K/uL Neut % (Auto) (45.0-80.0) % Lymph % (Auto) (10.0-50.0) % [place] % (Auto) (2.0-14.0) % Eos % (Auto) (0.0-5.0) % Baso % (Auto) (0.0-2.0) % Neut # (Auto) (1.40-7.00) K/uL Lymph # (Auto) (0.50-3.50) K/uL [place] # (Auto) (0.00-1.00) K/uL Eos # (Auto) (0.00-0.50) K/uL Baso # (Auto) (0.00-0.20) K/uL Sodium 143 (136-145) mmol/L Potassium 3.9 (3.5-5.1) mmol/L Chloride 105 (98-107) mmol/L Carbon Dioxide 30.8 (21.0-32.0) mmol/L BUN 32 H (7-18) mg/dL Creatinine 1.54 H (0.51-1.17) mg/dL Est Cr Clr Drug Dosing 31.58 mL/min Estimated GFR (MDRD) 43 mL/min Glucose 126 H (74-106) mg/dL POC Glucose 169 H 246 H (65-110) mg/dl Calcium 8.7 (8.5-10.1) mg/dL Magnesium 2.0 (1.8-2.4) mg/dL Total Bilirubin 0.9 (0.2-1.0) mg/dL AST 13 L (15-37) U/L ALT 20 (12-78) U/L Alkaline Phosphatase 96 (46-116) IU/L Troponin I 0.052 (0.000-0.056) ng/mL C-Reactive Protein 1.8 H (<=0.9) mg/dL NT-Pro-B Natriuret Pep 1521 H (0-125) pg/mL Total Protein 6.7 (6.4-8.2) g/dL Albumin 3.1 L (3.4-5.0) g/dL 11/23/17 11/23/17 Range/Units 07:12 07:37 WBC 8.9 (4.0-10.2) K/uL RBC 4.10 L (4.33-5.41) M/uL Hgb 12.7 L D (13.1-16.8) g/dL Hct 39.5 (39.0-49.0) % MCV 96.3 (84.0-98.0) fL MCH 31.0 (28.2-33.3) pg MCHC 32.2 (31.7-36.0) g/dL RDW 13.5 (11.2-14.1) % Plt Count 126 L (150-350) K/uL Neut % (Auto) 76.0 (45.0-80.0) % Lymph % (Auto) 12.2 (10.0-50.0) % [place] % (Auto) 7.7 (2.0-14.0) % Eos % (Auto) 3.4 (0.0-5.0) % Baso % (Auto) 0.7 (0.0-2.0) % Neut # (Auto) 6.73 (1.40-7.00) K/uL Lymph # (Auto) 1.08 (0.50-3.50) K/uL [place] # (Auto) 0.68 (0.00-1.00) K/uL Eos # (Auto) 0.30 (0.00-0.50) K/uL Baso # (Auto) 0.06 (0.00-0.20) K/uL Sodium (136-145) mmol/L Potassium (3.5-5.1) mmol/L Chloride (98-107) mmol/L Carbon Dioxide (21.0-32.0) mmol/L BUN (7-18) mg/dL Creatinine (0.51-1.17) mg/dL Est Cr Clr Drug Dosing mL/min Estimated GFR (MDRD) mL/min Glucose (74-106) mg/dL POC Glucose 131 H (65-110) mg/dl Calcium (8.5-10.1) mg/dL Magnesium (1.8-2.4) mg/dL Total Bilirubin (0.2-1.0) mg/dL AST (15-37) U/L ALT (12-78) U/L Alkaline Phosphatase (46-116) IU/L Troponin I (0.000-0.056) ng/mL C-Reactive Protein (<=0.9) mg/dL NT-Pro-B Natriuret Pep (0-125) pg/mL Total Protein (6.4-8.2) g/dL Albumin (3.4-5.0) g/dL Med Orders - Current: Current Medications Aspirin (Halfprin) 81 mg PO DAILY [facility] Last Admin: 11/23/17 09:51 Dose: 81 mg Atorvastatin Calcium (Lipitor) 40 mg PO DAILY [facility] Last Admin: 11/23/17 09:50 Dose: 40 mg Bisacodyl (Dulcolax) 5 mg PO DAILY PRN PRN Reason: Constipation Bumetanide (Bumex) 1 mg PO DAILY [facility] Last Admin: 11/23/17 09:33 Dose: Not Given Calcitriol (Rocaltrol) 0.5 mcg PO Q48H [facility] Last Admin: 11/22/17 08:20 Dose: 0.5 mcg Calcium Acetate (Phoslo) 667 mg PO TIDMEALS [facility] Last Admin: 11/23/17 11:48 Dose: 667 mg Clopidogrel Bisulfate (Plavix) 75 mg PO DAILY [facility] Last Admin: 11/23/17 09:50 Dose: 75 mg Duloxetine HCl (Cymbalta) 30 mg PO BEDTIME [facility] Last Admin: 11/22/17 20:01 Dose: 30 mg Furosemide (Lasix) 40 mg IVPUSH DAILY@1200 [facility] Last Admin: 11/23/17 11:48 Dose: 40 mg Insulin Aspart (Novolog) 18 unit SUBCUT DAILY@0800,1200,1800 [facility] Last Admin: 11/23/17 11:48 Dose: 18 units Insulin Detemir (Levemir) 38 unit SUBCUT BEDTIME [facility] Last Admin: 11/22/17 20:10 Dose: 38 units Ipratropium [place] (Atrovent) 0.5 mg INH Q4H [facility] Last Admin: 11/23/17 09:59 Dose: 0.5 mg Levothyroxine Sodium (Levothyroxine) 150 mcg PO BEDTIME [facility] Last Admin: 11/22/17 20:02 Dose: 150 mcg Lidocaine (Lidoderm 5%) 700 mg TOP DAILY@1900 [facility] Last Admin: 11/22/17 20:03 Dose: 700 mg Metoprolol Succinate (Toprol Xl) 50 mg PO DAILY [facility] Last Admin: 11/23/17 09:49 Dose: 50 mg Miscellaneous Information (Remove Patch) 1 ea TRDERM DAILY@0700 [facility] Last Admin: 11/23/17 09:55 Dose: 1 ea Senna (Senna) 8.6 mg PO BID PRN PRN Reason: Constipation Sodium Chloride (Saline Flush) 10 ml FLUSH ASDIRECTED PRN PRN Reason: Keep Vein Open Last Admin: 11/22/17 05:23 Dose: 10 ml Tamsulosin HCl (Flomax) 0.8 mg PO BEDTIME [facility] Last Admin: 11/22/17 20:01 Dose: 0.8 mg Discontinued Medications Albuterol/Ipratropium (Duoneb 3.0-0.5 Mg/3 Ml) 3 ml NEB Q6HRRT [facility] Furosemide (Lasix) 40 mg IVPUSH NOW ONE Stop: 11/21/17 23:08 Last Admin: 11/22/17 00:07 Dose: 40 mg Furosemide (Lasix) 40 mg IVPUSH NOW ONE Stop: 11/22/17 06:01 Last Admin: 11/22/17 05:23 Dose: 40 mg Furosemide (Lasix) 40 mg IVPUSH DAILY [facility] Insulin Aspart (Novolog) 18 unit SUBCUT 0730,1130,1730 [facility] Last Admin: 11/22/17 17:02 Dose: 18 units Insulin Detemir (Levemir) 0 unit SUBCUT BEDTIME [facility] - Exam General: Alert, Oriented HEENT: EOMI, Mucous Membr. Moist/[place] Neck: Supple, Trachea Midline, No JVD Lungs: Decreased Breath Sounds Cardiovascular: Regular Rate, Regular Rhythm GI/Abdominal Exam: Normal Bowel Sounds, Soft, Non-Tender (Male) Exam: Deferred Back Exam: Normal Inspection Extremities: Pedal Edema (mild) Skin: Warm, Dry, Intact Neurological: No New Focal Deficit Psy/Mental Status: Alert, Normal Affect, Normal Mood - Problem List Review Problem List Initiated/Reviewed/Updated: Yes - Plan Plan:: 11/22/17 Courtney Sharpe MD Feels better today. Less short of breath. 11-23-17 Dontae Jones PA-C Affect bright on exam, no respiratory distress. Says breathing much better than on admit. Labs and VS reviewed, no changes made in meds.
[2017-11-23] MEDS: Lidocaine 5% 700 MG Patch TOP SCH (18:31)
[2017-11-23] MEDS: Ipratropium 0.02% 0.5 MG/2.5 ML Neb Soln INH PRN (19:35)
[2017-11-23] MEDS: Tamsulosin 0.4 MG Cap.ER PO SCH (19:35)
[2017-11-23] MEDS: Insulin Detemir 100 Units/ML 3 ML Pen SUBCUT SCH (19:36)
[2017-11-23] MEDS: Levothyroxine 150 MCG Tab PO SCH (19:36)
[2017-11-23] MEDS: DULoxetine 30 MG Cap PO SCH (19:36)
[2017-11-24] MEDS: Metoprolol Succinate 50 MG Tab.ER PO SCH (07:48)
[2017-11-24] MEDS: Clopidogrel 75 MG Tab PO SCH (07:48)
[2017-11-24] MEDS: Aspirin 81 MG Tab.EC PO SCH (07:49)
[2017-11-24] MEDS: atorvaSTATin 40 MG Tab PO SCH (07:49)
[2017-11-24] MEDS: Insulin Aspart 100 Units/ML 3 ML Pen SUBCUT SCH ×3 (07:50→18:13)
[2017-11-24] MEDS: Calcium Acetate 667 MG Cap PO SCH ×3 (07:50→18:15)
[2017-11-24] MEDS: Sodium Chloride 0.9% 10 ML Syringe FLUSH PRN ×2 (07:54→12:21)
[2017-11-24] MEDS: Bumetanide 1 MG Tab PO SCH (08:13)
[2017-11-24] MEDS: Calcitriol 0.25 MCG Cap PO SCH (08:14)
[2017-11-24] MEDS: Ipratropium 0.02% 0.5 MG/2.5 ML Neb Soln INH PRN (08:22)
[2017-11-24] MEDS: Ipratropium 0.02% 0.5 MG/2.5 ML Neb Soln NEB SCH ×3 (12:01→20:00)
[2017-11-24] MEDS: metroNIDAZOLE/Normal Saline 500 MG in Premix Bag 1 BAG IV SCH ×2 (12:21→20:01)
[2017-11-24] MEDS: cefTAZidime 1 GM Vial IVPUSH SCH ×2 (12:21→20:01)
--- NOTE | 2017-11-24 17:21 | PCM.PN ---
- General Info Date of Service: 11/24/17 Admission Dx/Problem (Free Text): CHF Functional Status: Reports: Urinating (c/o urinating frequently) - Review of Systems General: Reports: Weakness HEENT: Reports: No Symptoms Pulmonary: Reports: Shortness of Breath, Cough Cardiovascular: Reports: Dyspnea on Exertion Gastrointestinal: Reports: No Symptoms Genitourinary: Reports: Frequency Musculoskeletal: Reports: Other (arthritic pain multiple joints) Skin: Reports: No Symptoms Neurological: Reports: No Symptoms Psychiatric: Reports: No Symptoms - Patient Data Vitals - Most Recent: Last Vital Signs Temp 99.7 F 11/24/17 16:00 Pulse 70 11/24/17 16:00 Resp 18 11/24/17 16:00 BP 122/59 L 11/24/17 16:00 Pulse Ox 93 L 11/24/17 16:00 Weight - Most Recent: 250 lb 1.6 oz I&O - Last 24 Hours: Intake & Output 11/24/17 11/24/17 11/24/17 06:59 14:59 22:59 Intake Total 1660 800 Output Total 250 50 100 Balance -250 1610 700 Lab Results Last 24 Hours: Laboratory Results - last 24 hr 11/23/17 11/23/17 11/23/17 Range/Units 11:19 17:56 19:35 WBC (4.0-10.2) K/uL RBC (4.33-5.41) M/uL Hgb (13.1-16.8) g/dL Hct (39.0-49.0) % MCV (84.0-98.0) fL MCH (28.2-33.3) pg MCHC (31.7-36.0) g/dL RDW (11.2-14.1) % Plt Count (150-350) K/uL Neut % (Auto) (45.0-80.0) % Lymph % (Auto) (10.0-50.0) % Robertson % (Auto) (2.0-14.0) % Eos % (Auto) (0.0-5.0) % Baso % (Auto) (0.0-2.0) % Neut # (Auto) (1.40-7.00) K/uL Lymph # (Auto) (0.50-3.50) K/uL Robertson # (Auto) (0.00-1.00) K/uL Eos # (Auto) (0.00-0.50) K/uL Baso # (Auto) (0.00-0.20) K/uL Sodium (136-145) mmol/L Potassium (3.5-5.1) mmol/L Chloride (98-107) mmol/L Carbon Dioxide (21.0-32.0) mmol/L BUN (7-18) mg/dL Creatinine (0.51-1.17) mg/dL Est Cr Clr Drug Dosing mL/min Estimated GFR (MDRD) mL/min Glucose (74-106) mg/dL POC Glucose 230 H 184 H 172 H (65-110) mg/dl Calcium (8.5-10.1) mg/dL Total Bilirubin (0.2-1.0) mg/dL AST (15-37) U/L ALT (12-78) U/L Alkaline Phosphatase (46-116) IU/L C-Reactive Protein (<=0.9) mg/dL NT-Pro-B Natriuret Pep (0-125) pg/mL Total Protein (6.4-8.2) g/dL Albumin (3.4-5.0) g/dL Specimen Type Urine Color Urine Appearance Urine pH (5.0-9.0) Ur Specific [place] (1.005-1.030) Urine Protein (NEGATIVE) mg/dL Urine Glucose (UA) (NEGATIVE) mg/dL Urine Ketones (NEGATIVE) mg/dL Urine Occult Blood (NEGATIVE) Urine Nitrite (NEGATIVE) Urine Bilirubin (NEGATIVE) Urine Urobilinogen (0.2-1.0) E.U./dL Ur Leukocyte Esterase (NEGATIVE) Urine RBC /HPF Urine WBC /HPF Ur Epithelial Cells /LPF Amorphous Sediment (0/HPF) /HPF Urine Bacteria (NONE TO FEW) /HPF 11/24/17 11/24/17 11/24/17 Range/Units 07:12 07:20 07:20 WBC 15.0 H (4.0-10.2) K/uL RBC 4.31 L (4.33-5.41) M/uL Hgb 13.4 (13.1-16.8) g/dL Hct 41.5 (39.0-49.0) % MCV 96.3 (84.0-98.0) fL MCH 31.1 (28.2-33.3) pg MCHC 32.3 (31.7-36.0) g/dL RDW 13.6 (11.2-14.1) % Plt Count 129 L (150-350) K/uL Neut % (Auto) 85.9 H (45.0-80.0) % Lymph % (Auto) 5.7 L (10.0-50.0) % Robertson % (Auto) 6.8 (2.0-14.0) % Eos % (Auto) 1.4 (0.0-5.0) % Baso % (Auto) 0.2 (0.0-2.0) % Neut # (Auto) 12.91 H (1.40-7.00) K/uL Lymph # (Auto) 0.86 (0.50-3.50) K/uL Robertson # (Auto) 1.03 H (0.00-1.00) K/uL Eos # (Auto) 0.21 (0.00-0.50) K/uL Baso # (Auto) 0.03 (0.00-0.20) K/uL Sodium 140 (136-145) mmol/L Potassium 4.4 (3.5-5.1) mmol/L Chloride 102 (98-107) mmol/L Carbon Dioxide 32.9 H (21.0-32.0) mmol/L BUN 35 H (7-18) mg/dL Creatinine 1.68 H (0.51-1.17) mg/dL Est Cr Clr Drug Dosing 28.95 mL/min Estimated GFR (MDRD) 39 mL/min Glucose 125 H (74-106) mg/dL POC Glucose 111 H (65-110) mg/dl Calcium 8.8 (8.5-10.1) mg/dL Total Bilirubin 1.0 (0.2-1.0) mg/dL AST 15 (15-37) U/L ALT 19 (12-78) U/L Alkaline Phosphatase 103 (46-116) IU/L C-Reactive Protein 5.8 H (<=0.9) mg/dL NT-Pro-B Natriuret Pep 1439 H (0-125) pg/mL Total Protein 7.4 (6.4-8.2) g/dL Albumin 3.4 (3.4-5.0) g/dL Specimen Type Urine Color Urine Appearance Urine pH (5.0-9.0) Ur Specific [place] (1.005-1.030) Urine Protein (NEGATIVE) mg/dL Urine Glucose (UA) (NEGATIVE) mg/dL Urine Ketones (NEGATIVE) mg/dL Urine Occult Blood (NEGATIVE) Urine Nitrite (NEGATIVE) Urine Bilirubin (NEGATIVE) Urine Urobilinogen (0.2-1.0) E.U./dL Ur Leukocyte Esterase (NEGATIVE) Urine RBC /HPF Urine WBC /HPF Ur Epithelial Cells /LPF Amorphous Sediment (0/HPF) /HPF Urine Bacteria (NONE TO FEW) /HPF 11/24/17 Range/Units 10:15 WBC (4.0-10.2) K/uL RBC (4.33-5.41) M/uL Hgb (13.1-16.8) g/dL Hct (39.0-49.0) % MCV (84.0-98.0) fL MCH (28.2-33.3) pg MCHC (31.7-36.0) g/dL RDW (11.2-14.1) % Plt Count (150-350) K/uL Neut % (Auto) (45.0-80.0) % Lymph % (Auto) (10.0-50.0) % Robertson % (Auto) (2.0-14.0) % Eos % (Auto) (0.0-5.0) % Baso % (Auto) (0.0-2.0) % Neut # (Auto) (1.40-7.00) K/uL Lymph # (Auto) (0.50-3.50) K/uL Robertson # (Auto) (0.00-1.00) K/uL Eos # (Auto) (0.00-0.50) K/uL Baso # (Auto) (0.00-0.20) K/uL Sodium (136-145) mmol/L Potassium (3.5-5.1) mmol/L Chloride (98-107) mmol/L Carbon Dioxide (21.0-32.0) mmol/L BUN (7-18) mg/dL Creatinine (0.51-1.17) mg/dL Est Cr Clr Drug Dosing mL/min Estimated GFR (MDRD) mL/min Glucose (74-106) mg/dL POC Glucose (65-110) mg/dl Calcium (8.5-10.1) mg/dL Total Bilirubin (0.2-1.0) mg/dL AST (15-37) U/L ALT (12-78) U/L Alkaline Phosphatase (46-116) IU/L C-Reactive Protein (<=0.9) mg/dL NT-Pro-B Natriuret Pep (0-125) pg/mL Total Protein (6.4-8.2) g/dL Albumin (3.4-5.0) g/dL Specimen Type Urinvoid Urine Color [place] Urine Appearance Cloudy Urine pH 7.5 (5.0-9.0) Ur Specific [place] 1.020 (1.005-1.030) Urine Protein >=300 H (NEGATIVE) mg/dL Urine Glucose (UA) Negative (NEGATIVE) mg/dL Urine Ketones Trace H (NEGATIVE) mg/dL Urine Occult Blood Large H (NEGATIVE) Urine Nitrite Negative (NEGATIVE) Urine Bilirubin Negative (NEGATIVE) Urine Urobilinogen 0.2 (0.2-1.0) E.U./dL Ur Leukocyte Esterase Large H (NEGATIVE) Urine RBC 30-40 H /HPF Urine WBC Packed /HPF Ur Epithelial Cells Few /LPF Amorphous Sediment Few (0/HPF) /HPF Urine Bacteria Many H (NONE TO FEW) /HPF Med Orders - Current: Current Medications Aspirin (Halfprin) 81 mg PO DAILY [facility] Last Admin: 11/24/17 07:49 Dose: 81 mg Atorvastatin Calcium (Lipitor) 40 mg PO DAILY [facility] Last Admin: 11/24/17 07:49 Dose: 40 mg Bisacodyl (Dulcolax) 5 mg PO DAILY PRN PRN Reason: Constipation Bumetanide (Bumex) 1 mg PO DAILY [facility] Last Admin: 11/24/17 08:13 Dose: 1 mg Calcitriol (Rocaltrol) 0.5 mcg PO Q48H [facility] Last Admin: 11/24/17 08:14 Dose: 0.5 mcg Calcium Acetate (Phoslo) 667 mg PO TIDMEALS [facility] Last Admin: 11/24/17 12:00 Dose: 667 mg Ceftazidime (Fortaz) 1 gm IVPUSH Q12HR [facility] Last Admin: 11/24/17 12:21 Dose: 1 gm Clopidogrel Bisulfate (Plavix) 75 mg PO DAILY [facility] Last Admin: 11/24/17 07:48 Dose: 75 mg Duloxetine HCl (Cymbalta) 30 mg PO BEDTIME [facility] Last Admin: 11/23/17 19:36 Dose: 30 mg Metronidazole 500 mg/ Premix 100 mls @ 100 mls/hr IV Q8H [facility] Last Admin: 11/24/17 12:21 Dose: 100 mls/hr Insulin Aspart (Novolog) 18 unit SUBCUT DAILY@0800,1200,1800 [facility] Last Admin: 11/24/17 12:01 Dose: 18 units Insulin Detemir (Levemir) 38 unit SUBCUT BEDTIME [facility] Last Admin: 11/23/17 19:36 Dose: 38 units Ipratropium [place] (Atrovent) 0.5 mg INH Q4H PRN PRN Reason: Shortness of Breath Last Admin: 11/24/17 08:22 Dose: 0.5 mg Ipratropium [place] (Atrovent) 0.5 mg NEB QIDRT [facility] Last Admin: 11/24/17 15:20 Dose: 0.5 mg Levothyroxine Sodium (Levothyroxine) 150 mcg PO BEDTIME [facility] Last Admin: 11/23/17 19:36 Dose: 150 mcg Lidocaine (Lidoderm 5%) 700 mg TOP DAILY@1900 [facility] Last Admin: 11/23/17 18:31 Dose: 700 mg Metoprolol Succinate (Toprol Xl) 50 mg PO DAILY [facility] Last Admin: 11/24/17 07:48 Dose: 50 mg Miscellaneous Information (Remove Patch) 1 ea TRDERM DAILY@0700 [facility] Last Admin: 11/24/17 07:46 Dose: 1 ea Senna (Senna) 8.6 mg PO BID PRN PRN Reason: Constipation Sodium Chloride (Saline Flush) 10 ml FLUSH ASDIRECTED PRN PRN Reason: Keep Vein Open Last Admin: 11/24/17 12:21 Dose: 10 ml Sodium Chloride (Saline Flush) 10 ml FLUSH Q12HR [facility] Tamsulosin HCl (Flomax) 0.8 mg PO BEDTIME [facility] Last Admin: 11/23/17 19:35 Dose: 0.8 mg Discontinued Medications Albuterol/Ipratropium (Duoneb 3.0-0.5 Mg/3 Ml) 3 ml NEB Q6HRRT [facility] Furosemide (Lasix) 40 mg IVPUSH NOW ONE Stop: 11/21/17 23:08 Last Admin: 11/22/17 00:07 Dose: 40 mg Furosemide (Lasix) 40 mg IVPUSH NOW ONE Stop: 11/22/17 06:01 Last Admin: 11/22/17 05:23 Dose: 40 mg Furosemide (Lasix) 40 mg IVPUSH DAILY RADHA Furosemide (Lasix) 40 mg IVPUSH DAILY@1200 [facility] Last Admin: 11/23/17 11:48 Dose: 40 mg Insulin Aspart (Novolog) 18 unit SUBCUT 0730,1130,1730 [facility] Last Admin: 11/22/17 17:02 Dose: 18 units Insulin Detemir (Levemir) 0 unit SUBCUT BEDTIME RAD[facility] Ipratropium [place] (Atrovent) 0.5 mg INH Q4H [facility] Last Admin: 11/23/17 18:33 Dose: 0.5 mg - Exam General: Alert, Oriented HEENT: EOMI, Mucous Membr. Moist/[place] Neck: Supple, Trachea Midline, No JVD Lungs: Decreased Breath Sounds Cardiovascular: Regular Rate, Regular Rhythm GI/Abdominal Exam: Normal Bowel Sounds, Soft, Non-Tender (Male) Exam: Deferred Back Exam: Normal Inspection Extremities: Pedal Edema (stable, support stockings in place) Skin: Warm, Dry, Intact Neurological: No New Focal Deficit Psy/Mental Status: Alert, Normal Affect, Normal Mood - Problem List Review Problem List Initiated/Reviewed/Updated: Yes - My Orders Last 24 Hours: My Active Orders 11/24/17 10:15 UA W/MICROSCOPIC [URIN] Routine - Plan Plan:: 11/22/17 Courtney Sharpe MD Feels better today. Less short of breath. 11-23-17 Dontae Jones PA-C Affect bright on exam, no respiratory distress. Says breathing much better than on admit. Labs and VS reviewed, no changes made in meds. 11-24-17 Dontae Jones PA-C White count and CRP trended upward this morning, UA positive for UTI, antibiotics started and culture pending. Says feels weak, reassured that PT-OT will be in tomorrow - he says he has done PT before and it doesn't help, encouraged to work with them to preserve strength and condition. Discussed diet , will order nutritional supplements.
[2017-11-24] MEDS: Lidocaine 5% 700 MG Patch TOP SCH (18:15)
[2017-11-24] MEDS: Tamsulosin 0.4 MG Cap.ER PO SCH (20:00)
[2017-11-24] MEDS: DULoxetine 30 MG Cap PO SCH (20:00)
[2017-11-24] MEDS: Levothyroxine 150 MCG Tab PO SCH (20:01)
[2017-11-24] MEDS: Insulin Detemir 100 Units/ML 3 ML Pen SUBCUT SCH (20:01)
[2017-11-24] MEDS: Sodium Chloride 0.9% 10 ML Syringe FLUSH SCH (20:02)
[2017-11-25] MEDS: Sodium Chloride 0.9% 10 ML Syringe FLUSH PRN ×3 (05:00→12:41)
[2017-11-25] MEDS: metroNIDAZOLE/Normal Saline 500 MG in Premix Bag 1 BAG IV SCH ×2 (05:00→11:34)
[2017-11-25] MEDS: cefTAZidime 1 GM Vial IVPUSH SCH (07:44)
[2017-11-25] MEDS: Sodium Chloride 0.9% 10 ML Syringe FLUSH SCH (07:44)
[2017-11-25] MEDS: Calcium Acetate 667 MG Cap PO SCH ×2 (07:45→11:28)
[2017-11-25] MEDS: Metoprolol Succinate 50 MG Tab.ER PO SCH (07:45)
[2017-11-25] MEDS: Clopidogrel 75 MG Tab PO SCH (07:46)
[2017-11-25] MEDS: atorvaSTATin 40 MG Tab PO SCH (07:46)
[2017-11-25] MEDS: Bumetanide 1 MG Tab PO SCH (07:47)
[2017-11-25] MEDS: Aspirin 81 MG Tab.EC PO SCH (07:47)
[2017-11-25] MEDS: Ipratropium 0.02% 0.5 MG/2.5 ML Neb Soln NEB SCH ×3 (07:47→15:26)
[2017-11-25] MEDS: Insulin Aspart 100 Units/ML 3 ML Pen SUBCUT SCH ×2 (07:48→11:29)
[2017-11-25 16:42] VITALS: BP 112/58
--- NOTE | 2017-11-25 18:09 | PCM.PN ---
- General Info Date of Service: 11/25/17 Admission Dx/Problem (Free Text): CHF Functional Status: Reports: Pain Controlled, Tolerating Diet - Review of Systems General: Reports: Weakness HEENT: Reports: No Symptoms Pulmonary: Reports: Shortness of Breath Cardiovascular: Reports: Dyspnea on Exertion, Orthopnea, PND Gastrointestinal: Reports: No Symptoms Genitourinary: Reports: No Symptoms Musculoskeletal: Reports: No Symptoms Skin: Reports: No Symptoms Neurological: Reports: Pre-Existing Deficit Psychiatric: Reports: No Symptoms - Patient Data Vitals - Most Recent: Last Vital Signs Temp 98 F 11/25/17 16:00 Pulse 70 11/25/17 16:00 Resp 18 11/25/17 16:00 BP 112/58 L 11/25/17 16:00 Pulse Ox 95 11/25/17 16:00 Weight - Most Recent: 253 lb 1.6 oz I&O - Last 24 Hours: Intake & Output 11/25/17 11/25/17 11/25/17 06:59 14:59 22:59 Intake Total 1440 Output Total 450 300 400 Balance -450 1140 -400 Lab Results Last 24 Hours: Laboratory Results - last 24 hr 11/24/17 11/24/17 11/24/17 Range/Units 11:06 17:48 20:09 WBC (4.0-10.2) K/uL RBC (4.33-5.41) M/uL Hgb (13.1-16.8) g/dL Hct (39.0-49.0) % MCV (84.0-98.0) fL MCH (28.2-33.3) pg MCHC (31.7-36.0) g/dL RDW (11.2-14.1) % Plt Count (150-350) K/uL Neut % (Auto) (45.0-80.0) % Lymph % (Auto) (10.0-50.0) % Kings % (Auto) (2.0-14.0) % Eos % (Auto) (0.0-5.0) % Baso % (Auto) (0.0-2.0) % Neut # (Auto) (1.40-7.00) K/uL Lymph # (Auto) (0.50-3.50) K/uL Kings # (Auto) (0.00-1.00) K/uL Eos # (Auto) (0.00-0.50) K/uL Baso # (Auto) (0.00-0.20) K/uL Sodium (136-145) mmol/L Potassium (3.5-5.1) mmol/L Chloride (98-107) mmol/L Carbon Dioxide (21.0-32.0) mmol/L BUN (7-18) mg/dL Creatinine (0.51-1.17) mg/dL Est Cr Clr Drug Dosing mL/min Estimated GFR (MDRD) mL/min Glucose (74-106) mg/dL POC Glucose 161 H 156 H 227 H (65-110) mg/dl Calcium (8.5-10.1) mg/dL Total Bilirubin (0.2-1.0) mg/dL AST (15-37) U/L ALT (12-78) U/L Alkaline Phosphatase (46-116) IU/L C-Reactive Protein (<=0.9) mg/dL NT-Pro-B Natriuret Pep (0-125) pg/mL Total Protein (6.4-8.2) g/dL Albumin (3.4-5.0) g/dL 11/25/17 11/25/17 11/25/17 Range/Units 07:00 07:00 07:31 WBC 13.4 H (4.0-10.2) K/uL RBC 4.11 L (4.33-5.41) M/uL Hgb 12.8 L (13.1-16.8) g/dL Hct 39.7 (39.0-49.0) % MCV 96.6 (84.0-98.0) fL MCH 31.1 (28.2-33.3) pg MCHC 32.2 (31.7-36.0) g/dL RDW 13.7 (11.2-14.1) % Plt Count 112 L (150-350) K/uL Neut % (Auto) 82.9 H (45.0-80.0) % Lymph % (Auto) 8.0 L (10.0-50.0) % Kings % (Auto) 7.9 (2.0-14.0) % Eos % (Auto) 1.1 (0.0-5.0) % Baso % (Auto) 0.1 (0.0-2.0) % Neut # (Auto) 11.07 H (1.40-7.00) K/uL Lymph # (Auto) 1.07 (0.50-3.50) K/uL Kings # (Auto) 1.05 H (0.00-1.00) K/uL Eos # (Auto) 0.15 (0.00-0.50) K/uL Baso # (Auto) 0.02 (0.00-0.20) K/uL Sodium 139 (136-145) mmol/L Potassium 4.0 (3.5-5.1) mmol/L Chloride 102 (98-107) mmol/L Carbon Dioxide 26.0 (21.0-32.0) mmol/L BUN 38 H (7-18) mg/dL Creatinine 1.66 H (0.51-1.17) mg/dL Est Cr Clr Drug Dosing 29.29 mL/min Estimated GFR (MDRD) 39 mL/min Glucose 138 H (74-106) mg/dL POC Glucose 132 H (65-110) mg/dl Calcium 9.0 (8.5-10.1) mg/dL Total Bilirubin 1.1 H (0.2-1.0) mg/dL AST 12 L (15-37) U/L ALT 17 (12-78) U/L Alkaline Phosphatase 97 (46-116) IU/L C-Reactive Protein 19.8 H (<=0.9) mg/dL NT-Pro-B Natriuret Pep 2258 H (0-125) pg/mL Total Protein 7.4 (6.4-8.2) g/dL Albumin 3.2 L (3.4-5.0) g/dL 11/25/17 Range/Units 11:18 WBC (4.0-10.2) K/uL RBC (4.33-5.41) M/uL Hgb (13.1-16.8) g/dL Hct (39.0-49.0) % MCV (84.0-98.0) fL MCH (28.2-33.3) pg MCHC (31.7-36.0) g/dL RDW (11.2-14.1) % Plt Count (150-350) K/uL Neut % (Auto) (45.0-80.0) % Lymph % (Auto) (10.0-50.0) % Kings % (Auto) (2.0-14.0) % Eos % (Auto) (0.0-5.0) % Baso % (Auto) (0.0-2.0) % Neut # (Auto) (1.40-7.00) K/uL Lymph # (Auto) (0.50-3.50) K/uL [place] # (Auto) (0.00-1.00) K/uL Eos # (Auto) (0.00-0.50) K/uL Baso # (Auto) (0.00-0.20) K/uL Sodium (136-145) mmol/L Potassium (3.5-5.1) mmol/L Chloride (98-107) mmol/L Carbon Dioxide (21.0-32.0) mmol/L BUN (7-18) mg/dL Creatinine (0.51-1.17) mg/dL Est Cr Clr Drug Dosing mL/min Estimated GFR (MDRD) mL/min Glucose (74-106) mg/dL POC Glucose 159 H (65-110) mg/dl Calcium (8.5-10.1) mg/dL Total Bilirubin (0.2-1.0) mg/dL AST (15-37) U/L ALT (12-78) U/L Alkaline Phosphatase (46-116) IU/L C-Reactive Protein (<=0.9) mg/dL NT-Pro-B Natriuret Pep (0-125) pg/mL Total Protein (6.4-8.2) g/dL Albumin (3.4-5.0) g/dL Med Orders - Current: Current Medications Discontinued Medications Albuterol/Ipratropium (Duoneb 3.0-0.5 Mg/3 Ml) 3 ml NEB Q6HRRT [facility] Arformoterol Tartrate (Brovana) 15 mcg NEB BIDRT [facility] Aspirin (Halfprin) 81 mg PO DAILY [facility] Last Admin: 11/25/17 07:47 Dose: 81 mg Atorvastatin Calcium (Lipitor) 40 mg PO DAILY [facility] [place] Last Admin: 11/25/17 07:46 Dose: 40 mg Bisacodyl (Dulcolax) 5 mg PO DAILY PRN PRN Reason: Constipation Bumetanide (Bumex) 1 mg PO DAILY [facility] Last Admin: 11/25/17 07:47 Dose: 1 mg Calcitriol (Rocaltrol) 0.5 mcg PO Q48H [facility] Last Admin: 11/24/17 08:14 Dose: 0.5 mcg Calcium Acetate (Phoslo) 667 mg PO TIDMEALS [facility] Last Admin: 11/25/17 11:28 Dose: 667 mg Ceftazidime (Fortaz) 1 gm IVPUSH Q12HR [facility] Last Admin: 11/25/17 07:44 Dose: 1 gm Clopidogrel Bisulfate (Plavix) 75 mg PO DAILY [facility] Last Admin: 11/25/17 07:46 Dose: 75 mg Duloxetine HCl (Cymbalta) 30 mg PO BEDTIME [facility] Last Admin: 11/24/17 20:00 Dose: 30 mg Furosemide (Lasix) 40 mg IVPUSH NOW ONE Stop: 11/21/17 23:08 Last Admin: 11/22/17 00:07 Dose: 40 mg Furosemide (Lasix) 40 mg IVPUSH NOW ONE Stop: 11/22/17 06:01 Last Admin: 11/22/17 05:23 Dose: 40 mg Furosemide (Lasix) 40 mg IVPUSH DAILY [facility] Furosemide (Lasix) 40 mg IVPUSH DAILY@1200 [facility] Last Admin: 11/23/17 11:48 Dose: 40 mg Metronidazole 500 mg/ Premix 100 mls @ 100 mls/hr IV Q8H [facility] Last Admin: 11/25/17 11:34 Dose: 100 mls/hr Insulin Aspart (Novolog) 18 unit SUBCUT 0730,1130,1730 [facility] Last Admin: 11/22/17 17:02 Dose: 18 units Insulin Aspart (Novolog) 18 unit SUBCUT DAILY@0800,1200,1800 [facility] Last Admin: 11/25/17 11:29 Dose: 18 units Insulin Detemir (Levemir) 0 unit SUBCUT BEDTIME [facility] Insulin Detemir (Levemir) 38 unit SUBCUT BEDTIME [facility] Last Admin: 11/24/17 20:01 Dose: 38 units Ipratropium [place] (Atrovent) 0.5 mg INH Q4H [facility] Last Admin: 11/23/17 18:33 Dose: 0.5 mg Ipratropium [place] (Atrovent) 0.5 mg INH Q4H PRN PRN Reason: Shortness of Breath Last Admin: 11/24/17 08:22 Dose: 0.5 mg Ipratropium [place] (Atrovent) 0.5 mg NEB QIDRT [facility] Last Admin: 11/25/17 15:26 Dose: 0.5 mg Levothyroxine Sodium (Levothyroxine) 150 mcg PO BEDTIME [facility] Last Admin: 11/24/17 20:01 Dose: 150 mcg Lidocaine (Lidoderm 5%) 700 mg TOP DAILY@1900 [facility] Last Admin: 11/24/17 18:15 Dose: 700 mg Metoprolol Succinate (Toprol Xl) 50 mg PO DAILY [facility] Last Admin: 11/25/17 07:45 Dose: 50 mg Miscellaneous Information (Remove Patch) 1 ea TRDERM DAILY@0700 [facility] Last Admin: 11/25/17 07:48 Dose: 1 ea Senna (Senna) 8.6 mg PO BID PRN PRN Reason: Constipation Sodium Chloride (Saline Flush) 10 ml FLUSH ASDIRECTED PRN PRN Reason: Keep Vein Open Last Admin: 11/25/17 12:41 Dose: 10 ml Sodium Chloride (Saline Flush) 10 ml FLUSH Q12HR [facility] Last Admin: 11/25/17 07:44 Dose: 10 ml Tamsulosin HCl (Flomax) 0.8 mg PO BEDTIME [facility] Last Admin: 11/24/17 20:00 Dose: 0.8 mg - Exam General: Alert, Cooperative HEENT: Mucous Membr. Moist/[place] Neck: Trachea Midline, No JVD Lungs: Normal Respiratory Effort, Decreased Breath Sounds, Crackles Cardiovascular: Regular Rate, Regular Rhythm GI/Abdominal Exam: Soft, Non-Tender, No Distention (Male) Exam: Deferred Back Exam: Normal Inspection Extremities: Non-Tender, Pedal Edema (scant) Skin: Warm, Dry, Intact Neurological: No New Focal Deficit Psy/Mental Status: Alert, Normal Affect, Normal Mood - Problem List & Annotations (1) Congestive heart failure SNOMED Code(s): 19199679 Code(s): I50.9 - HEART FAILURE, UNSPECIFIED Status: Acute Priority: High Qualifiers: Qualified Code(s): I50.9 - Heart failure, unspecified Annotation/Comment:: Increased weight over last 6 months, worsening edema. Worsening SOB, especially over the last few weeks. More pronounced with activity. Lasix therapy planned. Troponin mildly elevated also. Patient denies angina/chest pain. Will continue to monitor Troponin per standard rule out MD orders. (2) Need for comfort care SNOMED Code(s): 210476131 Code(s): LYN8862 - Status: Chronic Priority: High Annotation/Comment: : Comfort Care (3) Renal insufficiency SNOMED Code(s): 635849354, 730107505 Code(s): N28.9 - DISORDER OF KIDNEY AND URETER, UNSPECIFIED Status: Chronic Priority: Medium Annotation/Comment:: Chronic. BUN/Cr elevated. Will continue to monitor for change secondary to planned Lasix therapy. (4) CVA, Cerebrovascular accident SNOMED Code(s): 904552569 Code(s): I63.9 - CEREBRAL INFARCTION, UNSPECIFIED Status: Acute (5) Back pain SNOMED Code(s): 153934593 Code(s): M54.9 - DORSALGIA, UNSPECIFIED Status: Chronic Priority: Low Qualifiers: Back pain location: low back pain Chronicity: chronic Back pain laterality: right Sciatica presence: without sciatica Qualified Code(s): M54.5 - Low back pain; G89.29 - Other chronic pain (6) Coronary artery disease SNOMED Code(s): 92812506 Code(s): I25.10 - ATHSCL HEART DISEASE OF [place] CORONARY ARTERY W/O ANG PCTRS Status: Chronic Priority: Medium Qualifiers: Coronary Disease-Associated Artery/Lesion type: unspecified vessel or lesion type [place] vs. transplanted heart: [place] heart Associated angina: angina presence unspecified Qualified Code(s): I25.10 - Atherosclerotic heart disease of [place] coronary artery without angina pectoris Annotation/Comment:: No chest pain or anginal type symptoms, however note significant cardiac history as above including PVCs, previous atrial fibrillation, etc. Comfort care as above. No new symptoms during hospitalization. (7) Dyslipidemia SNOMED Code(s): 708770488 Code(s): E78.5 - HYPERLIPIDEMIA, UNSPECIFIED Status: Chronic Priority: Medium Annotation/Comment:: Stable. (8) Hypertension SNOMED Code(s): 12108664 Code(s): I10 - ESSENTIAL (PRIMARY) HYPERTENSION Status: Chronic Priority : Medium Qualifiers: Hypertension type: essential hypertension Annotation/Comment:: Stable. (9) Hypothyroidism (acquired) SNOMED Code(s): 507904587 Code(s): E03.9 - HYPOTHYROIDISM, UNSPECIFIED Status: Chronic Priority: Medium Annotation/Comment:: Significantly elevated TSH today with the patient not taking this medication on an empty stomach in the past. 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 sliding scale regimen at this time. (11) Osteoarthritis SNOMED Code(s): 084026483 Code(s): M19.90 - UNSPECIFIED OSTEOARTHRITIS, UNSPECIFIED SITE Status: Chronic Priority: Medium Qualifiers: Osteoarthritis location: multiple joints Osteoarthritis type: primary Qualified Code(s): M15.0 - Primary generalized (osteo)arthritis Annotation/Comment:: Osteoarthritis someone under poor control including with current physical therapy. Note significant persistent low back pain (12) Physical deconditioning SNOMED Code(s): 17734146538152 Code(s): R53.81 - OTHER [place] Status: Chronic Priority: Medium - Problem List Review Problem List Initiated/Reviewed/Updated: Yes - My Orders Last 24 Hours: My Active Orders 11/25/17 05:11 Chest 2V [CR] Routine 11/25/17 07:00 MYCOPLASMA IGM RAPID [MREF] Routine 11/25/17 08:00 Care Management Consult [Consult to Case Management] [CONS] Routine 11/25/17 15:56 Ready for Discharge [RC] PER UNIT ROUTINE 11/25/17 20:00 RT Aerosol Therapy [RC] ASDIRECTED - Plan Plan:: 11/22/17 Courtney Sharpe MD Feels better today. Less short of breath. 11-23-17 Dontae Jones PA-C Affect bright on exam, no respiratory distress. Says breathing much better than on admit. Labs and VS reviewed, no changes made in meds. 11-24-17 Dontae Jones PA-C White count and CRP trended upward this morning, UA positive for UTI, antibiotics started and culture pending. Says feels weak, reassured that PT-OT will be in tomorrow - he says he has done PT before and it doesn't help, encouraged to work with them to preserve strength and condition. Discussed diet , will order nutritional supplements. 11/25/17 Courtney Sharpe MD Still feeling weak and short of breath. No chest pain. Maybe a little bit better. Stable for transfer into swing bed to continue IV antibiotics, PT-OT-
--- NOTE | 2017-11-25 18:11 | PCM.DCSUM1 ---
Discharge Summary - Discharge Data Discharge Date: 11/25/17 Discharge Disposition: DC/Tfer W/I H[facility] To [facility] Condition: Good - Discharge Diagnosis/Problem(s) (1) Congestive heart failure SNOMED Code(s): 67943481 ICD Code: I50.9 - HEART FAILURE, UNSPECIFIED Status: Acute Priority: High Problem Details: Increased weight over last 6 months, worsening edema. Worsening SOB, especially over the last few weeks. More pronounced with activity. Lasix therapy planned. Troponin mildly elevated also. Patient denies angina/chest pain. Will continue to monitor Troponin per standard rule out NC orders. Qualifiers: Qualified Code(s): I50.9 - Heart failure, unspecified (2) Need for comfort care SNOMED Code(s): 917296946 ICD Code: [id number] - Status: Chronic Priority: High Problem Details: Comfort Care (3) Renal insufficiency SNOMED Code(s): 247233581, 024841446 ICD Code: N28.9 - DISORDER OF KIDNEY AND URETER, UNSPECIFIED Status: Chronic Priority: Medium Problem Details: Chronic. BUN/Cr elevated. Will continue to monitor for change secondary to planned Lasix therapy. (4) CVA, Cerebrovascular accident SNOMED Code(s): 877160966 ICD Code: I63.9 - CEREBRAL INFARCTION, UNSPECIFIED Status: Acute (5) Back pain SNOMED Code(s): 114840676 ICD Code: M54.9 - DORSALGIA, UNSPECIFIED Status: Chronic Priority: Low Qualifiers: Back pain location: low back pain Chronicity: chronic Back pain laterality: right Sciatica presence: without sciatica Qualified Code(s): M54.5 - Low back pain; G89.29 - Other chronic pain (6) Coronary artery disease SNOMED Code(s): 20094337 ICD Code: I25.10 - ATHSCL HEART DISEASE OF [place] CORONARY ARTERY W/O ANG PCTRS Status: Chronic Priority: Medium Problem Details: No chest pain or anginal type symptoms, however note significant cardiac history as above including PVCs, previous atrial fibrillation, etc. Comfort care as above. No new symptoms during hospitalization. Qualifiers: Coronary Disease-Associated Artery/Lesion type: unspecified vessel or lesion type [place] vs. transplanted heart: [place] heart Associated angina: angina presence unspecified Qualified Code(s): I25.10 - Atherosclerotic heart disease of [place] coronary artery without angina pectoris (7) Dyslipidemia SNOMED Code(s): 785118532 ICD Code: E78.5 - HYPERLIPIDEMIA, UNSPECIFIED Status: Chronic Priority: Medium Problem Details: Stable. (8) Hypertension SNOMED Code(s): 57699677 ICD Code: I10 - ESSENTIAL (PRIMARY) HYPERTENSION Status: Chronic Priority : Medium Problem Details: Stable. Qualifiers: Hypertension type: essential hypertension (9) Hypothyroidism (acquired) SNOMED Code(s): 413572370 ICD Code: E03.9 - HYPOTHYROIDISM, UNSPECIFIED Status: Chronic Priority: Medium Problem Details: Significantly elevated TSH today with the patient not taking this medication on an empty stomach in the past. Increase thyroid supplement for now with close follow-up in 4 weeks with his regular provider (10) IDDM (insulin dependent diabetes mellitus) SNOMED Code(s): 26233143 ICD Code: E11.9 - TYPE 2 DIABETES MELLITUS WITHOUT COMPLICATIONS; Z79.4 - CRAP SHOOTER (CURRENT) USE OF INSULIN Status: Chronic Priority: Medium Problem Details: Note history of diabetic nephropathy and neuropathy. sliding scale regimen at this time. (11) Osteoarthritis SNOMED Code(s): 306839521 ICD Code: M19.90 - UNSPECIFIED OSTEOARTHRITIS, UNSPECIFIED SITE Status: Chronic Priority: Medium Problem Details: Osteoarthritis someone under poor control including with current physical therapy. Note significant persistent low back pain Qualifiers: Osteoarthritis location: multiple joints Osteoarthritis type: primary Qualified Code(s): M15.0 - Primary generalized (osteo)arthritis (12) Physical deconditioning SNOMED Code(s): 74567178012368 ICD Code: R53.81 - OTHER MALAISE Status: Chronic Priority: Medium - Patient Summary/Data Consults: Consultations 11/21/17 23:02 OT Evaluation and Treatment [CONS] Routine PT Evaluation and Treatment [CONS] Routine 11/25/17 08:00 Care Management Consult [Consult to Case Management] [CONS] Routine - Patient Instructions Diet: Diabetic Diet Activity: As Tolerated Driving: Do Not Drive Showering/Bathing: May Shower - Discharge Plan Home Medications: Home Meds Aspirin [Lo-Dose Aspirin EC] 81 mg PO DAILY 05/02/17 [History] Calcitriol 1 cap PO Q48H 05/02/17 [History] Calcium Acetate [PhosLo] 1 cap PO TIDMEALS 05/02/17 [History] Ipratropium [Atrovent] 1 vial INH Q4H 05/02/17 [History] Ipratropium [Atrovent] 1 vial INH QID PRN 05/02/17 [History] Metoprolol Succinate 50 mg PO DAILY 05/02/17 [History] atorvaSTATin [Lipitor] 40 mg PO DAILY 05/02/17 [History] Insulin Aspart [NovoLOG] 18 unit SUBCUT 0730,1130,1730 #5 pen 05/24/17 [Rx] Lidocaine 5% [Lidoderm 5%] 700 mg TOP DAILY@1900 #30 patch 05/24/17 [Rx] Bumetanide 1 mg PO DAILY 06/30/17 [History] Docusate Sodium/Sennosides [Senna Plus] 1 tab PO BID PRN 06/30/17 [History] Levothyroxine [Synthroid] 150 mcg PO BEDTIME 06/30/17 [History] Insulin Glarg,Human.Rec.Analog [Lantus] 38 mg PO BEDTIME 11/21/17 [History] Tamsulosin [Flomax] 0.8 mg PO BEDTIME 11/21/17 [History] Bisacodyl [Dulcolax] 5 mg PO DAILY PRN tablet 11/25/17 [Rx] Clopidogrel [Plavix] 75 mg PO DAILY tablet 11/25/17 [Rx] DULoxetine [Cymbalta] 30 mg PO BEDTIME cap 11/25/17 [Rx] Ipratropium [Atrovent] 0.5 mg NEB QIDRT neb 11/25/17 [Rx] Premix Bag 1 bag IV Q8H bag 11/25/17 [Rx] Remove Patch 1 ea TRDERM DAILY@0700 each 11/25/17 [Rx] Sennosides [Senna] 8.6 mg PO BID PRN tablet 11/25/17 [Rx] Sodium Chloride 0.9% [Saline Flush] 10 ml FLUSH ASDIRECTED PRN syringe [Rx] Sodium Chloride 0.9% [Saline Flush] 10 ml FLUSH Q12HR syringe 11/25/17 [Rx] cefTAZidime [Fortaz] 1 gm IVPUSH Q12HR vial 11/25/17 [Rx] metroNIDAZOLE/Normal Saline [Flagyl 500 MG in NS 100 ML] 500 mg IV Q8H bag 05/06 [Rx] Forms: ED Department Discharge Referrals: Nicol Banks, [employer] [Primary Care Provider] - - Discharge Summary/Plan Comment DC Time >30 min.: No - Patient Data Vitals - Most Recent: Last Vital Signs Temp 98 F 11/25/17 16:00 Pulse 70 11/25/17 16:00 Resp 18 11/25/17 16:00 BP 112/58 L 11/25/17 16:00 Pulse Ox 95 11/25/17 16:00 Weight - Most Recent: 253 lb 1.6 oz I&O - Last 24 hours: Intake & Output 11/25/17 11/25/17 11/25/17 06:59 14:59 22:59 Intake Total 1440 Output Total 450 300 400 Balance -450 1140 -400 Lab Results - Last 24 hrs: Laboratory Results - last 24 hr 11/24/17 11/24/17 11/24/17 Range/Units 11:06 17:48 20:09 WBC (4.0-10.2) K/uL RBC (4.33-5.41) M/uL Hgb (13.1-16.8) g/dL Hct (39.0-49.0) % MCV (84.0-98.0) fL MCH (28.2-33.3) pg MCHC (31.7-36.0) g/dL RDW (11.2-14.1) % Plt Count (150-350) K/uL Neut % (Auto) (45.0-80.0) % Lymph % (Auto) (10.0-50.0) % Woods % (Auto) (2.0-14.0) % Eos % (Auto) (0.0-5.0) % Baso % (Auto) (0.0-2.0) % Neut # (Auto) (1.40-7.00) K/uL Lymph # (Auto) (0.50-3.50) K/uL [place] # (Auto) (0.00-1.00) K/uL Eos # (Auto) (0.00-0.50) K/uL Baso # (Auto) (0.00-0.20) K/uL Sodium (136-145) mmol/L Potassium (3.5-5.1) mmol/L Chloride (98-107) mmol/L Carbon Dioxide (21.0-32.0) mmol/L BUN (7-18) mg/dL Creatinine (0.51-1.17) mg/dL Est Cr Clr Drug Dosing mL/min Estimated GFR (MDRD) mL/min Glucose (74-106) mg/dL POC Glucose 161 H 156 H 227 H (65-110) mg/dl Calcium (8.5-10.1) mg/dL Total Bilirubin (0.2-1.0) mg/dL AST (15-37) U/L ALT (12-78) U/L Alkaline Phosphatase (46-116) IU/L C-Reactive Protein (<=0.9) mg/dL NT-Pro-B Natriuret Pep (0-125) pg/mL Total Protein (6.4-8.2) g/dL Albumin (3.4-5.0) g/dL 11/25/17 11/25/17 11/25/17 Range/Units 07:00 07:00 07:31 WBC 13.4 H (4.0-10.2) K/uL RBC 4.11 L (4.33-5.41) M/uL Hgb 12.8 L (13.1-16.8) g/dL Hct 39.7 (39.0-49.0) % MCV 96.6 (84.0-98.0) fL MCH 31.1 (28.2-33.3) pg MCHC 32.2 (31.7-36.0) g/dL RDW 13.7 (11.2-14.1) % Plt Count 112 L (150-350) K/uL Neut % (Auto) 82.9 H (45.0-80.0) % Lymph % (Auto) 8.0 L (10.0-50.0) % Woods % (Auto) 7.9 (2.0-14.0) % Eos % (Auto) 1.1 (0.0-5.0) % Baso % (Auto) 0.1 (0.0-2.0) % Neut # (Auto) 11.07 H (1.40-7.00) K/uL Lymph # (Auto) 1.07 (0.50-3.50) K/uL Woods # (Auto) 1.05 H (0.00-1.00) K/uL Eos # (Auto) 0.15 (0.00-0.50) K/uL Baso # (Auto) 0.02 (0.00-0.20) K/uL Sodium 139 (136-145) mmol/L Potassium 4.0 (3.5-5.1) mmol/L Chloride 102 (98-107) mmol/L Carbon Dioxide 26.0 (21.0-32.0) mmol/L BUN 38 H (7-18) mg/dL Creatinine 1.66 H (0.51-1.17) mg/dL Est Cr Clr Drug Dosing 29.29 mL/min Estimated GFR (MDRD) 39 mL/min Glucose 138 H (74-106) mg/dL POC Glucose 132 H (65-110) mg/dl Calcium 9.0 (8.5-10.1) mg/dL Total Bilirubin 1.1 H (0.2-1.0) mg/dL AST 12 L (15-37) U/L ALT 17 (12-78) U/L Alkaline Phosphatase 97 (46-116) IU/L C-Reactive Protein 19.8 H (<=0.9) mg/dL NT-Pro-B Natriuret Pep 2258 H (0-125) pg/mL Total Protein 7.4 (6.4-8.2) g/dL Albumin 3.2 L (3.4-5.0) g/dL 11/25/17 Range/Units 11:18 WBC (4.0-10.2) K/uL RBC (4.33-5.41) M/uL Hgb (13.1-16.8) g/dL Hct (39.0-49.0) % MCV (84.0-98.0) fL MCH (28.2-33.3) pg MCHC (31.7-36.0) g/dL RDW (11.2-14.1) % Plt Count (150-350) K/uL Neut % (Auto) (45.0-80.0) % Lymph % (Auto) (10.0-50.0) % Woods % (Auto) (2.0-14.0) % Eos % (Auto) (0.0-5.0) % Baso % (Auto) (0.0-2.0) % Neut # (Auto) (1.40-7.00) K/uL Lymph # (Auto) (0.50-3.50) K/uL Woods # (Auto) (0.00-1.00) K/uL Eos # (Auto) (0.00-0.50) K/uL Baso # (Auto) (0.00-0.20) K/uL Sodium (136-145) mmol/L Potassium (3.5-5.1) mmol/L Chloride (98-107) mmol/L Carbon Dioxide (21.0-32.0) mmol/L BUN (7-18) mg/dL Creatinine (0.51-1.17) mg/dL Est Cr Clr Drug Dosing mL/min Estimated GFR (MDRD) mL/min Glucose (74-106) mg/dL POC Glucose 159 H (65-110) mg/dl Calcium (8.5-10.1) mg/dL Total Bilirubin (0.2-1.0) mg/dL AST (15-37) U/L ALT (12-78) U/L Alkaline Phosphatase (46-116) IU/L C-Reactive Protein (<=0.9) mg/dL NT-Pro-B Natriuret Pep (0-125) pg/mL Total Protein (6.4-8.2) g/dL Albumin (3.4-5.0) g/dL Med Orders - Current: Current Medications Discontinued Medications Albuterol/Ipratropium (Duoneb 3.0-0.5 Mg/3 Ml) 3 ml NEB Q6HRRT RADHA Arformoterol Tartrate (Brovana) 15 mcg NEB BIDRT [facility] Aspirin (Halfprin) 81 mg PO DAILY [facility] Last Admin: 11/25/17 07:47 Dose: 81 mg Atorvastatin Calcium (Lipitor) 40 mg PO DAILY [facility] Last Admin: 11/25/17 07:46 Dose: 40 mg Bisacodyl (Dulcolax) 5 mg PO DAILY PRN PRN Reason: Constipation Bumetanide (Bumex) 1 mg PO DAILY [facility] Last Admin: 11/25/17 07:47 Dose: 1 mg Calcitriol (Rocaltrol) 0.5 mcg PO Q48H [facility] Last Admin: 11/24/17 08:14 Dose: 0.5 mcg Calcium Acetate (Phoslo) 667 mg PO TIDMEALS [facility] Last Admin: 11/25/17 11:28 Dose: 667 mg Ceftazidime (Fortaz) 1 gm IVPUSH Q12HR [facility] Last Admin: 11/25/17 07:44 Dose: 1 gm Clopidogrel Bisulfate (Plavix) 75 mg PO DAILY [facility] Last Admin: 11/25/17 07:46 Dose: 75 mg Duloxetine HCl (Cymbalta) 30 mg PO BEDTIME [facility] Last Admin: 11/24/17 20:00 Dose: 30 mg Furosemide (Lasix) 40 mg IVPUSH NOW ONE Stop: 11/21/17 23:08 Last Admin: 11/22/17 00:07 Dose: 40 mg Furosemide (Lasix) 40 mg IVPUSH NOW ONE Stop: 11/22/17 06:01 Last Admin: 11/22/17 05:23 Dose: 40 mg Furosemide (Lasix) 40 mg IVPUSH DAILY [facility] Furosemide (Lasix) 40 mg IVPUSH DAILY@1200 [facility] Last Admin: 11/23/17 11:48 Dose: 40 mg Metronidazole 500 mg/ Premix 100 mls @ 100 mls/hr IV Q8H [facility] Last Admin: 11/25/17 11:34 Dose: 100 mls/hr Insulin Aspart (Novolog) 18 unit SUBCUT 0730,1130,1730 [facility] Last Admin: 11/22/17 17:02 Dose: 18 units Insulin Aspart (Novolog) 18 unit SUBCUT DAILY@0800,1200,1800 [facility] Last Admin: 11/25/17 11:29 Dose: 18 units Insulin Detemir (Levemir) 0 unit SUBCUT BEDTIME [facility] Insulin Detemir (Levemir) 38 unit SUBCUT BEDTIME [facility] Last Admin: 11/24/17 20:01 Dose: 38 units Ipratropium [place] (Atrovent) 0.5 mg INH Q4H [facility] Last Admin: 11/23/17 18:33 Dose: 0.5 mg Ipratropium [place] (Atrovent) 0.5 mg INH Q4H PRN PRN Reason: Shortness of Breath Last Admin: 11/24/17 08:22 Dose: 0.5 mg Ipratropium [place] (Atrovent) 0.5 mg NEB QIDRT [facility] Last Admin: 11/25/17 15:26 Dose: 0.5 mg Levothyroxine Sodium (Levothyroxine) 150 mcg PO BEDTIME [facility] Last Admin: 11/24/17 20:01 Dose: 150 mcg Lidocaine (Lidoderm 5%) 700 mg TOP DAILY@1900 [facility] Last Admin: 11/24/17 18:15 Dose: 700 mg Metoprolol Succinate (Toprol Xl) 50 mg PO DAILY [facility] Last Admin: 11/25/17 07:45 Dose: 50 mg Miscellaneous Information (Remove Patch) 1 ea TRDERM DAILY@0700 [facility] Last Admin: 11/25/17 07:48 Dose: 1 ea Senna (Senna) 8.6 mg PO BID PRN PRN Reason: Constipation Sodium Chloride (Saline Flush) 10 ml FLUSH ASDIRECTED PRN PRN Reason: Keep Vein Open Last Admin: 11/25/17 12:41 Dose: 10 ml Sodium Chloride (Saline Flush) 10 ml FLUSH Q12HR [facility] Last Admin: 11/25/17 07:44 Dose: 10 ml Tamsulosin HCl (Flomax) 0.8 mg PO BEDTIME [facility] Last Admin: 11/24/17 20:00 Dose: 0.8 mg
[2017-11-25] MEDS ORDERED: Arformoterol 15 MCG/2 ML Neb Soln NEB SCH (20:00)
== END 2017-11-25 15:56 | disposition swing bed (61) | DRG 292 ==
LOC: LL.ED 20:02 → LL.MS 22:15
PROVIDERS: ADMIT Emergency Medicine; ATTEND Family Medicine
DX: I13.0 Hypertensive heart and chronic kidney disease with heart failure and stage 1 through stage 4 chronic kidney disease, or unspecified chronic kidney disease (principal); I69.354 Hemiplegia and hemiparesis following cerebral infarction affecting left non-dominant side; N39.0 Urinary tract infection, site not specified; I48.91 Unspecified atrial fibrillation; I25.10 Atherosclerotic heart disease of native coronary artery without angina pectoris; E78.00 Pure hypercholesterolemia, unspecified; I42.9 Cardiomyopathy, unspecified; I50.9 Heart failure, unspecified; E11.22 Type 2 diabetes mellitus with diabetic chronic kidney disease; N18.9 Chronic kidney disease, unspecified; E11.42 Type 2 diabetes mellitus with diabetic polyneuropathy; I73.9 Peripheral vascular disease, unspecified; I72.3 Aneurysm of iliac artery; I65.23 Occlusion and stenosis of bilateral carotid arteries; J44.9 Chronic obstructive pulmonary disease, unspecified; J84.10 Pulmonary fibrosis, unspecified; G47.30 Sleep apnea, unspecified; E03.9 Hypothyroidism, unspecified; F41.9 Anxiety disorder, unspecified; F32.9 Major depressive disorder, single episode, unspecified; E11.21 Type 2 diabetes mellitus with diabetic nephropathy; N40.1 Benign prostatic hyperplasia with lower urinary tract symptoms; N39.498 Other specified urinary incontinence; K57.90 Diverticulosis of intestine, part unspecified, without perforation or abscess without bleeding; R15.9 Full incontinence of feces; I44.1 Atrioventricular block, second degree; I49.3 Ventricular premature depolarization; H91.90 Unspecified hearing loss, unspecified ear; H54.7 Unspecified visual loss; H91.13 Presbycusis, bilateral; M19.90 Unspecified osteoarthritis, unspecified site; H35.30 Unspecified macular degeneration; N28.1 Cyst of kidney, acquired; M54.9 Dorsalgia, unspecified; M81.0 Age-related osteoporosis without current pathological fracture; G89.29 Other chronic pain; M54.5 Low back pain; R06.2 Wheezing; R60.9 Edema, unspecified; R06.09 Other forms of dyspnea; E87.70 Fluid overload, unspecified; E78.5 Hyperlipidemia, unspecified; M15.9 Polyosteoarthritis, unspecified; R53.81 Other malaise; R53.1 Weakness; M18.0 Bilateral primary osteoarthritis of first carpometacarpal joints; R53.83 Other fatigue; R74.8 Abnormal levels of other serum enzymes; I25.2 Old myocardial infarction; Z51.5 Encounter for palliative care; Z85.828 Personal history of other malignant neoplasm of skin; Z95.5 Presence of coronary angioplasty implant and graft; Z88.6 Allergy status to analgesic agent; Z91.041 Radiographic dye allergy status; Z79.899 Other long term (current) drug therapy; Z87.442 Personal history of urinary calculi; Z79.82 Long term (current) use of aspirin; Z95.810 Presence of automatic (implantable) cardiac defibrillator; Z87.891 Personal history of nicotine dependence; Z90.49 Acquired absence of other specified parts of digestive tract; Z87.440 Personal history of urinary (tract) infections; Z79.4 Long term (current) use of insulin; Z86.010 Personal history of colon polyps; Z95.1 Presence of aortocoronary bypass graft; Z87.01 Personal history of pneumonia (recurrent); Z85.038 Personal history of other malignant neoplasm of large intestine; Z95.828 Presence of other vascular implants and grafts
CPT/HCPCS: 36000; 36415; 51702; 51798; 71046; 80053; 81001; 82962; 83735; 83880; 84484; 85025; 86140; 86738; 87086; 87088; 87186; 93005; 94640; 97116-GP; 97162-GP; 99285; A9270-GY; J0713; J1815-GY; J1940; J7050

== ENCOUNTER 2017-11-25 15:35 | Inpatient (IN) | payer MEDICARE, MEDICAID ==
[2017-11-25] MEDS ORDERED: Sennosides 8.6 MG Tab PO PRN (15:58)
[2017-11-25] MEDS ORDERED: Bisacodyl 5 MG Tab PO PRN (15:58)
[2017-11-25] MEDS ORDERED: Ipratropium 0.02% 0.5 MG/2.5 ML Neb Soln INH PRN (16:00)
[2017-11-25] MEDS: Ipratropium 0.02% 0.5 MG/2.5 ML Neb Soln NEB SCH ×2 (17:19→19:21)
[2017-11-25] MEDS: Insulin Aspart 100 Units/ML 3 ML Pen SUBCUT SCH (17:30)
[2017-11-25] MEDS: Calcium Acetate 667 MG Cap PO SCH (17:30)
--- NOTE | 2017-11-25 17:54 | PCM.HP ---
H&P History of Present Illness - General Date of Service: 11/25/17 Admit Problem/Dx: Admission Diagnosis/Problem Admission Diagnosis/Problem CHF, Congestive heart failure Source of Information: Patient, Old Records History Limitations: Reports: No Limitations - History of Present Illness Initial Comments - Free Text/Narative: 11/25/17 87 yowm acute CHF, acute exacerbation COPD, UTI treated inpatient, now admitted into swing bed for continued IV antibiotics, respiratory treatments, PT-OT-ST. Improves with: Reports: None Worsens with: Reports: None Associated Symptoms: Reports: No Other Symptoms - Related Data Allergies/Adverse Reactions: Allergies Allergy/AdvReac Type Severity Reaction Status Date / Time morphine Allergy Hives Verified 11/21/17 20:14 contrast dye Allergy Hives Uncoded 11/21/17 20:14 Home Medications: Home Meds Aspirin [Lo-Dose Aspirin EC] 81 mg PO DAILY 05/02/17 [History] Calcitriol 1 cap PO Q48H 05/02/17 [History] Calcium Acetate [PhosLo] 1 cap PO TIDMEALS 05/02/17 [History] Ipratropium [Atrovent] 1 vial INH Q4H 05/02/17 [History] Ipratropium [Atrovent] 1 vial INH QID PRN 05/02/17 [History] Metoprolol Succinate 50 mg PO DAILY 05/02/17 [History] atorvaSTATin [Lipitor] 40 mg PO DAILY 05/02/17 [History] Insulin Aspart [NovoLOG] 18 unit SUBCUT 0730,1130,1730 #5 pen 05/24/17 [Rx] Lidocaine 5% [Lidoderm 5%] 700 mg TOP DAILY@1900 #30 patch 05/24/17 [Rx] Bumetanide 1 mg PO DAILY 06/30/17 [History] Docusate Sodium/Sennosides [Senna Plus] 1 tab PO BID PRN 06/30/17 [History] Levothyroxine [Synthroid] 150 mcg PO BEDTIME 06/30/17 [History] Insulin Glarg,Human.Rec.Analog [Lantus] 38 mg PO BEDTIME 11/21/17 [History] Tamsulosin [Flomax] 0.8 mg PO BEDTIME 11/21/17 [History] Bisacodyl [Dulcolax] 5 mg PO DAILY PRN tablet 11/25/17 [Rx] Clopidogrel [Plavix] 75 mg PO DAILY tablet 11/25/17 [Rx] DULoxetine [Cymbalta] 30 mg PO BEDTIME cap 11/25/17 [Rx] Ipratropium [Atrovent] 0.5 mg NEB QIDRT neb 11/25/17 [Rx] Premix Bag 1 bag IV Q8H bag 11/25/17 [Rx] Remove Patch 1 ea TRDERM DAILY@0700 each 11/25/17 [Rx] Sennosides [Senna] 8.6 mg PO BID PRN tablet 11/25/17 [Rx] Sodium Chloride 0.9% [Saline Flush] 10 ml FLUSH ASDIRECTED PRN syringe [Rx] Sodium Chloride 0.9% [Saline Flush] 10 ml FLUSH Q12HR syringe 11/25/17 [Rx] cefTAZidime [Fortaz] 1 gm IVPUSH Q12HR vial 11/25/17 [Rx] metroNIDAZOLE/Normal Saline [Flagyl 500 MG in NS 100 ML] 500 mg IV Q8H bag 05/06 [Rx] Past Medical History HEENT History: Reports: Cataract, Hard of Hearing, Impaired Vision, Macular Degeneration, Other (See Below) Other HEENT History: Wears glasses, 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 with no hearing aid therapy Cardiovascular History: Reports: Afib, Aneurysm, Arrhythmia, Automatic Implantable Cardioverter Defibrillators, Bypass, CAD, Cardiomyopathy, Heart Failure, High Cholesterol, Hypertension, ID, Pacemaker, PTCA, PVD, Stents, Other (See Below) Other Cardiovascular History: Previous pacemaker and ICD placement 2 as below, coronary artery disease with history of ID in 1991 with cardiac procedures as below, atrial fibrillation, PVCs, 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 with severe cardiomegaly with recurrent CHF, dyslipidemia, bilateral common iliac artery aneurysms by CT scan, severe peripheral vascular disease including in the lower extremities with previous procedure as below and additional mild bilateral carotid occlusive disease Respiratory History: Reports: Bronchitis, Recurrent, COPD, Intubation, Previous , Pneumonia, Recurrent, Pulmonary Fibrosis, Sleep Apnea Gastrointestinal History: Reports: Cholelithiasis, Colon Polyp, Diverticulosis, Fecal Incontinence, Hemorrhoids, Other (See Below) Other Gastrointestinal History: History of colon cancer on 08/21/07 as below with additional multiple tubular adenomas and an additional villous adenoma at 30 cm. Additional recurrent tubular adenomas 2 in the transverse colon and an additional 2 in the cecal region at time of subsequent colonoscopy on 11/19/08 with last colonoscopy in about 2010, moderate nonsymptomatic cholelithiasis by CT scan with no surgery required Genitourinary History: Reports: BPH, Chronic Renal Insuffiency, Diabetic Nephropathy, Renal Calculus, Retention, Urinary, Urinary Incontinence, UTI, Recurrent, Other (See Below) Other Genitourinary History: Severe bilateral nephrolithiasis in the renal pelvis with multiple recurrent episodes of urolithiasis with last episode of right-sided urolithiasis and mild hydronephrosis on 01/22/13 with spontaneous passage, bilateral renal cysts Musculoskeletal History: Reports: Arthritis, Back Pain, Chronic, Fracture, Neck Pain, Chronic, Osteoarthritis, Osteoporosis, Other (See Below) Other Musculoskeletal History: Right ankle fracture in the 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 after colon resection in November 2008 Psychiatric History: Reports: Anxiety, Depression Endocrine/Metabolic History: Reports: Diabetes, Type II, Hypothyroidism, IDDM, Osteoporosis Hematologic History: Reports: Anemia, Blood Transfusion(s), Other (See Below) Other Hematologic History: History of postoperative anemia from CABG with transfusions required Immunologic History: Reports: None Oncologic (Cancer) History: Reports: Basal Cell Carcinoma, Colon, Other (See Below) Other Oncologic History: History of superficially invasive adenocarcinoma of the colon at 32 cm with colon resection as below, probable basal cell carcinoma of the right cheek Dermatologic History: Reports: None - Infectious Disease History Infectious Disease History: Reports: Chicken Pox, Measles, Mumps - Past Surgical History Head Surgeries/Procedures: Reports: None HEENT Surgical History: Reports: Cataract Surgery, Eye Surgery, Laser Surgery, Oral Surgery, Other (See Below) Other HEENT Surgeries/Procedures: Left Cataract surgery on 03/27/03 with previous right cataract surgery, history of YAG treatment for posterior capsule clouding , complete teeth extraction Cardiovascular Surgical History: Reports: AICD, Coronary Artery Bypass, Coronary Artery Stent, Pacer, Percutaneous Transluminal Angioplasty, Vascular Surgery, Other (See Below) Other Cardiovascular Surgeries/Procedures: Initial pacemaker/ICD placement in about 1991 with subsequent repeat pacemaker/AICD placement in about 2009, three- vessel CABG in 1991 with history of PTCA/stent 2 in July 2012, additional right inguinal stent placement secondary to peripheral vascular disease Respiratory Surgical History: Reports: None GI Surgical History: Reports: Colon, Colonoscopy, Polypectomy, Other (See Below) Other GI Surgeries/Procedures: Sigmoid colon resection secondary to colon cancer in November 2008, multiple colonic polyp excisions in 2007, 2008, and 2010 Male Surgical History: Reports: Lithotripsy (ESWL), Renal Calculus, Ureteral Stent, Other (See Below) Other Male Surgeries/Procedures: History of multiple bilateral nephrolithiasis including previous spontaneous passage, stone removal, and lithotripsy Endocrine Surgical History: Reports: None Neurological Surgical History: Reports: None Musculoskeletal Surgical History: Reports: ORIF, Other (See Below) Other Musculoskeletal Surgeries/Procedures:: ORIF of right ankle fracture in about the Oncologic Surgical History: Reports: None Dermatological Surgical History: Reports: Skin Biopsy, Other (See Below) - Past Imaging History Past Imaging History: Reports: JEFFERSON Screen (Positive JEFFERSON screens on 05/30/11, 07/29, and 03/13/07), Bone Scan (Bone scan on 11/14/06), Cardiac Echo ( Echocardiogram on 02/21/13 with ejection fraction of 46%), Carotid US (12/09/06), CAT Scan (CT of the abdomen and pelvis on 01/22/13 and 07/20/11), PFT (PFTs on 15/03), Stress Testing (Low level cardiac stress test on 09/29/12 with previous Cardiolite stress test on 08/07/07 with ejection fraction of 40% and Persantine Cardiolite stress test on 07/26/06 with ejection fraction of 39%), Ultrasound ( Renal ultrasound on 08/20/07), Venous Doppler (Venous Doppler studies of the lower extremities on 05/29/11 with right-sided evaluation on 01/07/07) Social & Family History - Family History HEENT: Reports: None Cardiac: Reports: CAD, Hypertension, ID, Other (See Below) Other Cardiac Family History: Father with ID in his 60s, father with hypertension Respiratory: Reports: COPD, Sleep Apnea, Other (See Below) Other Respiratory Family Hisory: Brother with COPD with history of tobacco use, another brother with COPD and sleep apnea GI: Reports: Colon Polyps, Other (See Below) Other GI Family History: Brother with probable colonic polyps with history of colon cancer as below : Reports: Renal Calculus Other Family History: Multiple family members with urolithiasis OBGYN: Reports: None Musculoskeletal: Reports: Arthritis, Osteoarthritis, Other (See Below) Other Musculoskeletal Family History: Multiple Family members with osteoarthritis Neurological: Reports: CVA, Other (See Below) Other Neurological Family History: Mother with history of CVA in his 60s Endocrine/Metabolic: Reports: Diabetes, type II, IDDM, Other (See Below) Other Endocrine/Metabolic Family History: Brother IDDM Hematologic: Reports: None Immunologic: Reports: None Dermatologic: Reports: None Oncologic: Reports: Colon, Other (See Below) Other Oncologic Family History: Mother with unknown type of fatal cancer in her early 60s, brother with colon cancer in his 60s - Tobacco Use Smoking Status *Q: Former Smoker Years of Tobacco use: 53 Packs/Tins Daily: 1 Used Tobacco, but Quit: Yes Month/Year Tobacco Last Used: unknown Second Hand Smoke Exposure: No - Caffeine Use Caffeine Use: Reports: Coffee, Soda - Alcohol Use Days Per Week of Alcohol Use: 0 Number of Drinks Per Day: 0 Total Drinks Per Week: 0 - Recreational Drug Use Recreational Drug Use: No Drug Use in Last 12 Months: No - Living Situation & Occupation Living situation: Reports: (2016, 2 children), with Family (Son) 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, 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) H&P Review of Systems - Review of Systems: Review Of Systems: See Below General: Reports: Weakness HEENT: Reports: No Symptoms Pulmonary: Reports: Shortness of Breath Cardiovascular: Reports: Dyspnea on Exertion, Orthopnea, PND, Edema Gastrointestinal: Reports: No Symptoms Genitourinary: Reports: Dysuria (improving) Musculoskeletal: Reports: No Symptoms Skin: Reports: No Symptoms Psychiatric: Reports: No Symptoms Neurological: Reports: Weakness Hematologic/Lymphatic: Reports: No Symptoms Immunologic: Reports: No Symptoms Exam - Exam Exam: See Below - Vital Signs Vital Signs: Last Vital Signs Temp 98 F 11/25/17 16:57 Pulse 70 11/25/17 16:57 Resp 17 11/25/17 16:57 BP 112/58 L 11/25/17 16:57 Pulse Ox 95 11/25/17 16:57 Weight: 253 lb - Exam General: Alert, Cooperative HEENT: Hearing Intact, Mucosa Moist & [place] Neck: Trachea Midline Lungs: Normal Respiratory Effort, Decreased Breath Sounds, Crackles Cardiovascular: Irregular Rhythm GI/Abdominal Exam: Soft, Non-Tender, No Distention (Male) Exam: Deferred Rectal (Males) Exam: Deferred Back Exam: Normal Inspection Extremities: Non-Tender, No Pedal Edema Skin: Warm, Dry, Intact Neurological: Normal Speech Neuro Extensive - Mental Status: Alert, Normal Mood/Affect, Memory Intact Psychiatric: Alert, Normal Affect, Normal Mood - Patient Data Lab Results Last 24 hrs: Laboratory Results - last 24 hr 11/25/17 Range/Units 17:10 POC Glucose 143 H (65-110) mg/dl - Problem List (1) COPD (chronic obstructive pulmonary disease) with acute bronchitis SNOMED Code(s): 380523531021410 ICD Code: J44.0 - CHRONIC OBSTRUCTIVE PULMON DISEASE W ACUTE LOWER RESP INFCT ; J20.9 - ACUTE BRONCHITIS, UNSPECIFIED Status: Acute Priority: High Current Visit: Yes (2) Congestive heart failure SNOMED Code(s): 51609393 ICD Code: I50.9 - HEART FAILURE, UNSPECIFIED Status: Acute Priority: High Current Visit: No Problem Details: Increased weight over last 6 months , worsening edema. Worsening SOB, especially over the last few weeks. More pronounced with activity. Lasix therapy planned. Troponin mildly elevated also. Patient denies angina/chest pain. Will continue to monitor Troponin per standard rule out ID orders. Qualifiers: Qualified Code(s): I50.9 - Heart failure, unspecified (3) Thrombocytopenia SNOMED Code(s): 766346422 ICD Code: D69.6 - THROMBOCYTOPENIA, UNSPECIFIED Status: Acute Priority: Medium Current Visit: No Onset Date: 05/02/17 Problem Details: Mild thrombocytopenia likely not relevant at this time. Repeat blood work in the a.m. (4) UTI, Urinary tract infectious disease SNOMED Code(s): 58181064 ICD Code: N39.0 - URINARY TRACT INFECTION, SITE NOT SPECIFIED Status: Acute Current Visit: No (5) Coronary artery disease SNOMED Code(s): 71892870 ICD Code: I25.10 - ATHSCL HEART DISEASE OF [place] CORONARY ARTERY W/O ANG PCTRS Status: Chronic Priority: Medium Current Visit: No Problem Details : No chest pain or anginal type symptoms, however note significant cardiac history as above including PVCs, previous atrial fibrillation, etc. Comfort care as above. No new symptoms during hospitalization. Qualifiers: Coronary Disease-Associated Artery/Lesion type: unspecified vessel or lesion type [place] vs. transplanted heart: [place] heart Associated angina: angina presence unspecified Qualified Code(s): I25.10 - Atherosclerotic heart disease of [place] coronary artery without angina pectoris (6) Dyslipidemia SNOMED Code(s): 170850847 ICD Code: E78.5 - HYPERLIPIDEMIA, UNSPECIFIED Status: Chronic Priority: Medium Current Visit: No Problem Details: Stable. (7) Hypertension SNOMED Code(s): 30976483 ICD Code: I10 - ESSENTIAL (PRIMARY) HYPERTENSION Status: Chronic Priority : Medium Current Visit: No Problem Details: Stable. Qualifiers: Hypertension type: essential hypertension (8) Hypothyroidism (acquired) SNOMED Code(s): 385557437 ICD Code: E03.9 - HYPOTHYROIDISM, UNSPECIFIED Status: Chronic Priority: Medium Current Visit: No Problem Details: Significantly elevated TSH today with the patient not taking this medication on an empty stomach in the past. Increase thyroid supplement for now with close follow-up in 4 weeks with his regular provider (9) IDDM (insulin dependent diabetes mellitus) SNOMED Code(s): 68973164 ICD Code: E11.9 - TYPE 2 DIABETES MELLITUS WITHOUT COMPLICATIONS; Z79.4 - RN COMMUNITY (CURRENT) USE OF INSULIN Status: Chronic Priority: Medium Current Visit: No Problem Details: Note history of diabetic nephropathy and neuropathy. sliding scale regimen at this time. (10) Need for comfort care SNOMED Code(s): 540529359 ICD Code: [id number] - Status: Chronic Priority: High Current Visit: No Problem Details: Comfort Care (11) Osteoarthritis SNOMED Code(s): 496354601 ICD Code: M19.90 - UNSPECIFIED OSTEOARTHRITIS, UNSPECIFIED SITE Status: Chronic Priority: Medium Current Visit: No Problem Details: Osteoarthritis someone under poor control including with current physical therapy. Note significant persistent low back pain Qualifiers: Osteoarthritis location: multiple joints Osteoarthritis type: primary Qualified Code(s): M15.0 - Primary generalized (osteo)arthritis (12) Physical deconditioning SNOMED Code(s): 81092229880585 ICD Code: R53.81 - OTHER [place] Status: Chronic Priority: Medium Current Visit: No (13) Renal insufficiency SNOMED Code(s): 097679652, 883127614 ICD Code: N28.9 - DISORDER OF KIDNEY AND URETER, UNSPECIFIED Status: Chronic Priority: Medium Current Visit: No Problem Details: Chronic. BUN/ Cr elevated. Will continue to monitor for change secondary to planned Lasix therapy. Problem List Initiated/Reviewed/Updated: Yes Orders Last 24hrs: Active Orders 24 hr Category Date Time Status Admission Status [Patient Status] [ADT] Routine ADT 11/25/17 16:05 Active Blood Glucose Check, Bedside [RC] QIDACANDBED Care 11/25/17 15:58 Active Height and Weight [RC] DAILY Care 11/25/17 15:58 Active May Shower [RC] ASDIRECTED Care 11/25/17 15:58 Active Oxygen Therapy [RC] PRN Care 11/25/17 15:58 Active Pulse Oximetry [RC] PRN Care 11/25/17 15:58 Active RT Aerosol Therapy [RC] 08,12,16,20 Care 11/25/17 15:58 Active RT Aerosol Therapy [RC] ASDIRECTED Care 11/25/17 20:00 Active RT Post Treatment Assessment [RC] Click to Edit Care 11/25/17 15:58 Active RT Post Treatment Assessment [RC] Click to Edit Care 11/25/17 15:58 Active RT Pre-Treatment Assessment [RC] Click to Edit Care 11/25/17 15:58 Active RT Pre-Treatment Assessment [RC] Click to Edit Care 11/25/17 15:58 Active Supplement (Dietary) [Dietary Supplements] [RC] Care 11/25/17 15:58 Active TIDMEALS Up With Assistance [RC] ASDIRECTED Care 11/25/17 15:58 Active VTE/DVT Education [RC] PER UNIT ROUTINE Care 11/25/17 15:58 Active Vital Signs [RC] QID Care 11/25/17 15:58 Active Care Management Consult [Consult to Case Management] [ Cons 11/25/17 15:58 Active CONS] Routine Consult to Speech Language Pathology [CREDIT CONTROL CLERK Evaluation Cons 11/26/17 08:00 Active and Treatment] [CONS] Routine OT Evaluation and Treatment [CONS] Routine Cons 11/25/17 15:58 Active PT Evaluation and Treatment [CONS] Routine Cons 11/25/17 15:58 Active Regular Diet [DIET] Diet 11/25/17 Dinner Active Swallowing Function w Video [CR] Routine Exams 11/28/17 08:00 Ordered BASIC METABOLIC PANEL,BMP [CHEM] Routine Lab 11/26/17 05:11 Ordered CBC WITH AUTO DIFF [HEME] Routine Lab 11/26/17 05:11 Ordered CRP [C-REACTIVE PROTEIN] [CHEM] Routine Lab 11/26/17 05:11 Ordered CULTURE SPUTUM + SMEAR [RM] Routine Lab 11/25/17 15:58 Ordered Arformoterol [Brovana] Med 11/25/17 20:00 Active 15 mcg NEB BIDRT Aspirin [Halfprin] Med 11/26/17 08:00 Active 81 mg PO DAILY Bisacodyl [Dulcolax] Med 11/25/17 15:58 Active 5 mg PO DAILY PRN Bumetanide [Bumex] Med 11/26/17 08:00 Active 1 mg PO DAILY Calcitriol [Rocaltrol] Med 11/26/17 08:00 Active 0.5 mcg PO Q48H Calcium Acetate [PhosLo] Med 11/25/17 18:00 Active 667 mg PO TIDMEALS Clopidogrel [Plavix] Med 11/26/17 08:00 Active 75 mg PO DAILY DULoxetine [Cymbalta] Med 11/25/17 20:00 Active 30 mg PO BEDTIME Insulin Aspart [NovoLOG] Med 11/25/17 18:00 Active 18 unit SUBCUT DAILY@0800,1200,1800 Insulin Detemir [Levemir] Med 11/25/17 20:00 Active 38 unit SUBCUT BEDTIME Ipratropium [Atrovent] Med 11/25/17 16:00 Active 0.5 mg INH Q4H PRN Ipratropium [Atrovent] Med 11/25/17 16:00 Active 0.5 mg NEB QIDRT Levothyroxine Med 11/25/17 20:00 Active 150 mcg PO BEDTIME Lidocaine 5% [Lidoderm 5%] Med 11/25/17 19:00 Active 700 mg TOP DAILY@1900 Metoprolol Succinate [Toprol XL] Med 11/26/17 08:00 Active 50 mg PO DAILY Remove Patch Med 11/26/17 07:00 Active 1 ea TRDERM DAILY@0700 Sennosides [Senna] Med 11/25/17 15:58 Active 8.6 mg PO BID PRN Sodium Chloride 0.9% [Saline Flush] Med 11/25/17 15:58 Active 10 ml FLUSH ASDIRECTED PRN Sodium Chloride 0.9% [Saline Flush] Med 11/25/17 20:00 Active 10 ml FLUSH Q12HR Tamsulosin [Flomax] Med 11/25/17 20:00 Active 0.8 mg PO BEDTIME atorvaSTATin [Lipitor] Med 11/26/17 08:00 Active 40 mg PO DAILY cefTAZidime [Fortaz] Med 11/25/17 20:00 Active 1 gm IVPUSH Q12HR metroNIDAZOLE/Normal Saline [Flagyl 500 MG in NS 100 ML Med 11/25/17 20:00 Active ] 500 mg Premix Bag 1 bag IV Q8H CHF Questionnaire [COMM] Routine Oth 11/25/17 15:58 Ordered Comfort Measures [OM.PC] Routine Oth 11/25/17 15:58 Ordered Code Status [Resuscitation Status] Routine Resus Stat 11/25/17 16:09 Ordered Medication Orders Arformoterol Tartrate (Brovana) 15 mcg NEB BIDRT [facility] Aspirin (Halfprin) 81 mg PO DAILY [facility] Atorvastatin Calcium (Lipitor) 40 mg PO DAILY [facility] Bisacodyl (Dulcolax) 5 mg PO DAILY PRN PRN Reason: Constipation Bumetanide (Bumex) 1 mg PO DAILY [facility] Calcitriol (Rocaltrol) 0.5 mcg PO Q48H [facility] Calcium Acetate (Phoslo) 667 mg PO TIDMEALS [facility] Last Admin: 11/25/17 17:30 Dose: 667 mg Ceftazidime (Fortaz) 1 gm IVPUSH Q12HR [facility] Stop: 12/02/17 20:00 Clopidogrel Bisulfate (Plavix) 75 mg PO DAILY [facility] Duloxetine HCl (Cymbalta) 30 mg PO BEDTIME [facility] Metronidazole 500 mg/ Premix 100 mls @ 100 mls/hr IV Q8H [facility] Stop: 12/02/17 20:00 Insulin Aspart (Novolog) 18 unit SUBCUT DAILY@0800,1200,1800 [facility] Last Admin: 11/25/17 17:30 Dose: 18 unit Insulin Detemir (Levemir) 38 unit SUBCUT BEDTIME [facility] Ipratropium [place] (Atrovent) 0.5 mg INH Q4H PRN PRN Reason: Shortness of Breath Ipratropium [place] (Atrovent) 0.5 mg NEB QIDRT [facility] Last Admin: 11/25/17 17:19 Dose: Levothyroxine Sodium (Levothyroxine) 150 mcg PO BEDTIME [facility] Lidocaine (Lidoderm 5%) 700 mg TOP DAILY@1900 [facility] Metoprolol Succinate (Toprol Xl) 50 mg PO DAILY [facility] Miscellaneous Information (Remove Patch) 1 ea TRDERM DAILY@0700 [facility] Senna (Senna) 8.6 mg PO BID PRN PRN Reason: Constipation Last Admin: 11/25/17 17:30 Dose: 8.6 mg Sodium Chloride (Saline Flush) 10 ml FLUSH ASDIRECTED PRN PRN Reason: Keep Vein Open Sodium Chloride (Saline Flush) 10 ml FLUSH Q12HR [facility] Tamsulosin HCl (Flomax) 0.8 mg PO BEDTIME [facility] Assessment/Plan Comment:: 11/25/17 Courtney Sharpe MD Hospitalized for acute CHF, COPD with acute bronchitis, UTI. Now stable for transfer into swing bed for continued IV antibiotics, respiratory treatments, and PT-OT-ST.
[2017-11-25] MEDS: Lidocaine 5% 700 MG Patch TOP SCH (19:17)
[2017-11-25] MEDS: Tamsulosin 0.4 MG Cap.ER PO SCH (19:18)
[2017-11-25] MEDS: Arformoterol 15 MCG/2 ML Neb Soln NEB SCH (19:18)
[2017-11-25] MEDS: DULoxetine 30 MG Cap PO SCH (19:19)
[2017-11-25] MEDS: Levothyroxine 150 MCG Tab PO SCH (19:20)
[2017-11-25] MEDS: metroNIDAZOLE/Normal Saline 500 MG in Premix Bag 1 BAG IV SCH (19:20)
[2017-11-25] MEDS: Insulin Detemir 100 Units/ML 3 ML Pen SUBCUT SCH (19:20)
[2017-11-25] MEDS: cefTAZidime 1 GM Vial IVPUSH SCH (19:20)
[2017-11-25] MEDS: Sodium Chloride 0.9% 10 ML Syringe FLUSH SCH (19:22)
[2017-11-26] MEDS: metroNIDAZOLE/Normal Saline 500 MG in Premix Bag 1 BAG IV SCH ×3 (04:22→20:12)
[2017-11-26] MEDS: Sodium Chloride 0.9% 10 ML Syringe FLUSH PRN ×2 (04:22→13:45)
[2017-11-26] MEDS: Ipratropium 0.02% 0.5 MG/2.5 ML Neb Soln NEB SCH ×4 (07:52→20:12)
[2017-11-26] MEDS: Arformoterol 15 MCG/2 ML Neb Soln NEB SCH ×2 (07:52→20:12)
[2017-11-26] MEDS: Aspirin 81 MG Tab.EC PO SCH (07:53)
[2017-11-26] MEDS: atorvaSTATin 40 MG Tab PO SCH (07:53)
[2017-11-26] MEDS: cefTAZidime 1 GM Vial IVPUSH SCH (07:53)
[2017-11-26] MEDS: Clopidogrel 75 MG Tab PO SCH (07:54)
[2017-11-26] MEDS: Metoprolol Succinate 50 MG Tab.ER PO SCH (07:54)
[2017-11-26] MEDS: Calcium Acetate 667 MG Cap PO SCH ×3 (07:55→17:09)
[2017-11-26] MEDS: Bumetanide 1 MG Tab PO SCH (07:55)
[2017-11-26] MEDS: Insulin Aspart 100 Units/ML 3 ML Pen SUBCUT SCH ×3 (07:56→17:09)
[2017-11-26] MEDS: Sodium Chloride 0.9% 10 ML Syringe FLUSH SCH ×2 (07:56→20:12)
[2017-11-26] MEDS: Calcitriol 0.25 MCG Cap PO SCH (08:13)
[2017-11-26] MEDS: Lidocaine 5% 700 MG Patch TOP SCH (20:11)
[2017-11-26] MEDS: Insulin Detemir 100 Units/ML 3 ML Pen SUBCUT SCH (20:11)
[2017-11-26] MEDS: Levothyroxine 150 MCG Tab PO SCH (20:12)
[2017-11-26] MEDS: Tamsulosin 0.4 MG Cap.ER PO SCH (20:12)
[2017-11-26] MEDS: cefTRIAXone 2 GM Vial IVPUSH SCH (20:12)
[2017-11-26] MEDS: DULoxetine 30 MG Cap PO SCH (20:12)
[2017-11-27] MEDS: metroNIDAZOLE/Normal Saline 500 MG in Premix Bag 1 BAG IV SCH ×3 (03:22→19:22)
[2017-11-27] MEDS: Calcium Acetate 667 MG Cap PO SCH ×3 (08:36→17:15)
[2017-11-27] MEDS: Aspirin 81 MG Tab.EC PO SCH (08:36)
[2017-11-27] MEDS: Metoprolol Succinate 50 MG Tab.ER PO SCH (08:36)
[2017-11-27] MEDS: Clopidogrel 75 MG Tab PO SCH (08:36)
[2017-11-27] MEDS: atorvaSTATin 40 MG Tab PO SCH (08:37)
[2017-11-27] MEDS: Insulin Aspart 100 Units/ML 3 ML Pen SUBCUT SCH ×3 (08:37→17:15)
[2017-11-27] MEDS: Arformoterol 15 MCG/2 ML Neb Soln NEB SCH ×2 (08:37→19:22)
[2017-11-27] MEDS: Ipratropium 0.02% 0.5 MG/2.5 ML Neb Soln NEB SCH ×4 (08:37→19:21)
[2017-11-27] MEDS: Bumetanide 1 MG Tab PO SCH (08:37)
[2017-11-27] MEDS: Sodium Chloride 0.9% 10 ML Syringe FLUSH SCH ×2 (08:39→19:23)
[2017-11-27] MEDS: cefTRIAXone 1 GM in Sodium Chloride 0.9% 100 ML IV SCH ×2 (09:33→19:22)
[2017-11-27] MEDS: cefTRIAXone 2 GM Vial IVPUSH SCH (10:48)
[2017-11-27] MEDS: Sodium Chloride 0.9% 10 ML Syringe FLUSH PRN (11:48)
[2017-11-27] MEDS: Lidocaine 5% 700 MG Patch TOP SCH (19:21)
[2017-11-27] MEDS: DULoxetine 30 MG Cap PO SCH (19:22)
[2017-11-27] MEDS: Tamsulosin 0.4 MG Cap.ER PO SCH (19:22)
[2017-11-27] MEDS: Insulin Detemir 100 Units/ML 3 ML Pen SUBCUT SCH (19:22)
[2017-11-27] MEDS: Levothyroxine 150 MCG Tab PO SCH (19:22)
[2017-11-28] MEDS: metroNIDAZOLE/Normal Saline 500 MG in Premix Bag 1 BAG IV SCH ×3 (03:17→19:52)
[2017-11-28] MEDS: Sodium Chloride 0.9% 10 ML Syringe FLUSH PRN ×2 (03:17→11:45)
[2017-11-28] MEDS: Ipratropium 0.02% 0.5 MG/2.5 ML Neb Soln NEB SCH ×4 (08:16→19:53)
[2017-11-28] MEDS: Clopidogrel 75 MG Tab PO SCH (08:17)
[2017-11-28] MEDS: Aspirin 81 MG Tab.EC PO SCH (08:17)
[2017-11-28] MEDS: Arformoterol 15 MCG/2 ML Neb Soln NEB SCH ×2 (08:17→19:53)
[2017-11-28] MEDS: Calcium Acetate 667 MG Cap PO SCH ×3 (08:17→17:29)
[2017-11-28] MEDS: Bumetanide 1 MG Tab PO SCH (08:17)
[2017-11-28] MEDS: Metoprolol Succinate 50 MG Tab.ER PO SCH (08:17)
[2017-11-28] MEDS: atorvaSTATin 40 MG Tab PO SCH (08:17)
[2017-11-28] MEDS: Sodium Chloride 0.9% 10 ML Syringe FLUSH SCH ×2 (08:18→19:45)
[2017-11-28] MEDS: cefTRIAXone 1 GM in Sodium Chloride 0.9% 100 ML IV SCH ×2 (08:18→19:53)
[2017-11-28] MEDS: Insulin Aspart 100 Units/ML 3 ML Pen SUBCUT SCH ×3 (08:18→17:28)
[2017-11-28] MEDS: Calcitriol 0.25 MCG Cap PO SCH (08:32)
[2017-11-28] MEDS: Lidocaine 5% 700 MG Patch TOP SCH (19:52)
[2017-11-28] MEDS: Levothyroxine 150 MCG Tab PO SCH (19:53)
[2017-11-28] MEDS: DULoxetine 30 MG Cap PO SCH (19:53)
[2017-11-28] MEDS: Insulin Detemir 100 Units/ML 3 ML Pen SUBCUT SCH (19:53)
[2017-11-28] MEDS: Tamsulosin 0.4 MG Cap.ER PO SCH (19:53)
[2017-11-29] MEDS: metroNIDAZOLE/Normal Saline 500 MG in Premix Bag 1 BAG IV SCH ×3 (03:42→20:23)
[2017-11-29] MEDS: Sodium Chloride 0.9% 10 ML Syringe FLUSH PRN (03:42)
[2017-11-29] MEDS: Arformoterol 15 MCG/2 ML Neb Soln NEB SCH ×2 (07:23→19:31)
[2017-11-29] MEDS: Calcium Acetate 667 MG Cap PO SCH ×3 (07:23→17:17)
[2017-11-29] MEDS: atorvaSTATin 40 MG Tab PO SCH (07:23)
[2017-11-29] MEDS: cefTRIAXone 1 GM in Sodium Chloride 0.9% 100 ML IV SCH ×2 (07:23→19:31)
[2017-11-29] MEDS: Bumetanide 1 MG Tab PO SCH (07:23)
[2017-11-29] MEDS: Clopidogrel 75 MG Tab PO SCH (07:23)
[2017-11-29] MEDS: Metoprolol Succinate 50 MG Tab.ER PO SCH (07:24)
[2017-11-29] MEDS: Aspirin 81 MG Tab.EC PO SCH (07:24)
[2017-11-29] MEDS: Insulin Aspart 100 Units/ML 3 ML Pen SUBCUT SCH ×3 (07:24→17:17)
[2017-11-29] MEDS: Ipratropium 0.02% 0.5 MG/2.5 ML Neb Soln NEB SCH ×4 (07:24→19:31)
[2017-11-29] MEDS: Sodium Chloride 0.9% 10 ML Syringe FLUSH SCH ×2 (12:30→20:25)
[2017-11-29] MEDS: Lidocaine 5% 700 MG Patch TOP SCH (19:29)
[2017-11-29] MEDS: DULoxetine 30 MG Cap PO SCH (19:31)
[2017-11-29] MEDS: Levothyroxine 150 MCG Tab PO SCH (19:31)
[2017-11-29] MEDS: Tamsulosin 0.4 MG Cap.ER PO SCH (19:31)
[2017-11-29] MEDS: Insulin Detemir 100 Units/ML 3 ML Pen SUBCUT SCH (20:23)
[2017-11-30] MEDS: metroNIDAZOLE/Normal Saline 500 MG in Premix Bag 1 BAG IV SCH ×3 (03:47→20:12)
[2017-11-30] MEDS: Sodium Chloride 0.9% 10 ML Syringe FLUSH PRN ×2 (03:48→11:23)
[2017-11-30] MEDS: Sodium Chloride 0.9% 10 ML Syringe FLUSH SCH ×2 (07:24→19:34)
[2017-11-30] MEDS: cefTRIAXone 1 GM in Sodium Chloride 0.9% 100 ML IV SCH ×2 (07:25→19:32)
[2017-11-30] MEDS: Ipratropium 0.02% 0.5 MG/2.5 ML Neb Soln NEB SCH ×4 (07:25→19:34)
[2017-11-30] MEDS: Calcium Acetate 667 MG Cap PO SCH ×3 (07:25→17:02)
[2017-11-30] MEDS: Arformoterol 15 MCG/2 ML Neb Soln NEB SCH ×2 (07:25→19:34)
[2017-11-30] MEDS: Aspirin 81 MG Tab.EC PO SCH (07:25)
[2017-11-30] MEDS: Metoprolol Succinate 50 MG Tab.ER PO SCH (07:25)
[2017-11-30] MEDS: Bumetanide 1 MG Tab PO SCH (07:26)
[2017-11-30] MEDS: atorvaSTATin 40 MG Tab PO SCH (07:26)
[2017-11-30] MEDS: Clopidogrel 75 MG Tab PO SCH (07:37)
[2017-11-30] MEDS: Insulin Aspart 100 Units/ML 3 ML Pen SUBCUT SCH ×3 (07:38→17:02)
[2017-11-30] MEDS: Calcitriol 0.25 MCG Cap PO SCH (08:02)
[2017-11-30] MEDS: Lidocaine 5% 700 MG Patch TOP SCH (19:30)
[2017-11-30] MEDS: Levothyroxine 150 MCG Tab PO SCH (19:34)
[2017-11-30] MEDS: Tamsulosin 0.4 MG Cap.ER PO SCH (19:34)
[2017-11-30] MEDS: DULoxetine 30 MG Cap PO SCH (19:34)
[2017-11-30] MEDS: Insulin Detemir 100 Units/ML 3 ML Pen SUBCUT SCH (20:10)
[2017-12-01] MEDS: metroNIDAZOLE/Normal Saline 500 MG in Premix Bag 1 BAG IV SCH ×3 (03:22→20:22)
[2017-12-01] MEDS: Arformoterol 15 MCG/2 ML Neb Soln NEB SCH ×2 (07:21→19:29)
[2017-12-01] MEDS: Ipratropium 0.02% 0.5 MG/2.5 ML Neb Soln NEB SCH ×4 (07:21→19:29)
[2017-12-01] MEDS: Insulin Aspart 100 Units/ML 3 ML Pen SUBCUT SCH ×3 (07:23→17:09)
[2017-12-01] MEDS: cefTRIAXone 1 GM in Sodium Chloride 0.9% 100 ML IV SCH ×2 (07:23→19:29)
[2017-12-01] MEDS: Metoprolol Succinate 50 MG Tab.ER PO SCH (07:24)
[2017-12-01] MEDS: Calcium Acetate 667 MG Cap PO SCH ×3 (07:24→17:09)
[2017-12-01] MEDS: Bumetanide 1 MG Tab PO SCH (07:24)
[2017-12-01] MEDS: atorvaSTATin 40 MG Tab PO SCH (07:24)
[2017-12-01] MEDS: Aspirin 81 MG Tab.EC PO SCH (07:24)
[2017-12-01] MEDS: Clopidogrel 75 MG Tab PO SCH (07:24)
[2017-12-01] MEDS: Sodium Chloride 0.9% 10 ML Syringe FLUSH SCH ×2 (07:29→19:35)
--- NOTE | 2017-12-01 08:49 | PCM.PN ---
- General Info Date of Service: 12/01/17 Admission Dx/Problem (Free Text): Admission Diagnosis/Problem Admission Diagnosis/Problem CHF, Congestive heart failure Functional Status: Reports: Pain Controlled, Tolerating Diet, Ambulating, Incentive Spirometry - Review of Systems General: Reports: Weakness HEENT: Reports: No Symptoms Pulmonary: Reports: No Symptoms Cardiovascular: Reports: Edema (dependent edema in the LE bilat) Gastrointestinal: Reports: No Symptoms Genitourinary: Reports: No Symptoms Musculoskeletal: Reports: Joint Pain Skin: Reports: No Symptoms Neurological: Reports: No Symptoms Psychiatric: Reports: No Symptoms - Patient Data Vitals - Most Recent: Last Vital Signs Temp 97.5 F 11/30/17 07:51 Pulse 69 12/01/17 07:24 Resp 20 11/30/17 07:51 BP 142/78 H 12/01/17 07:24 Pulse Ox 94 L 11/30/17 15:00 Weight - Most Recent: 258 lb 3.2 oz I&O - Last 24 Hours: Intake & Output 11/30/17 12/01/17 12/01/17 22:59 06:59 14:59 Intake Total 800 540 Output Total 450 300 Balance -450 500 540 Lab Results Last 24 Hours: Laboratory Results - last 24 hr 11/30/17 11/30/17 11/30/17 Range/Units 11:17 16:53 20:10 POC Glucose 210 H 162 H 224 H (65-110) mg/dl 12/01/17 Range/Units 07:08 POC Glucose 143 H (65-110) mg/dl Med Orders - Current: Current Medications Arformoterol Tartrate (Brovana) 15 mcg NEB BIDRT REPLACED BY [facility] Last Admin: 12/01/17 07:21 Dose: 15 mcg Aspirin (Halfprin) 81 mg PO DAILY [facility] Last Admin: 12/01/17 07:24 Dose: 81 mg Atorvastatin Calcium (Lipitor) 40 mg PO DAILY REPL[facility] Last Admin: 12/01/17 07:24 Dose: 40 mg Bisacodyl (Dulcolax) 5 mg PO DAILY PRN PRN Reason: Constipation Bumetanide (Bumex) 2 mg PO DAILY [facility]PLAC[facility] Last Admin: 12/01/17 07:24 Dose: 2 mg Calcitriol (Rocaltrol) 0.5 mcg PO Q48H REPLACED BY [facility] Last Admin: 11/30/17 08:02 Dose: 0.5 mcg Calcium Acetate (Phoslo) 667 mg PO TIDMEALS REPLACED BY [facility] Last Admin: 12/01/17 07:24 Dose: 667 mg Clopidogrel Bisulfate (Plavix) 75 mg PO DAILY REPL[facility]ED BY [facility] Last Admin: 12/01/17 07:24 Dose: 75 mg Duloxetine HCl (Cymbalta) 30 mg PO BEDTIME REPLACED BY [facility] Last Admin: 11/30/17 19:34 Dose: 30 mg Metronidazole 500 mg/ Premix 100 mls @ 100 mls/hr IV Q8H REPLACED BY [facility] Stop: 12/02/17 20:00 Last Admin: 12/01/17 03:22 Dose: 100 mls/hr Ceftriaxone Sodium 1 gm/ (Sodium Chloride) 100 mls @ 200 mls/hr IV Q12H REPLACED BY [facility] Stop: 12/02/17 20:01 Last Admin: 12/01/17 07:23 Dose: 200 mls/hr Insulin Aspart (Novolog) 18 unit SUBCUT DAILY@0800,1200,1800 REPLACED [facility] Last Admin: 12/01/17 07:23 Dose: 18 unit Insulin Detemir (Levemir) 38 unit SUBCUT BEDTIME REPLACED [facility] Last Admin: 11/30/17 20:10 Dose: 38 unit Ipratropium [place] (Atrovent) 0.5 mg INH Q4H PRN PRN Reason: Shortness of Breath Last Admin: 11/30/17 16:12 Dose: 0.5 mg Ipratropium [place] (Atrovent) 0.5 mg NEB QIDRT REPLACED BY [facility] Last Admin: 12/01/17 07:21 Dose: 0.5 mg Levothyroxine Sodium (Levothyroxine) 150 mcg PO BEDTIME REPLACED BY [facility] Last Admin: 11/30/17 19:34 Dose: 150 mcg Lidocaine (Lidoderm 5%) 700 mg TOP DAILY@1900 REPLACED [facility] Last Admin: 11/30/17 19:30 Dose: 700 mg Metoprolol Succinate (Toprol Xl) 50 mg PO DAILY [facility] Last Admin: 12/01/17 07:24 Dose: 50 mg Miscellaneous Information (Remove Patch) 1 ea TRDERM DAILY@0700 REPLACED [facility] Last Admin: 12/01/17 07:25 Dose: 1 ea Senna (Senna) 8.6 mg PO BID PRN PRN Reason: Constipation Last Admin: 11/25/17 17:30 Dose: 8.6 mg Sodium Chloride (Saline Flush) 10 ml FLUSH ASDIRECTED PRN PRN Reason: Keep Vein Open Last Admin: 11/30/17 11:23 Dose: 10 ml Sodium Chloride (Saline Flush) 10 ml FLUSH Q12HR REPLACED BY [facility] Last Admin: 12/01/17 07:29 Dose: 10 ml Tamsulosin HCl (Flomax) 0.8 mg PO BEDTIME REPLACED BY [facility] Last Admin: 11/30/17 19:34 Dose: 0.8 mg Discontinued Medications Bumetanide (Bumex) 1 mg PO DAILY REPL[facility]ED BY [facility] Last Admin: 11/28/17 08:17 Dose: 1 mg Ceftazidime (Fortaz) 1 gm IVPUSH Q12HR REPLACED BY [facility] Stop: 12/02/17 20:00 Last Admin: 11/26/17 07:53 Dose: 1 gm Ceftriaxone Sodium (Rocephin) 1 gm IVPUSH Q12HR REPLACED BY [facility] Stop: 12/02/17 20:01 Last Admin: 11/27/17 10:48 Dose: Not Given - Exam General: Alert, Oriented, Cooperative, No Acute Distress HEENT: Mucous Membr. Moist/[place] Neck: Supple, Trachea Midline, No JVD Lungs: Clear to Auscultation, Normal Respiratory Effort Cardiovascular: Regular Rate, Regular Rhythm, Murmurs GI/Abdominal Exam: Normal Bowel Sounds, Soft, Non-Tender Extremities: Pedal Edema (1+ pedal edema bilat) Peripheral Pulses: 1+: Dorsalis Pedis (L), Dorsalis Pedis (R) Skin: Warm, Dry, Intact Neurological: No New Focal Deficit Psy/Mental Status: Alert, Normal Affect, Normal Mood - Problem List Review Problem List Initiated/Reviewed/Updated: Yes - Plan Plan:: 11/25/17 Courtney Sharpe MD Hospitalized for acute CHF, COPD with acute bronchitis, UTI. Now stable for transfer into swing bed for continued IV antibiotics, respiratory treatments, and PT-OT-ST. 12/01/2017 Patient states being weak. Continues with dependent edema in the LE, patient spends most of the day sitting in a chair with his feet not elevated. States getting short of breath with ambulation but not at rest, does have these symptoms at home. Currently on Bumex, however will continue to monitor weights and encouraged the patient to elevate his feet during the day when he is sitting in his chair. Patient will continue in PT/OT and plan to be able to discharge the patient back to home with his son. Nicol Banks,[employer]
[2017-12-01] MEDS: Sodium Chloride 0.9% 10 ML Syringe FLUSH PRN ×2 (11:13→20:27)
[2017-12-01] MEDS: Lidocaine 5% 700 MG Patch TOP SCH (19:27)
[2017-12-01] MEDS: Levothyroxine 150 MCG Tab PO SCH (19:29)
[2017-12-01] MEDS: DULoxetine 30 MG Cap PO SCH (19:29)
[2017-12-01] MEDS: Tamsulosin 0.4 MG Cap.ER PO SCH (19:29)
[2017-12-01] MEDS ORDERED: Acetaminophen 325 MG Tab PO PRN ×2 (20:12→22:05)
[2017-12-01] MEDS: Insulin Detemir 100 Units/ML 3 ML Pen SUBCUT SCH (20:23)
[2017-12-02] MEDS: metroNIDAZOLE/Normal Saline 500 MG in Premix Bag 1 BAG IV SCH ×3 (03:18→20:17)
[2017-12-02] MEDS: Sodium Chloride 0.9% 10 ML Syringe FLUSH PRN ×2 (03:21→12:07)
[2017-12-02] MEDS: Bumetanide 1 MG Tab PO SCH (08:45)
[2017-12-02] MEDS: Clopidogrel 75 MG Tab PO SCH (08:45)
[2017-12-02] MEDS: Metoprolol Succinate 50 MG Tab.ER PO SCH (08:45)
[2017-12-02] MEDS: Calcium Acetate 667 MG Cap PO SCH ×3 (08:45→17:38)
[2017-12-02] MEDS: atorvaSTATin 40 MG Tab PO SCH (08:45)
[2017-12-02] MEDS: Ipratropium 0.02% 0.5 MG/2.5 ML Neb Soln NEB SCH ×4 (08:46→20:16)
[2017-12-02] MEDS: Insulin Aspart 100 Units/ML 3 ML Pen SUBCUT SCH ×3 (08:46→17:38)
[2017-12-02] MEDS: Aspirin 81 MG Tab.EC PO SCH (08:46)
[2017-12-02] MEDS: cefTRIAXone 1 GM in Sodium Chloride 0.9% 100 ML IV SCH (08:46)
[2017-12-02] MEDS: Arformoterol 15 MCG/2 ML Neb Soln NEB SCH ×2 (08:46→20:17)
[2017-12-02] MEDS: Sodium Chloride 0.9% 10 ML Syringe FLUSH SCH ×2 (08:49→20:23)
[2017-12-02] MEDS: Calcitriol 0.25 MCG Cap PO SCH (08:59)
[2017-12-02] MEDS: Azithromycin 250 MG Tab PO SCH (17:38)
[2017-12-02] MEDS: Insulin Detemir 100 Units/ML 3 ML Pen SUBCUT SCH (20:15)
[2017-12-02] MEDS: DULoxetine 30 MG Cap PO SCH (20:17)
[2017-12-02] MEDS: Levothyroxine 150 MCG Tab PO SCH (20:17)
[2017-12-02] MEDS: Meropenem 500 MG SDV IVPUSH SCH (20:17)
[2017-12-02] MEDS: Tamsulosin 0.4 MG Cap.ER PO SCH (20:17)
[2017-12-02] MEDS: Lidocaine 5% 700 MG Patch TOP SCH (20:17)
[2017-12-03] MEDS: metroNIDAZOLE/Normal Saline 500 MG in Premix Bag 1 BAG IV SCH ×3 (04:13→19:59)
[2017-12-03] MEDS: Sodium Chloride 0.9% 10 ML Syringe FLUSH PRN ×2 (04:14→11:44)
[2017-12-03] MEDS: Arformoterol 15 MCG/2 ML Neb Soln NEB SCH ×2 (07:31→19:55)
[2017-12-03] MEDS: Ipratropium 0.02% 0.5 MG/2.5 ML Neb Soln NEB SCH ×4 (07:31→19:55)
[2017-12-03] MEDS: Meropenem 500 MG SDV IVPUSH SCH (07:32)
[2017-12-03] MEDS: Sodium Chloride 0.9% 10 ML Syringe FLUSH SCH ×2 (07:32→20:20)
[2017-12-03] MEDS: Bumetanide 1 MG Tab PO SCH ×2 (07:32→11:42)
[2017-12-03] MEDS: Azithromycin 250 MG Tab PO SCH (07:33)
[2017-12-03] MEDS: Clopidogrel 75 MG Tab PO SCH (07:33)
[2017-12-03] MEDS: atorvaSTATin 40 MG Tab PO SCH (07:33)
[2017-12-03] MEDS: Aspirin 81 MG Tab.EC PO SCH (07:33)
[2017-12-03] MEDS: Insulin Aspart 100 Units/ML 3 ML Pen SUBCUT SCH ×3 (07:33→17:14)
[2017-12-03] MEDS: Metoprolol Succinate 50 MG Tab.ER PO SCH (07:33)
[2017-12-03] MEDS: Calcium Acetate 667 MG Cap PO SCH ×3 (07:33→17:14)
--- NOTE | 2017-12-03 19:10 | PCM.SN ---
- Free Text/Narrative Note: 12/03/17 Courtney Sharpe MD Chest x-ray showing LLL infiltrate and effusion. Change IV antibiotics, add zithromax, continue IV flagyl, increase bumex. Continue to monitor CBC, CRP, and renal function.
[2017-12-03] MEDS: Lidocaine 5% 700 MG Patch TOP SCH (19:55)
[2017-12-03] MEDS: Levothyroxine 150 MCG Tab PO SCH (19:57)
[2017-12-03] MEDS: Tamsulosin 0.4 MG Cap.ER PO SCH (19:58)
[2017-12-03] MEDS: DULoxetine 30 MG Cap PO SCH (19:58)
[2017-12-03] MEDS: Meropenem 1 GM in Sodium Chloride 0.9% 100 ML IV SCH (20:00)
[2017-12-03] MEDS: Insulin Detemir 100 Units/ML 3 ML Pen SUBCUT SCH (20:17)
[2017-12-04] MEDS: metroNIDAZOLE/Normal Saline 500 MG in Premix Bag 1 BAG IV SCH ×3 (04:38→19:15)
[2017-12-04] MEDS: Sodium Chloride 0.9% 10 ML Syringe FLUSH PRN ×4 (04:39→19:30)
[2017-12-04] MEDS: Meropenem 1 GM in Sodium Chloride 0.9% 100 ML IV SCH ×2 (07:58→19:27)
[2017-12-04] MEDS: Bumetanide 1 MG Tab PO SCH ×2 (07:58→11:26)
[2017-12-04] MEDS: Arformoterol 15 MCG/2 ML Neb Soln NEB SCH ×2 (07:58→19:16)
[2017-12-04] MEDS: Ipratropium 0.02% 0.5 MG/2.5 ML Neb Soln NEB SCH ×4 (07:58→19:16)
[2017-12-04] MEDS: Metoprolol Succinate 50 MG Tab.ER PO SCH (07:58)
[2017-12-04] MEDS: Clopidogrel 75 MG Tab PO SCH (07:59)
[2017-12-04] MEDS: Aspirin 81 MG Tab.EC PO SCH (07:59)
[2017-12-04] MEDS: atorvaSTATin 40 MG Tab PO SCH (07:59)
[2017-12-04] MEDS: Azithromycin 250 MG Tab PO SCH (07:59)
[2017-12-04] MEDS: Sodium Chloride 0.9% 10 ML Syringe FLUSH SCH ×2 (07:59→19:22)
[2017-12-04] MEDS: Calcium Acetate 667 MG Cap PO SCH ×3 (07:59→17:26)
[2017-12-04] MEDS: Insulin Aspart 100 Units/ML 3 ML Pen SUBCUT SCH ×3 (08:03→17:26)
[2017-12-04] MEDS: Calcitriol 0.25 MCG Cap PO SCH (08:03)
--- NOTE | 2017-12-04 15:40 | PCM.PN ---
- General Info Date of Service: 12/04/17 Admission Dx/Problem (Free Text): Admission Diagnosis/Problem Admission Diagnosis/Problem CHF, Congestive heart failure Functional Status: Reports: Tolerating Diet, Ambulating - Review of Systems General: Reports: Weakness HEENT: Reports: No Symptoms Pulmonary: Reports: Shortness of Breath (improving) Cardiovascular: Reports: No Symptoms Gastrointestinal: Reports: No Symptoms Genitourinary: Reports: No Symptoms Musculoskeletal: Reports: No Symptoms Skin: Reports: No Symptoms Neurological: Reports: No Symptoms Psychiatric: Reports: No Symptoms - Patient Data Vitals - Most Recent: Last Vital Signs Temp 96.9 F 12/04/17 08:00 Pulse 71 12/04/17 08:00 Resp 16 12/03/17 08:00 BP 134/72 12/04/17 08:00 Pulse Ox 95 12/04/17 08:00 Weight - Most Recent: 254 lb I&O - Last 24 Hours: Intake & Output 12/04/17 12/04/17 12/04/17 06:59 14:59 22:59 Intake Total 300 980 Output Total 400 1000 Balance -100 -20 Lab Results Last 24 Hours: Laboratory Results - last 24 hr 12/03/17 12/03/17 12/04/17 Range/Units 16:36 20:16 07:20 WBC (4.0-10.2) K/uL RBC (4.33-5.41) M/uL Hgb (13.1-16.8) g/dL Hct (39.0-49.0) % MCV (84.0-98.0) fL MCH (28.2-33.3) pg MCHC (31.7-36.0) g/dL RDW (11.2-14.1) % Plt Count (150-350) K/uL Neut % (Auto) (45.0-80.0) % Lymph % (Auto) (10.0-50.0) % Harris % (Auto) (2.0-14.0) % Eos % (Auto) (0.0-5.0) % Baso % (Auto) (0.0-2.0) % Neut # (Auto) (1.40-7.00) K/uL Lymph # (Auto) (0.50-3.50) K/uL Harris # (Auto) (0.00-1.00) K/uL Eos # (Auto) (0.00-0.50) K/uL Baso # (Auto) (0.00-0.20) K/uL Sodium (136-145) mmol/L Potassium (3.5-5.1) mmol/L Chloride (98-107) mmol/L Carbon Dioxide (21.0-32.0) mmol/L BUN (7-18) mg/dL Creatinine (0.51-1.17) mg/dL Est Cr Clr Drug Dosing mL/min Estimated GFR (MDRD) mL/min Glucose (74-106) mg/dL POC Glucose 82 170 H 130 H (65-110) mg/dl Calcium (8.5-10.1) mg/dL C-Reactive Protein (<=0.9) mg/dL NT-Pro-B Natriuret Pep (0-125) pg/mL 12/04/17 12/04/17 12/04/17 Range/Units 07:40 07:40 11:09 WBC 10.2 (4.0-10.2) K/uL RBC 4.42 (4.33-5.41) M/uL Hgb 13.9 (13.1-16.8) g/dL Hct 43.0 (39.0-49.0) % MCV 97.3 (84.0-98.0) fL MCH 31.4 (28.2-33.3) pg MCHC 32.3 (31.7-36.0) g/dL RDW 14.0 (11.2-14.1) % Plt Count 162 (150-350) K/uL Neut % (Auto) 80.5 H (45.0-80.0) % Lymph % (Auto) 10.3 (10.0-50.0) % Harris % (Auto) 4.9 (2.0-14.0) % Eos % (Auto) 3.8 (0.0-5.0) % Baso % (Auto) 0.5 (0.0-2.0) % Neut # (Auto) 8.20 H (1.40-7.00) K/uL Lymph # (Auto) 1.05 (0.50-3.50) K/uL Harris # (Auto) 0.50 (0.00-1.00) K/uL Eos # (Auto) 0.39 (0.00-0.50) K/uL Baso # (Auto) 0.05 (0.00-0.20) K/uL Sodium 143 (136-145) mmol/L Potassium 4.2 (3.5-5.1) mmol/L Chloride 103 (98-107) mmol/L Carbon Dioxide 34.5 H (21.0-32.0) mmol/L BUN 27 H (7-18) mg/dL Creatinine 1.54 H (0.51-1.17) mg/dL Est Cr Clr Drug Dosing 31.58 mL/min Estimated GFR (MDRD) 43 mL/min Glucose 140 H (74-106) mg/dL POC Glucose 205 H (65-110) mg/dl Calcium 9.0 (8.5-10.1) mg/dL C-Reactive Protein 1.2 H (<=0.9) mg/dL NT-Pro-B Natriuret Pep 955 H (0-125) pg/mL Med Orders - Current: Current Medications Acetaminophen (Tylenol) 650 mg PO Q4HR PRN PRN Reason: Pain Arformoterol Tartrate (Brovana) 15 mcg NEB BIDRT [facility] Last Admin: 12/04/17 07:58 Dose: 15 mcg Aspirin (Halfprin) 81 mg PO DAILY [facility] Last Admin: 12/04/17 07:59 Dose: 81 mg Atorvastatin Calcium (Lipitor) 40 mg PO DAILY [facility] Last Admin: 12/04/17 07:59 Dose: 40 mg Azithromycin (Zithromax) 500 mg PO DAILY [facility] Stop: 12/09/17 17:01 Last Admin: 12/04/17 07:59 Dose: 500 mg Bisacodyl (Dulcolax) 5 mg PO DAILY PRN PRN Reason: Constipation Bumetanide (Bumex) 2 mg PO BIDDIURETIC [facility] Last Admin: 12/04/17 11:26 Dose: 2 mg Calcitriol (Rocaltrol) 0.5 mcg PO Q48H [facility] Last Admin: 12/04/17 08:03 Dose: 0.5 mcg Calcium Acetate (Phoslo) 667 mg PO TIDMEALS [facility] Last Admin: 12/04/17 11:26 Dose: 667 mg Clopidogrel Bisulfate (Plavix) 75 mg PO DAILY [facility] Last Admin: 12/04/17 07:59 Dose: 75 mg Duloxetine HCl (Cymbalta) 30 mg PO BEDTIME [facility] Last Admin: 12/03/17 19:58 Dose: 30 mg Metronidazole 500 mg/ Premix 100 mls @ 100 mls/hr IV Q8H [facility] Stop: 12/12/17 20:00 Last Admin: 12/04/17 11:26 Dose: 100 mls/hr Meropenem 1 gm/ Sodium (Chloride) 100 mls @ 200 mls/hr IV Q12HR [facility] Stop: 12/12/17 20:30 Last Admin: 12/04/17 07:58 Dose: 200 mls/hr Insulin Aspart (Novolog) 18 unit SUBCUT DAILY@0800,1200,1800 [facility] Last Admin: 12/04/17 11:27 Dose: 18 unit Insulin Detemir (Levemir) 38 unit SUBCUT BEDTIME [facility] Last Admin: 12/03/17 20:17 Dose: 38 unit Ipratropium [place] (Atrovent) 0.5 mg INH Q4H PRN PRN Reason: Shortness of Breath Last Admin: 11/30/17 16:12 Dose: 0.5 mg Ipratropium [place] (Atrovent) 0.5 mg NEB QIDRT [facility] Last Admin: 12/04/17 11:26 Dose: 0.5 mg Levothyroxine Sodium (Levothyroxine) 150 mcg PO BEDTIME [facility] Last Admin: 12/03/17 19:57 Dose: 150 mcg Lidocaine (Lidoderm 5%) 700 mg TOP DAILY@1900 [facility] Last Admin: 12/03/17 19:55 Dose: 700 mg Metoprolol Succinate (Toprol Xl) 50 mg PO DAILY [facility] Last Admin: 12/04/17 07:58 Dose: 50 mg Miscellaneous Information (Remove Patch) 1 ea TRDERM DAILY@0700 [facility] Last Admin: 12/04/17 07:58 Dose: 1 ea Senna (Senna) 8.6 mg PO BID PRN PRN Reason: Constipation Last Admin: 11/25/17 17:30 Dose: 8.6 mg Sodium Chloride (Saline Flush) 10 ml FLUSH ASDIRECTED PRN PRN Reason: Keep Vein Open Last Admin: 12/04/17 13:12 Dose: 10 ml Sodium Chloride (Saline Flush) 10 ml FLUSH Q12HR [facility] Last Admin: 12/04/17 07:59 Dose: 10 ml Tamsulosin HCl (Flomax) 0.8 mg PO BEDTIME [facility] Last Admin: 12/03/17 19:58 Dose: 0.8 mg Discontinued Medications Acetaminophen (Tylenol) 325 mg PO Q4HR PRN PRN Reason: Pain Last Admin: 12/01/17 20:22 Dose: 325 mg Bumetanide (Bumex) 1 mg PO DAILY [facility] Last Admin: 11/28/17 08:17 Dose: 1 mg Bumetanide (Bumex) 2 mg PO DAILY [facility] Last Admin: 12/02/17 08:45 Dose: 2 mg Ceftazidime (Fortaz) 1 gm IVPUSH Q12HR [facility] Stop: 12/02/17 20:00 Last Admin: 11/26/17 07:53 Dose: 1 gm Ceftriaxone Sodium (Rocephin) 1 gm IVPUSH Q12HR [facility] Stop: 12/02/17 20:01 Last Admin: 11/27/17 10:48 Dose: Not Given Ceftriaxone Sodium 1 gm/ (Sodium Chloride) 100 mls @ 200 mls/hr IV Q12H [facility] Stop: 12/02/17 20:01 Last Admin: 12/02/17 08:46 Dose: 200 mls/hr Meropenem (Merrem) 1,000 mg IVPUSH Q12HR [facility] Stop: 12/12/17 20:01 Last Admin: 12/03/17 07:32 Dose: 1,000 mg - Exam Quality Assessment: Supplemental Oxygen General: Alert, Cooperative, Other (C-PAP) HEENT: Mucous Membr. Moist/[place] Neck: Trachea Midline, No JVD Lungs: Normal Respiratory Effort, Decreased Breath Sounds, Rhonchi Cardiovascular: Irregular Rhythm GI/Abdominal Exam: Soft, Non-Tender, No Distention (Male) Exam: Deferred Back Exam: Normal Inspection Extremities: Non-Tender, Pedal Edema Skin: Warm, Dry, Intact Neurological: No New Focal Deficit Psy/Mental Status: Alert, Normal Affect, Normal Mood - Problem List & Annotations (1) COPD (chronic obstructive pulmonary disease) with acute bronchitis SNOMED Code(s): 005541265967685 Code(s): J44.0 - CHRONIC OBSTRUCTIVE PULMON DISEASE W ACUTE LOWER RESP INFCT ; J20.9 - ACUTE BRONCHITIS, UNSPECIFIED Status: Acute Priority: High Current Visit: Yes (2) Congestive heart failure SNOMED Code(s): 42092751 Code(s): I50.9 - HEART FAILURE, UNSPECIFIED Status: Acute Priority: High Current Visit: No Qualifiers: Qualified Code(s): I50.9 - Heart failure, unspecified Annotation/Comment:: Increased weight over last 6 months, worsening edema. Worsening SOB, especially over the last few weeks. More pronounced with activity. Lasix therapy planned. Troponin mildly elevated also. Patient denies angina/chest pain. Will continue to monitor Troponin per standard rule out ID orders. (3) Thrombocytopenia SNOMED Code(s): 044071879 Code(s): D69.6 - THROMBOCYTOPENIA, UNSPECIFIED Status: Acute Priority: Medium Current Visit: No Onset Date: 05/02/17 Annotation/Comment:: Mild thrombocytopenia likely not relevant at this time. Repeat blood work in the a.m. (4) UTI, Urinary tract infectious disease SNOMED Code(s): 12017284 Code(s): N39.0 - URINARY TRACT INFECTION, SITE NOT SPECIFIED Status: Acute Current Visit: No (5) Coronary artery disease SNOMED Code(s): 26527032 Code(s): I25.10 - ATHSCL HEART DISEASE OF [place] CORONARY ARTERY W/O ANG PCTRS Status: Chronic Priority: Medium Current Visit: No Qualifiers: Coronary Disease-Associated Artery/Lesion type: unspecified vessel or lesion type [place] vs. transplanted heart: [place] heart Associated angina: angina presence unspecified Qualified Code(s): I25.10 - Atherosclerotic heart disease of [place] coronary artery without angina pectoris Annotation/Comment:: No chest pain or anginal type symptoms, however note significant cardiac history as above including PVCs, previous atrial fibrillation, etc. Comfort care as above. No new symptoms during hospitalization. (6) Dyslipidemia SNOMED Code(s): 645409482 Code(s): E78.5 - HYPERLIPIDEMIA, UNSPECIFIED Status: Chronic Priority: Medium Current Visit: No Annotation/Comment:: Stable. (7) Hypertension SNOMED Code(s): 79847512 Code(s): I10 - ESSENTIAL (PRIMARY) HYPERTENSION Status: Chronic Priority : Medium Current Visit: No Qualifiers: Hypertension type: essential hypertension Annotation/Comment:: Stable. (8) Hypothyroidism (acquired) SNOMED Code(s): 300456496 Code(s): E03.9 - HYPOTHYROIDISM, UNSPECIFIED Status: Chronic Priority: Medium Current Visit: No Annotation/Comment:: Significantly elevated TSH today with the patient not taking this medication on an empty stomach in the past. Increase thyroid supplement for now with close follow-up in 4 weeks with his regular provider (9) IDDM (insulin dependent diabetes mellitus) SNOMED Code(s): 48003142 Code(s): E11.9 - TYPE 2 DIABETES MELLITUS WITHOUT COMPLICATIONS; Z79.4 - FDC (CURRENT) USE OF INSULIN Status: Chronic Priority: Medium Current Visit: No Annotation/Comment:: Note history of diabetic nephropathy and neuropathy. sliding scale regimen at this time. (10) Need for comfort care SNOMED Code(s): 956817236 Code(s): QJH4905 - Status: Chronic Priority: High Current Visit: No Annotation/Comment:: Comfort Care (11) Osteoarthritis SNOMED Code(s): 933088301 Code(s): M19.90 - UNSPECIFIED OSTEOARTHRITIS, UNSPECIFIED SITE Status: Chronic Priority: Medium Current Visit: No Qualifiers: Osteoarthritis location: multiple joints Osteoarthritis type: primary Qualified Code(s): M15.0 - Primary generalized (osteo)arthritis Annotation/Comment:: Osteoarthritis someone under poor control including with current physical therapy. Note significant persistent low back pain (12) Physical deconditioning SNOMED Code(s): 63921392511803 Code(s): R53.81 - OTHER [place] Status: Chronic Priority: Medium Current Visit: No (13) Renal insufficiency SNOMED Code(s): 535676452, 814587600 Code(s): N28.9 - DISORDER OF KIDNEY AND URETER, UNSPECIFIED Status: Chronic Priority: Medium Current Visit: No Annotation/Comment:: Chronic. BUN/Cr elevated. Will continue to monitor for change secondary to planned Lasix therapy. - Problem List Review Problem List Initiated/Reviewed/Updated: Yes - My Orders Last 24 Hours: My Active Orders 12/03/17 20:00 Meropenem [Merrem] 1 gm Sodium Chloride 0.9% [Normal Saline] 100 ml IV Q12HR 12/05/17 05:11 Chest 2V [CR] Routine - Plan Plan:: 11/25/17 Courtney Sharpe MD Hospitalized for acute CHF, COPD with acute bronchitis, UTI. Now stable for transfer into swing bed for continued IV antibiotics, respiratory treatments, and PT-OT-ST. 12/01/2017 Patient states being weak. Continues with dependent edema in the LE, patient spends most of the day sitting in a chair with his feet not elevated. States getting short of breath with ambulation but not at rest, does have these symptoms at home. Currently on Bumex, however will continue to monitor weights and encouraged the patient to elevate his feet during the day when he is sitting in his chair. Patient will continue in PT/OT and plan to be able to discharge the patient back to home with his son. Nicol Banks,[employer] 12/04/17 Courtney Sharpe MD Feels a little better. A little bit less short of breath. CXR showing infiltrate (pneumonia). Antibiotics were changed. Continue diuresis with bumex. Continue PT-OT.
[2017-12-04] MEDS: Lidocaine 5% 700 MG Patch TOP SCH (19:10)
[2017-12-04] MEDS: Tamsulosin 0.4 MG Cap.ER PO SCH (19:13)
[2017-12-04] MEDS: Levothyroxine 150 MCG Tab PO SCH (19:14)
[2017-12-04] MEDS: DULoxetine 30 MG Cap PO SCH (19:16)
[2017-12-04] MEDS: Insulin Detemir 100 Units/ML 3 ML Pen SUBCUT SCH (19:17)
[2017-12-05] MEDS: metroNIDAZOLE/Normal Saline 500 MG in Premix Bag 1 BAG IV SCH ×3 (04:41→20:55)
[2017-12-05] MEDS: Sodium Chloride 0.9% 10 ML Syringe FLUSH PRN ×2 (04:42→21:01)
[2017-12-05] MEDS: Arformoterol 15 MCG/2 ML Neb Soln NEB SCH ×2 (07:34→19:36)
[2017-12-05] MEDS: Ipratropium 0.02% 0.5 MG/2.5 ML Neb Soln NEB SCH ×4 (07:34→19:36)
[2017-12-05] MEDS: Azithromycin 250 MG Tab PO SCH (07:35)
[2017-12-05] MEDS: Clopidogrel 75 MG Tab PO SCH (07:35)
[2017-12-05] MEDS: atorvaSTATin 40 MG Tab PO SCH (07:35)
[2017-12-05] MEDS: Aspirin 81 MG Tab.EC PO SCH (07:35)
[2017-12-05] MEDS: Calcium Acetate 667 MG Cap PO SCH ×3 (07:35→17:14)
[2017-12-05] MEDS: Metoprolol Succinate 50 MG Tab.ER PO SCH (07:35)
[2017-12-05] MEDS: Meropenem 1 GM in Sodium Chloride 0.9% 100 ML IV SCH ×2 (07:36→19:35)
[2017-12-05] MEDS: Sodium Chloride 0.9% 10 ML Syringe FLUSH SCH ×2 (07:36→19:38)
[2017-12-05] MEDS: Bumetanide 1 MG Tab PO SCH ×2 (07:36→11:07)
[2017-12-05] MEDS: Insulin Aspart 100 Units/ML 3 ML Pen SUBCUT SCH ×3 (07:36→17:14)
[2017-12-05] MEDS: DULoxetine 30 MG Cap PO SCH (19:36)
[2017-12-05] MEDS: Levothyroxine 150 MCG Tab PO SCH (19:36)
[2017-12-05] MEDS: Tamsulosin 0.4 MG Cap.ER PO SCH (19:36)
[2017-12-05] MEDS: Lidocaine 5% 700 MG Patch TOP SCH (19:44)
[2017-12-05] MEDS: Insulin Detemir 100 Units/ML 3 ML Pen SUBCUT SCH (19:53)
[2017-12-06] MEDS: metroNIDAZOLE/Normal Saline 500 MG in Premix Bag 1 BAG IV SCH ×3 (03:47→20:20)
[2017-12-06] MEDS: Sodium Chloride 0.9% 10 ML Syringe FLUSH PRN ×2 (03:52→11:24)
[2017-12-06] MEDS: Bumetanide 1 MG Tab PO SCH ×2 (07:42→11:24)
[2017-12-06] MEDS: Ipratropium 0.02% 0.5 MG/2.5 ML Neb Soln NEB SCH ×4 (07:42→20:21)
[2017-12-06] MEDS: Arformoterol 15 MCG/2 ML Neb Soln NEB SCH ×2 (07:42→20:21)
[2017-12-06] MEDS: Aspirin 81 MG Tab.EC PO SCH (07:43)
[2017-12-06] MEDS: atorvaSTATin 40 MG Tab PO SCH (07:43)
[2017-12-06] MEDS: Meropenem 1 GM in Sodium Chloride 0.9% 100 ML IV SCH ×2 (07:44→20:19)
[2017-12-06] MEDS: Insulin Aspart 100 Units/ML 3 ML Pen SUBCUT SCH ×3 (07:44→17:03)
[2017-12-06] MEDS: Calcium Acetate 667 MG Cap PO SCH ×3 (07:46→17:03)
[2017-12-06] MEDS: Azithromycin 250 MG Tab PO SCH (07:47)
[2017-12-06] MEDS: Clopidogrel 75 MG Tab PO SCH (07:47)
[2017-12-06] MEDS: Metoprolol Succinate 50 MG Tab.ER PO SCH (07:48)
[2017-12-06] MEDS: Sodium Chloride 0.9% 10 ML Syringe FLUSH SCH ×2 (07:49→20:00)
[2017-12-06] MEDS: Calcitriol 0.25 MCG Cap PO SCH (08:08)
[2017-12-06] MEDS: Lidocaine 5% 700 MG Patch TOP SCH (20:19)
[2017-12-06] MEDS: Tamsulosin 0.4 MG Cap.ER PO SCH (20:20)
[2017-12-06] MEDS: DULoxetine 30 MG Cap PO SCH (20:21)
[2017-12-06] MEDS: Levothyroxine 150 MCG Tab PO SCH (20:21)
[2017-12-06] MEDS: Insulin Detemir 100 Units/ML 3 ML Pen SUBCUT SCH (20:21)
[2017-12-07] MEDS: metroNIDAZOLE/Normal Saline 500 MG in Premix Bag 1 BAG IV SCH ×3 (03:28→19:22)
[2017-12-07] MEDS: Sodium Chloride 0.9% 10 ML Syringe FLUSH PRN ×2 (03:29→11:55)
[2017-12-07] MEDS: Meropenem 1 GM in Sodium Chloride 0.9% 100 ML IV SCH ×2 (07:35→19:22)
[2017-12-07] MEDS: Sodium Chloride 0.9% 10 ML Syringe FLUSH SCH ×2 (07:40→19:24)
[2017-12-07] MEDS: Arformoterol 15 MCG/2 ML Neb Soln NEB SCH ×2 (07:41→19:22)
[2017-12-07] MEDS: Ipratropium 0.02% 0.5 MG/2.5 ML Neb Soln NEB SCH ×4 (07:41→19:22)
[2017-12-07] MEDS: Bumetanide 1 MG Tab PO SCH ×2 (07:42→11:53)
[2017-12-07] MEDS: Azithromycin 250 MG Tab PO SCH (07:43)
[2017-12-07] MEDS: atorvaSTATin 40 MG Tab PO SCH (07:44)
[2017-12-07] MEDS: Clopidogrel 75 MG Tab PO SCH (07:44)
[2017-12-07] MEDS: Calcium Acetate 667 MG Cap PO SCH ×3 (07:44→17:13)
[2017-12-07] MEDS: Aspirin 81 MG Tab.EC PO SCH (07:44)
[2017-12-07] MEDS: Insulin Aspart 100 Units/ML 3 ML Pen SUBCUT SCH ×3 (07:45→17:13)
[2017-12-07] MEDS: Metoprolol Succinate 50 MG Tab.ER PO SCH (07:51)
[2017-12-07] MEDS: Lidocaine 5% 700 MG Patch TOP SCH (19:22)
[2017-12-07] MEDS: Levothyroxine 150 MCG Tab PO SCH (19:23)
[2017-12-07] MEDS: Insulin Detemir 100 Units/ML 3 ML Pen SUBCUT SCH (19:23)
[2017-12-07] MEDS: DULoxetine 30 MG Cap PO SCH (19:23)
[2017-12-07] MEDS: Tamsulosin 0.4 MG Cap.ER PO SCH (19:23)
[2017-12-08] MEDS: metroNIDAZOLE/Normal Saline 500 MG in Premix Bag 1 BAG IV SCH ×3 (03:32→19:05)
[2017-12-08] MEDS: Sodium Chloride 0.9% 10 ML Syringe FLUSH PRN ×2 (03:32→12:25)
[2017-12-08] MEDS: Meropenem 1 GM in Sodium Chloride 0.9% 100 ML IV SCH ×2 (08:26→19:05)
[2017-12-08] MEDS: Sodium Chloride 0.9% 10 ML Syringe FLUSH SCH ×2 (08:27→19:07)
[2017-12-08] MEDS: Calcium Acetate 667 MG Cap PO SCH ×3 (08:28→17:25)
[2017-12-08] MEDS: atorvaSTATin 40 MG Tab PO SCH (08:28)
[2017-12-08] MEDS: Metoprolol Succinate 50 MG Tab.ER PO SCH (08:28)
[2017-12-08] MEDS: Bumetanide 1 MG Tab PO SCH ×2 (08:28→12:24)
[2017-12-08] MEDS: Clopidogrel 75 MG Tab PO SCH (08:29)
[2017-12-08] MEDS: Aspirin 81 MG Tab.EC PO SCH (08:29)
[2017-12-08] MEDS: Ipratropium 0.02% 0.5 MG/2.5 ML Neb Soln NEB SCH ×4 (08:29→19:06)
[2017-12-08] MEDS: Azithromycin 250 MG Tab PO SCH (08:29)
[2017-12-08] MEDS: Arformoterol 15 MCG/2 ML Neb Soln NEB SCH ×2 (08:29→19:05)
[2017-12-08] MEDS: Insulin Aspart 100 Units/ML 3 ML Pen SUBCUT SCH ×3 (08:29→17:26)
[2017-12-08] MEDS: Calcitriol 0.25 MCG Cap PO SCH (09:38)
[2017-12-08] MEDS: Lidocaine 5% 700 MG Patch TOP SCH (19:05)
[2017-12-08] MEDS: Levothyroxine 150 MCG Tab PO SCH (19:06)
[2017-12-08] MEDS: DULoxetine 30 MG Cap PO SCH (19:06)
[2017-12-08] MEDS: Tamsulosin 0.4 MG Cap.ER PO SCH (19:06)
[2017-12-08] MEDS: Insulin Detemir 100 Units/ML 3 ML Pen SUBCUT SCH (19:06)
[2017-12-09] MEDS: metroNIDAZOLE/Normal Saline 500 MG in Premix Bag 1 BAG IV SCH ×3 (03:27→19:36)
[2017-12-09] MEDS: Sodium Chloride 0.9% 10 ML Syringe FLUSH PRN ×2 (03:27→12:45)
[2017-12-09] MEDS: Arformoterol 15 MCG/2 ML Neb Soln NEB SCH ×2 (07:34→19:37)
[2017-12-09] MEDS: Bumetanide 1 MG Tab PO SCH ×2 (07:34→11:34)
[2017-12-09] MEDS: Metoprolol Succinate 50 MG Tab.ER PO SCH (07:34)
[2017-12-09] MEDS: Calcium Acetate 667 MG Cap PO SCH ×3 (07:34→17:14)
[2017-12-09] MEDS: Ipratropium 0.02% 0.5 MG/2.5 ML Neb Soln NEB SCH ×4 (07:34→19:37)
[2017-12-09] MEDS: Azithromycin 250 MG Tab PO SCH (07:37)
[2017-12-09] MEDS: atorvaSTATin 40 MG Tab PO SCH (07:37)
[2017-12-09] MEDS: Aspirin 81 MG Tab.EC PO SCH (07:37)
[2017-12-09] MEDS: Sodium Chloride 0.9% 10 ML Syringe FLUSH SCH ×2 (07:38→19:38)
[2017-12-09] MEDS: Meropenem 1 GM in Sodium Chloride 0.9% 100 ML IV SCH ×2 (07:38→19:36)
[2017-12-09] MEDS: Clopidogrel 75 MG Tab PO SCH (07:38)
[2017-12-09] MEDS: Insulin Aspart 100 Units/ML 3 ML Pen SUBCUT SCH ×3 (07:41→17:14)
[2017-12-09] MEDS: Tamsulosin 0.4 MG Cap.ER PO SCH (19:37)
[2017-12-09] MEDS: DULoxetine 30 MG Cap PO SCH (19:37)
[2017-12-09] MEDS: Lidocaine 5% 700 MG Patch TOP SCH (19:37)
[2017-12-09] MEDS: Levothyroxine 150 MCG Tab PO SCH (19:37)
[2017-12-09] MEDS: Insulin Detemir 100 Units/ML 3 ML Pen SUBCUT SCH (19:50)
[2017-12-10] MEDS: metroNIDAZOLE/Normal Saline 500 MG in Premix Bag 1 BAG IV SCH ×3 (04:24→19:37)
[2017-12-10] MEDS: Sodium Chloride 0.9% 10 ML Syringe FLUSH PRN ×2 (04:27→11:29)
[2017-12-10] MEDS: Metoprolol Succinate 50 MG Tab.ER PO SCH (07:53)
[2017-12-10] MEDS: Arformoterol 15 MCG/2 ML Neb Soln NEB SCH ×2 (07:53→19:37)
[2017-12-10] MEDS: Clopidogrel 75 MG Tab PO SCH (07:53)
[2017-12-10] MEDS: Sodium Chloride 0.9% 10 ML Syringe FLUSH SCH ×2 (07:53→19:40)
[2017-12-10] MEDS: Aspirin 81 MG Tab.EC PO SCH (07:53)
[2017-12-10] MEDS: Ipratropium 0.02% 0.5 MG/2.5 ML Neb Soln NEB SCH ×4 (07:53→19:37)
[2017-12-10] MEDS: Insulin Aspart 100 Units/ML 3 ML Pen SUBCUT SCH ×3 (07:54→17:16)
[2017-12-10] MEDS: Calcium Acetate 667 MG Cap PO SCH ×3 (07:54→17:16)
[2017-12-10] MEDS: atorvaSTATin 40 MG Tab PO SCH (07:54)
[2017-12-10] MEDS: Meropenem 1 GM in Sodium Chloride 0.9% 100 ML IV SCH ×2 (07:54→19:36)
[2017-12-10] MEDS: Bumetanide 1 MG Tab PO SCH ×2 (07:54→11:29)
[2017-12-10] MEDS: Calcitriol 0.25 MCG Cap PO SCH (08:58)
[2017-12-10] MEDS: Tamsulosin 0.4 MG Cap.ER PO SCH (19:35)
[2017-12-10] MEDS: Levothyroxine 150 MCG Tab PO SCH (19:35)
[2017-12-10] MEDS: DULoxetine 30 MG Cap PO SCH (19:36)
[2017-12-10] MEDS: Insulin Detemir 100 Units/ML 3 ML Pen SUBCUT SCH (19:37)
[2017-12-10] MEDS: Lidocaine 5% 700 MG Patch TOP SCH (19:47)
[2017-12-11] MEDS: metroNIDAZOLE/Normal Saline 500 MG in Premix Bag 1 BAG IV SCH (03:14)
[2017-12-11] MEDS: Sodium Chloride 0.9% 10 ML Syringe FLUSH PRN (03:14)
[2017-12-11] MEDS: Ipratropium 0.02% 0.5 MG/2.5 ML Neb Soln NEB SCH ×4 (08:04→19:38)
[2017-12-11] MEDS: Arformoterol 15 MCG/2 ML Neb Soln NEB SCH ×2 (08:05→19:37)
[2017-12-11] MEDS: Bumetanide 1 MG Tab PO SCH ×2 (08:06→11:29)
[2017-12-11] MEDS: atorvaSTATin 40 MG Tab PO SCH (08:07)
[2017-12-11] MEDS: Aspirin 81 MG Tab.EC PO SCH (08:07)
[2017-12-11] MEDS: Meropenem 1 GM in Sodium Chloride 0.9% 100 ML IV SCH ×2 (08:08→19:37)
[2017-12-11] MEDS: Insulin Aspart 100 Units/ML 3 ML Pen SUBCUT SCH ×3 (08:08→17:45)
[2017-12-11] MEDS: Clopidogrel 75 MG Tab PO SCH (08:09)
[2017-12-11] MEDS: Calcium Acetate 667 MG Cap PO SCH ×3 (08:09→17:22)
[2017-12-11] MEDS: Sodium Chloride 0.9% 10 ML Syringe FLUSH SCH ×2 (08:10→19:39)
[2017-12-11] MEDS: Metoprolol Succinate 50 MG Tab.ER PO SCH (08:10)
--- NOTE | 2017-12-11 09:51 | PCM.PN ---
- General Info Date of Service: 12/11/17 Admission Dx/Problem (Free Text): Admission Diagnosis/Problem Admission Diagnosis/Problem CHF, Congestive heart failure Functional Status: Reports: Pain Controlled, Tolerating Diet, Ambulating - Review of Systems General: Reports: Weakness HEENT: Reports: No Symptoms Pulmonary: Reports: No Symptoms Cardiovascular: Reports: No Symptoms Gastrointestinal: Reports: No Symptoms Genitourinary: Reports: No Symptoms Musculoskeletal: Reports: Joint Pain, Joint Swelling Skin: Reports: No Symptoms Neurological: Reports: No Symptoms Psychiatric: Reports: No Symptoms - Patient Data Vitals - Most Recent: Last Vital Signs Temp 96.6 F 12/11/17 08:00 Pulse 89 12/11/17 08:10 Resp 17 12/10/17 08:00 BP 128/76 12/11/17 08:10 Pulse Ox 94 L 12/11/17 08:00 Weight - Most Recent: 248 lb 4.8 oz I&O - Last 24 Hours: Intake & Output 12/10/17 12/11/17 12/11/17 22:59 06:59 14:59 Intake Total 600 100 600 Output Total 600 300 Balance 0 -200 600 Lab Results Last 24 Hours: Laboratory Results - last 24 hr 12/10/17 12/10/17 12/10/17 Range/Units 11:26 19:33 20:30 POC Glucose 191 H 195 H 196 H (65-110) mg/dl 12/11/17 Range/Units 07:24 POC Glucose 112 H (65-110) mg/dl Med Orders - Current: Current Medications Acetaminophen (Tylenol) 650 mg PO Q4HR PRN PRN Reason: Pain Last Admin: 12/08/17 12:44 Dose: 650 mg Arformoterol Tartrate (Brovana) 15 mcg NEB BIDRT [facility] Last Admin: 12/11/17 08:05 Dose: 15 mcg Aspirin (Halfprin) 81 mg PO DAILY [facility] Last Admin: 12/11/17 08:07 Dose: 81 mg Atorvastatin Calcium (Lipitor) 40 mg PO DAILY [facility] Last Admin: 12/11/17 08:07 Dose: 40 mg Bisacodyl (Dulcolax) 5 mg PO DAILY PRN PRN Reason: Constipation Bumetanide (Bumex) 2 mg PO BIDDIURETIC [facility] Last Admin: 12/11/17 08:06 Dose: 2 mg Calcitriol (Rocaltrol) 0.5 mcg PO Q48H [facility] Last Admin: 12/10/17 08:58 Dose: 0.5 mcg Calcium Acetate (Phoslo) 667 mg PO TIDMEALS [facility] Last Admin: 12/11/17 08:09 Dose: 667 mg Clopidogrel Bisulfate (Plavix) 75 mg PO DAILY [facility] Last Admin: 12/11/17 08:09 Dose: 75 mg Duloxetine HCl (Cymbalta) 30 mg PO BEDTIME [facility] Last Admin: 12/10/17 19:36 Dose: 30 mg Metronidazole 500 mg/ Premix 100 mls @ 100 mls/hr IV Q8H [facility] Stop: 12/12/17 20:00 Last Admin: 12/11/17 03:14 Dose: 100 mls/hr Meropenem 1 gm/ Sodium (Chloride) 100 mls @ 200 mls/hr IV Q12HR [facility] Stop: 12/12/17 20:30 Last Admin: 12/11/17 08:08 Dose: 200 mls/hr Insulin Aspart (Novolog) 18 unit SUBCUT DAILY@0800,1200,1800 [facility] Last Admin: 12/11/17 08:08 Dose: 18 unit Insulin Detemir (Levemir) 38 unit SUBCUT BEDTIME [facility] Last Admin: 12/10/17 19:37 Dose: 38 unit Ipratropium [place] (Atrovent) 0.5 mg INH Q4H PRN PRN Reason: Shortness of Breath Last Admin: 11/30/17 16:12 Dose: 0.5 mg Ipratropium [place] (Atrovent) 0.5 mg NEB QIDRT [facility] Last Admin: 12/11/17 08:04 Dose: 0.5 mg Levothyroxine Sodium (Levothyroxine) 150 mcg PO BEDTIME [facility] Last Admin: 12/10/17 19:35 Dose: 150 mcg Lidocaine (Lidoderm 5%) 700 mg TOP DAILY@1900 [facility] Last Admin: 12/10/17 19:47 Dose: 700 mg Metoprolol Succinate (Toprol Xl) 50 mg PO DAILY [facility] Last Admin: 12/11/17 08:10 Dose: 50 mg Miscellaneous Information (Remove Patch) 1 ea TRDERM DAILY@0700 [facility] Last Admin: 12/11/17 08:15 Dose: 1 ea Senna (Senna) 8.6 mg PO BID PRN PRN Reason: Constipation Last Admin: 11/25/17 17:30 Dose: 8.6 mg Sodium Chloride (Saline Flush) 10 ml FLUSH ASDIRECTED PRN PRN Reason: Keep Vein Open Last Admin: 12/11/17 03:14 Dose: 10 ml Sodium Chloride (Saline Flush) 10 ml FLUSH Q12HR [facility] Last Admin: 12/11/17 08:10 Dose: 10 ml Tamsulosin HCl (Flomax) 0.8 mg PO BEDTIME [facility] Last Admin: 12/10/17 19:35 Dose: 0.8 mg Discontinued Medications Acetaminophen (Tylenol) 325 mg PO Q4HR PRN PRN Reason: Pain Last Admin: 12/01/17 20:22 Dose: 325 mg Azithromycin (Zithromax) 500 mg PO DAILY [facility] Stop: 12/09/17 17:01 Last Admin: 12/09/17 07:37 Dose: 500 mg Bumetanide (Bumex) 1 mg PO DAILY [facility] Last Admin: 11/28/17 08:17 Dose: 1 mg Bumetanide (Bumex) 2 mg PO DAILY [facility] Last Admin: 12/02/17 08:45 Dose: 2 mg Ceftazidime (Fortaz) 1 gm IVPUSH Q12HR [facility] Stop: 12/02/17 20:00 Last Admin: 11/26/17 07:53 Dose: 1 gm Ceftriaxone Sodium (Rocephin) 1 gm IVPUSH Q12HR [facility] Stop: 12/02/17 20:01 Last Admin: 11/27/17 10:48 Dose: Not Given Ceftriaxone Sodium 1 gm/ (Sodium Chloride) 100 mls @ 200 mls/hr IV Q12H [facility] Stop: 12/02/17 20:01 Last Admin: 12/02/17 08:46 Dose: 200 mls/hr Meropenem (Merrem) 1,000 mg IVPUSH Q12HR [facility] Stop: 12/12/17 20:01 Last Admin: 12/03/17 07:32 Dose: 1,000 mg - Exam General: Alert, Oriented, Cooperative, No Acute Distress Neck: Supple, Trachea Midline, No JVD Lungs: Normal Respiratory Effort, Decreased Breath Sounds Cardiovascular: Regular Rate, Regular Rhythm, Murmurs GI/Abdominal Exam: Normal Bowel Sounds, Soft, Non-Tender, No Organomegaly, No Distention, No Abnormal Bruit, No Mass Extremities: Normal Inspection, Normal Range of Motion, Non-Tender, Pedal Edema Peripheral Pulses: 1+: Dorsalis Pedis (L), Dorsalis Pedis (R) Skin: Warm, Dry, Intact Neurological: No New Focal Deficit Psy/Mental Status: Alert, Normal Affect, Normal Mood - Problem List Review Problem List Initiated/Reviewed/Updated: Yes - Plan Plan:: 11/25/17 Courtney Sharpe MD Hospitalized for acute CHF, COPD with acute bronchitis, UTI. Now stable for transfer into swing bed for continued IV antibiotics, respiratory treatments, and PT-OT-ST. 12/01/2017 Patient states being weak. Continues with dependent edema in the LE, patient spends most of the day sitting in a chair with his feet not elevated. States getting short of breath with ambulation but not at rest, does have these symptoms at home. Currently on Bumex, however will continue to monitor weights and encouraged the patient to elevate his feet during the day when he is sitting in his chair. Patient will continue in PT/OT and plan to be able to discharge the patient back to home with his son. Nicol Banks CNP 12/04/17 Courtney Sharpe MD Feels a little better. A little bit less short of breath. CXR showing infiltrate (pneumonia). Antibiotics were changed. Continue diuresis with bumex. Continue PT-OT. 12/11/2017 Patient feels pretty good. PLans for OT to do a home evaluation for the patient 12/12/2017. Patient states he uses his cane at home as a walker is too hard to use in his house. Will continue with IV antibiotics. Plan to discharge on 2017. Patient refusing home health services. Nicol Banks CNP
[2017-12-11] MEDS: metroNIDAZOLE 500 MG Tab PO SCH ×2 (11:28→19:38)
[2017-12-11] MEDS: Lidocaine 5% 700 MG Patch TOP SCH (19:37)
[2017-12-11] MEDS: Tamsulosin 0.4 MG Cap.ER PO SCH (19:37)
[2017-12-11] MEDS: Levothyroxine 150 MCG Tab PO SCH (19:38)
[2017-12-11] MEDS: Insulin Detemir 100 Units/ML 3 ML Pen SUBCUT SCH (19:38)
[2017-12-11] MEDS: DULoxetine 30 MG Cap PO SCH (19:38)
[2017-12-12] MEDS: metroNIDAZOLE 500 MG Tab PO SCH ×3 (06:12→19:14)
[2017-12-12] MEDS: Bumetanide 1 MG Tab PO SCH ×2 (07:59→11:37)
[2017-12-12] MEDS: Ipratropium 0.02% 0.5 MG/2.5 ML Neb Soln NEB SCH ×4 (07:59→19:13)
[2017-12-12] MEDS: Arformoterol 15 MCG/2 ML Neb Soln NEB SCH ×2 (07:59→19:13)
[2017-12-12] MEDS: Meropenem 1 GM in Sodium Chloride 0.9% 100 ML IV SCH ×2 (07:59→19:14)
[2017-12-12] MEDS: Calcium Acetate 667 MG Cap PO SCH ×3 (08:00→17:27)
[2017-12-12] MEDS: Clopidogrel 75 MG Tab PO SCH (08:00)
[2017-12-12] MEDS: Aspirin 81 MG Tab.EC PO SCH (08:00)
[2017-12-12] MEDS: Calcitriol 0.25 MCG Cap PO SCH (08:01)
[2017-12-12] MEDS: atorvaSTATin 40 MG Tab PO SCH (08:01)
[2017-12-12] MEDS: Insulin Aspart 100 Units/ML 3 ML Pen SUBCUT SCH ×3 (08:01→17:30)
[2017-12-12] MEDS: Sodium Chloride 0.9% 10 ML Syringe FLUSH SCH ×2 (08:03→19:13)
[2017-12-12] MEDS: Metoprolol Succinate 50 MG Tab.ER PO SCH (08:49)
[2017-12-12] MEDS: Lidocaine 5% 700 MG Patch TOP SCH (19:13)
[2017-12-12] MEDS: Tamsulosin 0.4 MG Cap.ER PO SCH (19:14)
[2017-12-12] MEDS: Levothyroxine 150 MCG Tab PO SCH (19:14)
[2017-12-12] MEDS: DULoxetine 30 MG Cap PO SCH (19:14)
[2017-12-12] MEDS: Insulin Detemir 100 Units/ML 3 ML Pen SUBCUT SCH (19:19)
[2017-12-13] MEDS: metroNIDAZOLE 500 MG Tab PO SCH ×2 (04:18→12:11)
[2017-12-13] MEDS: Ipratropium 0.02% 0.5 MG/2.5 ML Neb Soln NEB SCH ×2 (07:26→12:11)
[2017-12-13] MEDS: Arformoterol 15 MCG/2 ML Neb Soln NEB SCH (07:26)
[2017-12-13] MEDS: atorvaSTATin 40 MG Tab PO SCH (07:27)
[2017-12-13] MEDS: Aspirin 81 MG Tab.EC PO SCH (07:27)
[2017-12-13] MEDS: Bumetanide 1 MG Tab PO SCH ×2 (07:27→12:11)
[2017-12-13] MEDS: Metoprolol Succinate 50 MG Tab.ER PO SCH (07:27)
[2017-12-13] MEDS: Clopidogrel 75 MG Tab PO SCH (07:27)
[2017-12-13] MEDS: Calcium Acetate 667 MG Cap PO SCH ×2 (07:27→12:11)
[2017-12-13] MEDS: Insulin Aspart 100 Units/ML 3 ML Pen SUBCUT SCH ×2 (07:31→12:11)
[2017-12-13 07:32] VITALS: BP 135/75
--- NOTE | 2017-12-13 11:02 | PCM.PN ---
- General Info Date of Service: 12/13/17 Admission Dx/Problem (Free Text): Admission Diagnosis/Problem Admission Diagnosis/Problem CHF, Congestive heart failure Functional Status: Reports: Pain Controlled, Tolerating Diet - Review of Systems General: Reports: Weakness HEENT: Reports: No Symptoms Pulmonary: Reports: No Symptoms Cardiovascular: Reports: No Symptoms Gastrointestinal: Reports: No Symptoms Genitourinary: Reports: No Symptoms Musculoskeletal: Reports: No Symptoms Skin: Reports: No Symptoms Neurological: Reports: No Symptoms Psychiatric: Reports: No Symptoms - Patient Data Vitals - Most Recent: Last Vital Signs Temp 97.4 F 12/13/17 08:00 Pulse 102 H 12/13/17 08:00 Resp 18 12/13/17 08:00 BP 135/75 12/13/17 08:00 Pulse Ox 96 12/13/17 08:00 Weight - Most Recent: 249 lb 1 oz I&O - Last 24 Hours: Intake & Output 12/12/17 12/13/17 12/13/17 22:59 06:59 14:59 Intake Total 1900 600 Output Total 200 300 625 Balance 1700 -300 -25 Lab Results Last 24 Hours: Laboratory Results - last 24 hr 12/12/17 12/12/17 12/12/17 Range/Units 11:24 17:07 19:19 POC Glucose 157 H 78 107 (65-110) mg/dl 12/13/17 Range/Units 07:15 POC Glucose 153 H (65-110) mg/dl Med Orders - Current: Current Medications Acetaminophen (Tylenol) 650 mg PO Q4HR PRN PRN Reason: Pain Last Admin: 12/08/17 12:44 Dose: 650 mg Arformoterol Tartrate (Brovana) 15 mcg NEB BIDRT [facility] Last Admin: 12/13/17 07:26 Dose: 15 mcg Aspirin (Halfprin) 81 mg PO DAILY [facility] Last Admin: 12/13/17 07:27 Dose: 81 mg Atorvastatin Calcium (Lipitor) 40 mg PO DAILY [facility] Last Admin: 12/13/17 07:27 Dose: 40 mg Bisacodyl (Dulcolax) 5 mg PO DAILY PRN PRN Reason: Constipation Bumetanide (Bumex) 2 mg PO BIDDIURETIC [facility] Last Admin: 12/13/17 07:27 Dose: 2 mg Calcitriol (Rocaltrol) 0.5 mcg PO Q48H [facility] Last Admin: 12/12/17 08:01 Dose: 0.5 mcg Calcium Acetate (Phoslo) 667 mg PO TIDMEALS [facility] Last Admin: 12/13/17 07:27 Dose: 667 mg Clopidogrel Bisulfate (Plavix) 75 mg PO DAILY [facility] Last Admin: 12/13/17 07:27 Dose: 75 mg Duloxetine HCl (Cymbalta) 30 mg PO BEDTIME [facility] Last Admin: 12/12/17 19:14 Dose: 30 mg Insulin Aspart (Novolog) 18 unit SUBCUT DAILY@0800,1200,1800 [facility] Last Admin: 12/13/17 07:31 Dose: 18 unit Insulin Detemir (Levemir) 38 unit SUBCUT BEDTIME [facility] Last Admin: 12/12/17 19:19 Dose: 38 unit Ipratropium [place] (Atrovent) 0.5 mg INH Q4H PRN PRN Reason: Shortness of Breath Last Admin: 11/30/17 16:12 Dose: 0.5 mg Ipratropium [place] (Atrovent) 0.5 mg NEB QIDRT [facility] Last Admin: 12/13/17 07:26 Dose: 0.5 mg Levothyroxine Sodium (Levothyroxine) 150 mcg PO BEDTIME [facility] Last Admin: 12/12/17 19:14 Dose: 150 mcg Lidocaine (Lidoderm 5%) 700 mg TOP DAILY@1900 [facility] Last Admin: 12/12/17 19:13 Dose: 700 mg Metoprolol Succinate (Toprol Xl) 50 mg PO DAILY [facility] Last Admin: 12/13/17 07:27 Dose: 50 mg Metronidazole (Flagyl) 500 mg PO Q8H [facility] Last Admin: 12/13/17 04:18 Dose: 500 mg Miscellaneous Information (Remove Patch) 1 ea TRDERM DAILY@0700 [facility] Last Admin: 12/13/17 07:32 Dose: 1 ea Senna (Senna) 8.6 mg PO BID PRN PRN Reason: Constipation Last Admin: 11/25/17 17:30 Dose: 8.6 mg Sodium Chloride (Saline Flush) 10 ml FLUSH ASDIRECTED PRN PRN Reason: Keep Vein Open Last Admin: 12/11/17 03:14 Dose: 10 ml Sodium Chloride (Saline Flush) 10 ml FLUSH Q12HR [facility] Last Admin: 12/12/17 19:13 Dose: 10 ml Tamsulosin HCl (Flomax) 0.8 mg PO BEDTIME [facility] Last Admin: 12/12/17 19:14 Dose: 0.8 mg Discontinued Medications Acetaminophen (Tylenol) 325 mg PO Q4HR PRN PRN Reason: Pain Last Admin: 12/01/17 20:22 Dose: 325 mg Azithromycin (Zithromax) 500 mg PO DAILY [facility] Stop: 12/09/17 17:01 Last Admin: 12/09/17 07:37 Dose: 500 mg Bumetanide (Bumex) 1 mg PO DAILY [facility] Last Admin: 11/28/17 08:17 Dose: 1 mg Bumetanide (Bumex) 2 mg PO DAILY [facility] Last Admin: 12/02/17 08:45 Dose: 2 mg Ceftazidime (Fortaz) 1 gm IVPUSH Q12HR [facility] Stop: 12/02/17 20:00 Last Admin: 11/26/17 07:53 Dose: 1 gm Ceftriaxone Sodium (Rocephin) 1 gm IVPUSH Q12HR [facility] Stop: 12/02/17 20:01 Last Admin: 11/27/17 10:48 Dose: Not Given Metronidazole 500 mg/ Premix 100 mls @ 100 mls/hr IV Q8H [facility] Stop: 12/12/17 20:00 Last Admin: 12/11/17 03:14 Dose: 100 mls/hr Ceftriaxone Sodium 1 gm/ (Sodium Chloride) 100 mls @ 200 mls/hr IV Q12H [facility] Stop: 12/02/17 20:01 Last Admin: 12/02/17 08:46 Dose: 200 mls/hr Meropenem 1 gm/ Sodium (Chloride) 100 mls @ 200 mls/hr IV Q12HR [facility] Stop: 12/12/17 20:30 Last Admin: 12/12/17 19:14 Dose: 200 mls/hr Meropenem (Merrem) 1,000 mg IVPUSH Q12HR [facility] Stop: 12/12/17 20:01 Last Admin: 12/03/17 07:32 Dose: 1,000 mg - Exam General: Alert, Oriented, Cooperative, No Acute Distress HEENT: Pupils Equal, Pupils Reactive, EOMI, Mucous Membr. Moist/[place] Neck: Supple, Trachea Midline, No JVD Lungs: Normal Respiratory Effort, Decreased Breath Sounds Cardiovascular: Regular Rate, Regular Rhythm, Murmurs GI/Abdominal Exam: Normal Bowel Sounds, Soft, Non-Tender, No Organomegaly, No Distention, No Abnormal Bruit Back Exam: Normal Inspection Extremities: Normal Inspection, Pedal Edema (2+ pedal edema bilat) Peripheral Pulses: 1+: Dorsalis Pedis (L), Dorsalis Pedis (R) Skin: Warm, Dry, Intact Neurological: No New Focal Deficit Psy/Mental Status: Alert, Normal Affect, Normal Mood - Problem List Review Problem List Initiated/Reviewed/Updated: Yes - Plan Plan:: 11/25/17 Courtney Sharpe MD Hospitalized for acute CHF, COPD with acute bronchitis, UTI. Now stable for transfer into swing bed for continued IV antibiotics, respiratory treatments, and PT-OT-ST. 12/01/2017 Patient states being weak. Continues with dependent edema in the LE, patient spends most of the day sitting in a chair with his feet not elevated. States getting short of breath with ambulation but not at rest, does have these symptoms at home. Currently on Bumex, however will continue to monitor weights and encouraged the patient to elevate his feet during the day when he is sitting in his chair. Patient will continue in PT/OT and plan to be able to discharge the patient back to home with his son. Nicol Banks CNP 12/04/17 Courtney Sharpe MD Feels a little better. A little bit less short of breath. CXR showing infiltrate (pneumonia). Antibiotics were changed. Continue diuresis with bumex. Continue PT-OT. 12/11/2017 Patient feels pretty good. PLans for OT to do a home evaluation for the patient 12/12/2017. Patient states he uses his cane at home as a walker is too hard to use in his house. Will continue with IV antibiotics. Plan to discharge on 2017. Patient refusing home health services. Nicol Banks CNP 12/13/2017 Patient ready to be discharged to home, patient refusing home health services. Will continue same medications as patient was on in swingbed. Patient has follow up appointment already at the clinic. Patient instructed to weigh himself daily. Nicol Banks CNP
--- NOTE | 2017-12-13 11:08 | PCM.DCSUM1 ---
Discharge Summary - Hospital Course Free Text/Narrative:: Patient was admitted to [facility] after being in the inpatient stay for CHF and pneumonia. Patient needing further IV antibiotics, medication adjustments for CHF and PT/OT - Discharge Data Discharge Date: 12/13/17 Discharge Disposition: Home, Self-Care 01 Condition: Fair - Patient Summary/Data Consults: Consultations 11/25/17 15:58 Care Management Consult [Consult to Case Management] [CONS] Routine OT Evaluation and Treatment [CONS] Routine PT Evaluation and Treatment [CONS] Routine 11/26/17 08:00 Consult to Speech Language Pathology [[facility] Evaluation and Treatment] [CONS] Routine - Patient Instructions Diet: Diabetic Diet Activity: Elevate Extremity Showering/Bathing: December Shower Notify Provider of: Fever, Swelling and Redness Other/Special Instructions: Patient to follow up at [facility] in 2 weeks - Discharge Plan Prescriptions/Med Rec: Bumetanide [Bumex] 2 mg PO BIDDIURETIC 90 Days #120 tablet Lidocaine 5% [Lidoderm 5%] 700 mg TOP DAILY@1900 30 Days patch Home Medications: Home Meds Aspirin [Lo-Dose Aspirin EC] 81 mg PO DAILY 05/02/17 [History] Calcitriol 1 cap PO Q48H 05/02/17 [History] Ipratropium [Atrovent] 1 vial INH Q4H 05/02/17 [History] Ipratropium [Atrovent] 1 vial INH QID PRN 05/02/17 [History] atorvaSTATin [Lipitor] 40 mg PO DAILY 05/02/17 [History] Docusate Sodium/Sennosides [Senna Plus] 1 tab PO BID PRN 06/30/17 [History] Bisacodyl [Dulcolax] 5 mg PO DAILY PRN tablet 11/25/17 [Rx] Clopidogrel [Plavix] 75 mg PO DAILY tablet 11/25/17 [Rx] DULoxetine [Cymbalta] 30 mg PO BEDTIME cap 11/25/17 [Rx] Ipratropium [Atrovent] 0.5 mg NEB QIDRT neb 11/25/17 [Rx] Premix Bag 1 bag IV Q8H bag 11/25/17 [Rx] Remove Patch 1 ea TRDERM DAILY@0700 each 11/25/17 [Rx] Sennosides [Senna] 8.6 mg PO BID PRN tablet 11/25/17 [Rx] Sodium Chloride 0.9% [Saline Flush] 10 ml FLUSH ASDIRECTED PRN syringe [Rx] Sodium Chloride 0.9% [Saline Flush] 10 ml FLUSH Q12HR syringe 11/25/17 [Rx] cefTAZidime [Fortaz] 1 gm IVPUSH Q12HR vial 11/25/17 [Rx] metroNIDAZOLE/Normal Saline [Flagyl 500 MG in NS 100 ML] 500 mg IV Q8H bag 05/06 [Rx] Acetaminophen [Tylenol] 650 mg PO Q4HR PRN tablet 12/13/17 [Rx] Arformoterol [Brovana] 15 mcg NEB BIDRT neb 12/13/17 [Rx] Bumetanide [Bumex] 2 mg PO BIDDIURETIC 90 Days #120 tablet 12/13/17 [Rx] Calcium Acetate [PhosLo] 667 mg PO TIDMEALS cap 12/13/17 [Rx] Clopidogrel [Plavix] 75 mg PO DAILY tablet 12/13/17 [Rx] DULoxetine [Cymbalta] 30 mg PO BEDTIME cap 12/13/17 [Rx] Insulin Aspart [NovoLOG] 18 unit SUBCUT DAILY@0800,1200,1800 pen 12/13/17 [Rx] Insulin Detemir [Levemir] 38 unit SUBCUT BEDTIME pen 12/13/17 [Rx] Ipratropium [Atrovent] 0.5 mg NEB QIDRT neb 12/13/17 [Rx] Levothyroxine 150 mcg PO BEDTIME tablet 12/13/17 [Rx] Lidocaine 5% [Lidoderm 5%] 700 mg TOP DAILY@1900 30 Days patch 12/13/17 [Rx] Metoprolol Succinate [Toprol XL 50mg] 50 mg PO DAILY tab.er 12/13/17 [Rx] Sennosides [Senna] 8.6 mg PO BID PRN tablet 12/13/17 [Rx] Tamsulosin [Flomax] 0.8 mg PO BEDTIME cap.er 12/13/17 [Rx] - Discharge Summary/Plan Comment DC Time >30 min.: No Discharge Summary/Plan Comment: Patient to be discharged to home with his son. Patient refuses home health care services. Agrees to weight himself daily and notify the clinic with significant weight gain which has been reviewed with the patient. Nicol Banks CNP - Patient Data Vitals - Most Recent: Last Vital Signs Temp 97.4 F 12/13/17 08:00 Pulse 102 H 12/13/17 08:00 Resp 18 12/13/17 08:00 BP 135/75 12/13/17 08:00 Pulse Ox 96 12/13/17 08:00 Weight - Most Recent: 249 lb 1 oz I&O - Last 24 hours: Intake & Output 12/12/17 12/13/17 12/13/17 22:59 06:59 14:59 Intake Total 1900 600 Output Total 200 300 625 Balance 1700 -300 -25 Lab Results - Last 24 hrs: Laboratory Results - last 24 hr 12/12/17 12/12/17 12/12/17 Range/Units 11:24 17:07 19:19 POC Glucose 157 H 78 107 (65-110) mg/dl 12/13/17 Range/Units 07:15 POC Glucose 153 H (65-110) mg/dl Med Orders - Current: Current Medications Acetaminophen (Tylenol) 650 mg PO Q4HR PRN PRN Reason: Pain Last Admin: 12/08/17 12:44 Dose: 650 mg Arformoterol Tartrate (Brovana) 15 mcg NEB BIDRT [facility] Last Admin: 12/13/17 07:26 Dose: 15 mcg Aspirin (Halfprin) 81 mg PO DAILY [facility] Last Admin: 12/13/17 07:27 Dose: 81 mg Atorvastatin Calcium (Lipitor) 40 mg PO DAILY [facility] Last Admin: 12/13/17 07:27 Dose: 40 mg Bisacodyl (Dulcolax) 5 mg PO DAILY PRN PRN Reason: Constipation Bumetanide (Bumex) 2 mg PO BIDDIURETIC [facility] Last Admin: 12/13/17 07:27 Dose: 2 mg Calcitriol (Rocaltrol) 0.5 mcg PO Q48H [facility] Last Admin: 12/12/17 08:01 Dose: 0.5 mcg Calcium Acetate (Phoslo) 667 mg PO TIDMEALS [facility] Last Admin: 12/13/17 07:27 Dose: 667 mg Clopidogrel Bisulfate (Plavix) 75 mg PO DAILY [facility] Last Admin: 04/27/18 07:27 Dose: 75 mg Duloxetine HCl (Cymbalta) 30 mg PO BEDTIME [facility] Last Admin: 12/12/17 19:14 Dose: 30 mg Insulin Aspart (Novolog) 18 unit SUBCUT DAILY@0800,1200,1800 [facility] Last Admin: 12/13/17 07:31 Dose: 18 unit Insulin Detemir (Levemir) 38 unit SUBCUT BEDTIME [facility] Last Admin: 12/12/17 19:19 Dose: 38 unit Ipratropium [place] (Atrovent) 0.5 mg INH Q4H PRN PRN Reason: Shortness of Breath Last Admin: 11/30/17 16:12 Dose: 0.5 mg Ipratropium [place] (Atrovent) 0.5 mg NEB QIDRT [facility] Last Admin: 12/13/17 07:26 Dose: 0.5 mg Levothyroxine Sodium (Levothyroxine) 150 mcg PO BEDTIME [facility] Last Admin: 12/12/17 19:14 Dose: 150 mcg Lidocaine (Lidoderm 5%) 700 mg TOP DAILY@1900 [facility] Last Admin: 12/12/17 19:13 Dose: 700 mg Metoprolol Succinate (Toprol Xl) 50 mg PO DAILY [facility] Last Admin: 12/13/17 07:27 Dose: 50 mg Metronidazole (Flagyl) 500 mg PO Q8H [facility] Last Admin: 12/13/17 04:18 Dose: 500 mg Miscellaneous Information (Remove Patch) 1 ea TRDERM DAILY@0700 [facility] Last Admin: 12/13/17 07:32 Dose: 1 ea Senna (Senna) 8.6 mg PO BID PRN PRN Reason: Constipation Last Admin: 11/25/17 17:30 Dose: 8.6 mg Sodium Chloride (Saline Flush) 10 ml FLUSH ASDIRECTED PRN PRN Reason: Keep Vein Open Last Admin: 12/11/17 03:14 Dose: 10 ml Sodium Chloride (Saline Flush) 10 ml FLUSH Q12HR [facility] Last Admin: 12/12/17 19:13 Dose: 10 ml Tamsulosin HCl (Flomax) 0.8 mg PO BEDTIME [facility] Last Admin: 12/12/17 19:14 Dose: 0.8 mg Discontinued Medications Acetaminophen (Tylenol) 325 mg PO Q4HR PRN PRN Reason: Pain Last Admin: 12/01/17 20:22 Dose: 325 mg Azithromycin (Zithromax) 500 mg PO DAILY [facility] Stop: 12/09/17 17:01 Last Admin: 12/09/17 07:37 Dose: 500 mg Bumetanide (Bumex) 1 mg PO DAILY [facility] Last Admin: 11/28/17 08:17 Dose: 1 mg Bumetanide (Bumex) 2 mg PO DAILY [facility] Last Admin: 12/02/17 08:45 Dose: 2 mg Ceftazidime (Fortaz) 1 gm IVPUSH Q12HR [facility] Stop: 12/02/17 20:00 Last Admin: 11/26/17 07:53 Dose: 1 gm Ceftriaxone Sodium (Rocephin) 1 gm IVPUSH Q12HR [facility] Stop: 12/02/17 20:01 Last Admin: 11/27/17 10:48 Dose: Not Given Metronidazole 500 mg/ Premix 100 mls @ 100 mls/hr IV Q8H [facility] Stop: 12/12/17 20:00 Last Admin: 12/11/17 03:14 Dose: 100 mls/hr Ceftriaxone Sodium 1 gm/ (Sodium Chloride) 100 mls @ 200 mls/hr IV Q12H [facility] Stop: 12/02/17 20:01 Last Admin: 12/02/17 08:46 Dose: 200 mls/hr Meropenem 1 gm/ Sodium (Chloride) 100 mls @ 200 mls/hr IV Q12HR [facility] Stop: 12/12/17 20:30 Last Admin: 12/12/17 19:14 Dose: 200 mls/hr Meropenem (Merrem) 1,000 mg IVPUSH Q12HR [facility] Stop: 12/12/17 20:01 Last Admin: 12/03/17 07:32 Dose: 1,000 mg
[2017-12-13] MEDS: Sodium Chloride 0.9% 10 ML Syringe FLUSH SCH (12:26)
== END 2017-12-13 13:25 | disposition home or self-care (01) | DRG 689 ==
LOC: LL.MS 16:55
PROVIDERS: ADMIT Family Medicine; ATTEND Family Medicine
DX: N39.0 Urinary tract infection, site not specified (principal); J18.9 Pneumonia, unspecified organism; J44.0 Chronic obstructive pulmonary disease with (acute) lower respiratory infection; I42.9 Cardiomyopathy, unspecified; I13.0 Hypertensive heart and chronic kidney disease with heart failure and stage 1 through stage 4 chronic kidney disease, or unspecified chronic kidney disease; I69.354 Hemiplegia and hemiparesis following cerebral infarction affecting left non-dominant side; I50.9 Heart failure, unspecified; E11.42 Type 2 diabetes mellitus with diabetic polyneuropathy; E11.22 Type 2 diabetes mellitus with diabetic chronic kidney disease; N18.9 Chronic kidney disease, unspecified; E11.21 Type 2 diabetes mellitus with diabetic nephropathy; E03.9 Hypothyroidism, unspecified; I48.91 Unspecified atrial fibrillation; I25.10 Atherosclerotic heart disease of native coronary artery without angina pectoris; I73.9 Peripheral vascular disease, unspecified; I65.23 Occlusion and stenosis of bilateral carotid arteries; E78.5 Hyperlipidemia, unspecified; J84.10 Pulmonary fibrosis, unspecified; G47.30 Sleep apnea, unspecified; K57.90 Diverticulosis of intestine, part unspecified, without perforation or abscess without bleeding; R15.9 Full incontinence of feces; K64.9 Unspecified hemorrhoids; N40.1 Benign prostatic hyperplasia with lower urinary tract symptoms; N28.1 Cyst of kidney, acquired; G89.29 Other chronic pain; M54.9 Dorsalgia, unspecified; M54.2 Cervicalgia; M81.0 Age-related osteoporosis without current pathological fracture; F41.9 Anxiety disorder, unspecified; F32.9 Major depressive disorder, single episode, unspecified; D64.9 Anemia, unspecified; N39.498 Other specified urinary incontinence; R33.8 Other retention of urine; J20.9 Acute bronchitis, unspecified; H91.90 Unspecified hearing loss, unspecified ear; H54.7 Unspecified visual loss; H35.30 Unspecified macular degeneration; R53.1 Weakness; D69.6 Thrombocytopenia, unspecified; M15.9 Polyosteoarthritis, unspecified; R53.81 Other malaise; H91.13 Presbycusis, bilateral; I25.2 Old myocardial infarction; Z87.442 Personal history of urinary calculi; Z95.1 Presence of aortocoronary bypass graft; Z95.810 Presence of automatic (implantable) cardiac defibrillator; Z86.010 Personal history of colon polyps; Z85.038 Personal history of other malignant neoplasm of large intestine; Z79.82 Long term (current) use of aspirin; Z79.4 Long term (current) use of insulin; Z87.01 Personal history of pneumonia (recurrent); Z79.899 Other long term (current) drug therapy; Z88.6 Allergy status to analgesic agent; Z90.49 Acquired absence of other specified parts of digestive tract; Z91.041 Radiographic dye allergy status; Z95.5 Presence of coronary angioplasty implant and graft; Z87.440 Personal history of urinary (tract) infections; Z85.828 Personal history of other malignant neoplasm of skin; Z95.828 Presence of other vascular implants and grafts; Z87.891 Personal history of nicotine dependence
CPT/HCPCS: 36415; 71046; 74230; 80048; 80053; 82962; 83735; 83880; 85025; 86140; 87070; 87205; 92526-GN; 92610-GN; 92611-GN; 94640; 97110-GO; 97110-GP; 97116-GP; 97162-GP; 97165-GO; 97530-GO; 97530-GP; 97535-GO; A9270-GY; J0696; J0713; J1815-GY; J2185; J7050

== ENCOUNTER 2018-01-03 17:42 | Emergency (ER) | payer MEDICARE, MEDICAID ==
[2018-01-03] MEDS ORDERED: Sodium Chloride 0.9% 10 ML Syringe FLUSH PRN (17:48)
[2018-01-03] MEDS ORDERED: Ondansetron 4 MG/2 ML SDV IVPUSH ONE (17:48)
[2018-01-03] MEDS ORDERED: Famotidine 20 MG/2 ML SDV IVPUSH ONE (17:48)
[2018-01-03] MEDS ORDERED: Pantoprazole 40 MG Vial IVPUSH ONE (17:48)
--- NOTE | 2018-01-03 17:48 | EDM.PDOC ---
ED HPI GENERAL MEDICAL PROBLEM - General Chief Complaint: Gastrointestinal Problem Stated Complaint: constipation Time Seen by Provider: 01/03/18 17:42 Source of Information: Reports: Patient, Family (Son), Old Records ([facility] chart/EMR) History Limitations: Reports: No Limitations - History of Present Illness INITIAL COMMENTS - FREE TEXT/NARRATIVE: Patient was brought to the emergency room via private automobile by his son for evaluation of progressive constipation including 8/10 bilateral lower abdominal cramping. His last bowel movement was about 4-5 days ago with symptoms refractory to 2 fiber tablets yesterday and 3 Dulcolax tablets this morning. No recent history of other abdominal pain, heartburn, diarrhea, melena, gross hematochezia, or any food intolerance, including fatty foods, etc., although he does have some mild nausea at this time with no previous emesis. The patient denies any chest pain/pressure, heart flutter, dizziness, orthostasis, orthopnea , diaphoresis, paresthesias, recent decreased exercise tolerance, or any other anginal-type symptoms. He denies any current gross hematuria, colic, or other UTI symptoms. The patient also denies any recent fever, cough, wheezing, dyspnea , etc.. Onset: Gradual Onset Date: 12/30/17 Duration: Constant, Getting Worse Location: Reports: Abdomen. Denies: Head, Face, Neck, Chest, Back, Pelvis, Upper Extremity, Left, Upper Extremity, Right, Radiates to Quality: Reports: Pressure (With cramping), Same as Previous Episode Severity: Moderate Improves with: Reports: None Worsens with: Reports: None Context: Reports: Other (As above) Associated Symptoms: Reports: Nausea/Vomiting (No emesis). Denies: Confusion, Chest Pain, Cough, Diaphoresis, Fever/Chills, Headaches, Loss of Appetite, Shortness of Breath, Syncope, Weakness Treatments TUBE BUILDER: Reports: Other Medication(s) (As above) Bilateral Lower Abdominal Pain Score (Numeric/FACES): 8 - Related Data Allergies Allergy/AdvReac Type Severity Reaction Status Date / Time morphine Allergy Hives Verified 01/03/18 17:44 contrast dye Allergy Hives Uncoded 01/03/18 17:44 Home Meds: Home Meds Aspirin [Lo-Dose Aspirin EC] 81 mg PO DAILY 09/14/17 [History] Calcitriol 1 cap PO Q48H 05/02/17 [History] Ipratropium [Atrovent] 1 vial INH QID PRN 05/02/17 [History] atorvaSTATin [Lipitor] 40 mg PO DAILY 05/02/17 [History] Docusate Sodium/Sennosides [Senna Plus] 1 tab PO BID PRN 06/30/17 [History] Bisacodyl [Dulcolax] 5 mg PO DAILY PRN tablet 11/25/17 [Rx] Clopidogrel [Plavix] 75 mg PO DAILY tablet 11/25/17 [Rx] Ipratropium [Atrovent] 0.5 mg NEB QIDRT neb 11/25/17 [Rx] Sennosides [Senna] 8.6 mg PO BID PRN tablet 11/25/17 [Rx] Acetaminophen [Tylenol] 650 mg PO Q4HR PRN tablet 12/13/17 [Rx] Arformoterol [Brovana] 15 mcg NEB BIDRT neb 12/13/17 [Rx] Bumetanide [Bumex] 2 mg PO BIDDIURETIC 90 Days #120 tablet 12/13/17 [Rx] Calcium Acetate [PhosLo] 667 mg PO TIDMEALS cap 12/13/17 [Rx] DULoxetine [Cymbalta] 30 mg PO BEDTIME cap 12/13/17 [Rx] Insulin Aspart [NovoLOG] 18 unit SUBCUT DAILY@0800,1200,1800 pen 12/13/17 [Rx] Insulin Detemir [Levemir] 38 unit SUBCUT BEDTIME pen 12/13/17 [Rx] Levothyroxine 150 mcg PO BEDTIME tablet 12/13/17 [Rx] Lidocaine 5% [Lidoderm 5%] 700 mg TOP DAILY@1900 30 Days patch 12/13/17 [Rx] Metoprolol Succinate [Toprol XL 50mg] 50 mg PO DAILY tab.er 12/13/17 [Rx] Tamsulosin [Flomax] 0.8 mg PO BEDTIME cap.er 12/13/17 [Rx] Past Medical History HEENT History: Reports: Cataract, Hard of Hearing, Impaired Vision, Macular Degeneration, Other (See Below). Denies: Allergic Rhinitis, Glaucoma, Retinal Detachment Other HEENT History: Wears glasses, 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 with no hearing aid therapy Cardiovascular History: Reports: Afib, Aneurysm, Arrhythmia, Automatic Implantable Cardioverter Defibrillators, Bypass, CAD, Cardiomyopathy, Heart Failure, High Cholesterol, Hypertension, MO, Pacemaker, PTCA, PVD, Stents, Other (See Below). 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 Left atrial enlargement and grade 1 diastolic dysfunction by echocardiogram in April 2017 as below. Respiratory History: Reports: Bronchitis, Recurrent, COPD, Intubation, Previous , Pneumonia, Recurrent, Pulmonary Fibrosis, Sleep Apnea. Denies: Asthma, Intubation, Difficult, PE, Pneumothorax, TB Gastrointestinal History: Reports: Cholelithiasis, Chronic Constipation, Colon Polyp, Diverticulosis, Fecal Incontinence, Hemorrhoids, Other (See Below). Denies: Bowel Obstruction, Celiac Disease, Chronic Diarrhea, Gastritis, GERD, GI Bleed, Hepatitis, Inflammatory Bowel Disease, Irritable Bowel Syndrome, Jaundice, Pancreatitis, PUD Other Gastrointestinal History: History of colon cancer on 08/21/07 as below with additional multiple tubular adenomas and an additional villous adenoma at 30 cm. Additional recurrent tubular adenomas 2 in the transverse colon and an additional 2 in the cecal region at time of subsequent colonoscopy on 11/19/08 with last colonoscopy in about 2010, moderate nonsymptomatic cholelithiasis by CT scan and abdominal ultrasound as below with no surgery required Genitourinary History: Reports: BPH, Chronic Renal Insuffiency, Diabetic Nephropathy, Renal Calculus, Retention, Urinary, Urinary Incontinence, UTI, Recurrent, Other (See Below). Denies: Dialysis, STD Other Genitourinary History: Severe bilateral nephrolithiasis in the renal pelvis with multiple recurrent episodes of urolithiasis with last episode of right-sided urolithiasis and mild hydronephrosis on 01/22/13 with spontaneous passage, bilateral renal cysts Musculoskeletal History: Reports: Arthritis, Back Pain, Chronic, Fracture, Neck Pain, Chronic, Osteoarthritis, Osteoporosis, Other (See Below). Denies: Amputation, Gout, RA, SLE Other Musculoskeletal History: Right ankle fracture in the . Scoliosis. Neurological History: Reports: CVA, Headaches, Chronic, Neuropathy, Diabetic, Neuropathy, Peripheral, TIA, Other (See Below). 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 Denies: Abuse, Victim of, ADD, ADHD, Addiction, Alzheimers Disease, Dementia, Psych Hospitalization(s), PTSD, Suicide Attempt, Suicidal Ideation Endocrine/Metabolic History: Reports: Diabetes, Type II, Hypothyroidism, IDDM, Osteoporosis. Denies: Diabetes, Type I Hematologic History: Reports: Anemia, Blood Transfusion(s), Other (See Below). Denies: B12 Deficiency, Iron Deficiency Other Hematologic History: History of postoperative anemia from CABG with transfusions required Immunologic History: Reports: None. Denies: AIDS, HIV, SLE Oncologic (Cancer) History: Reports: Basal Cell Carcinoma, Colon, Other (See Below). Denies: Bladder, Hodgkin's Lymphoma, Leukemia, Lymphoma, Malignant Melanoma, Metastatic, Non-Hodgkin's Lymphoma, Prostate, Squamous Cell Carcinoma Other Oncologic History: History of superficially invasive adenocarcinoma of the colon at 32 cm with colon resection as below, probable basal cell carcinoma of the right cheek Dermatologic History: Reports: Venous Stasis Dermatitis. Denies: Eczema, Psoriasis - Infectious Disease History Infectious Disease History: Reports: Chicken Pox, Measles, Mumps. Denies: C- Difficile, Meningitis, Mononucleosis, MRSA, Pertussis (Whooping Cough), Rheumatic Fever, Rubella, Scarlet Fever, Shingles, TB, VRE - Past Surgical History Head Surgeries/Procedures: Reports: None HEENT Surgical History: Reports: Cataract Surgery, Eye Surgery, Laser Surgery, Oral Surgery, Other (See Below). Denies: Adenoidectomy, LASIK, Myringotomy w Tube(s), Naso-Sinus Surgery, Tonsillectomy Other HEENT Surgeries/Procedures: Left Cataract surgery on 03/27/03 with previous right cataract surgery, history of YAG treatment for posterior capsule clouding , complete teeth extraction Cardiovascular Surgical History: Reports: AICD, Coronary Artery Bypass, Coronary Artery Stent, Pacer, Percutaneous Transluminal Angioplasty, Vascular Surgery, Other (See Below) Other Cardiovascular Surgeries/Procedures: Initial pacemaker/ICD placement in about 1991 with subsequent repeat pacemaker/AICD placement in about 2009, three- vessel CABG in 1991 with history of PTCA/stent 2 in July 2012, additional right inguinal stent placement secondary to peripheral vascular disease Respiratory Surgical History: Reports: None. Denies: Thoracentesis GI Surgical History: Reports: Colon, Colonoscopy, Polypectomy, Other (See Below) . Denies: Appendectomy, Cholecystectomy, EGD, Hernia, Abdominal, Hernia, Inguinal, Hernia Repair/Other Other GI Surgeries/Procedures: Sigmoid colon resection secondary to colon cancer in November 2008, multiple colonic polyp excisions in 2007, 2008, and 2010 with colonoscopies at that time. Male Surgical History: Reports: Lithotripsy (ESWL), Renal Calculus, Ureteral Stent, Other (See Below). Denies: Circumcision, TURP-Transurethral Resection of Prostate, Vasectomy Other Male Surgeries/Procedures: History of multiple bilateral nephrolithiasis including previous spontaneous passage, stone removal, and lithotripsy Endocrine Surgical History: Reports: None Neurological Surgical History: Reports: None. Denies: C-Spine, Discectomy, Intracranial, Laminectomy, Lumbar Spine, Sacral Spine, Scoliosis, Spinal Fusion , Thoracic Spine, Vertebroplasty Musculoskeletal Surgical History: Reports: ORIF, Other (See Below). Denies: Arthroscopic Procedure, Carpal Tunnel, Ganglion Cyst, Joint Replacement, Shoulder Surgery Other Musculoskeletal Surgeries/Procedures:: ORIF of right ankle fracture in about the Oncologic Surgical History: Reports: None Dermatological Surgical History: Reports: Skin Biopsy, Other (See Below) Other Dermatological Surgeries/Procedures: Excision of probable basal cell carcinoma from the right cheek - Past Imaging History Past Imaging History: Reports: JEFFERSON Screen (Positive JEFFERSON screens on 05/30/11, 07/29, and 03/13/07), Bone Scan (Bone scan on 11/14/06), Cardiac Echo (Last echocardiogram on 05/07/17 with ejection fraction of 3035 percent with results as above. Previous Echocardiogram on 02/21/13 with ejection fraction of 46%), Carotid US (12/09/06), CAT Scan (CT of the head on 06/30/17. CT of the abdomen and pelvis on 01/22/13 and 07/20/11), PFT (PFTs on 08/15/07), Stress Testing (Low level cardiac stress test on 09/29/12 with previous Cardiolite stress test on 07/03 with ejection fraction of 40% and Persantine Cardiolite stress test on 07/26/06 with ejection fraction of 39%), Swallow Study (11/28/17), Ultrasound (Right upper quadrant/gallbladder ultrasound on 05/07/17. Renal ultrasound on 08/20/07), Venous Doppler (Venous Doppler studies of the lower extremities on 05/03/17 and 05/29/11 with right-sided evaluation on 01/07/07.) Social & Family History - Family History HEENT: Reports: None. Denies: Glaucoma, Macular Degeneration, Retinal Detachment Cardiac: Reports: CAD, Hypertension, MO, Other (See Below). Denies: Afib, AICD , Aneurysm, Arrhythmia, Blood Clots/VTE/DVT, Bypass, Cardiomyopathy, Heart Failure, Heart Murmur, PVD/COD Other Cardiac Family History: Father with MO in his 60s, father with hypertension Respiratory: Reports: COPD, Sleep Apnea, Other (See Below). Denies: Asthma, PE Other Respiratory Family Hisory: Brother with COPD with history of tobacco use, another brother with COPD and sleep apnea GI: Reports: Colon Polyps, Other (See Below). Denies: Bowel Obstruction, Celiac Disease, Cholelithiasis, GERD, GI bleed, Inflammatory Bowel Disease, Irritable Bowel Syndrome, PUD Other GI Family History: Brother with probable colonic polyps with history of colon cancer as below : Reports: Renal Calculus. Denies: Dialysis, Renal Disease/Insufficiency Other Family History: Multiple family members with urolithiasis OBGYN: Reports: None. Denies: Endometriosis, Recurrent Spontaneous Musculoskeletal: Reports: Arthritis, Osteoarthritis, Other (See Below). Denies : Gout, RA, SLE Other Musculoskeletal Family History: Multiple Family members with osteoarthritis Neurological: Reports: CVA, Other (See Below). Denies: Alzheimers Disease, Dementia, Migraines, MS, Parkinson's, Seizure, TIA Other Neurological Family History: Mother with history of CVA in his 60s Psychiatric: Reports: None. Denies: Abuse, Victim of, ADD, ADHD, Anxiety, Depression, Psych Hospitalization(s), PTSD, Suicide Attempt Endocrine/Metabolic: Reports: Diabetes, type II, IDDM, Other (See Below). Denies: Diabetes, Type I, Diabetes Mellitus, Type 3c, Hypothyroidism Other Endocrine/Metabolic Family History: Brother IDDM Hematologic: Reports: None. Denies: SLE, Transfusion Reaction Immunologic: Reports: None. Denies: AIDS, HIV, SLE Dermatologic: Reports: None. Denies: Eczema, Psoriasis Oncologic: Reports: Colon, Other (See Below) Other Oncologic Family History: Mother with unknown type of fatal cancer in her early 60s, brother with colon cancer in his 60s - Tobacco Use Smoking Status *Q: Former Smoker Tobacco Use Within Last Twelve Months: No Years of Tobacco use: 53 Packs/Tins Daily: 1 Used Tobacco, but Quit: Yes Month/Year Tobacco Last Used: Smoked between ages 12 and 65 Second Hand Smoke Exposure: No Second Hand Smoke Education Provided: No - Caffeine Use Caffeine Use: Reports: Coffee (7 cups per week), Soda (Very occasional). Denies : Energy Drinks, Tea - Alcohol Use Alcohol Use History: No Days Per Week of Alcohol Use: 0 Number of Drinks Per Day: 0 Number of Drinks Per Day Comment: No previous DWIs, problems with alcohol abuse , etc. 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 ED EXAM, GI/ABD - Physical Exam Exam: See Below Exam Limited By: No Limitations General Appearance: Alert, WD/WN, No Apparent Distress Head: Atraumatic, Normocephalic Neck: Normal Inspection, Supple, Non-Tender, Full Range of Motion. No: Lymphadenopathy (L), Lymphadenopathy (R), Thyromegaly Respiratory/Chest: No Respiratory Distress, No Accessory Muscle Use, Chest Non- Tender, Rales (Mild bilateral basilar rales). No: Rhonchi, Wheezing, Pleural Rub, Retractions Cardiovascular: Normal Peripheral Pulses, Regular Rate, Rhythm, No Gallop, No JVD, No Murmur, No Rub. No: No Edema (Stable dependent edema by history), Gallop/S3, Gallop/S4, Friction Rub GI/Abdominal Exam: Normal Bowel Sounds, Pelvis Stable, Tender (Mild bilateral lower quadrant palpation pain), Other (Obese). No: Guarding, Rebound (Male) Exam: Deferred Rectal (Males) Exam: Normal Rectal Tone, BPH (Moderate), Fecal Impaction ( Moderate), Heme - Stool. No: Black Stool, Bloody Stool, Rectal Fissure, Tenderness (No Carlton space tenderness) Back Exam: Full Range of Motion, Other (Mild scoliosis). No: CVA Tenderness (L) , CVA Tenderness (R), Muscle Spasm Extremities: Normal Range of Motion, Non-Tender, Normal Capillary Refill, Pedal Edema (Stable by history +1+2 bilateral pedal/pretibial edema with moderate venous stasis dermatitis and no evidence of acute infection). No: Kristian's Sign Neurological: Alert, Oriented, CN II-XII Intact, Normal Cognition, Normal Gait, No Motor/Sensory Deficits Psychiatric: Normal Affect, Normal Mood Skin Exam: Warm, Dry, Intact, Other (Venous stasis dermatitis as above). No: Diaphoretic, Wound/Incision Lymphatic: No Adenopathy Course - Vital Signs Last Recorded V/S: Last Vital Signs Temp 36.2 C 01/03/18 17:45 Pulse 80 01/03/18 17:45 Resp 22 H 01/03/18 17:45 BP 145/67 H 01/03/18 17:45 Pulse Ox 95 01/03/18 17:45 - Orders/Labs/Meds Orders: Active Orders 24 hr Category Date Time Status Enema [RC] ASDIRECTED Care 01/03/18 19:09 Active Peripheral IV Care [RC] . DIRECTED Care 01/03/18 17:48 Active Nothing Per Oral Diet [DIET] Diet 01/03/18 Breakfast Active Abdomen Series w Chest 1V [CR] Stat Exams 01/03/18 17:48 Taken OCCULT BLOOD DIAGNOSTIC [OP] Stat Lab 01/03/18 19:09 Ordered Sodium Chloride 0.9% [Saline Flush] Med 01/03/18 17:48 Active 10 ml FLUSH ASDIRECTED PRN Obtain Past Medical Record [OM.PC] Urgent Oth 01/03/18 17:48 Active Peripheral IV Insertion Adult [OM.PC] Stat Oth 01/03/18 17:48 Ordered Resuscitation Status Stat Resus Stat 01/03/18 17:48 Ordered Medication Orders Sodium Chloride (Saline Flush) 10 ml FLUSH ASDIRECTED PRN PRN Reason: Keep Vein Open Labs: Laboratory Tests 01/03/18 01/03/18 01/03/18 Range/Units 18:17 18:17 18:17 WBC 15.3 H (4.0-10.2) K/uL RBC 4.53 (4.33-5.41) M/uL Hgb 14.3 (13.1-16.8) g/dL Hct 43.7 (39.0-49.0) % MCV 96.5 (84.0-98.0) fL MCH 31.6 (28.2-33.3) pg MCHC 32.7 (31.7-36.0) g/dL RDW 14.1 (11.2-14.1) % Plt Count 157 (150-350) K/uL Neut % (Auto) 88.2 H (45.0-80.0) % Lymph % (Auto) 6.6 L (10.0-50.0) % Coffey % (Auto) 4.7 (2.0-14.0) % Eos % (Auto) 0.3 (0.0-5.0) % Baso % (Auto) 0.2 (0.0-2.0) % Neut # (Auto) 13.46 H (1.40-7.00) K/uL Lymph # (Auto) 1.00 (0.50-3.50) K/uL Coffey # (Auto) 0.72 (0.00-1.00) K/uL Eos # (Auto) 0.04 (0.00-0.50) K/uL Baso # (Auto) 0.03 (0.00-0.20) K/uL PT 10.7 (9.8-11.7) SEC INR 1.0 APTT 24.0 (22.1-29.8) SEC Sodium (136-145) mmol/L Potassium (3.5-5.1) mmol/L Chloride (98-107) mmol/L Carbon Dioxide (21.0-32.0) mmol/L BUN (7-18) mg/dL Creatinine (0.51-1.17) mg/dL Est Cr Clr Drug Dosing Estimated GFR (MDRD) mL/min Glucose (74-106) mg/dL Lactic Acid (0.4-2.0) mmol/L Uric Acid (2.6-7.2) mg/dL Calcium (8.5-10.1) mg/dL Magnesium (1.8-2.4) mg/dL Total Bilirubin (0.2-1.0) mg/dL AST (15-37) U/L ALT (12-78) U/L Alkaline Phosphatase (46-116) IU/L Total Protein (6.4-8.2) g/dL Albumin (3.4-5.0) g/dL Amylase 83 (25-115) U/L Lipase (73-393) U/L 01/03/18 01/03/18 Range/Units 18:17 18:17 WBC (4.0-10.2) K/uL RBC (4.33-5.41) M/uL Hgb (13.1-16.8) g/dL Hct (39.0-49.0) % MCV (84.0-98.0) fL MCH (28.2-33.3) pg MCHC (31.7-36.0) g/dL RDW (11.2-14.1) % Plt Count (150-350) K/uL Neut % (Auto) (45.0-80.0) % Lymph % (Auto) (10.0-50.0) % Coffey % (Auto) (2.0-14.0) % Eos % (Auto) (0.0-5.0) % Baso % (Auto) (0.0-2.0) % Neut # (Auto) (1.40-7.00) K/uL Lymph # (Auto) (0.50-3.50) K/uL Coffey # (Auto) (0.00-1.00) K/uL Eos # (Auto) (0.00-0.50) K/uL Baso # (Auto) (0.00-0.20) K/uL PT (9.8-11.7) SEC INR APTT (22.1-29.8) SEC Sodium 142 (136-145) mmol/L Potassium 4.8 (3.5-5.1) mmol/L Chloride 102 (98-107) mmol/L Carbon Dioxide 31.4 (21.0-32.0) mmol/L BUN 27 H (7-18) mg/dL Creatinine 1.46 H (0.51-1.17) mg/dL Est Cr Clr Drug Dosing TNP Estimated GFR (MDRD) 45 mL/min Glucose 262 H* (74-106) mg/dL Lactic Acid 2.8 H (0.4-2.0) mmol/L Uric Acid 6.3 (2.6-7.2) mg/dL Calcium 9.9 (8.5-10.1) mg/dL Magnesium 2.5 H (1.8-2.4) mg/dL Total Bilirubin 0.9 (0.2-1.0) mg/dL AST 16 (15-37) U/L ALT 22 (12-78) U/L Alkaline Phosphatase 100 (46-116) IU/L Total Protein 8.1 (6.4-8.2) g/dL Albumin 3.7 (3.4-5.0) g/dL Amylase (25-115) U/L Lipase 91 (73-393) U/L Microbiology 01/03/18 19:09 Stool Occult Blood (NASH) - Final Stool / Feces NEGATIVE OCCULT BLOOD Meds: Medications Generic Name Dose Route Start Last Admin Trade Name Freq PRN Reason Stop Dose Admin Sodium Chloride 10 ml 01/03/18 17:48 Saline Flush FLUSH ASDIRECTED PRN Keep Vein Open Discontinued Medications Generic Name Dose Route Start Last Admin Trade Name Freq PRN Reason Stop Dose Admin Famotidine 40 mg 01/03/18 17:48 01/03/18 17:58 Pepcid IVPUSH 01/03/18 17:49 40 mg ONETIME ONE Administration Ceftriaxone Sodium 1 gm/ 100 mls @ 200 mls/hr 01/03/18 19:13 01/03/18 19:49 Sodium Chloride IV 01/03/18 19:42 200 mls/hr ONETIME ONE Administration Magnesium Citrate 0 ml 01/03/18 19:09 01/03/18 19:54 Citrate Of Magnesia PO 01/03/18 19:10 296 ml ONETIME ONE Administration Ondansetron HCl 4 mg 01/03/18 17:48 01/03/18 17:58 Zofran IVPUSH 01/03/18 17:49 4 mg ONETIME ONE Administration Pantoprazole Sodium 40 mg 01/03/18 17:48 01/03/18 17:58 Protonix Iv IVPUSH 01/03/18 17:49 40 mg ONETIME ONE Administration Polyethylene Glycol 17 gm 01/03/18 19:09 01/03/18 19:54 Miralax PO 01/03/18 19:10 17 gm ONETIME ONE Administration - Radiology Interpretation Free Text/Narrative:: Acute abdominal x-rays shows evidence of moderate diffuse stool with nonspecific bowel gaseous pattern with very occasional fluid levels noted, including in the cecal area. No evidence of free air, ileus, or obstruction. Moderate osteoarthritic changes in the thoracic spine, including spur formation , mild scoliosis, and additional bilateral coxarthrosis. Mild cardiomegaly with mild centralized CHF with additional moderate COPD changes, however no pulmonary infiltrates, pneumothorax, etc.. Pacemaker and ICD also noted. Departure - Departure Time of Disposition: 22:00 Disposition: Home, Self-Care 01 Condition: Good Clinical Impression: IDDM (insulin dependent diabetes mellitus), Coronary artery disease, Congestive heart failure, Hypertension, Osteoarthritis, COPD (chronic obstructive pulmonary disease), Constipation, Hypermagnesemia, Renal insufficiency, Lactic acid increased - Discharge Information Instructions: Constipation, Adult Referrals: Nicol Banks NP [Primary Care Provider] - Forms: ED Department Discharge Additional Instructions: 1. Follow-up with your regular provider in 3 days for reevaluation and recommended repeat CBC, basic metabolic panel, lactic acid level, and magnesium level. 2. [place] diet including oral fluids such as sports drinks, etc. for 24-48 hours as directed. Advance to high-fiber, diverticulosis, ADA and heart healthy diet as tolerated thereafter. 3. Increase fruit and vegetables in your diet as discussed with no bananas 4. Immediately after this visit verify that your cellular telephone's voicemail has been activated and is empty. Also verify that your home telephone 's answering machine is operating properly and has space to receive messages. Note that it is sometimes necessary for us to be able to contact you at a later date to discuss your medical care. - Problem List & Annotations (1) Constipation SNOMED Code(s): 60735815 Code(s): K59.00 - CONSTIPATION, UNSPECIFIED Status: Acute Priority: High Onset Date: ~12/30/17 Annotation/Comment:: Known previous history of chronic constipation with bowel movements usually on an every 23 day basis. Aggressive treatment in the emergency room as above with overall good results. Only mildly increased magnesium level today with magnesium citrate therapy still warranted. Magnesium level to be repeated at follow-up visit as per discharge instructions. Note abdominal pain secondary to his severe constipation. Mild leukocytosis possible secondary to stress reaction. IV Rocephin, high dose Pepcid, and IV Protonix given as GI prophylaxis. Qualifiers: Constipation type: other constipation type Qualified Code(s): K59.09 - Other constipation (2) Lactic acid increased SNOMED Code(s): 03743217 Code(s): E87.2 - ACIDOSIS Status: Acute Priority: Medium Onset Date: Annotation/Comment:: Mild lactic acid level elevation with no clinical evidence of sepsis or significant infection despite mild leukocytosis today. IV Rocephin given as GI prophylaxis secondary to his constipation as above with no additional outpatient antibiotic therapy for now. Patient is afebrile. Lactic acid level and CBC will be repeated at follow-up visit. (3) Congestive heart failure SNOMED Code(s): 32255649 Code(s): I50.9 - HEART FAILURE, UNSPECIFIED Status: Acute Priority: High Annotation/Comment:: No recent history of chest pain or anginal type symptoms with stable daily weights per his son's history. Note apparent recent increase of patient's Bumex with patient and his son uncertain about his current medical therapy Qualifiers: Heart failure type: combined systolic and diastolic Heart failure chronicity: chronic Qualified Code(s): I50.42 - Chronic combined systolic ( congestive) and diastolic (congestive) heart failure (4) Coronary artery disease SNOMED Code(s): 23880250 Code(s): I25.10 - ATHSCL HEART DISEASE OF [place] CORONARY ARTERY W/O ANG PCTRS Status: Chronic Priority: Medium Annotation/Comment:: No chest pain or anginal type symptoms, however note significant cardiac history as above including PVCs, previous atrial fibrillation, etc. Comfort care previously during hospitalizations. Qualifiers: Coronary Disease-Associated Artery/Lesion type: bypass graft [place] vs. 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 Stable by history. (6) Osteoarthritis SNOMED Code(s): 184424443 Code(s): M19.90 - UNSPECIFIED OSTEOARTHRITIS, UNSPECIFIED SITE Status: Chronic Priority: Medium Annotation/Comment:: Osteoarthritis someone under poor control. Note recent apparent epidural steroid injection in the lumbar region yesterday secondary to significant persistent low back pain without complications by his son's history Qualifiers: Osteoarthritis location: multiple joints Osteoarthritis type: primary Qualified Code(s): M15.0 - Primary generalized (osteo)arthritis (7) Hypertension SNOMED Code(s): 97650165 Code(s): I10 - ESSENTIAL (PRIMARY) HYPERTENSION Status: Chronic Priority : Medium Annotation/Comment:: Stable with good control in the ER. Qualifiers: Hypertension type: essential hypertension Qualified Code(s): I10 - Essential (primary) hypertension (8) Renal insufficiency SNOMED Code(s): 203615605, 773648623 Code(s): N28.9 - DISORDER OF KIDNEY AND URETER, UNSPECIFIED Status: Chronic Priority: Medium Annotation/Comment:: Stable diabetic nephropathy with repeat blood work at follow-up as per discharge instructions (9) Hypermagnesemia SNOMED Code(s): 61760259 Code(s): E83.41 - HYPERMAGNESEMIA Status: Acute Priority: Medium Onset Date: 01/03/18 Annotation/Comment:: As above - Problem List Review Problem List Initiated/Reviewed/Updated: Yes - My Orders Last 24 Hours: My Active Orders 01/03/18 17:48 Peripheral IV Care [RC] . DIRECTED Abdomen Series w Chest 1V [CR] Stat Sodium Chloride 0.9% [Saline Flush] 10 ml FLUSH ASDIRECTED PRN Obtain Past Medical Record [OM.PC] Urgent Peripheral IV Insertion Adult [OM.PC] Stat Resuscitation Status Stat 01/03/18 19:09 Enema [RC] ASDIRECTED OCCULT BLOOD DIAGNOSTIC [OP] Stat 01/03/18 Breakfast Nothing Per Oral Diet [DIET] - Assessment/Plan Last 24 Hours: My Active Orders 01/03/18 17:48 Peripheral IV Care [RC] . DIRECTED Abdomen Series w Chest 1V [CR] Stat Sodium Chloride 0.9% [Saline Flush] 10 ml FLUSH ASDIRECTED PRN Obtain Past Medical Record [OM.PC] Urgent Peripheral IV Insertion Adult [OM.PC] Stat Resuscitation Status Stat 01/03/18 19:09 Enema [RC] ASDIRECTED OCCULT BLOOD DIAGNOSTIC [OP] Stat 01/03/18 Breakfast Nothing Per Oral Diet [DIET] Assessment:: As above Plan: As above. Extensive precautions were given to the patient and his son, who are in agreement with the treatment plan. See Patient Instructions for further treatment and plan.
[2018-01-03 18:40] LABS: CHLORIDE,CL 102 mmol/L (98-107); SODIUM,NA 142 mmol/L (136-145)
[2018-01-03] MEDS ORDERED: Magnesium Citrate Solution 296 ML Bottle PO ONE (19:09)
[2018-01-03] MEDS ORDERED: Polyethylene Glycol 3350 Powder 17 GM Packet PO ONE (19:09)
[2018-01-03] MEDS ORDERED: cefTRIAXone 1 GM in Sodium Chloride 0.9% 100 ML IV ONE (19:13)
[2018-01-03 23:04] VITALS: BP 145/67
== END 2018-01-03 22:00 | disposition home or self-care (01) ==
LOC: LL.ED 17:42
DX: I11.0 Hypertensive heart disease with heart failure (principal); I50.9 Heart failure, unspecified; I25.10 Atherosclerotic heart disease of native coronary artery without angina pectoris; J44.9 Chronic obstructive pulmonary disease, unspecified; K59.00 Constipation, unspecified; E83.41 Hypermagnesemia; N28.9 Disorder of kidney and ureter, unspecified; E87.2 Acidosis; M19.90 Unspecified osteoarthritis, unspecified site; E78.00 Pure hypercholesterolemia, unspecified; I25.2 Old myocardial infarction; E11.42 Type 2 diabetes mellitus with diabetic polyneuropathy; E03.9 Hypothyroidism, unspecified; Z88.5 Allergy status to narcotic agent; Z91.041 Radiographic dye allergy status; Z79.82 Long term (current) use of aspirin; Z79.899 Other long term (current) drug therapy; Z79.4 Long term (current) use of insulin; Z87.891 Personal history of nicotine dependence
CPT/HCPCS: 36415; 74022; 80053; 82150; 82272; 83605; 83690; 83735; 84550; 85025; 85610; 85730; 96365; 96375; 99284; A9270; C9113; J0696; J2405; J7050; 99283; S0028

== ENCOUNTER 2018-04-29 20:26 | Emergency (ER) | payer MEDICARE, MEDICAID ==
[2018-04-29 20:49] VITALS: BP 112/46
[2018-04-29] MEDS ORDERED: cefTRIAXone 1 GM Vial IM ONE (21:08)
--- NOTE | 2018-04-29 21:24 | EDM.PDOC ---
ED HPI GENERAL MEDICAL PROBLEM - General Chief Complaint: Genitourinary Problem Stated Complaint: UTI s/s, fall Time Seen by Provider: 04/29/18 20:45 Source of Information: Reports: Patient, Family History Limitations: Reports: No Limitations - History of Present Illness INITIAL COMMENTS - FREE TEXT/NARRATIVE: Patient and son are concerned that patient has UTI. He was seen yesterday in the clinic. Thyroid dose was changed, but no antibiotics initiated. Patient has been a bit confused and has been seeing animals/people that are not really there over the last few days and this has happened before when he has had a UTI. Has had two falls, most recently one tonight. He hit the top of his head on the edge of a doorway. Denies injuries except for bump on top of head. Is on Plavix. No fevers/chills/nausea/GI changes. No hematuria/increased frequency/burning with urination reported. No other acute changes reported. Head Pain Score (Numeric/FACES): 1 Back Pain Score (Numeric/FACES): 4 - Related Data Allergies Allergy/AdvReac Type Severity Reaction Status Date / Time morphine Allergy Hives Verified 04/29/18 20:28 contrast dye Allergy Hives Uncoded 04/29/18 20:28 Home Meds: Home Meds Aspirin [Lo-Dose Aspirin EC] 81 mg PO DAILY 05/02/17 [History] Calcitriol 1 cap PO Q48H 05/02/17 [History] Ipratropium [Atrovent] 1 vial INH QID PRN 05/02/17 [History] atorvaSTATin [Lipitor] 40 mg PO DAILY 05/02/17 [History] Docusate Sodium/Sennosides [Senna Plus] 1 tab PO BID PRN 06/30/17 [History] Bisacodyl [Dulcolax] 5 mg PO DAILY PRN tablet 11/25/17 [Rx] Clopidogrel [Plavix] 75 mg PO DAILY tablet 11/25/17 [Rx] Ipratropium [Atrovent] 0.5 mg NEB QIDRT neb 11/25/17 [Rx] Sennosides [Senna] 8.6 mg PO BID PRN tablet 11/25/17 [Rx] Acetaminophen [Tylenol] 650 mg PO Q4HR PRN tablet 12/13/17 [Rx] Arformoterol [Brovana] 15 mcg NEB BIDRT neb 12/13/17 [Rx] Bumetanide [Bumex] 2 mg PO BIDDIURETIC 90 Days #120 tablet 12/13/17 [Rx] Calcium Acetate [PhosLo] 667 mg PO TIDMEALS cap 12/13/17 [Rx] DULoxetine [Cymbalta] 30 mg PO BEDTIME cap 12/13/17 [Rx] Insulin Aspart [NovoLOG] 18 unit SUBCUT DAILY@0800,1200,1800 pen 12/13/17 [Rx] Insulin Detemir [Levemir] 38 unit SUBCUT BEDTIME pen 12/13/17 [Rx] Lidocaine 5% [Lidoderm 5%] 700 mg TOP DAILY@1900 30 Days patch 12/13/17 [Rx] Metoprolol Succinate [Toprol XL 50mg] 50 mg PO DAILY tab.er 12/13/17 [Rx] Tamsulosin [Flomax] 0.8 mg PO BEDTIME cap.er 12/13/17 [Rx] Levothyroxine 150 mcg PO BEDTIME 04/29/18 [History] Levothyroxine Sodium [Synthroid] 25 mcg PO DAILY 04/29/18 [History] Sulfamethoxazole/Trimethoprim [Septra DS] 1 tab PO BID #14 tablet 04/29/18 [Rx] Past Medical History HEENT History: Reports: Cataract, Hard of Hearing, Impaired Vision, Macular Degeneration, Other (See Below). Denies: Allergic Rhinitis, Glaucoma, Retinal Detachment Other HEENT History: Wears glasses, 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 with no hearing aid therapy Cardiovascular History: Reports: Afib, Aneurysm, Arrhythmia, Automatic Implantable Cardioverter Defibrillators, Bypass, CAD, Cardiomyopathy, Heart Failure, High Cholesterol, Hypertension, [place], Pacemaker, PTCA, PVD, Stents, Other (See Below). 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 Left atrial enlargement and grade 1 diastolic dysfunction by echocardiogram in April 2017 as below. Respiratory History: Reports: Bronchitis, Recurrent, COPD, Intubation, Previous , Pneumonia, Recurrent, Pulmonary Fibrosis, Sleep Apnea. Denies: Asthma, Intubation, Difficult, PE, Pneumothorax, TB Gastrointestinal History: Reports: Cholelithiasis, Chronic Constipation, Colon Polyp, Diverticulosis, Fecal Incontinence, Hemorrhoids, Other (See Below). Denies: Bowel Obstruction, Celiac Disease, Chronic Diarrhea, Gastritis, GERD, GI Bleed, Hepatitis, Inflammatory Bowel Disease, Irritable Bowel Syndrome, Jaundice, Pancreatitis, PUD Other Gastrointestinal History: History of colon cancer on 08/21/07 as below with additional multiple tubular adenomas and an additional villous adenoma at 30 cm. Additional recurrent tubular adenomas 2 in the transverse colon and an additional 2 in the cecal region at time of subsequent colonoscopy on 11/19/08 with last colonoscopy in about 2010, moderate nonsymptomatic cholelithiasis by CT scan and abdominal ultrasound as below with no surgery required Genitourinary History: Reports: BPH, Chronic Renal Insuffiency, Diabetic Nephropathy, Renal Calculus, Retention, Urinary, Urinary Incontinence, UTI, Recurrent, Other (See Below). Denies: Dialysis, STD Other Genitourinary History: Severe bilateral nephrolithiasis in the renal pelvis with multiple recurrent episodes of urolithiasis with last episode of right-sided urolithiasis and mild hydronephrosis on 01/22/13 with spontaneous passage, bilateral renal cysts Musculoskeletal History: Reports: Arthritis, Back Pain, Chronic, Fracture, Neck Pain, Chronic, Osteoarthritis, Osteoporosis, Other (See Below). Denies: Amputation, Gout, RA, SLE Other Musculoskeletal History: Right ankle fracture in the . Scoliosis. Neurological History: Reports: CVA, Headaches, Chronic, Neuropathy, Diabetic, Neuropathy, Peripheral, TIA, Other (See Below). 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 Denies: Abuse, Victim of, ADD, ADHD, Addiction, Alzheimers Disease, Dementia, Psych Hospitalization(s), PTSD, Suicide Attempt, Suicidal Ideation Endocrine/Metabolic History: Reports: Diabetes, Type II, Hypothyroidism, IDDM, Osteoporosis. Denies: Diabetes, Type I Hematologic History: Reports: Anemia, Blood Transfusion(s), Other (See Below). Denies: B12 Deficiency, Iron Deficiency Other Hematologic History: History of postoperative anemia from CABG with transfusions required Immunologic History: Reports: None. Denies: AIDS, HIV, SLE Oncologic (Cancer) History: Reports: Basal Cell Carcinoma, Colon, Other (See Below). Denies: Bladder, Hodgkin's Lymphoma, Leukemia, Lymphoma, Malignant Melanoma, Metastatic, Non-Hodgkin's Lymphoma, Prostate, Squamous Cell Carcinoma Other Oncologic History: History of superficially invasive adenocarcinoma of the colon at 32 cm with colon resection as below, probable basal cell carcinoma of the right cheek Dermatologic History: Reports: Venous Stasis Dermatitis. Denies: Eczema, Psoriasis - Infectious Disease History Infectious Disease History: Reports: Chicken Pox, Measles, Mumps. Denies: C- Difficile, Meningitis, Mononucleosis, MRSA, Pertussis (Whooping Cough), Rheumatic Fever, Rubella, Scarlet Fever, Shingles, TB, VRE - Past Surgical History Head Surgeries/Procedures: Reports: None HEENT Surgical History: Reports: Cataract Surgery, Eye Surgery, Laser Surgery, Oral Surgery, Other (See Below). Denies: Adenoidectomy, LASIK, Myringotomy w Tube(s), Naso-Sinus Surgery, Tonsillectomy Other HEENT Surgeries/Procedures: Left Cataract surgery on 03/27/03 with previous right cataract surgery, history of YAG treatment for posterior capsule clouding , complete teeth extraction Cardiovascular Surgical History: Reports: AICD, Coronary Artery Bypass, Coronary Artery Stent, Pacer, Percutaneous Transluminal Angioplasty, Vascular Surgery, Other (See Below) Other Cardiovascular Surgeries/Procedures: Initial pacemaker/ICD placement in about 1991 with subsequent repeat pacemaker/AICD placement in about 2009, three- vessel CABG in 1991 with history of PTCA/stent 2 in July 2012, additional right inguinal stent placement secondary to peripheral vascular disease Respiratory Surgical History: Reports: None. Denies: Thoracentesis GI Surgical History: Reports: Colon, Colonoscopy, Polypectomy, Other (See Below) . Denies: Appendectomy, Cholecystectomy, EGD, Hernia, Abdominal, Hernia, Inguinal, Hernia Repair/Other Other GI Surgeries/Procedures: Sigmoid colon resection secondary to colon cancer in November 2008, multiple colonic polyp excisions in 2007, 2008, and 2010 with colonoscopies at that time. Male Surgical History: Reports: Lithotripsy (ESWL), Renal Calculus, Ureteral Stent, Other (See Below). Denies: Circumcision, TURP-Transurethral Resection of Prostate, Vasectomy Other Male Surgeries/Procedures: History of multiple bilateral nephrolithiasis including previous spontaneous passage, stone removal, and lithotripsy Endocrine Surgical History: Reports: None Neurological Surgical History: Reports: None. Denies: C-Spine, Discectomy, Intracranial, Laminectomy, Lumbar Spine, Sacral Spine, Scoliosis, Spinal Fusion , Thoracic Spine, Vertebroplasty Musculoskeletal Surgical History: Reports: ORIF, Other (See Below). Denies: Arthroscopic Procedure, Carpal Tunnel, Ganglion Cyst, Joint Replacement, Shoulder Surgery Other Musculoskeletal Surgeries/Procedures:: ORIF of right ankle fracture in about the Oncologic Surgical History: Reports: None Dermatological Surgical History: Reports: Skin Biopsy, Other (See Below) Other Dermatological Surgeries/Procedures: Excision of probable basal cell carcinoma from the right cheek - Past Imaging History Past Imaging History: Reports: JEFFERSON Screen (Positive JEFFERSON screens on 05/30/11, 07/29, and 03/13/07), Bone Scan (Bone scan on 11/14/06), Cardiac Echo (Last echocardiogram on 05/07/17 with ejection fraction of 3035 percent with results as above. Previous Echocardiogram on 02/21/13 with ejection fraction of 46%), Carotid US (12/09/06), CAT Scan (CT of the head on 06/30/17. CT of the abdomen and pelvis on 01/22/13 and 07/20/11), PFT (PFTs on 08/15/07), Stress Testing (Low level cardiac stress test on 09/29/12 with previous Cardiolite stress test on 07/03 with ejection fraction of 40% and Persantine Cardiolite stress test on 07/26/06 with ejection fraction of 39%), Swallow Study (11/28/17), Ultrasound (Right upper quadrant/gallbladder ultrasound on 05/07/17. Renal ultrasound on 08/20/07), Venous Doppler (Venous Doppler studies of the lower extremities on 05/03/17 and 05/29/11 with right-sided evaluation on 01/07/07.) Social & Family History - Family History HEENT: Reports: None. Denies: Glaucoma, Macular Degeneration, Retinal Detachment Cardiac: Reports: CAD, Hypertension, IL, Other (See Below). Denies: Afib, AICD , Aneurysm, Arrhythmia, Blood Clots/VTE/DVT, Bypass, Cardiomyopathy, Heart Failure, Heart Murmur, PVD/COD Other Cardiac Family History: Father with [place] in his 60s, father with hypertension Respiratory: Reports: COPD, Sleep Apnea, Other (See Below). Denies: Asthma, PE Other Respiratory Family Hisory: Brother with COPD with history of tobacco use, another brother with COPD and sleep apnea GI: Reports: Colon Polyps, Other (See Below). Denies: Bowel Obstruction, Celiac Disease, Cholelithiasis, GERD, GI bleed, Inflammatory Bowel Disease, Irritable Bowel Syndrome, PUD Other GI Family History: Brother with probable colonic polyps with history of colon cancer as below : Reports: Renal Calculus. Denies: Dialysis, Renal Disease/Insufficiency Other Family History: Multiple family members with urolithiasis OBGYN: Reports: None. Denies: Endometriosis, Recurrent Spontaneous Musculoskeletal: Reports: Arthritis, Osteoarthritis, Other (See Below). Denies : Gout, RA, SLE Other Musculoskeletal Family History: Multiple Family members with osteoarthritis Neurological: Reports: CVA, Other (See Below). Denies: Alzheimers Disease, Dementia, Migraines, MS, Parkinson's, Seizure, TIA Other Neurological Family History: Mother with history of CVA in his 60s Psychiatric: Reports: None. Denies: Abuse, Victim of, ADD, ADHD, Anxiety, Depression, Psych Hospitalization(s), PTSD, Suicide Attempt Endocrine/Metabolic: Reports: Diabetes, type II, IDDM, Other (See Below). Denies: Diabetes, Type I, Diabetes Mellitus, Type 3c, Hypothyroidism Other Endocrine/Metabolic Family History: Brother IDDM Hematologic: Reports: None. Denies: SLE, Transfusion Reaction Immunologic: Reports: None. Denies: AIDS, HIV, SLE Dermatologic: Reports: None. Denies: Eczema, Psoriasis Oncologic: Reports: Colon, Other (See Below) Other Oncologic Family History: Mother with unknown type of fatal cancer in her early 60s, brother with colon cancer in his 60s - Caffeine Use Caffeine Use: Reports: Coffee (7 cups per week), Soda (Very occasional). 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 Denies: Dental Pain, Ear Pain, Eye Pain, Nose Pain, Throat Pain Respiratory: Reports: No Symptoms (no acute changes compared to baseline) Cardiovascular: Reports: Edema (chronic edema, unchanged). Denies: Chest Pain, Palpitations, Syncope GI/Abdominal: Reports: No Symptoms : Denies: Dysuria, Flank Pain, Frequency, Hematuria, Pain, Urgency Musculoskeletal: Reports: No Symptoms (no acute changes). Denies: Neck Pain Skin: Reports: Bruising (top of head), Lumps (top of head) Neurological: Reports: Confusion (see HPI), Headache (mild, in area of head bump ), Difficulty Walking (chronic, unchanged). Denies: Syncope, Trouble Speaking, Change in Speech Psychiatric: Reports: Hallucinations (see HPI) Hematologic/Lymphatic: Denies: Swollen Glands ED EXAM, RENAL/ - Physical Exam Exam: See Below Exam Limited By: Physical Impairment General Appearance: Alert, No Apparent Distress, Obese Eye Exam: Bilateral Eye: EOMI, PERRL Ears: Hearing Grossly Normal Nose: No: Nasal Tenderness, Nasal Deformity, Nasal Swelling, Nasal Drainage Throat/Mouth: Normal Lips, Normal Voice, No Airway Compromise Head: Other (tender on top of back of head, small hematoma/bruising noted. No depression palpated. ) Neck: Normal Inspection, Supple, Non-Tender, Full Range of Motion Respiratory/Chest: No Respiratory Distress, No Accessory Muscle Use, Decreased Breath Sounds (throughout). No: Crackles, Rales, Rhonchi, Wheezing, Stridor Cardiovascular: Normal Peripheral Pulses, Regular Rate, Rhythm, No Murmur GI/Abdominal: Soft, Non-Tender (Male) Exam: Deferred Rectal (Males) Exam: Deferred Back Exam: No: CVA Tenderness (L), CVA Tenderness (R) Extremities: Normal Capillary Refill, Pedal Edema. No: Increased Warmth, Mottled, Pallor Neurological: Alert, Oriented, Other (equal tone/strength bilaterally) Psychiatric: Normal Affect, Normal Mood Skin Exam: Warm, Dry, Intact, Other ([place] complexion) Course - Vital Signs Last Recorded V/S: Last Vital Signs Temp 36.5 C 04/29/18 20:48 Pulse 72 04/29/18 20:48 Resp 16 04/29/18 20:48 BP 112/46 L 04/29/18 20:48 Pulse Ox 96 04/29/18 20:48 - Orders/Labs/Meds Orders: Active Orders 24 hr Category Date Time Status Head wo Cont [CT] Stat Exams 04/29/18 21:08 Taken CULTURE URINE [RM] Routine Lab 04/29/18 21:28 Received Labs: Laboratory Tests 04/29/18 Range/Units 21:28 Specimen Type Urinblad Urine Color Yellow Urine Appearance Clear Urine pH 5.5 (5.0-9.0) Ur Specific [place] 1.015 (1.005-1.030) Urine Protein Negative (NEGATIVE) mg/dL Urine Glucose (UA) Negative (NEGATIVE) mg/dL Urine Ketones Negative (NEGATIVE) mg/dL Urine Occult Blood Trace-lysed H (NEGATIVE) Urine Nitrite Negative (NEGATIVE) Urine Bilirubin Negative (NEGATIVE) Urine Urobilinogen 0.2 (0.2-1.0) E.U./dL Ur Leukocyte Esterase Small H (NEGATIVE) Urine RBC 5-10 H /HPF Urine WBC 0-5 /HPF Ur Epithelial Cells Rare /LPF Urine Bacteria Rare (NONE TO FEW) /HPF Meds: Medications Discontinued Medications Generic Name Dose Route Start Last Admin Trade Name Freq PRN Reason Stop Dose Admin Ceftriaxone Sodium 1 gm 04/29/18 21:08 Rocephin IM 04/29/18 21:09 ONETIME ONE Trimethoprim/Sulfamethoxazole 1 tab 04/29/18 21:33 Septra Ds PO 04/29/18 21:34 ONETIME ONE - Re-Assessments/Exams Free Text/Narrative Re-Assessment/Exam: 04/29/18 21:27 Review of patient's recent labs showed no recent UA specimen. Request for new specimen placed. CT study of head to rule out intracranial trauma ordered given nature of fall and history of taking Plavix. UA showed small leukocyte esterase, minimal WBCs. Results communicated with son. Head CT negative for acute injury per Radiology. Son continues to be concerned about intermittent vertigo/hallucinations. Vertigo has been ongoing intermittent issue. Recommended to son to see if patient feels improved now that thyroid dose has been increased. Will also place patient on short course of Septra given the leukocyte esterase on UA. Culture requested. [place] [facility] [place]. Departure - Departure Time of Disposition: 22:06 Disposition: Home, Self-Care 01 Condition: Good Clinical Impression: Hallucination, visual Fall Qualifiers: Encounter type: initial encounter Qualified Code(s): W19.XXXA - Unspecified fall, initial encounter Head contusion Qualifiers: Encounter type: initial encounter Contusion of head detail: scalp Qualified Code(s): S00.03XA - Contusion of scalp, initial encounter - Discharge Information *PRESCRIPTION DRUG MONITORING PROGRAM REVIEWED*: Not Applicable *COPY OF PRESCRIPTION DRUG MONITORING REPORT IN PATIENT EWA: Not Applicable Prescriptions: Sulfamethoxazole/Trimethoprim [Septra DS] 1 tab PO BID #14 tablet Referrals: Nicol Banks NP [Primary Care Provider] - Forms: ED Department Discharge Additional Instructions: Follow up next week as scheduled with [facility] See if vertigo/hallucinations improve over the weekend or if new changes develop. Follow up otherwise as needed. Take Septra for one week and discuss if any additional testing is indicated at your follow up appointment. - My Orders Last 24 Hours: My Active Orders 04/29/18 21:08 Head wo Cont [CT] Stat 04/29/18 21:28 CULTURE URINE [RM] Routine - Assessment/Plan Last 24 Hours: My Active Orders 04/29/18 21:08 Head wo Cont [CT] Stat 04/29/18 21:28 CULTURE URINE [RM] Routine
[2018-04-29] MEDS ORDERED: Sulfamethoxazole/Trimethoprim 800-160 MG Tab PO ONE (21:33)
== END 2018-04-29 22:40 | disposition home or self-care (01) ==
LOC: LL.ED 20:26
DX: S00.03XA Contusion of scalp, initial encounter (principal); R44.1 Visual hallucinations; Z79.82 Long term (current) use of aspirin; Z79.899 Other long term (current) drug therapy; Z79.4 Long term (current) use of insulin; I13.0 Hypertensive heart and chronic kidney disease with heart failure and stage 1 through stage 4 chronic kidney disease, or unspecified chronic kidney disease; I50.9 Heart failure, unspecified; N18.9 Chronic kidney disease, unspecified; E11.21 Type 2 diabetes mellitus with diabetic nephropathy; E11.40 Type 2 diabetes mellitus with diabetic neuropathy, unspecified; E11.22 Type 2 diabetes mellitus with diabetic chronic kidney disease; Z95.1 Presence of aortocoronary bypass graft; Z88.5 Allergy status to narcotic agent; Z91.041 Radiographic dye allergy status; W01.198A Fall on same level from slipping, tripping and stumbling with subsequent striking against other object, initial encounter
CPT/HCPCS: 70450; 81001; 87086; 99284; A9270

== ENCOUNTER 2018-05-17 17:38 | Emergency (ER) | payer MEDICARE, MEDICAID ==
[2018-05-17 17:48] VITALS: BP 103/45
--- NOTE | 2018-05-17 18:20 | EDM.PDOC ---
ED HPI GENERAL MEDICAL PROBLEM - General Chief Complaint: General Stated Complaint: Possible UTI, Confusion Time Seen by Provider: 05/17/18 17:41 Source of Information: Reports: Patient History Limitations: Reports: Altered Mental Status - History of Present Illness INITIAL COMMENTS - FREE TEXT/NARRATIVE: Patient has fallen multiple times his mid back has ecchymosis and swelling Patient is a 87-year-old gentleman well-known to myself brought in by son secondary to increased confusion visual hallucination recent history of UTI. Patient seen history of multiple falls with injury to mid back there is ecchymosis and swelling in the area has difficulty time getting up and down also has an ecchymotic area right side which is old secondary to color is yellow Onset: Gradual Duration: Day(s):, Getting Worse Location: Reports: Generalized Quality: Reports: Ache Severity: Moderate Improves with: Reports: None Associated Symptoms: Reports: No Other Symptoms Right Side Ribs Pain Score (Numeric/FACES): 5 - Related Data Allergies Allergy/AdvReac Type Severity Reaction Status Date / Time morphine Allergy Hives Verified 05/17/18 17:41 contrast dye Allergy Hives Uncoded 05/17/18 17:41 Home Meds: Home Meds Aspirin [Lo-Dose Aspirin EC] 81 mg PO DAILY 05/02/17 [History] Calcitriol 1 cap PO Q48H 05/02/17 [History] Ipratropium [Atrovent] 1 vial INH QID PRN 05/02/17 [History] atorvaSTATin [Lipitor] 40 mg PO DAILY 05/02/17 [History] Docusate Sodium/Sennosides [Senna Plus] 1 tab PO BID PRN 06/30/17 [History] Bisacodyl [Dulcolax] 5 mg PO DAILY PRN tablet 11/25/17 [Rx] Clopidogrel [Plavix] 75 mg PO DAILY tablet 11/25/17 [Rx] Ipratropium [Atrovent] 0.5 mg NEB QIDRT neb 11/25/17 [Rx] Sennosides [Senna] 8.6 mg PO BID PRN tablet 11/25/17 [Rx] Acetaminophen [Tylenol] 650 mg PO Q4HR PRN tablet 12/13/17 [Rx] Arformoterol [Brovana] 15 mcg NEB BIDRT neb 12/13/17 [Rx] Bumetanide [Bumex] 2 mg PO BIDDIURETIC 90 Days #120 tablet 12/13/17 [Rx] Calcium Acetate [PhosLo] 667 mg PO TIDMEALS cap 12/13/17 [Rx] DULoxetine [Cymbalta] 30 mg PO BEDTIME cap 12/13/17 [Rx] Insulin Aspart [NovoLOG] 18 unit SUBCUT DAILY@0800,1200,1800 pen 12/13/17 [Rx] Insulin Detemir [Levemir] 38 unit SUBCUT BEDTIME pen 12/13/17 [Rx] Lidocaine 5% [Lidoderm 5%] 700 mg TOP DAILY@1900 30 Days patch 12/13/17 [Rx] Metoprolol Succinate [Toprol XL 50mg] 50 mg PO DAILY tab.er 12/13/17 [Rx] Tamsulosin [Flomax] 0.8 mg PO BEDTIME cap.er 12/13/17 [Rx] Levothyroxine 150 mcg PO BEDTIME 04/29/18 [History] Levothyroxine Sodium [Synthroid] 25 mcg PO DAILY 04/29/18 [History] Amoxicillin/Clavulanate K [Augmentin 500-125 MG] 1 tab PO BID 10 Days #14 tablet 05/17/18 [Rx] Sulfamethoxazole/Trimethoprim [Septra DS] 0.5 tab PO BID 05/17/18 [History] Past Medical History HEENT History: Reports: Cataract, Hard of Hearing, Impaired Vision, Macular Degeneration, Other (See Below) Other HEENT History: Wears glasses, 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 with no hearing aid therapy Cardiovascular History: Reports: Afib, Aneurysm, Arrhythmia, Automatic Implantable Cardioverter Defibrillators, Bypass, CAD, Cardiomyopathy, Heart Failure, High Cholesterol, Hypertension, MA, Pacemaker, PTCA, PVD, Stents, Other (See Below) Other Cardiovascular History: Previous pacemaker and ICD placement 2 as below, coronary artery disease with history of MA in 1991 with cardiac procedures as below, atrial fibrillation, PVCs, 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 Left atrial enlargement and grade 1 diastolic dysfunction by echocardiogram in April 2017 as below. Respiratory History: Reports: Bronchitis, Recurrent, COPD, Intubation, Previous , Pneumonia, Recurrent, Pulmonary Fibrosis, Sleep Apnea Gastrointestinal History: Reports: Cholelithiasis, Chronic Constipation, Colon Polyp, Diverticulosis, Fecal Incontinence, Hemorrhoids, Other (See Below) Other Gastrointestinal History: History of colon cancer on 08/21/07 as below with additional multiple tubular adenomas and an additional villous adenoma at 30 cm. Additional recurrent tubular adenomas 2 in the transverse colon and an additional 2 in the cecal region at time of subsequent colonoscopy on 11/19/08 with last colonoscopy in about 2010, moderate nonsymptomatic cholelithiasis by CT scan and abdominal ultrasound as below with no surgery required Genitourinary History: Reports: BPH, Chronic Renal Insuffiency, Diabetic Nephropathy, Renal Calculus, Retention, Urinary, Urinary Incontinence, UTI, Recurrent, Other (See Below) Other Genitourinary History: Severe bilateral nephrolithiasis in the renal pelvis with multiple recurrent episodes of urolithiasis with last episode of right-sided urolithiasis and mild hydronephrosis on 01/22/13 with spontaneous passage, bilateral renal cysts Musculoskeletal History: Reports: Arthritis, Back Pain, Chronic, Fracture, Neck Pain, Chronic, Osteoarthritis, Osteoporosis, Other (See Below) Other Musculoskeletal History: Right ankle fracture in the . Scoliosis. 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 after colon resection in November 2008 Psychiatric History: Reports: Anxiety, Depression Endocrine/Metabolic History: Reports: Diabetes, Type II, Hypothyroidism, IDDM, Osteoporosis Hematologic History: Reports: Anemia, Blood Transfusion(s), Other (See Below) Other Hematologic History: History of postoperative anemia from CABG with transfusions required Immunologic History: Reports: None Oncologic (Cancer) History: Reports: Basal Cell Carcinoma, Colon, Other (See Below) Other Oncologic History: History of superficially invasive adenocarcinoma of the colon at 32 cm with colon resection as below, probable basal cell carcinoma of the right cheek Dermatologic History: Reports: Venous Stasis Dermatitis - Infectious Disease History Infectious Disease History: Reports: Chicken Pox, Measles, Mumps - Past Surgical History Head Surgeries/Procedures: Reports: None HEENT Surgical History: Reports: Cataract Surgery, Eye Surgery, Laser Surgery, Oral Surgery, Other (See Below) Other HEENT Surgeries/Procedures: Left Cataract surgery on 03/27/03 with previous right cataract surgery, history of YAG treatment for posterior capsule clouding , complete teeth extraction Cardiovascular Surgical History: Reports: AICD, Coronary Artery Bypass, Coronary Artery Stent, Pacer, Percutaneous Transluminal Angioplasty, Vascular Surgery, Other (See Below) Other Cardiovascular Surgeries/Procedures: Initial pacemaker/ICD placement in about 1991 with subsequent repeat pacemaker/AICD placement in about 2009, three- vessel CABG in 1991 with history of PTCA/stent 2 in July 2012, additional right inguinal stent placement secondary to peripheral vascular disease Respiratory Surgical History: Reports: None GI Surgical History: Reports: Colon, Colonoscopy, Polypectomy, Other (See Below) Other GI Surgeries/Procedures: Sigmoid colon resection secondary to colon cancer in November 2008, multiple colonic polyp excisions in 2007, 2008, and 2010 with colonoscopies at that time. Male Surgical History: Reports: Lithotripsy ([facility]), Renal Calculus, Ureteral Stent, Other (See Below) Other Male Surgeries/Procedures: History of multiple bilateral nephrolithiasis including previous spontaneous passage, stone removal, and lithotripsy Endocrine Surgical History: Reports: None Neurological Surgical History: Reports: None Musculoskeletal Surgical History: Reports: ORIF, Other (See Below) Other Musculoskeletal Surgeries/Procedures:: ORIF of right ankle fracture in about the Oncologic Surgical History: Reports: None Dermatological Surgical History: Reports: Skin Biopsy, Other (See Below) - Past Imaging History Past Imaging History: Reports: JEFFERSON Screen (Positive JEFFERSON screens on 05/30/11, 07/29, and 03/13/07), Bone Scan (Bone scan on 11/14/06), Cardiac Echo (Last echocardiogram on 05/07/17 with ejection fraction of 3035 percent with results as above. Previous Echocardiogram on 02/21/13 with ejection fraction of 46%), Carotid US (12/09/06), CAT Scan (CT of the head on 06/30/17. CT of the abdomen and pelvis on 01/22/13 and 07/20/11), PFT (PFTs on 08/15/07), Stress Testing (Low level cardiac stress test on 09/29/12 with previous Cardiolite stress test on 07/03 with ejection fraction of 40% and Persantine Cardiolite stress test on 07/26/06 with ejection fraction of 39%), Swallow Study (11/28/17), Ultrasound (Right upper quadrant/gallbladder ultrasound on 05/07/17. Renal ultrasound on 08/20/07), Venous Doppler (Venous Doppler studies of the lower extremities on 05/03/17 and 05/29/11 with right-sided evaluation on 01/07/07.) Social & Family History - Family History HEENT: Reports: None Cardiac: Reports: CAD, Hypertension, MA, Other (See Below) Other Cardiac Family History: Father with MA in his 60s, father with hypertension Respiratory: Reports: COPD, Sleep Apnea, Other (See Below) Other Respiratory Family Hisory: Brother with COPD with history of tobacco use, another brother with COPD and sleep apnea GI: Reports: Colon Polyps, Other (See Below) Other GI Family History: Brother with probable colonic polyps with history of colon cancer as below : Reports: Renal Calculus Other Family History: Multiple family members with urolithiasis OBGYN: Reports: None Musculoskeletal: Reports: Arthritis, Osteoarthritis, Other (See Below) Other Musculoskeletal Family History: Multiple Family members with osteoarthritis Neurological: Reports: CVA, Other (See Below) Other Neurological Family History: Mother with history of CVA in his 60s Psychiatric: Reports: None Endocrine/Metabolic: Reports: Diabetes, type II, IDDM, Other (See Below) Other Endocrine/Metabolic Family History: Brother IDDM Hematologic: Reports: None Immunologic: Reports: None Dermatologic: Reports: None Oncologic: Reports: Colon, Other (See Below) Other Oncologic Family History: Mother with unknown type of fatal cancer in her early 60s, brother with colon cancer in his 60s - Caffeine Use Caffeine Use: Reports: Coffee, Soda - Living Situation & Occupation Living situation: Reports: (2016, 2 children), with Family (Son) 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 Is incontinent ), Incontinence, Urgency Musculoskeletal: Reports: No Symptoms Neurological: Reports: Confusion (Is normal for his age a seizures), Dizziness, Gait Disturbance ED EXAM, GENERAL - Physical Exam Exam: See Below Exam Limited By: Altered Mental Status General Appearance: Alert, WD/WN, Mild Distress Ears: Normal External Exam, Normal Canal, Hearing Loss (He's been having problems losing his urine rate with a hearing) Ear Exam: Bilateral Ear: Auricle Normal, Canal Normal, TM normal Nose: Normal Inspection, Normal Mucosa, No Blood Throat/Mouth: Normal Inspection, Normal Lips, Normal Teeth, Normal Gums, Normal Oropharynx, Normal Voice, No Airway Compromise Head: Atraumatic, Normocephalic Neck: Normal Inspection, Supple, Non-Tender, Full Range of Motion Respiratory/Chest: Decreased Breath Sounds Cardiovascular: Regular Rate, Rhythm, No Edema, No Murmur, No Rub GI/Abdominal: Normal Bowel Sounds, Soft, Non-Tender, No Organomegaly, No Distention, No Abnormal Bruit, No Mass (Male) Exam: Deferred Rectal (Males) Exam: Deferred Back Exam: Decreased Range of Motion, Other (Midthoracic ecchymosis and swelling ) Neurological: Alert, Oriented, CN II-XII Intact, Normal Cognition, Normal Gait, Normal Reflexes, No Motor/Sensory Deficits Psychiatric: Normal Affect, Normal Mood, Other (Visual hallucinations and auditory) Skin Exam: Ecchymosis Lymphatic: No Adenopathy Course - Vital Signs Last Recorded V/S: Last Vital Signs Temp 97.8 F 05/17/18 17:40 Pulse 87 05/17/18 17:40 Resp 16 05/17/18 17:40 BP 103/45 L 05/17/18 17:40 Pulse Ox 95 05/17/18 17:40 - Orders/Labs/Meds Labs: Laboratory Tests 05/17/18 05/17/18 05/17/18 Range/Units 18:28 18:28 18:50 WBC 11.0 H (4.0-10.2) K/uL RBC 4.24 L (4.33-5.41) M/uL Hgb 13.4 (13.1-16.8) g/dL Hct 41.8 (39.0-49.0) % MCV 98.6 H (84.0-98.0) fL MCH 31.6 (28.2-33.3) pg MCHC 32.1 (31.7-36.0) g/dL RDW 13.7 (11.2-14.1) % Plt Count 160 (150-350) K/uL Neut % (Auto) 82.2 H (45.0-80.0) % Lymph % (Auto) 8.6 L (10.0-50.0) % [place] % (Auto) 7.2 (2.0-14.0) % Eos % (Auto) 1.6 (0.0-5.0) % Baso % (Auto) 0.4 (0.0-2.0) % Neut # (Auto) 9.00 H (1.40-7.00) K/uL Lymph # (Auto) 0.94 (0.50-3.50) K/uL [place] # (Auto) 0.79 (0.00-1.00) K/uL Eos # (Auto) 0.18 (0.00-0.50) K/uL Baso # (Auto) 0.04 (0.00-0.20) K/uL Sodium 141 (136-145) mmol/L Potassium 4.7 (3.5-5.1) mmol/L Chloride 101 (98-107) mmol/L Carbon Dioxide 29.9 (21.0-32.0) mmol/L BUN 36 H (7-18) mg/dL Creatinine 2.03 H (0.51-1.17) mg/dL Est Cr Clr Drug Dosing 23.87 mL/min Estimated GFR (MDRD) 31 mL/min Glucose 333 H (74-106) mg/dL Calcium 9.2 (8.5-10.1) mg/dL Total Bilirubin 0.4 (0.2-1.0) mg/dL AST 24 (15-37) U/L ALT 32 (12-78) U/L Alkaline Phosphatase 146 H (46-116) IU/L Total Protein 7.7 (6.4-8.2) g/dL Albumin 3.4 (3.4-5.0) g/dL Specimen Type Urinvoid Urine Color Yellow Urine Appearance Clear Urine pH 6.0 (5.0-9.0) Ur Specific [place] 1.015 (1.005-1.030) Urine Protein Trace H (NEGATIVE) mg/dL Urine Glucose (UA) 500 H (NEGATIVE) mg/dL Urine Ketones Negative (NEGATIVE) mg/dL Urine Occult Blood Trace-intact H (NEGATIVE) Urine Nitrite Negative (NEGATIVE) Urine Bilirubin Negative (NEGATIVE) Urine Urobilinogen 0.2 (0.2-1.0) E.U./dL Ur Leukocyte Esterase Negative (NEGATIVE) Urine RBC 10-20 H /HPF Urine WBC 5-10 H /HPF Ur Epithelial Cells Few /LPF Urine Bacteria Rare (NONE TO FEW) /HPF Departure - Departure Time of Disposition: 19:10 Disposition: Home, Self-Care 01 Condition: Fair Clinical Impression: Urinary tract infection Qualifiers: Urinary tract infection type: site unspecified Hematuria presence: without hematuria Qualified Code(s): N39.0 - Urinary tract infection, site not specified - Discharge Information *PRESCRIPTION DRUG MONITORING PROGRAM REVIEWED*: No *COPY OF PRESCRIPTION DRUG MONITORING REPORT IN PATIENT EWA: No Prescriptions: Amoxicillin/Clavulanate K [Augmentin 500-125 MG] 1 tab PO BID 10 Days #14 tablet Instructions: Amoxicillin; Clavulanic Acid tablets, Urinary Tract Infection, Adult Referrals: Nicol Banks NP [Primary Care Provider] - Forms: ED Department Discharge Care Plan Goals: Patient creatinine was elevated at 2.03 with a creatinine clearance of 23.8 UA revealed 5-10 WBCs negative nitrates but patient had been on Septra until now at this time I am concerned with the use of Septra and is currently being so high we will switch him over to Augmentin 500 twice a day this should be good with his creatinine. If no improvement in the next 24-48 hours patient is to return. Or if worsening of his condition
== END 2018-05-17 19:50 | disposition home or self-care (01) ==
LOC: LL.ED 17:38
DX: N39.0 Urinary tract infection, site not specified (principal); S20.229A Contusion of unspecified back wall of thorax, initial encounter; R44.0 Auditory hallucinations; R44.1 Visual hallucinations; I13.0 Hypertensive heart and chronic kidney disease with heart failure and stage 1 through stage 4 chronic kidney disease, or unspecified chronic kidney disease; I50.9 Heart failure, unspecified; N18.9 Chronic kidney disease, unspecified; Z79.4 Long term (current) use of insulin; Z79.82 Long term (current) use of aspirin; Z79.899 Other long term (current) drug therapy; W19.XXXA Unspecified fall, initial encounter
CPT/HCPCS: 36415; 71046; 80053; 81001; 85025; 99285